=== PATIENT | male | born 1955 | race Caucasian/White ===

== ENCOUNTER → 2017-10-29 | Outpatient (CLI) | payer OTHER ==
--- NOTE | 2017-10-29 09:39 | US ---
EXAMINATION TYPE: US venous doppler duplex LE RT DATE OF EXAM: 10/29/2017 9:26 AM COMPARISON: NONE CLINICAL HISTORY: M79.661 Pain r lower leg, R22.41 Swelling. SIDE PERFORMED: Right TECHNIQUE: The lower extremity deep venous system is examined utilizing real time linear array sonog elsy with graded compression, doppler sonography and color-flow sonography. VESSELS IMAGED: External Iliac Vein (EIV) Common Femoral Vein Deep Femoral Vein Greater Saphenous Vein * Femoral Vein Popliteal Vein Small Saphenous Vein * Proximal Calf Veins (* superficial vessels) Right Leg: Negative for DVT IMPRESSION: 1. Right lower extremity venous ultrasound negative for deep venous thrombosis.
== END | disposition home or self-care (01) ==
LOC: RADUSWWP 08:57
PROVIDERS: ATTEND Internal Medicine
DX: M79.661 Pain in right lower leg (principal); R22.41 Localized swelling, mass and lump, right lower limb

== ENCOUNTER 2018-03-24 22:29 | Emergency (ER) | payer MEDICAID, OTHER ==
[2018-03-24] MEDS ORDERED: SODIUM CHLORIDE 0.9% 1,000 ML IV STA (23:41)
[2018-03-24 23:56] LABS: Basophils # (A) 0.1 k/uL (0-0.2); Basophils % (A) 1 %; Eosinophils # (A) 0.3 k/uL (0-0.7); Eosinophils % (A) 2 %; HCT 44.1 % (39.0-53.0); HGB 16.1 gm/dL (13.0-17.5); Lymphocytes # (A) 3.6 k/uL (1.0-4.8); Lymphocytes % (A) 28 %; MCH 29.5 pg (25.0-35.0); MCHC 36.5 g/dL (31.0-37.0); MCV 80.9 fL (80.0-100.0); Mean Platelet Volume 7.6; Monocytes # (A) 0.5 k/uL (0-1.0); Monocytes % (A) 4 %; Neutrophils # (A) 8.1 k/uL (1.3-7.7); Neutrophils % (A) 64 %; Platelet Count 246 k/uL (150-450); RBC 5.45 m/uL (4.30-5.90); RDW 13.4 % (11.5-15.5); WBC 12.7 k/uL (3.8-10.6)
[2018-03-25] MEDS ORDERED: ONDANSETRON 4 MG/2 ML VIAL IVP STA
[2018-03-25] MEDS ORDERED: MORPHINE SULFATE 4 MG/ML SYRINGE IVP STA
--- NOTE | 2018-03-25 00:04 | ED ---
General Adult HPI - General Chief complaint: Abdominal Pain Stated complaint: Abd Pain Time Seen by Provider: 03/24/18 23:31 Source: patient Mode of arrival: ambulatory Limitations: no limitations - History of Present Illness Initial comments: 43-year-old male with a past medical history of hypertension and kidney stones presents to the emergency department for a chief complaint of left lower quadrant pain 3 hours. Since states it started in his lower back and is now in his left lower abdomen. He describes the pain as a sharp pain. He states it feels better when he presses on the area. Patient states he has been having normal bowel movements and denies any blood in the stool. Patient denies any urinary symptoms. Patient denies any fevers or chills at home. Patient denies any pain in the testicle. Patient denies a history of diverticulitis.Patient has no other complaints at this time including shortness of breath, chest pain, abdominal pain, nausea or vomiting, headache, or visual changes. - Related Data Home Medications Medication Instructions Recorded Confirmed Losartan Potassium 100 mg PO DAILY 03/24/18 03/24/18 NIFEdipine [NIFEdipine ER] 60 mg PO DAILY 03/24/18 03/24/18 Previous Rx's Medication Instructions Recorded HYDROcodone/APAP 5-325MG [[place] 1 tab PO Q6HR PRN #10 tab 03/25/18 5-325] Ondansetron [Zofran ODT] 4 mg PO Q8HR PRN #15 tab 03/25/18 Tamsulosin [Flomax] 0.4 mg PO DAILY #20 cap 03/25/18 Allergies Allergy/AdvReac Type Severity Reaction Status Date / Time No Known Allergies Allergy Verified 03/24/18 23:40 Review of Systems ROS Statement: Those systems with pertinent positive or pertinent negative responses have been documented in the HPI. ROS Other: All systems not noted in ROS Statement are negative. Past Medical History Past Medical History: Hypertension Additional Past Medical History / Comment(s): Kidney stones History of Any Multi-Drug Resistant Organisms: None Reported Past Surgical History: Appendectomy, Hernia Repair, Orthopedic Surgery Past Psychological History: No Psychological Hx Reported Smoking Status: Current every day smoker Past Alcohol Use History: Rare Past Drug Use History: None Reported General Exam Limitations: no limitations General appearance: alert, in no apparent distress Head exam: Present: atraumatic, normocephalic, normal inspection Eye exam: Present: normal appearance, PERRL, EOMI. Absent: scleral icterus, conjunctival injection, periorbital swelling ENT exam: Present: normal exam, mucous membranes moist Neck exam: Present: normal inspection. Absent: tenderness, meningismus, lymphadenopathy Respiratory exam: Present: normal lung sounds bilaterally. Absent: respiratory distress, wheezes, rales, rhonchi, stridor Cardiovascular Exam: Present: regular rate, normal rhythm, normal heart sounds. Absent: systolic murmur, diastolic murmur, rubs, gallop, clicks GI/Abdominal exam: Present: soft, tenderness (LLQ, no tenderness elsewhere in the abdomen including the right lower quadrant and upper abdomen.), rebound ( Rebound tenderness noted in the left lower quadrant), normal bowel sounds. Absent: distended, guarding, rigid Back exam: Absent: CVA tenderness (R), CVA tenderness (L) Neurological exam: Present: alert, oriented X3, CN II-XII intact Psychiatric exam: Present: normal affect, normal mood Course Vital Signs 03/24/18 03/25/18 03/25/18 22:59 00:52 02:41 Temperature 97.7 F 98.2 F Pulse Rate 61 66 Respiratory 20 16 Rate Blood Pressure 152/94 164/99 159/99 O2 Sat by Pulse 97 96 Oximetry EKG Findings - EKG Comments: EKG Findings:: Sinus bradycardia, ventricular rate 57, OR interval 180, QTC 434 Medical Decision Making - Medical Decision Making 63-year-old male presents to the emergency department for chief complaint of left low back pain as well as left lower abdominal pain. He describes the pain as sharp pain. On exam there is minimal tenderness to palpation of the left lower quadrant. Minimal CVA tenderness noted. CBC unremarkable. White count of 12 likely reactive. CMP unremarkable. Creatinine 1.26 patient is at baseline at 1.10 and was given fluids. CT did show obstructing calculus at the left UPJ with hydronephrosis. Patient will follow up with urology for this. He will also follow up for hydrocele enlarged prostate. Patient will follow up with primary for hiatal hernia. Patient was given morphine and Zofran in the emergency department which significantly helped with his pain. He was given [place] at home. He was also given Flomax. He denies taking Viagra. He will return if he has any worsening symptoms. Patient's blood pressure is elevated at 159/99. I did offer to treat patient's blood pressure but he states that he is soon due for his hypertension medication which is at home that he would rather take. He is asymptomatic at this time. - Lab Data Result diagrams: 03/24/18 23:20 03/24/18 23:20 Lab Results 03/24/18 03/24/18 03/25/18 Range/Units 23:20 23:20 01:10 WBC 12.7 H (3.8-10.6) k/uL RBC 5.45 (4.30-5.90) m/uL Hgb 16.1 (13.0-17.5) gm/dL Hct 44.1 (39.0-53.0) % MCV 80.9 (80.0-100.0) fL MCH 29.5 (25.0-35.0) pg MCHC 36.5 (31.0-37.0) g/dL RDW 13.4 (11.5-15.5) % Plt Count 246 (150-450) k/uL Neutrophils % 64 % Lymphocytes % 28 % Monocytes % 4 % Eosinophils % 2 % Basophils % 1 % Neutrophils # 8.1 H (1.3-7.7) k/uL Lymphocytes # 3.6 (1.0-4.8) k/uL Monocytes # 0.5 (0-1.0) k/uL Eosinophils # 0.3 (0-0.7) k/uL Basophils # 0.1 (0-0.2) k/uL Sodium 141 (137-145) mmol/L Potassium 4.1 (3.5-5.1) mmol/L Chloride 107 (98-107) mmol/L Carbon Dioxide 25 (22-30) mmol/L Anion Gap 9 mmol/L BUN 29 H (9-20) mg/dL Creatinine 1.26 H (0.66-1.25) mg/dL Est GFR (CKD-EPI)AfAm 69 (>60 ml/min/1.73 sqM) Est GFR (CKD-EPI)NonAf 60 (>60 ml/min/1.73 sqM) Glucose 109 H (74-99) mg/dL Calcium 10.0 (8.4-10.2) mg/dL Total Bilirubin 0.6 (0.2-1.3) mg/dL AST 25 (17-59) U/L ALT 29 (21-72) U/L Alkaline Phosphatase 95 (38-126) U/L Total Protein 7.6 (6.3-8.2) g/dL Albumin 4.3 (3.5-5.0) g/dL Amylase 95 (30-110) U/L Lipase 218 (23-300) U/L Urine Color Light Yellow Urine Appearance Clear (Clear) Urine pH 7.5 (5.0-8.0) Ur Specific [place] 1.026 (1.001-1.035) Urine Protein Negative (Negative) Urine Glucose (UA) Negative (Negative) Urine Ketones Negative (Negative) Urine Blood Moderate H (Negative) Urine Nitrite Negative (Negative) Urine Bilirubin Negative (Negative) Urine Urobilinogen <2.0 (<2.0) mg/dL Ur Leukocyte Esterase Negative (Negative) Urine RBC 152 H (0-5) /hpf Urine WBC 6 H (0-5) /hpf Urine Mucus Rare H (None) /hpf Disposition Clinical Impression: Nephrolithiasis Disposition: HOME SELF-CARE Condition: Good Instructions: Kidney Stones (ED) Additional Instructions: Please take medications as directed. Please follow-up with urology in 1-2 days for kidney stone, hydrocele, and enlarged prostate. Please follow-up with primary care for hiatal hernia. Please return to the emergency department if you have any worsening symptoms. Prescriptions: HYDROcodone/APAP 5-325MG [[place] 5-325] 1 tab PO Q6HR PRN #10 tab PRN Reason: Pain Ondansetron [Zofran ODT] 4 mg PO Q8HR PRN #15 tab PRN Reason: Nausea Tamsulosin [Flomax] 0.4 mg PO DAILY #20 cap Is patient prescribed a controlled substance at d/c from ED?: No Referrals: Colten Henson MD [Primary Care Provider] - 1-2 days Alessandro Berman MD [STAFF PHYSICIAN] - 1-2 days Time of Disposition: 02:02
[2018-03-25 00:08] LABS: Albumin 4.3 g/dL (3.5-5.0); Potassium 4.1 mmol/L (3.5-5.1); Total Bilirubin 0.6 mg/dL (0.2-1.3); Total Protein 7.6 g/dL (6.3-8.2)
--- NOTE | 2018-03-25 01:00 | CT ---
EXAMINATION TYPE: CT abdomen pelvis w con DATE OF EXAM: 03/25/2018 COMPARISON: None HISTORY: No prior, left flank and low abd pain, history of appendectomy and hernia repair CT DLP: 1025.7 mGycm Automated exposure control for dose reduction was used. TECHNIQUE: Helical acquisition of images was performed from the lung bases through the pelvis. CONTRAST: Performed without Oral Contrast and with IV Contrast, patient injected with 100 mL of Isovue 300. FINDINGS: There is mild subsegmental atelectasis at the lung bases. There is mild hiatal hernia. The remainder of the stomach appears normal. Heart size is normal. There is no pericardial effusion. There is no pl eural effusion. Liver shows no focal defect. Gallbladder is contracted. Bile ducts are not dilated. Spleen appears no rmal. There is no evidence of pancreatic mass. There is no adrenal mass. There is 5 mm calcification on the left adrenal gland that could be due to old hemorrhage. Kidneys show satisfactory contrast opacification. There is mild left-sided hydronephrosis. There is 7 mm calculus lateral left kidney. There is 5 mm obstructing calculus at the left ureteropelvic juncti on. There is 4 mm calculus upper pole right kidney. There is one Thi calculus lower pole right kidn ey. There is no retroperitoneal adenopathy. Bladder distends smoothly. There is no free fluid in the pelvis. The prostate is enlarged and measure s 5.2 cm. There is no mesenteric adenopathy or edema. There is no inguinal hernia. There is probably right side scrotal hydrocele. There is no intestinal wall thickening. There are no dilated loops. Appendix is not seen. There is no sign of appendicitis. There is small umbilical hernia contains fat. There are some spondylotic cannon es in the lumbar spine. I see no bony destructive process. The bony pelvis appears intact. IMPRESSION: BILATERAL RENAL CALCULI. OBSTRUCTING CALCULUS AT THE LEFT URETEROPELVIC JUNCTION WITH HYDRONEPHROSIS. ENLARGED PROSTATE. HIATAL HERNIA. THIS PROBABLY RIGHT-SIDED HYDROCELE.
[2018-03-25 01:28] LABS: Appearance,Urine Clear (Clear); Bilirubin,Urine Negative (Negative); Blood,Urine Moderate (Negative); Color,Urine Light Yellow; Glucose,Urine (UA) Negative (Negative); Ketones,Urine Negative (Negative); Leukocyte Esterase,Urine Negative (Negative); Mucus,Urine Rare /hpf; Nitrite,Urine Negative (Negative); PH, Urine 7.5 (5.0-8.0); Protein,Urine Negative (Negative); RBC,Urine 152 /hpf (0-5); Specific Gravity,Urine 1.026 (1.001-1.035); Urobilinogen,Urine <2.0 mg/dL (<2.0); WBC,Urine 6 /hpf (0-5)
[2018-03-25 02:49] VITALS: BP 159/99; PULSE 66; RESP 16; TEMP 98.2
== END 2018-03-25 02:45 | disposition home or self-care (01) ==
LOC: EC 22:29
DX: N13.2 Hydronephrosis with renal and ureteral calculous obstruction (principal); N43.3 Hydrocele, unspecified; N40.0 Benign prostatic hyperplasia without lower urinary tract symptoms; K44.9 Diaphragmatic hernia without obstruction or gangrene; I10 Essential (primary) hypertension; F17.200 Nicotine dependence, unspecified, uncomplicated; Z79.899 Other long term (current) drug therapy; Z90.49 Acquired absence of other specified parts of digestive tract
CPT/HCPCS: 36415; 74177; 80053; 81001; 82150; 83690; 85025; 93005; 96361; 96374; 96375; 99284

== ENCOUNTER → 2018-03-30 | Outpatient (CLI) | payer MEDICAID ==
--- NOTE | 2018-03-30 11:47 | XR ---
EXAMINATION TYPE: XR KUB DATE OF EXAM: 03/30/2018 11:15 AM CLINICAL HISTORY: History of bilateral nephrolithiasis (3 in the right and 2 on the left per patient history). Left lower quadrant pain and mid abdominal pain. TECHNIQUE: Single supine KUB image of the abdomen is obtained. COMPARISON: 05/12/2011. FINDINGS: In addition to a previously seen punctate calculus on the right on the exam of 2010 there i s are 2 new calculi measuring 1.2 cm and 0.4 cm. On the left there are at least 2 calculi adjacent to one another measuring 3 mm and 5 mm. Additionally there is a calculus along the course of the left u reter measuring 5 mm between the transverse processes of L4 and L5. No calculi are seen within the pe lvis. Scattered gas is seen in non-distended small bowel loops. Gas and fecal material is seen in non -distended colon. There is no visceromegaly, pneumoperitoneum, or abnormal calcification appreciated. The lung bases are clear and the osseous structures are intact. IMPRESSION: 1. 5 mm calculus along the course of the left ureter between the L4 and L5 transverse processes. CT a bdomen or ultrasound could assess for obstructive uropathy/hydronephrosis. 2. Additional bilateral presumably nonobstructing renal calculi.
[2018-03-30 16:36] LABS: Basophils # (A) 0.1 k/uL (0-0.2); Basophils % (A) 1 %; Eosinophils # (A) 0.3 k/uL (0-0.7); Eosinophils % (A) 3 %; HGB 15.2 gm/dL (13.0-17.5); Lymphocytes # (A) 4.2 k/uL (1.0-4.8); Lymphocytes % (A) 42 %; MCH 28.4 pg (25.0-35.0); MCHC 35.4 g/dL (31.0-37.0); MCV 80.2 fL (80.0-100.0); Mean Platelet Volume 7.9; Monocytes # (A) 0.4 k/uL (0-1.0); Monocytes % (A) 4 %; Neutrophils # (A) 4.9 k/uL (1.3-7.7); Neutrophils % (A) 49 %; Platelet Count 268 k/uL (150-450); RBC 5.36 m/uL (4.30-5.90); RDW 13.1 % (11.5-15.5)
[2018-03-30 16:39] LABS: Appearance,Urine Clear (Clear); Bilirubin,Urine Negative (Negative); Blood,Urine Negative (Negative); Color,Urine Yellow; Glucose,Urine (UA) Negative (Negative); Hyaline Casts,Urine 7 /lpf (0-2); Ketones,Urine Negative (Negative); Leukocyte Esterase,Urine Trace (Negative); Mucus,Urine Rare /hpf; Nitrite,Urine Negative (Negative); Protein,Urine Negative (Negative); RBC,Urine 1 /hpf (0-5); Specific Gravity,Urine 1.014 (1.001-1.035); Urobilinogen,Urine <2.0 mg/dL (<2.0); WBC,Urine 9 /hpf (0-5)
[2018-03-30 16:46] LABS: Calcium 9.9 mg/dL (8.4-10.2); Potassium 3.7 mmol/L (3.5-5.1)
== END | disposition home or self-care (01) ==
LOC: RADXRMAIN 10:52
PROVIDERS: ATTEND Urology
DX: N20.1 Calculus of ureter (principal); Z88.5 Allergy status to narcotic agent
CPT/HCPCS: 36415; 74018; 80048; 81001; 85025

== ENCOUNTER → 2018-04-12 | Outpatient (CLI) | payer MEDICAID ==
--- NOTE | 2018-04-12 10:30 | XR ---
Abdomen HISTORY: Kidney stone Frontal view of the abdomen on 2 images correlated to prior abdomen 03/30/2018, CT abdomen pelvis Multiple calcifications are present bilaterally at the lower poles of the kidneys as noted on prior e xam. The calcification superimposed over the left ureter may have migrated in the interval, there is a calcification superimposed over the sacral ala on the left measuring approximately 5 mm at the left lobe of the distal ureter. Rounded calcification is superimposed over the right sacral ala as on shelby or exam. Lung bases are not included on exam. IMPRESSION: Bilateral nephrolithiasis. There may been interval progression of patient's left-sided ur eteral calculus
== END ==
LOC: RADXRMAIN 06:54
PROVIDERS: ATTEND Urology
DX: N20.0 Calculus of kidney (principal)
CPT/HCPCS: 74018

== ENCOUNTER → 2018-04-28 | Outpatient (CLI) | payer MEDICAID ==
--- NOTE | 2018-04-30 00:06 | CT ---
EXAMINATION TYPE: CT soft tissue neck w con DATE OF EXAM: 04/28/2018 COMPARISON: None HISTORY: 63-year-old male with mass on left side neck, marked with BB TECHNIQUE: Contiguous axial scanning of the soft tissues of the neck performed with IV Contrast, zachery ent injected with 100 mL of Isovue 300. Coronal/sagittal reconstructions performed. CT DLP: 742 mGycm Automated exposure control for dose reduction was used. FINDINGS: Visualized intracranial structures, orbits and globes, and mastoid air cells appear clear. There is extensive partial opacification of the right maxillary sinus with some reactive new osteogen esis imperfecta the sinus xie and some intrinsic associated calcific densities within the sinus. Ri ghtward nasal septal deviation. Very tortuous bilateral internal carotid arteries are demonstrated along the neck. Nasopharynx is clear. Bilateral palatine tonsillar hypertrophy without evidence for any discrete enhancing mucosal space ma ss. There is slight asymmetric nodular thickening along the right aryepiglottic fold, on the first axial image 51. Otherwise, the vocal folds are symmetrical. The trachea and visualized upper lungs are george r. In the visualized upper thorax, the upper descending thoracic aorta is mildly aneurysmal at 3.5 cm . Mildly distended upper thoracic esophagus with air-fluid level within. There is an enhancing nodule measuring 2.0 x 1.3 cm in the inferior right thyroid lobe. The submandib ular and parotid glands are satisfactory. A palpable marker is placed along the left lateral mid neck. There is underlying cervical lymphadenop athy, Station 3 interposed between the sternal cleidomastoid muscle and carotid space lymph node armani uring up to 3.0 cm short axis, refer to axial image 48, coronal image 42, and sagittal image 62. The intervening fat plane with the overlying sternocleidomastoid is not well-defined. Second enlarged lym ph node just below measures 2.0 cm, axial image 53. Moderate cervical spondylosis mid to lower cervical spine. IMPRESSION: 1. PALPABLE MARKER ALONG THE LEFT LATERAL MID NECK. UNDERLYING, THERE IS STATION 3 LEFT-SIDED LYMPHAD ENOPATHY WITH AT LEAST 2 ENLARGED LYMPH NODES MEASURING UP TO 3.0 AND 2.0 CM. METASTATIC DISEASE NOT EXCLUDED THOUGH A CLEAR HEAD AND NECK PRIMARY IS NOT IDENTIFIED. 2. SLIGHT ASYMMETRIC NODULAR THICKENING OF THE RIGHT ARYEPIGLOTTIC FOLD. RECOMMEND DIRECT VISUALIZATI ON TO FURTHER EVALUATE. 3. BILATERAL PALATINE TONSILLAR HYPERTROPHY WITHOUT DISCRETE ENHANCING MASS HERE. 4. ENHANCING NODULE WITHIN THE RIGHT LOBE OF THE THYROID GLAND MEASURES 2.0 CM. THYROID ULTRASOUND CA N BETTER CHARACTERIZE. FNA MAY BE INDICATED. 5. SEVERE CHRONIC RIGHT MAXILLARY SINUSITIS. INTRINSIC CALCIFICATIONS SUGGEST SUPERIMPOSED ASPERGILLU S INFECTION. 6. SLIGHT DISTENTION OF THE UPPER THORACIC ESOPHAGUS WITH AIR-FLUID LEVEL. CORRELATE FOR GERD. IN ADD ITION, THERE IS MILD ANEURYSM OF THE VISUALIZED UPPER DESCENDING THORACIC AORTA AT 3.5 CM.
== END ==
LOC: RADCTMAIN 14:40
PROVIDERS: ATTEND Internal Medicine
DX: E04.1 Nontoxic single thyroid nodule (principal); R59.0 Localized enlarged lymph nodes; J35.1 Hypertrophy of tonsils; J38.7 Other diseases of larynx
CPT/HCPCS: 70491; Q9967

== ENCOUNTER 2018-05-12 08:30 | Day surgery (SDC) | payer MEDICAID ==
[2018-05-12 08:57] VITALS: TEMP 97.9
[2018-05-12 10:48] VITALS: PULSE 60; RESP 16
--- NOTE | 2018-05-12 10:55 | US ---
EXAMINATION TYPE: US fine needle aspiration, US biopsy lymph node DATE OF EXAM: 05/12/2018 HISTORY: Left knee mass. FINDINGS: Maximal barrier technique was utilized. The skin overlying a suitable path to the patient' s mass was localized with ultrasound and the overlying skin prepped and draped. Ultrasound was utili zed with sterile technique. Lidocaine was used for local anesthesia. Under direct ultrasound guidan ce 2 passes with a 25-gauge needle were made into the left-sided neck mass and specimen submitted to cytology. A skin hali was made with a scalpel. An 18-gauge needle was advanced under direct ultrasou nd guidance and core specimen obtained of the mass. Specimen submitted in formalin to Pathology. Fo llowing the procedure, hemostasis achieved and the patient is discharged in stable condition without complication. IMPRESSION:STATUS POST ULTRASOUND GUIDED FINE-NEEDLE ASPIRATION AND CORE BIOPSY OF left neck MASS, PA THOLOGY IS PENDING. THIS PROCEDURE IS PERFORMED BY THE UNDERSIGNED.
--- NOTE | 2018-05-12 10:58 | US ---
EXAMINATION TYPE: US FNA thyroid DATE OF EXAM: 05/12/2018 COMPARISON: NONE HISTORY: Thyroid nodule, E04.1 Maximal barrier technique was utilized. Ultrasound using sterile technique. The skin overlying the no dule was localized with ultrasound and the overlying skin prepped and draped. Lidocaine used for loca l anesthesia. 5 passes with a 25-gauge needle were made into the nodule under ultrasound guidance. As pirate specimen submitted to cytology. Following the procedure hemostasis achieved. No immediate comp lication IMPRESSION: Status post ultrasound-guided fine-needle aspiration of right thyroid nodule, pathology p ending.
[2018-05-12 11:11] VITALS: BP 159/100
== END 2018-05-12 11:10 | disposition home or self-care (01) ==
LOC: RADPROMAIN 08:30
PROVIDERS: ATTEND Otolaryngology
DX: C77.0 Secondary and unspecified malignant neoplasm of lymph nodes of head, face and neck (principal); E04.1 Nontoxic single thyroid nodule
CPT/HCPCS: 10022; 38505; 76942; 88173; 88305; 88341; 88342

== ENCOUNTER → 2018-06-05 | Outpatient (CLI) | payer MEDICAID ==
[2018-06-05 11:29] LABS: HCT 48.8 % (39.0-53.0); HGB 16.9 gm/dL (13.0-17.5); MCH 28.1 pg (25.0-35.0); MCHC 34.7 g/dL (31.0-37.0); Mean Platelet Volume 7.6; Platelet Count 284 k/uL (150-450); RBC 6.03 m/uL (4.30-5.90); RDW 13.7 % (11.5-15.5)
== END ==
LOC: LABPAT 10:36
PROVIDERS: ATTEND Anesthesiology
DX: Z01.818 Encounter for other preprocedural examination (principal); Z01.812 Encounter for preprocedural laboratory examination; E04.1 Nontoxic single thyroid nodule
CPT/HCPCS: 36415; 85027; 93005

== ENCOUNTER → 2018-06-05 | Outpatient (CLI) | payer MEDICAID ==
--- NOTE | 2018-06-07 06:33 | PE ---
EXAMINATION TYPE: PET CT fusion skull to thigh DATE OF EXAM: 06/05/2018 COMPARISON: CT neck April 28, 2018. CT abdomen and pelvis March 25, 2018. HISTORY: Head and neck cancer diagnosed on biopsy May 12, 2018. TECHNIQUE: Following the intravenous administration of 10.52 mCi of F-18 FDG, whole body images are performed from the skull base to the midthigh. Images are reviewed on the computer in the coronal, a xial, and sagittal planes. Reconstructed rotating images are created on independent workstation and reviewed on the computer. A noncontrast CT is performed in conjunction with the PET scan. Dedicated PET/CT imaging of the neck is also acquired. SCAN: Initial Scan FINDINGS: SKULL BASE AND NECK: There is asymmetric left-sided soft tissue thickening at base of tongue with ab normal hypermetabolic uptake measuring roughly 1.2 cm cm transversely axial image 37, max SUV is 12.4 1. Cannot exclude right-sided extension as there is more subtle hypermetabolic uptake extending to ri ght of midline, max SUV is 7.27 on axial image 37.. There is abnormal enlarged hypermetabolic lymph node at level of false focal cords measuring 2.9 x 2. 2 cm axial image 56, max SUV is 10.97. There is second smaller hypermetabolic posterior inferior lymph node at level of the true vocal cords measuring 1.8 x 1.3 cm axial image 59, max SUV is 8.63. CHEST, MEDIASTINUM, AND HILAR REGION: No suspicious hypermetabolic uptake is seen. ABDOMEN AND PELVIS: No suspicious hypermetabolic uptake is present. Normal excretion is seen. OSSEOUS STRUCTURES: No suspicious hypermetabolic uptake is seen. OTHER CT: Near complete hyperdense filling of right maxillary sinus is redemonstrated. Dependent atelectasis bilateral lower lobes is present. Ascending aorta measures up to 4.2 cm in diameter axial image 108. Moderate three-vessel coronary artery calcifications present which is noted marker for coronary arter y disease. Moderate size fixed hiatal hernia is redemonstrated. There is 3 mm calculus upper pole right kidney axial image 166 redemonstrated. There is interval pass age of 9 mm calculus into collecting system and UPJ axial image 178. There is redemonstration of 2-3 left-sided renal calculi including dominant 8 mm calculus axial image 180. There is simple appearing exophytic 2.3 cm cyst medially lower pole of left kidney 207. Prostate gland is enlarged in size bulging and bladder base consistent with BPH, correlate clinically . Heterogeneous asymmetric right sided soft tissue axial image 236 could reflect scar tissue from prior hernia repair surgery. No suspicious hypermetabolic uptake is present. There are small bilateral scrotal fluid collection or hydroceles. Multilevel spurring in the thoracolumbar spine is present. There is mild/moderate calcified plaque in the aorta extending into branch vessels. IMPRESSION: Poorly defined primary neoplasm at least involving the left base of tongue, cannot exclud e right-sided extension. Left-sided adenopathy noted. No metastatic disease is evident.
== END | disposition home or self-care (01) ==
LOC: RADPETMAIN 07:21
PROVIDERS: ATTEND Otolaryngology
DX: C01 Malignant neoplasm of base of tongue (principal)
CPT/HCPCS: 78815; A9552

== ENCOUNTER → 2018-06-09 | Day surgery (SDC) | payer MEDICAID ==
[2018-06-04 09:54] VITALS: BMI 28.3
[~2018-06-09] MED LIST: DEXAMETHASONE SOD PHOSPHATE 10 MG/ML 1 ML VIAL IV ONE; DEXAMETHASONE SOD PHOSPHATE 4 MG/ML 1 ML VIAL IV ONE; FAMOTIDINE 20 MG/2 ML VIAL IV ONE; HYDROmorphone 0.5 MG/0.5 ML SYRINGE IVP PRN; LACTATED RINGERS 1,000 ML IV SCH; LIDOCAINE 1% 20 ML VIAL (10MG/ML) FOR IV START INTRADERMA PRN; LIDOCAINE 1% INJ 10MG/ML (20 ML MDV) ONE; MIDAZOLAM (PF) 2 MG/2 ML VIAL IV PRN; MIDAZOLAM 2 MG/2 ML VIAL ONE; ONDANSETRON 4 MG/2 ML VIAL IVP ONE; PROPOFOL 10 MG/ML 20 ML VIAL IV ONE; SCOPOLAMINE 1.5MG/72HR PATCH TRANSDERM ONE; SUCCINYLCHOLINE CHLORIDE 100 MG/5 ML SYR IV ONE; fentaNYL (PF) 50 MCG/ML 2 ML AMP ONE
--- NOTE | 2018-06-09 12:09 | P.OP ---
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 He's had fine-needle aspiration which showed squamous cell carcinoma. Initially no particular were primary site was noted however he has had a PET scan in the meantime which indicated a lesion of the left base of tongue Operative Findings: Mild left base of tongue hypertrophy that was biopsied, Description of Procedure: The patient was brought in the operative suite and placed in a supine position. The patient underwent induction of general anesthesia with oral endotracheal intubation without difficulty. The patient was prepped and draped in usual aseptic fashion. Palpation of the base of tongue revealed no particular abnormalities. Tooth guard was placed. Direct laryngoscopy was performed with systematic evaluation of the base of tongue vallecula both piriform sinuses post cricoid area and endolarynx. Due to the findings on the PET scan the laryngoscope was placed in position to evaluate further the left base of tongue and was placed in suspension. Multiple biopsies were taken at the left base of tongue. There was some lingual tonsillar hypertrophy but no well demarcated lesion but multiple biopsies were taken in the left base of tongue. Hemostasis was gained spontaneously. The vocal cords were then visualized again and the laryngoscope placed in suspension. Possible bronchoscopy was performed down to the level of the secondary bronchi with no abnormalities noted. The bronchoscope was then withdrawn. The laryngoscope was then withdrawn and rigid esophagoscopy was performed to the level of the gastroesophageal junction with no abnormalities noted. Esophagoscope was withdrawn. The hemostasis remained good in the hypopharynx. The patient was allowed to emerge from general anesthesia having tolerating the procedure well and is excised in the operating suite and transferred to the postop recovery area in satisfactory condition.
[2018-06-09 12:29] VITALS: TEMP 97.3
[2018-06-09 13:48] VITALS: RESP 16
[2018-06-09 14:02] VITALS: BP 143/91; PULSE 72
== END | disposition home or self-care (01) ==
LOC: OR 09:02
PROVIDERS: ATTEND Otolaryngology
DX: K14.9 Disease of tongue, unspecified (principal); C96.9 Malignant neoplasm of lymphoid, hematopoietic and related tissue, unspecified; K21.9 Gastro-esophageal reflux disease without esophagitis; I51.9 Heart disease, unspecified; I10 Essential (primary) hypertension; Z79.891 Long term (current) use of opiate analgesic; Z79.899 Other long term (current) drug therapy; Z88.5 Allergy status to narcotic agent; Z91.09 Other allergy status, other than to drugs and biological substances; F17.290 Nicotine dependence, other tobacco product, uncomplicated; Z87.442 Personal history of urinary calculi
CPT/HCPCS: 88305; 31535; 31622; 43191; J2250; J1100; J2405; J2001; J3010; J0330; J2704

== ENCOUNTER 2018-06-25 07:59 | Observation (INO) | payer MEDICAID ==
[2018-06-22 16:19] VITALS: BMI 29.7
[2018-06-25] MEDS: LACTATED RINGERS 1,000 ML IV SCH ×2 (08:32→18:38)
[2018-06-25] MEDS ORDERED: ceFAZolin 1,000 MG in DEXTROSE/WATER 1 50ML.BAG IVPB STA (09:05)
[2018-06-25 09:27] LABS: HCT 45.7 % (39.0-53.0); HGB 15.7 gm/dL (13.0-17.5); MCH 28.3 pg (25.0-35.0); MCHC 34.3 g/dL (31.0-37.0); MCV 82.5 fL (80.0-100.0); Mean Platelet Volume 7.7; Platelet Count 237 k/uL (150-450); RBC 5.55 m/uL (4.30-5.90); WBC 10.2 k/uL (3.8-10.6)
[2018-06-25 09:31] LABS: INR 0.9 (<1.2); Prothrombin Time 10.1 sec (9.0-12.0)
[2018-06-25] MEDS ORDERED: MIDAZOLAM 2 MG/2 ML VIAL ONE (09:55)
[2018-06-25] MEDS ORDERED: fentaNYL (PF) 50 MCG/ML 2 ML AMP ONE (09:55)
[2018-06-25] MEDS ORDERED: PROPOFOL 10 MG/ML 20 ML VIAL IV ONE (09:55)
[2018-06-25] MEDS ORDERED: LIDOCAINE 1% INJ 10MG/ML (20 ML MDV) ONE (09:55)
--- NOTE | 2018-06-25 10:21 | P.PCN ---
Date of Procedure: 06/25/18 Procedure(s) Performed: Brief history: Patient is a 63-year-old pleasant white male, diagnosed with head and neck cancer 4 weeks ago. He scheduled to undergo chemo and radiation next week. He is hence scheduled for an EGD with PEG tube placement today. Procedure performed: EGD with attempted PEG tube placement Preoperative diagnosis: Recently diagnosed head and neck carcer IV sedation by anesthesia Procedure: After informed consent was obtained with the patient as well as the family the patient was brought into the endoscopy unit. IV conscious sedation was administered by anesthesia under continuous monitoring. The Olympus GF 160 video endoscope was inserted into the mouth and esophagus intubated without any difficulty and was gradually advanced to the stomach and duodenum. The bulb and second part of the duodenum was visualized which appeared normal. The scope at this time was withdrawn to the stomach adequately insufflated with air. Adequate transillumination could not achieved. There was some transient transillumination noted just below the xiphisternum and at this place one percent Xylocaine was infiltrated into the skin. I passed the needle after the skin was injected with 1% Xylocaine but could not see entering into the stomach. Despite multiple attempts and trying a different spots I was not able to identify a safe spot and hence at this time I decided to terminate the procedure. The visualized portions of the stomach appeared normal. There was a moderate size hernia noted. The scope was withdrawn to the esophagus and the GE junction was located at 36 cm from the incisors which appeared normal. Patient tolerated the procedure well. Impression: PEG tube could not be placed as adequate transillumination could not be achieved on the anterior abdominal wall Moderate size hiatal hernia. Recommendations: Findings of this examination were discussed with the patient's family. Suspected could not be placed I will obtain a surgical consultation for an open G-tube placement.
[2018-06-25 12:04] LABS: Calcium 9.7 mg/dL (8.4-10.2); Potassium 4.4 mmol/L (3.5-5.1)
[2018-06-25] MEDS ORDERED: ONDANSETRON 4 MG/2 ML VIAL IVP PRN (16:00)
[2018-06-25] MEDS ORDERED: ACETAMINOPHEN TAB 325 MG TAB PO PRN (16:00)
[2018-06-25] MEDS ORDERED: NALOXONE 0.4 MG/ML 1 ML VIAL IV PRN (16:00)
[2018-06-25] MEDS ORDERED: HYDROcodone/APAP 5-325MG 1 EACH TAB PO PRN (16:00)
--- NOTE | 2018-06-25 16:03 | P.HPIM ---
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 He was undergoing PEG tube placement and still be starting chemo and radiation on 06/[address] Clemens and Dr. Stern respectively. Today PEG tube placement was not possible as adequate visualization was not achieved. During the procedure there was concern that the patient was jumping between tachycardia and bradycardia as well as having ventricular bigeminy. They felt that the patient needs to be evaluated by cardiology prior to discharge. We have admitted him as observation overnight to rule out any significant arrhythmia. Patient seen and examined at bedside. For the last 2 months he has undergone several biopsies and was found to have cancer. He states he first noticed a swelling on his back over the summer but then it became larger and harder so he sought medical attention. He is otherwise been in his normal state of health. He denies any chest pain, shortness of breath, nausea, vomiting, diarrhea, constipation, dysuria, or unusual weakness. He reports that he has had a few infrequent transient episodes of dizziness over the last couple of months. He denies any other problems. He states he had a stress test at one point in time but it was unrevealing. He denies any history of heart problems or arrhythmias. His mother has had a history of arrhythmia and his father had coronary artery bypass grafting completed. He has not recently started or stopped any medications and he follows with Dr. Henson on a regular basis. Review of Systems Pertinent positives and negatives as discussed in HPI, a complete review of systems was performed and all other systems are negative. 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 Kidney stones, thyroid nodule & enlarged lymph node left side of neck History of Any Multi-Drug Resistant Organisms: None Reported Past Surgical History: Appendectomy, Hernia Repair, Orthopedic Surgery Additional Past Surgical History / Comment(s): tongue, thyroid, and lymph node bx,arthroscopies both knees Past Anesthesia/Blood Transfusion Reactions: No Reported Reaction Additional Past Anesthesia/Blood Transfusion Reaction / Comment(s): no hx blood transfusion Past Psychological History: No Psychological Hx Reported Smoking Status: Former smoker Past Alcohol Use History: Rare Additional Past Alcohol Use History / Comment(s): quit smoking Jun 2018,-SMOKEd a pipe MAINLY ON WEEKENDS OFF AND ON SINCE AGE 12 Past Drug Use History: None Reported Additional History: 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 Medications and Allergies Home Medications Medication Instructions Recorded Confirmed Type Losartan Potassium 100 mg PO DAILY 03/24/18 06/25/18 History NIFEdipine [NIFEdipine ER] 60 mg PO DAILY 03/24/18 06/25/18 History Aspirin 81 mg PO DAILY 05/05/18 06/25/18 History L.acidoph,Paracasei, B.lactis 1 cap PO DAILY 05/05/18 06/25/18 History [Probiotic] Naproxen Sodium [Aleve] 220 mg PO DAILY PRN 05/05/18 06/25/18 History Omeprazole 20 mg PO DAILY 05/05/18 06/25/18 History Cbd Oil 0.5 mg PO DAILY 06/22/18 06/25/18 History Allergies Allergy/AdvReac Type Severity Reaction Status Date / Time meperidine [From Demerol] Allergy fever Verified 06/25/18 14:31 Physical Exam Osteopathic Statement: *. No significant issues noted on an osteopathic structural exam other than those noted in the History and Physical/Consult. Vitals: Vital Signs Temp Pulse Pulse Pulse Resp BP BP 06/25/18 15:08 97.6 F 42 L 18 154/92 06/25/18 14:35 90 18 148/90 06/25/18 14:20 78 16 153/93 06/25/18 13:31 79 17 159/98 06/25/18 11:05 102 H 16 152/94 06/25/18 10:53 52 L 16 153/92 06/25/18 10:35 52 L 16 136/92 06/25/18 10:21 58 L 16 149/84 06/25/18 08:28 98 F 68 18 174/97 Pulse Ox 06/25/18 15:08 97 06/25/18 14:35 96 01/25/19 14:20 97 06/25/18 13:31 98 06/25/18 11:05 96 06/25/18 10:53 98 06/25/18 10:35 94 L 06/25/18 10:21 94 L 06/25/18 08:28 98 Intake and Output 06/25/18 06/25/18 06/25/18 06:59 14:59 22:59 Intake Total 700 Balance 700 Intake: IV 700 Other: # Voids 1 General: non toxic, no distress, appears at stated age, normal weight Derm: Bruising over his abdominal area no unusual rashes/lesions no unusual ecchymoses, warm, dry Head: atraumatic, normocephalic, symmetric Eyes: EOMI, no lid lag, anicteric sclera, pupils equal round reactive to light ENT: Nose and ears atraumatic, no thrush, no pharyngeal erythema Neck: No thyromegaly, left-sided and I with enlargement, no palpable mass but feels enlarged, trachea midline, supple Mouth: no lip lesion, mucus membranes moist Cardiovascular: S1S2 reg, no murmur, positive posterior tibial pulse bilateral, no edema, capillary refill less than 2 seconds Lungs: CTA bilateral, no rhonchi, no rales , no accessory muscle use Abdominal: soft, nontender to palpation, no guarding, no appreciable organomegaly, normal bowel sounds Ext: no gross muscle atrophy, muscle strength 5 out of 5 in all 4 extremities grossly, no contractures, Neuro: CN II-XI grossly intact, light touch intact all 4 extremities, finger to nose within normal limits, Psych: Alert, oriented, appropriate affect Results CBC & Chem 7: 06/25/18 09:14 06/25/18 11:12 Labs: Abnormal Lab Results - Last 24 Hours (Table) 06/25/18 Range/Units 11:12 BUN 23 H (9-20) mg/dL Creatinine 1.37 H (0.66-1.25) mg/dL Thrombosis Risk Factor Assmnt - DVT/VTE Prophylaxis DVT/VTE Prophylaxis: Low risk, early ambulation encouraged - Choose All That Apply Each Risk Factor Represents 2 Points: Age 61-74 years Thrombosis Risk Factor Assessment Total Risk Factor Score: 2 Thrombosis Risk Factor Assessment Level: Low Risk Assessment and Plan Assessment: Ventricular bigeminy -There was concerns for bradycardia followed by tachycardia. However telemetry strips provided were reviewed and it appears during the episodes of bradycardia Shafer only counting the PVCs and not the extra heartbeat. It appears that all heart rates were consistently around 100. He does have episodes of bigeminy and sinus tachycardia. -We'll monitor on telemetry -Awaiting call back from oncology to see if cardiac clearance still needed -Patient currently in normal sinus rhythm on telemetry at a rate of 77. Head and neck cancer -Plan for discharge in a.m. so patient can start chemo and radiation on 06/29/18 -Plan is to see how he tolerates chemoradiation and avoid open G-tube at this point in time unless he develops symptoms Hypertension, slightly accelerated -Likely secondary to recent procedure -Resume home medications CKD III Cr at baseline of 1.37 - continue losartan, avoid dehydration GERD - PPI The patient is placed in observation with an anticipated less than 2 per night stay for evaluation of ventricular bigenemy Surrogate decision-maker: Payton CODE STATus: FULL DVT prophylaxis: early ambulation Discussed with: patient, nursing, loida lynn NP Anticipated discharge date: [address]: home A total of 65 minutes was spent on the care of this complex patient more than 50 % of the time was spent in counseling and care coordination.
[2018-06-26 04:04] VITALS: RESP 18
[2018-06-26] MEDS ORDERED: PANTOPRAZOLE 40 MG TABLET PO SCH (07:30)
--- NOTE | 2018-06-26 08:37 | P.CRDCN ---
History of Present Illness Consult date: 06/26/18 Chief complaint: Cardiac arrhythmia History of present illness: This is a pleasant 63-year-old gentleman with a past medical history significant for intermediate triple-vessel coronary artery disease based on heart catheterization was performed in 2006, hypertension, and history of smoking, who was diagnosed recently with a squamous cell cancer of the head and neck and he was admitted to the hospital yesterday to undergo PEG tube placement. The patient is going to be started on chemotherapy and radiation therapy. The PEG tube placement was unsuccessful because of inadequate visualization. During the procedure, it was noted that the patient was experiencing arrhythmia in the term of tachycardia, the cardiac, and bigeminy. Because of that the patient was kept overnight for monitoring and obtain cardiac consult. The patient was completely asymptomatic from a cardiovascular standpoint of view, where he denies having any chest pain or discomfort, shortness of breath, dizziness or lightheadedness, or feeling of heart racing or fluttering. I did review the blood pressure and heart rate within the last 24 hours and it showed that the patient heart rate did not drop below 50. The EKG showed sinus rhythm with PVCs and sometimes bigeminy. In terms of past medical history he does have coronary artery disease was intermediate based on heart catheterization in 2006. Also he does have hypertension The patient used to smoke pipe but he quit smoking recently. From the cardiac vascular standpoint of view, I am going to obtain an echocardiogram to assess the left ventricular systolic function. The creatinine is a slightly alleviated. 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 Kidney stones, thyroid nodule & enlarged lymph node left side of neck History of Any Multi-Drug Resistant Organisms: None Reported Past Surgical History: Appendectomy, Hernia Repair, Orthopedic Surgery Additional Past Surgical History / Comment(s): tongue, thyroid, and lymph node bx,arthroscopies both knees Past Anesthesia/Blood Transfusion Reactions: No Reported Reaction Additional Past Anesthesia/Blood Transfusion Reaction / Comment(s): no hx blood transfusion Past Psychological History: No Psychological Hx Reported Smoking Status: Former smoker Past Alcohol Use History: Rare Additional Past Alcohol Use History / Comment(s): quit smoking Jun 2018,-SMOKEd a pipe MAINLY ON WEEKENDS OFF AND ON SINCE AGE 12 Past Drug Use History: None Reported - Past Family History Mother Family Medical History: No Reported History Additional Family Medical History / Comment(s): Arrhythmia Father Family Medical History: Myocardial Infarction ([place]), Pneumonia Additional Family Medical History / Comment(s): CABG x3 at an early age. Medications and Allergies Home Medications Medication Instructions Recorded Confirmed Type Losartan Potassium 100 mg PO DAILY 03/24/18 06/25/18 History NIFEdipine [NIFEdipine ER] 60 mg PO DAILY 03/24/18 06/25/18 History Aspirin 81 mg PO DAILY 05/05/18 06/25/18 History L.acidoph,Paracasei, B.lactis 1 cap PO DAILY 05/05/18 06/25/18 History [Probiotic] Naproxen Sodium [Aleve] 220 mg PO DAILY PRN 05/05/18 06/25/18 History Omeprazole 20 mg PO DAILY 05/05/18 06/25/18 History Cbd Oil 0.5 mg PO DAILY 06/22/18 06/25/18 History Allergies Allergy/AdvReac Type Severity Reaction Status Date / Time meperidine [From Demerol] Allergy fever Verified 06/25/18 14:31 Physical Exam Vitals: Vital Signs Temp Pulse Pulse Pulse Resp BP BP 06/26/18 08:00 18 06/26/18 04:00 97.9 F 57 L 18 166/96 06/26/18 00:00 97.4 F L 58 L 16 156/96 06/25/18 20:00 98.0 F 81 16 157/97 06/25/18 16:00 18 06/25/18 15:08 97.6 F 42 L 18 154/92 06/25/18 14:35 90 18 148/90 06/25/18 14:20 78 16 153/93 06/25/18 13:31 79 17 159/98 06/25/18 11:05 102 H 16 152/94 06/25/18 10:53 52 L 16 153/92 06/25/18 10:35 52 L 16 136/92 06/25/18 10:21 58 L 16 149/84 Pulse Ox 06/26/18 08:00 06/26/18 04:00 96 06/26/18 00:00 97 06/25/18 20:00 94 L 06/25/18 16:00 06/25/18 15:08 97 06/25/18 14:35 96 06/25/18 14:20 97 06/25/18 13:31 98 06/25/18 11:05 96 06/25/18 10:53 98 06/25/18 10:35 94 L 06/25/18 10:21 94 L Intake and Output 06/25/18 06/26/18 06/26/18 22:59 06:59 14:59 Other: Voiding Method Toilet Toilet Toilet # Voids 1 1 1 - Constitutional General appearance: no acute distress - Respiratory Respiratory: bilateral: CTA - Cardiovascular Rhythm: regular Heart sounds: normal: S1, S2 Results 06/25/18 09:14 06/25/18 11:12 Coagulation 06/25/18 Range/Units 09:14 PT 10.1 (9.0-12.0) sec CBC 06/25/18 Range/Units 09:14 WBC 10.2 (3.8-10.6) k/uL RBC 5.55 (4.30-5.90) m/uL Hgb 15.7 (13.0-17.5) gm/dL Hct 45.7 (39.0-53.0) % Plt Count 237 (150-450) k/uL Comprehensive Metabolic Panel 06/25/18 Range/Units 11:12 Sodium 139 (137-145) mmol/L Potassium 4.4 (3.5-5.1) mmol/L Chloride 104 (98-107) mmol/L Carbon Dioxide 28 (22-30) mmol/L BUN 23 H (9-20) mg/dL Creatinine 1.37 H (0.66-1.25) mg/dL Glucose 91 (74-99) mg/dL Calcium 9.7 (8.4-10.2) mg/dL Current Medications Generic Name Dose Route Start Last Admin Trade Name Freq PRN Reason Stop Dose Admin Acetaminophen 650 mg 06/25/18 16:00 Tylenol Tab PO Q6HR PRN Mild Pain or Fever > 100.5 Hydrocodone Bitart/Acetaminophen 1 each 06/25/18 16:00 [place] 5-325 PO Q4HR PRN Moderate Pain Aspirin 81 mg 06/26/18 09:00 Aspirin PO DAILY GORDY Lactated Ringer's 1,000 mls @ 20 mls/hr 06/25/18 05:42 06/25/18 18:38 Lactated Ringers IV Not Given .Q24H GORDY Lactobacillus Acidoph/[place] 1 each 06/26/18 09:00 Lactinex PO DAILY GORDY Losartan Potassium 100 mg 06/26/18 09:00 Cozaar PO DAILY GORDY Naloxone HCl 0.2 mg 06/25/18 16:00 Narcan IV Q2M PRN Opioid Reversal Nifedipine 60 mg 06/26/18 09:00 Procardia Xl PO DAILY GORDY Ondansetron HCl 4 mg 06/25/18 16:00 Zofran IVP Q8HR PRN Nausea And Vomiting Pantoprazole Sodium 40 mg 06/26/18 07:30 Protonix PO AC-BRKFST GORDY Intake and Output 06/25/18 06/26/18 06/26/18 22:59 06:59 14:59 Other: Voiding Method Toilet Toilet Toilet # Voids 1 1 1 06/25/18 09:14 06/25/18 11:12 Assessment and Plan Assessment: Assessment #1 cardiac arrhythmia in the term off PVCs and ventricular bigeminy. The patient was completely asymptomatic and continues to be asymptomatic #2 recent diagnosed as off squamous cell carcinoma of the head and neck #3 intermediate triple-vessel coronary artery disease #4 history of smoking Plan #1 no profound bradycardia noted within the last 12-24 hours #2 the patient remains asymptomatic from a cardiac standpoint #3 recommend obtaining an echocardiogram to assess the LV function #4 obtain TSH to rule out hypo-or hyperthyroidism #5 event monitor, probably as an outpatient #6 from the cardiac standpoint he can be discharged home. Thank you for allowing us participate in his care
[2018-06-26] MEDS ORDERED: ASPIRIN 81 MG PO SCH (09:00)
[2018-06-26] MEDS ORDERED: LOSARTAN 50 MG TAB PO SCH (09:00)
[2018-06-26] MEDS ORDERED: LACTOBACILLUS ACIDOPH & BULGAR 1 EACH PACKET PO SCH (09:00)
[2018-06-26 09:11] VITALS: BP 158/101; PULSE 54; TEMP 97.8
--- NOTE | 2018-06-26 11:54 | P.DS ---
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 He was undergoing PEG tube placement and still be starting chemo and radiation on 06/[address] Clemens and Dr. Stern respectively. Today PEG tube placement was not possible as adequate visualization was not achieved. During the procedure there was concern that the patient was jumping between tachycardia and bradycardia as well as having ventricular bigeminy. They felt that the patient needs to be evaluated by cardiology prior to discharge. We have admitted him as observation overnight to rule out any significant arrhythmia. On further review of tele strips no bradycardia noted but ventricular bigeminy noted. Seen by cardio had a echo and cleared for discharge. Will follow with Dr. Pathak in 3-4 weeks as has a hx of CAD on cath that was intermittent. Will follow with Dr. Henson for BP monitoring. He will be starting chemo and radiation on 06/[address] Castellanos and Dr. Stern. Patient seen and examined at bedside.No chest pain, YOSHI, lightheadedness, or nausea. Vital signs reviewed and stable. General: non toxic, no distress, appears at stated age Derm: warm, dry Head: atraumatic, normocephalic, symmetric, left sided neck enlargement Eyes: EOMI, no lid lag, anicteric sclera Mouth: no lip lesion, mucus membranes moist Cardiovascular: S1S2 reg, no murmur, positive posterior tibial pulse bilateral, Lungs: CTA bilateral, no rhonchi, no rales , no accessory muscle use Abdominal: soft, nontender to palpation, no guarding, no appreciable organomegaly Ext: no gross muscle atrophy, no edema, no contractures Neuro: CN II-XI grossly intact, no focal neuro deficits Psych: Alert, oriented, appropriate affect A total of 20 minutes of time were spent preparing this complex discharge summary . Pertinent Studies: Echo-pending Patient Condition at Discharge: Stable Plan - Discharge Summary Discharge Rx Participant: Yes New Discharge Prescriptions: Continue Losartan Potassium 100 mg PO DAILY NIFEdipine [NIFEdipine ER] 60 mg PO DAILY Naproxen Sodium [Aleve] 220 mg PO DAILY PRN PRN Reason: arthritis pain Aspirin 81 mg PO DAILY Omeprazole 20 mg PO DAILY L.acidoph,Paracasei, B.lactis [Probiotic] 1 cap PO DAILY Cbd Oil 0.5 mg PO DAILY Discharge Medication List Losartan Potassium 100 mg PO DAILY 03/24/18 [History] NIFEdipine [NIFEdipine ER] 60 mg PO DAILY 03/24/18 [History] Aspirin 81 mg PO DAILY 05/05/18 [History] L.acidoph,Paracasei, B.lactis [Probiotic] 1 cap PO DAILY 05/05/18 [History] Naproxen Sodium [Aleve] 220 mg PO DAILY PRN 05/05/18 [History] Omeprazole 20 mg PO DAILY 05/05/18 [History] Cbd Oil 0.5 mg PO DAILY 06/22/18 [History] Follow up Appointment(s)/Referral(s): Karina Josue MD [STAFF PHYSICIAN] - As Needed Patient Instructions/Handouts: *Surgery [facility] - (Anesthesia) Endoscopy Discharge Instructions, Upper Endoscopy (DC)
--- NOTE | 2018-06-26 18:46 | ECHOF ---
Referral Reason:chest pain MEASUREMENTS -------- HEIGHT: 182.9 cm WEIGHT: 99.3 kg BP: 166/96 RVIDd: 2.9 cm (< 3.3) IVSd: 1.3 cm (0.6 - 1.1) LVIDd: 4.9 cm (3.9 - 5.3) LVPWd: 1.3 cm (0.6 - 1.1) IVSs: 1.6 cm LVIDs: 3.0 cm LVPWs: 1.6 cm LAESV Index (A-L): 26.18 ml/m Ao Diam: 3.8 cm (2.0 - 3.7) AV Cusp: 2.2 cm (1.5 - 2.6) LA Diam: 2.7 cm (2.7 - 3.8) EPSS: 0.7 cm MV E Narendra: 0.74 m/s MV DecT: 292 ms MV A Narendra: 0.93 m/s MV E/A Ratio: 0.80 RAP: 5.00 mmHg RVSP: 37.45 mmHg MV EF SLOPE: 72.52 mm/s (70 - 150) MV EXCURSION: 1.67 cm (> 18.000) FINDINGS -------- Sinus rhythm. This was a technically adequate study. The left ventricular size is normal. There is mild concentric left ventricular hypertrophy. Overa ll left ventricular systolic function is normal with, an EF between 55 - 60 %. The right ventricle is normal in size and function. Normal LA size by volume 22+/-6 ml/m2. The right atrium is normal in size. There is mild to moderate aortic valve sclerosis. There is mild aortic regurgitation. There is no evidence of aortic stenosis. The mitral valve leaflets are mildly thickened. Mild mitral regurgitation is present. Mild tricuspid regurgitation present. There is mild pulmonary hypertension. The right ventricular systolic pressure, as measured by Doppler, is 37.45mmHg. The pulmonic valve was not well visualized. The aortic root is borderline dilated up to 3.8 cm. Normal inferior vena cava with normal inspiratory collapse consistent with estimated right atrial pre ssure of 5 mmHg. There is no pericardial effusion. CONCLUSIONS -------- 1. Sinus rhythm. 2. This was a technically adequate study. 3. The left ventricular size is normal. 4. There is mild concentric left ventricular hypertrophy. 5. Overall left ventricular systolic function is normal with, an EF between 55 - 60 %. 6. Normal LA size by volume 22+/-6 ml/m2. 7. There is mild to moderate aortic valve sclerosis. 8. There is mild aortic regurgitation. 9. The mitral valve leaflets are mildly thickened. 10. Mild mitral regurgitation is present. 11. Mild tricuspid regurgitation present. 12. There is mild pulmonary hypertension. 13. The right ventricular systolic pressure, as measured by Doppler, is 37.45mmHg. 14. The pulmonic valve was not well visualized. 15. The aortic root is borderline dilated up to 3.8 cm. 16. There is no pericardial effusion. POST ANESTHESIA NURSE: Anant Jose RDCS
--- NOTE | 2018-07-02 11:15 | CDI ---
Outpatient Documentation Clarification Form Date: 07/02/18 [facility] Name: Lisa RIBEIRO Phone: If any questions, call Mirela Rangel Pi[employer]Senior Research Associate at [phone] Patient Name: Joss Sosa Admit Date: 06/25/18 Discharge Date: 06/26/18 ATTENTION: The [facility] Coding Staff appreciate your assistance in clarifying documentation. Please respond to the clarification below the line at the bottom and electronically sign. The [facility] Coding staff will review the response and follow-up if needed. Please note: Queries are made part of the Legal Health Record. If you have any questions, please contact the Pi[employer]Senior Research Associate. Dear Dr. Villalpando, Please clarify the conflicting documentation of SCC of the head and neck ( found on the H&P and consult under the HPI ) and the past medical Hx of these documents stating lymphoid Cancer of the neck. MTDD
== END 2018-06-26 11:15 | disposition home or self-care (01) ==
LOC: ORWHC2ENDO 07:59 → 1SOBS 13:15 → ORWHC2ENDO 13:31 → 1SOBS 13:42
PROVIDERS: ADMIT Internal Medicine; ATTEND Internal Medicine
DX: I49.3 Ventricular premature depolarization (principal); C76.0 Malignant neoplasm of head, face and neck; N18.3 Chronic kidney disease, stage 3 (moderate); I12.9 Hypertensive chronic kidney disease with stage 1 through stage 4 chronic kidney disease, or unspecified chronic kidney disease; K21.9 Gastro-esophageal reflux disease without esophagitis; K44.9 Diaphragmatic hernia without obstruction or gangrene; I25.10 Atherosclerotic heart disease of native coronary artery without angina pectoris; E04.1 Nontoxic single thyroid nodule; M19.90 Unspecified osteoarthritis, unspecified site; Z79.82 Long term (current) use of aspirin; Z79.899 Other long term (current) drug therapy; Z87.891 Personal history of nicotine dependence; Z87.442 Personal history of urinary calculi; Z82.49 Family history of ischemic heart disease and other diseases of the circulatory system; Z83.6 Family history of other diseases of the respiratory system; Z53.8 Procedure and treatment not carried out for other reasons; Z88.5 Allergy status to narcotic agent
CPT/HCPCS: 93306; 93005; 80048; 83735; 84443; 85027; 85610; 43235; G0378 ×2; J2250; J2001; J3010; J0690; J2704

== ENCOUNTER 2018-07-05 10:12 | Inpatient (IN) | payer MEDICAID ==
--- NOTE | 2018-07-05 11:28 | ED ---
General Adult HPI - General Chief complaint: Dizziness Stated complaint: hypotension Time Seen by Provider: 07/05/18 10:18 Source: patient, EMS Mode of arrival: EMS Limitations: no limitations - History of Present Illness Initial comments: Dictation was produced using [employer] dictation software. please excuse any grammatical, word or spelling errors. Chief Complaint: 63-year-old male past medical history of cancer, hypertension status post chemotherapy presents with episode of syncope. History of Present Illness: I made care physician's office. He was therefore check up. He is having his blood drawn. Patient complained the blood draw. Shortly after he had episode of syncope where he was obtunded for a minute. Syncope was witnessed by family member who was with him. Patient was transferred to the emergency department. Patient feels a little lightheaded. Patient feels like he needs to have a stool passage over when he sat on the toe this morning he was unable to push anything out. Patient denies any drinking or abnormal foods yesterday. Feels okay today sites for likely several bowel movement. Denies any dark stools or fatigue recently. Patient felt completely normal this morning The ROS documented in this emergency department record has been reviewed and confirmed by me. Those systems with pertinent positive or negative responses have been documented in the HPI. All other systems are other negative and/or noncontributory. PHYSICAL EXAM: General Impression: Alert and oriented x3, not in acute distress HEENT: Normocephalic atraumatic, extra-ocular movements intact, pupils equal and reactive to light bilaterally, mucous membranes moist. Cardiovascular: Heart regular rate and rhythm, S1&S2 audible, no murmurs, rubs or gallops Chest: Lungs clear to auscultation bilaterally, no rhonchi, no wheeze, no rales Abdomen: Bowel sounds present, abdomen soft, non-tender, non-distended, no organomegaly Musculoskeletal: Pulses present and equal in all extremities, no peripheral edema Motor: Power 5/5 bilaterally, no focal deficits noted Neurological: CN II-XII grossly intact, no focal motor or sensory deficits noted Skin: Intact with no visualized rashes Psych: Normal affect and mood ED course: 63-year-old male presents after episode of syncope. Vital signs upon arrival are within acceptable limits.Laboratory evaluation obtained. Looks at distal 0.4. Patient has a BUN 114 and creatinine of 4.88. Potassium is within normal limits. Chest x-ray with acute abdominal series shows no acute processes. Patient started on heparin for new onset atrial fibrillation. Patient also given intravenous fluids for acute kidney injury. Patient be admitted. EKG interpretation: Ventricular rate 97, atrial fibrillation, QS 108, QTc 467. No CT prolongation, no QTC prolongation, no ST or T-wave changes noted. Patient denies any history of atrial fibrillation. - Related Data Home Medications Medication Instructions Recorded Confirmed Losartan Potassium 100 mg PO DAILY 03/24/18 07/05/18 NIFEdipine [NIFEdipine ER] 60 mg PO DAILY 03/24/18 07/05/18 L.acidoph,Paracasei, B.lactis 1 cap PO DAILY 05/05/18 07/05/18 [Probiotic] Omeprazole 20 mg PO DAILY 05/05/18 07/05/18 Allergies Allergy/AdvReac Type Severity Reaction Status Date / Time meperidine [From Demerol] Allergy fever Verified 07/05/18 12:20 Review of Systems ROS Statement: Those systems with pertinent positive or pertinent negative responses have been documented in the HPI. ROS Other: All systems not noted in ROS Statement are negative. 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 Kidney stones, thyroid nodule & enlarged lymph node left side of neck History of Any Multi-Drug Resistant Organisms: None Reported Past Surgical History: Appendectomy, Hernia Repair, Orthopedic Surgery Additional Past Surgical History / Comment(s): tongue, thyroid, and lymph node bx,arthroscopies both knees Past Anesthesia/Blood Transfusion Reactions: No Reported Reaction Additional Past Anesthesia/Blood Transfusion Reaction / Comment(s): no hx blood transfusion Past Psychological History: No Psychological Hx Reported Smoking Status: Former smoker Past Alcohol Use History: None Reported Past Drug Use History: None Reported - Past Family History Mother Family Medical History: No Reported History Additional Family Medical History / Comment(s): Arrhythmia Father Family Medical History: Myocardial Infarction ([place]), Pneumonia Additional Family Medical History / Comment(s): CABG x3 at an early age. General Exam Limitations: no limitations Course Vital Signs 07/05/18 07/05/18 10:14 13:32 Temperature 96.2 F L Pulse Rate 95 111 H Respiratory 22 20 Rate Blood Pressure 123/89 116/94 O2 Sat by Pulse 98 99 Oximetry Medical Decision Making - Lab Data Result diagrams: 07/05/18 11:32 07/05/18 11:32 Lab Results 07/05/18 07/05/18 Range/Units 11:32 11:32 WBC 12.4 H (3.8-10.6) k/uL RBC 5.69 (4.30-5.90) m/uL Hgb 15.9 (13.0-17.5) gm/dL Hct 44.5 (39.0-53.0) % MCV 78.2 L (80.0-100.0) fL MCH 28.0 (25.0-35.0) pg MCHC 35.7 (31.0-37.0) g/dL RDW 13.3 (11.5-15.5) % Plt Count 280 (150-450) k/uL Neutrophils % 64 % Lymphocytes % 30 % Monocytes % 5 % Eosinophils % 1 % Basophils % 0 % Neutrophils # 7.9 H (1.3-7.7) k/uL Lymphocytes # 3.7 (1.0-4.8) k/uL Monocytes # 0.6 (0-1.0) k/uL Eosinophils # 0.1 (0-0.7) k/uL Basophils # 0.1 (0-0.2) k/uL Hyperchromasia Slight Sodium 133 L (137-145) mmol/L Potassium 4.1 (3.5-5.1) mmol/L Chloride 97 L (98-107) mmol/L Carbon Dioxide 23 (22-30) mmol/L Anion Gap 13 mmol/L BUN 114 H* (9-20) mg/dL Creatinine 4.88 H (0.66-1.25) mg/dL Est GFR (CKD-EPI)AfAm 13 (>60 ml/min/1.73 sqM) Est GFR (CKD-EPI)NonAf 12 (>60 ml/min/1.73 sqM) Glucose 119 H (74-99) mg/dL Calcium 10.1 (8.4-10.2) mg/dL Magnesium 2.4 H (1.6-2.3) mg/dL Disposition Clinical Impression: New onset a-fib Disposition: ADMITTED IP TO THIS HOSP Condition: Fair Referrals: Colten Henson MD [Primary Care Provider] - 1-2 days Time of Disposition: 14:28 Decision Time: 14:28
[2018-07-05 12:06] LABS: Basophils # (A) 0.1 k/uL (0-0.2); Basophils % (A) 0 %; Eosinophils # (A) 0.1 k/uL (0-0.7); Eosinophils % (A) 1 %; HCT 44.5 % (39.0-53.0); HGB 15.9 gm/dL (13.0-17.5); Hyperchromasia Slight; Lymphocytes # (A) 3.7 k/uL (1.0-4.8); Lymphocytes % (A) 30 %; MCHC 35.7 g/dL (31.0-37.0); MCV 78.2 fL (80.0-100.0); Monocytes # (A) 0.6 k/uL (0-1.0); Monocytes % (A) 5 %; Neutrophils # (A) 7.9 k/uL (1.3-7.7); Neutrophils % (A) 64 %; Platelet Count 280 k/uL (150-450); RBC 5.69 m/uL (4.30-5.90); RDW 13.3 % (11.5-15.5); WBC 12.4 k/uL (3.8-10.6)
[2018-07-05] MEDS ORDERED: HEPARIN SODIUM,PORCINE 5,000 UNIT/ML 1 ML VIAL IV ONE (12:11)
[2018-07-05 12:13] LABS: Calcium 10.1 mg/dL (8.4-10.2)
--- NOTE | 2018-07-05 12:20 | XR ---
EXAMINATION TYPE: XR abdomen acute w cxr DATE OF EXAM: 07/05/2018 CLINICAL HISTORY: Hypotension with pain. Newly diagnosed left-sided neck cancer. TECHNIQUE: Single frontal view of chest is obtained. Supine and upright views of the abdomen are acq uired. COMPARISON: Recent PET/CT June 05, 2018 FINDINGS: Chronic parenchymal change without suspicious focal airspace opacity, pleural effusion, or pneumothorax is seen bilaterally. Cardiac silhouette size appears stable and upper limits of normal. Osseous structures are intact. Gas is noted in nondistended small bowel loops. Gas and fecal material is seen in nondistended colon and rectum. Mild prominence of fecal material is seen in rectum. Right-sided renal calculi are redem onstrated including dominant 11 mm stone centrally. No pneumoperitoneum is present. Moderate superior joint space loss both hips is present Impression: 1. Chronic emphysematous change without acute pulmonary process. 2. Overall nonobstructive bowel gas pattern. Right-sided nephrolithiasis redemonstrated.
[2018-07-05 12:36] LABS: Magnesium 2.4 mg/dL (1.6-2.3); Potassium 4.1 mmol/L (3.5-5.1)
[2018-07-05] MEDS: HEPARIN SOD,PORK IN 0.45% NACL 25,000 UNIT in 0.45% NACL 1 250ML.BAG IV SCH (13:30)
[2018-07-05] MEDS ORDERED: SODIUM CHLORIDE 0.9% 1,000 ML IV STA (14:26)
[2018-07-05] MEDS ORDERED: NALOXONE 0.4 MG/ML 1 ML VIAL IV PRN (14:28)
[2018-07-05] MEDS ORDERED: ACETAMINOPHEN TAB 325 MG TAB PO PRN (14:28)
[2018-07-05] MEDS ORDERED: ONDANSETRON 4 MG/2 ML VIAL IVP PRN (14:28)
[2018-07-05 14:31] LABS: Appearance,Urine Clear (Clear); Bilirubin,Urine Negative (Negative); Blood,Urine Negative (Negative); Color,Urine Yellow; Glucose,Urine (UA) 1+ (Negative); Ketones,Urine Negative (Negative); Leukocyte Esterase,Urine Negative (Negative); Nitrite,Urine Negative (Negative); Protein,Urine 1+ (Negative); Specific Gravity,Urine 1.013 (1.001-1.035); Urobilinogen,Urine <2.0 mg/dL (<2.0); WBC,Urine 3 /hpf (0-5)
[2018-07-05] MEDS ORDERED: HYDROcodone/APAP 5-325MG 1 EACH TAB PO PRN (15:39)
--- NOTE | 2018-07-05 16:06 | P.HPIM ---
History of Present Illness H&P Date: 07/05/18 Chief Complaint: syncope 63-year-old male with PMH lymphoma, history of nephro lithiasis, hypertension presents to the ED from the oncology clinic for syncopal episode. Patient reports sitting down in a chair at the oncology clinic, waiting for his doctor when he suddenly experienced an episode of lightheadedness. This is the only thing that the patient remembers prior to loss of consciousness. His was present during the episode. She reports that the patient had lost consciousness for about 2 minutes. His also reports that the patient was noted to be shaking his right arm and shoulder during this episode. She denied that the patient had any bladder or bowel incontinence, tongue biting. When he regained consciousness, patient reports confusionand unsteady gait for about 30 minutes. He denies any numbness, weakness or tingling of the extremities. He denies any slurred speech. His blood pressure was measured at the oncology clinic, a low of 74 over 60s. patient denies any headache, lower extremity edema, nausea, vomiting, fever, cough, chest pain, shortness of breath, palpitations, changes in urination or bowel habits. No changes in appetite or weight. In the ED, EKG showed atrial fibrillation with left axis deviation. CBC showed a mild leukocytosis of 12.4. CMP showed a sodium of 133, chloride of 97, BUN of 114, creatinine of 4.88. KUB shows right nephrolithiasis, emphysematous changes. Patient is admitted for workup of syncope, new onset atrial fibrillation with RVR, cardiology is on consult. 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 Kidney stones, thyroid nodule & enlarged lymph node left side of neck History of Any Multi-Drug Resistant Organisms: None Reported Past Surgical History: Appendectomy, Hernia Repair, Orthopedic Surgery Additional Past Surgical History / Comment(s): tongue, thyroid, and lymph node bx,arthroscopies both knees Past Anesthesia/Blood Transfusion Reactions: No Reported Reaction Additional Past Anesthesia/Blood Transfusion Reaction / Comment(s): no hx blood transfusion Past Psychological History: No Psychological Hx Reported Smoking Status: Former smoker Past Alcohol Use History: None Reported Past Drug Use History: None Reported - Past Family History Mother Family Medical History: No Reported History Additional Family Medical History / Comment(s): Arrhythmia Father Family Medical History: Myocardial Infarction ([place]), Pneumonia Additional Family Medical History / Comment(s): CABG x3 at an early age. Medications and Allergies Home Medications Medication Instructions Recorded Confirmed Type Losartan Potassium 100 mg PO DAILY 03/24/18 07/05/18 History NIFEdipine [NIFEdipine ER] 60 mg PO DAILY 03/24/18 07/05/18 History L.acidoph,Paracasei, B.lactis 1 cap PO DAILY 05/05/18 07/05/18 History [Probiotic] Omeprazole 20 mg PO DAILY 05/05/18 07/05/18 History Allergies Allergy/AdvReac Type Severity Reaction Status Date / Time meperidine [From Demerol] Allergy fever Verified 07/05/18 12:20 Physical Exam Vitals: Vital Signs Temp Pulse Resp BP Pulse Ox 07/05/18 13:32 111 H 20 116/94 99 07/05/18 10:14 96.2 F L 95 22 123/89 98 Intake and Output 07/05/18 07/05/18 07/05/18 06:59 14:59 22:59 Other: Weight 94.347 kg General: [non toxic], [no distress], [appears at stated age] Derm: [warm], [dry] Head: [atraumatic], [normocephalic], [symmetric] Eyes: [EOMI], [no lid lag], [anicteric sclera] Mouth: [no lip lesion], [mucus membranes moist] Cardiovascular: [S1S2 reg], [irregularly irregular], [positive DP pulse bilateral], Lungs: [CTA bilateral], [no rhonchi, no rales] , [no accessory muscle use] Abdominal: [soft], [ nontender to palpation], [no guarding], [no appreciable organomegaly] Ext: [no gross muscle atrophy], [no edema], [no contractures] Neuro: [ CN II-XI grossly intact], [no focal neuro deficits] Psych: [Alert], [oriented], [appropriate affect] Results CBC & Chem 7: 07/05/18 11:32 07/05/18 11:32 Labs: Abnormal Lab Results - Last 24 Hours (Table) 07/05/18 07/05/18 07/05/18 Range/Units 11:32 11:32 13:20 WBC 12.4 H (3.8-10.6) k/uL MCV 78.2 L (80.0-100.0) fL Neutrophils # 7.9 H (1.3-7.7) k/uL Sodium 133 L (137-145) mmol/L Chloride 97 L (98-107) mmol/L BUN 114 H* (9-20) mg/dL Creatinine 4.88 H (0.66-1.25) mg/dL Glucose 119 H (74-99) mg/dL Magnesium 2.4 H (1.6-2.3) mg/dL Urine Protein 1+ H (Negative) Urine Glucose (UA) 1+ H (Negative) Thrombosis Risk Factor Assmnt - Choose All That Apply Any of the Below Risk Factors Present?: Yes Each Factor Represents 1 point: Obesity (BMI >25) Other Risk Factors: Yes Each Risk Factor Represents 2 Points: Age 61-74 years, Malignancy Thrombosis Risk Factor Assessment Total Risk Factor Score: 5 Thrombosis Risk Factor Assessment Level: High Risk Assessment and Plan Assessment: Assessment and Plan 1. Syncopal episode 2. Atrial fibrillation with RVR 3. DAYANA on CKD 4. Leukocytosis 5. Hypertension 6. History of lymphoma 7. DVT and GI prophylaxis 1. Likely secondary to atrial fibrillation with RVR. Differentials include orthostasis, vasovagal, cardiac or neurogenic. I will trend 3 troponin along with EKG to rule out acute coronary syndrome. Recent Echocardiogram from June 2018 shows EF 55-60% with mild LVH. Will obtain EEG. Follow orthostats. Fall precautions. Telemetry monitoring. Cardiology evaluation for atrial fibrillation with RVR. 2. Currently rate controlled. Continue heparin drip. Recent echocardiogram as above. Telemetry monitoring. Keep potassium greater than 4 and magnesium greater than 2. Recent TSH in June 25 is within normal limits. Follow cardiology recommendations. 3. BUN 114, creatinine 4.88. Baseline creatinine around 2. Continue normal saline at 80 mL per hour. Consider urine electrolytes and kidney ultrasound if not improved by tomorrow. Avoid nephrotoxins. Daily BMP. Follow nephrology recommendations. 4. Likely reactive. No signs of infection. Daily CBC. 5. Continue home medication losartan and nifedipine. Monitor vitals, adjust medications as necessary. 6. Management as per oncology. Will need adequate outpatient follow-up. 7. Heparin drip. Protonix 40 mg by mouth daily. Patient being admitted for syncopal episode, new onset atrial fibrillation with RVR, cardiology is on consult. Patient name his indicates that he can't make decisions for himself. Patient would like to remain full code.
[2018-07-05] MEDS: PANTOPRAZOLE 40 MG TABLET PO SCH (16:22)
[2018-07-05] MEDS: SODIUM CHLORIDE 0.9% 1,000 ML IV SCH (16:23)
[2018-07-05] MEDS ORDERED: DILTIAZEM DRIP BOLUS FROM BAG 1 MG SOLN IV ONE (16:57)
[2018-07-05 19:47] LABS: Creatine Kinase MB 1.1 ng/mL (0.0-2.4)
[2018-07-05 20:02] LABS: Troponin I 0.223 ng/mL (0.000-0.034)
[2018-07-05] MEDS: DILTIAZEM 50 MG in SODIUM CHLORIDE 0.9% 40 ML IV SCH ×2 (20:55→21:47)
[2018-07-05] MEDS: HEPARIN SODIUM,PORCINE 5,000 UNIT/ML 1 ML VIAL IV PRN ×2 (21:46→22:00)
[2018-07-06 01:39] LABS: Creatine Kinase MB 0.8 ng/mL (0.0-2.4)
[2018-07-06 01:43] LABS: Troponin I 0.179 ng/mL (0.000-0.034)
[2018-07-06] MEDS: DILTIAZEM 50 MG in SODIUM CHLORIDE 0.9% 40 ML IV SCH ×2 (03:00→04:42)
[2018-07-06 03:24] LABS: Basophils # (A) 0.1 k/uL (0-0.2); Basophils % (A) 1 %; Eosinophils # (A) 0.1 k/uL (0-0.7); Eosinophils % (A) 1 %; HCT 40.4 % (39.0-53.0); HGB 14.3 gm/dL (13.0-17.5); Lymphocytes # (A) 4.6 k/uL (1.0-4.8); Lymphocytes % (A) 48 %; MCH 28.1 pg (25.0-35.0); MCHC 35.4 g/dL (31.0-37.0); MCV 79.4 fL (80.0-100.0); Mean Platelet Volume 7.8; Monocytes # (A) 0.5 k/uL (0-1.0); Monocytes % (A) 5 %; Neutrophils # (A) 4.3 k/uL (1.3-7.7); Neutrophils % (A) 44 %; Platelet Count 210 k/uL (150-450); RBC 5.08 m/uL (4.30-5.90); WBC 9.7 k/uL (3.8-10.6)
[2018-07-06 03:53] LABS: Calcium 9.2 mg/dL (8.4-10.2); Magnesium 2.2 mg/dL (1.6-2.3); Phosphorus 5.4 mg/dL (2.5-4.5); Potassium 3.2 mmol/L (3.5-5.1)
[2018-07-06] MEDS: SODIUM CHLORIDE 0.9% 1,000 ML IV SCH ×2 (04:08→19:31)
[2018-07-06] MEDS: HEPARIN SODIUM,PORCINE 5,000 UNIT/ML 1 ML VIAL IV PRN (04:09)
[2018-07-06] MEDS: HEPARIN SOD,PORK IN 0.45% NACL 25,000 UNIT in 0.45% NACL 1 250ML.BAG IV SCH ×2 (06:30→23:12)
[2018-07-06] MEDS: PANTOPRAZOLE 40 MG TABLET PO SCH (06:30)
[2018-07-06] MEDS ORDERED: Potassium Replacement Protocol 1 EACH MISC MISCELLANE PRN (08:13)
[2018-07-06 08:44] LABS: Creatine Kinase MB 0.6 ng/mL (0.0-2.4)
[2018-07-06 08:46] LABS: Troponin I 0.135 ng/mL (0.000-0.034)
[2018-07-06] MEDS ORDERED: ASPIRIN 325 MG TAB PO SCH (09:00)
[2018-07-06] MEDS ORDERED: LOSARTAN 50 MG TAB PO SCH (09:00)
--- NOTE | 2018-07-06 09:54 | P.CRDCN ---
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 Cardiology was asked to see the patient on that admission, he was noted to have cardiac arrhythmia in the form of PVCs and ventricular bigeminy. He did have an echo performed on June 26 which revealed a normal left ventricular systolic function. Upon review of all of the rhythm performed on that admission, it appears the patient had remained in normal sinus rhythm. Patient presents to the hospital on this occasion after experiencing a syncopal episode. According to the patient, he had went for a follow-up visit at the oncology clinic, while sitting in a chair in the waiting room he became very dizzy and lightheaded, states that he became clammy and diaphoretic. His was next to him, apparently the patient did pass out, and upon wakening he did not have any loss of bowel or bladder functioning, he was mildly confused and unsteady upon wakening. His blood pressure was documented shortly after in the clinic, came back to be around 70 systolic. EKG performed on arrival to the emergency room showed atrial fibrillation with a heart rate in the 90s. Blood pressure on arrival here 122/80 heart rate of 90, 98% on a 15% nonrebreather. White blood cell count 12.4 on admission, 9.7 this morning, hemoglobin 15.9, platelet count 210. Sodium 133, potassium 3.2, BUN 1:15 and creatinine 5.0. His BUN on admission was 114 and creatinine 4.8. On the patient's most recent admission which had just been last month, his BUN was 23 and creatinine 1.3. Troponins 0.22, 0.17, 0.13. TSH 3.2. The patient's home medications included omeprazole , Procardia 60 daily, losartan 100 mg daily, and a probiotic. According to the patient, he has had multiple episodes where he feels like he is going to pass out, especially when he is standing or sitting. 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 Kidney stones, thyroid nodule & enlarged lymph node left side of neck History of Any Multi-Drug Resistant Organisms: None Reported Past Surgical History: Appendectomy, Hernia Repair, Orthopedic Surgery Additional Past Surgical History / Comment(s): tongue bx neg, thyroid bx neg, and lt necklymph node bx pt stated positive ,arthroscopies both knees, lithotripsy x2 Past Anesthesia/Blood Transfusion Reactions: No Reported Reaction Additional Past Anesthesia/Blood Transfusion Reaction / Comment(s): no hx blood transfusion Smoking Status: Former smoker - Past Family History Mother Family Medical History: No Reported History Additional Family Medical History / Comment(s): Arrhythmia Father Family Medical History: Myocardial Infarction ([place]), Pneumonia Additional Family Medical History / Comment(s): CABG x3 at an early age. Medications and Allergies Home Medications Medication Instructions Recorded Confirmed Type Losartan Potassium 100 mg PO DAILY 03/24/18 07/05/18 History NIFEdipine [NIFEdipine ER] 60 mg PO DAILY 03/24/18 07/05/18 History L.acidoph,Paracasei, B.lactis 1 cap PO DAILY 05/05/18 07/05/18 History [Probiotic] Omeprazole 20 mg PO DAILY 05/05/18 07/05/18 History Allergies Allergy/AdvReac Type Severity Reaction Status Date / Time meperidine [From Demerol] Allergy fever Verified 07/05/18 12:20 Physical Exam Vitals: Vital Signs Temp Pulse Pulse Resp BP BP Pulse Ox 07/06/18 04:00 97.6 F 79 17 139/95 96 07/05/18 23:57 110 H 17 07/05/18 23:54 97.6 F 110 H 17 132/93 96 07/05/18 20:00 98 F 116 H 17 127/91 95 07/05/18 16:00 98.1 F 104 H 18 132/91 97 07/05/18 13:32 111 H 20 116/94 99 07/05/18 10:14 96.2 F L 95 22 123/89 98 Intake and Output 07/05/18 07/06/18 07/06/18 22:59 06:59 14:59 Intake Total 506.599 4316.352 Balance 265.177 1966.352 Intake: Intake, IV Titration 77.667 673.352 Amount Diltiazem 50 mg In Sodium 50 Chloride 0.9% 40 ml @ 10 MG/HR 10 mls/hr IV .Q5H GORDY Rx#:[id number] Heparin Sod,Pork in 0.45% 77.667 123.352 NaCl 25,000 unit In 0.45 % NaCl 1 250ml.bag @ 10.6 UNITS/KG/HR 10 mls/hr IV .Q24H GORDY Rx#:[id number] Sodium Chloride 0.9% 1, 500 000 ml @ 80 mls/hr IV . [id number] GORDY Rx#:[id number] Oral 640 600 Other: Voiding Method Toilet Toilet # Voids 1 3 Weight 92.6 kg PHYSICAL EXAMINATION: GENERAL: 63-year-old gentleman in no acute distress at the time of my examination HEENT: Head is atraumatic, normocephalic. Pupils equal, round. Sclera anicteric. Conjunctiva are clear. Mucous membranes of the mouth are moist. Neck is supple. There is no elevated jugular venous pressure. No carotid bruit is heard. HEART EXAMINATION: Heart S1, S2 normal. No murmur or gallop heard. CHEST EXAMINATION: Lungs are clear to auscultation and precussion. No chest wall tenderness is noted on palpation or with deep breathing. ABDOMEN: Soft, nontender. Bowel sounds are heard. No organomegaly noted. EXTREMITIES: 2+ peripheral pulses with no evidence of peripheral edema and no calf tenderness noted. NEUROLOGIC patient is awake, alert and oriented 3 . . Results 07/06/18 03:03 07/06/18 03:03 Cardiac Enzymes 07/05/18 07/06/18 07/06/18 Range/Units 18:52 00:40 06:30 CK-MB (CK-2) 1.1 0.8 0.6 (0.0-2.4) ng/mL Troponin I 0.223 H* 0.179 H* 0.135 H* (0.000-0.034) ng/mL Coagulation 07/05/18 07/05/18 07/06/18 Range/Units 11:32 18:52 03:03 APTT 19.1 L 31.2 H 40.5 H (22.0-30.0) sec CBC 07/05/18 07/06/18 Range/Units 11:32 03:03 WBC 12.4 H 9.7 (3.8-10.6) k/uL RBC 5.69 5.08 (4.30-5.90) m/uL Hgb 15.9 14.3 (13.0-17.5) gm/dL Hct 44.5 40.4 (39.0-53.0) % Plt Count 280 210 (150-450) k/uL Comprehensive Metabolic Panel 07/05/18 07/06/18 Range/Units 11:32 03:03 Sodium 133 L 133 L (137-145) mmol/L Potassium 4.1 3.2 L (3.5-5.1) mmol/L Chloride 97 L 100 (98-107) mmol/L Carbon Dioxide 23 22 (22-30) mmol/L BUN 114 H* 115 H* (9-20) mg/dL Creatinine 4.88 H 5.08 H (0.66-1.25) mg/dL Glucose 119 H 111 H (74-99) mg/dL Calcium 10.1 9.2 (8.4-10.2) mg/dL Current Medications Generic Name Dose Route Start Last Admin Trade Name Freq PRN Reason Stop Dose Admin Acetaminophen 650 mg 07/05/18 14:28 Tylenol Tab PO Q6HR PRN Mild Pain or Fever > 100.5 Hydrocodone Bitart/Acetaminophen 1 each 07/05/18 15:39 [place] 5-325 PO Q4HR PRN Moderate Pain Aspirin 325 mg 07/06/18 09:00 Aspirin PO DAILY [facility] Heparin Sodium (Porcine) 0 unit 07/05/18 12:11 07/06/18 04:09 Heparin IV 2,350 unit PER PROTOCOL PRN Administration Low PTT Protocol Heparin Sodium/Sodium Chloride 250 mls @ 10 mls/hr 07/05/18 12:15 07/06/18 06 :30 25,000 unit/ Sodium Chloride IV 15.6 units/kg/hr .Q24H GORDY 14.71 mls/hr Administration Protocol 10.6 UNITS/KG/HR Sodium Chloride 1,000 mls @ 80 mls/hr 07/05/18 14:30 07/06/18 04:08 Saline 0.9% IV 80 mls/hr .[id number] GORDY Administration Diltiazem HCl 50 mg/ Sodium 50 mls @ 10 mls/hr 07/05/18 17:00 07/06/18 04:42 Chloride IV 10 mg/hr .Q5H GORDY 10 mls/hr Administration 10 MG/HR Miscellaneous Information 1 each 07/06/18 08:13 Potassium Per Protocol MISCELLANE DAILY PRN Per Protocol Protocol Naloxone HCl 0.2 mg 07/05/18 14:28 Narcan IV Q2M PRN Opioid Reversal Nifedipine 60 mg 07/06/18 09:00 Procardia Xl PO DAILY GORDY Ondansetron HCl 4 mg 07/05/18 14:28 Zofran IVP Q8HR PRN Nausea And Vomiting Pantoprazole Sodium 40 mg 07/05/18 16:15 07/06/18 06:30 Protonix PO 40 mg [id number] GORDY Administration Intake and Output 07/05/18 07/06/18 07/06/18 22:59 06:59 14:59 Intake Total 801.639 4339.352 Balance 240.388 5914.352 Intake: Intake, IV Titration 77.667 673.352 Amount Diltiazem 50 mg In Sodium 50 Chloride 0.9% 40 ml @ 10 MG/HR 10 mls/hr IV .Q5H GORDY Rx#:[id number] Heparin Sod,Pork in 0.45% 77.667 123.352 NaCl 25,000 unit In 0.45 % NaCl 1 250ml.bag @ 10.6 UNITS/KG/HR 10 mls/hr IV .Q24H GORDY Rx#:[id number] Sodium Chloride 0.9% 1, 500 000 ml @ 80 mls/hr IV . [id number] GORDY Rx#:[id number] Oral 640 600 Other: Voiding Method Toilet Toilet # Voids 1 3 Weight 92.6 kg 07/06/18 03:03 07/06/18 03:03 EKG Interpretations (text) EKG on admission here showed atrial fibrillation with moderately rapid ventricular response Assessment and Plan Plan: Assessment and plan #1 syncope, likely secondary to orthostatic hypotension. Blood pressure at time of incident was 70 systolic. #2 acute renal failure, creatinine on this admission 4.8, 5.0 this morning. Just one week ago, the patient's creatinine was 1.3. #3 atrial fibrillation with moderate rapid ventricular response, appears to be of new onset, paroxysmal. #4 intermediate triple-vessel coronary artery disease based on cardiac cath performed in 2006 #5 hypertension #6 history of smoking #7 recent diagnosis of squamous cell cancer of the head and neck #8 abnormal troponins, likely secondary to abnormal renal function Plan Echocardiogram with Doppler study was performed approximately a week ago which revealed a normal left ventricular systolic function. We will decrease the patient's aspirin 81 mg daily, discontinue Cardizem drip, heart rate this morning in the 70s. We will start the patient on a beta aline. Discontinue Cozaar, continue hydrating the patient with IV fluids. Check orthostatic heart rate and blood pressure every shift. Continue to monitor for any significant tachycardia or bradycardia arrhythmias or conversion pauses. Obtain d-dimer. Further recommendations to follow. DNP note has been reviewed, I agree with a documented findings and plan of care. Patient was seen and examined.
[2018-07-06] MEDS: METOPROLOL TARTRATE 25 MG TAB PO SCH ×2 (10:12→19:28)
--- NOTE | 2018-07-06 11:41 | P.PN ---
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 Reports a history of nausea and vomiting post chemotherapy appetite slowly coming back. Currently denies any chest pain or shortness of breath, denies any recurrence of his episodes of lightheadedness or syncope, patient denies any palpitations. No acute events overnight Objective - Vital Signs Vital signs: Vital Signs Temp 97.6 F 07/06/18 04:00 Pulse 79 07/06/18 04:00 Resp 17 07/06/18 04:00 BP 139/95 07/06/18 04:00 Pulse Ox 96 07/06/18 04:00 Intake & Output 07/05/18 07/06/18 07/06/18 18:59 06:59 18:59 Intake Total 240 1751.019 Balance 240 1751.019 Weight 94.347 kg 92.6 kg Intake: Intake, IV Titration 751.019 Amount Diltiazem 50 mg In Sodium 50 Chloride 0.9% 40 ml @ 10 MG/HR 10 mls/hr IV .Q5H GORDY Rx#:[id number] Heparin Sod,Pork in 0.45% 201.019 NaCl 25,000 unit In 0.45 % NaCl 1 250ml.bag @ 10.6 UNITS/KG/HR 10 mls/hr IV .Q24H GORDY Rx#:[id number] Sodium Chloride 0.9% 1, 500 000 ml @ 80 mls/hr IV . [id number] GORDY Rx#:[id number] Oral 240 1000 Other: Voiding Method Toilet # Voids 3 - Exam Constitutional: No acute distress, conversant, pleasant Eyes: Anicteric sclerae, moist conjunctiva, no lid-lag, PERRLA ENMT: NC/AT,Oropharynx clear, no erythema, exudates Neck:Supple, FROM, no masses, or JVD, No carotid bruits; No thyromegaly Lungs: Clear to auscultation, Clear to percussion, Normal respiratory effort, no accessory muscle use Cardiovascular: Heart regular in rate and rhythm, No murmurs, gallops, or rubs no peripheral edema Abdominal: Soft Nontender, nom distended, no guarding, no rebound or rigidity, Normoactive bowel sounds No hepatomegaly, No splenomegaly, No palpable mass No abdominal wall hernia noted Skin: Normal temperature, tone, texture, turgor, No induration No subcutaneous nodules, No rash, lesions, No ulcers Extremities:No digital cyanosis No clubbing, Pedal pulses intact and symmetrical Radial pulses intact and symmetrical Normal gait and station, No calf tenderness Psychiatric: Alert and oriented to person, place and time, Appropriate affect Intact judgement Neuro: Muscles Strength 5/5 in all 4 extremities, Sensation to light touch grossly present throughout, Cranial nerves II-XII grossly intact. No focal sensory deficits - Labs CBC & Chem 7: 07/06/18 03:03 07/06/18 03:03 Labs: Abnormal Lab Results - Last 24 Hours (Table) 07/05/18 07/05/18 07/05/18 Range/Units 11:32 11:32 11:32 WBC 12.4 H (3.8-10.6) k/uL MCV 78.2 L (80.0-100.0) fL Neutrophils # 7.9 H (1.3-7.7) k/uL APTT 19.1 L (22.0-30.0) sec Sodium 133 L (137-145) mmol/L Potassium (3.5-5.1) mmol/L Chloride 97 L (98-107) mmol/L BUN 114 H* (9-20) mg/dL Creatinine 4.88 H (0.66-1.25) mg/dL Glucose 119 H (74-99) mg/dL Phosphorus (2.5-4.5) mg/dL Magnesium 2.4 H (1.6-2.3) mg/dL Total Creatine Kinase (55-170) U/L Troponin I (0.000-0.034) ng/mL Urine Protein (Negative) Urine Glucose (UA) (Negative) 07/05/18 07/05/18 07/05/18 Range/Units 13:20 18:52 18:52 WBC (3.8-10.6) k/uL MCV (80.0-100.0) fL Neutrophils # (1.3-7.7) k/uL APTT 31.2 H (22.0-30.0) sec Sodium (137-145) mmol/L Potassium (3.5-5.1) mmol/L Chloride (98-107) mmol/L BUN (9-20) mg/dL Creatinine (0.66-1.25) mg/dL Glucose (74-99) mg/dL Phosphorus (2.5-4.5) mg/dL Magnesium (1.6-2.3) mg/dL Total Creatine Kinase 47 L (55-170) U/L Troponin I 0.223 H* (0.000-0.034) ng/mL Urine Protein 1+ H (Negative) Urine Glucose (UA) 1+ H (Negative) 07/06/18 07/06/18 07/06/18 Range/Units 00:40 03:03 03:03 WBC (3.8-10.6) k/uL MCV 79.4 L (80.0-100.0) fL Neutrophils # (1.3-7.7) k/uL APTT (22.0-30.0) sec Sodium 133 L (137-145) mmol/L Potassium 3.2 L (3.5-5.1) mmol/L Chloride (98-107) mmol/L BUN 115 H* (9-20) mg/dL Creatinine 5.08 H (0.66-1.25) mg/dL Glucose 111 H (74-99) mg/dL Phosphorus 5.4 H (2.5-4.5) mg/dL Magnesium (1.6-2.3) mg/dL Total Creatine Kinase 43 L (55-170) U/L Troponin I 0.179 H* (0.000-0.034) ng/mL Urine Protein (Negative) Urine Glucose (UA) (Negative) 07/06/18 07/06/18 Range/Units 03:03 06:30 WBC (3.8-10.6) k/uL MCV (80.0-100.0) fL Neutrophils # (1.3-7.7) k/uL APTT 40.5 H (22.0-30.0) sec Sodium (137-145) mmol/L Potassium (3.5-5.1) mmol/L Chloride (98-107) mmol/L BUN (9-20) mg/dL Creatinine (0.66-1.25) mg/dL Glucose (74-99) mg/dL Phosphorus (2.5-4.5) mg/dL Magnesium (1.6-2.3) mg/dL Total Creatine Kinase 36 L (55-170) U/L Troponin I 0.135 H* (0.000-0.034) ng/mL Urine Protein (Negative) Urine Glucose (UA) (Negative) Assessment and Plan (1) Syncope Narrative/Plan: * Secondary to orthostatic hypotension due to dehydration postchemotherapy superimposed on possibly paroxysmal A. fib * Previously with to be echocardiogram showing preserved LV ejection fraction * Orthostatic vital signs positive Current Visit: Yes Status: Acute Code(s): R55 - SYNCOPE AND COLLAPSE SNOMED Code(s): 458329010 (2) Paroxysmal atrial fibrillation Narrative/Plan: * Patient previously with echocardiogram that showed preserved LVEF * Plan to transition from Cardizem drip to oral beta blockers today * Patient continued on heparin drip IV Current Visit: Yes Status: Acute Code(s): I48.0 - PAROXYSMAL ATRIAL FIBRILLATION SNOMED Code(s): 076592747 (3) Essential hypertension Narrative/Plan: * Blood pressure stable controlled previously hypotensive probably orthostatic * Continue current regimen Current Visit: Yes Status: Acute Code(s): I10 - ESSENTIAL (PRIMARY) HYPERTENSION SNOMED Code(s): 41492274 (4) Hypokalemia Narrative/Plan: * Patient initiated on potassium replacement protocol Current Visit: Yes Status: Acute Code(s): E87.6 - HYPOKALEMIA SNOMED Code( s): 96283683 (5) Acute kidney injury Narrative/Plan: * Creatinine trending up from 4.88 to 5.08 likely prerenal in etiology cardiorenal * 1L over 2 hrs then run maintenance fluids normal saline at 125 cc/hr * Losartan discontinued, renal ultrasound ordered * Nephrology consultation pending Current Visit: Yes Status: Acute Code(s): N17.9 - ACUTE KIDNEY FAILURE, UNSPECIFIED SNOMED Code(s): 79020499 (6) Coronary artery disease Narrative/Plan: * Elevated troponin, * Patient initiated on aspirin therapy * Cardiology following Current Visit: Yes Status: Acute Code(s): I25.10 - ATHSCL HEART DISEASE OF [place] CORONARY ARTERY W/O ANG PCTRS SNOMED Code(s): 17355605 Plan: Anticipated discharge 1-2 days
--- NOTE | 2018-07-06 12:33 | US ---
EXAMINATION TYPE: US kidneys/renal and bladder DATE OF EXAM: 07/06/2018 COMPARISON: NONE CLINICAL HISTORY: DAYANA on CKD. no symptoms, h/o known bilateral renal stones EXAM MEASUREMENTS: Right Kidney: 12.3 x 5.4 x 6.1 cm Left Kidney: 11.9 x 4.1 x 5.7 cm Right Kidney: small echogenic foci seen, possible small stones, 1.4cm inferior pole cyst Left Kidney: 1.1cm shadowing stone seen inferior pole Bladder: wnl Bilateral Jets seen: no IMPRESSION: 1. Bilateral shadowing renal stones without obstruction. 2. Small hypoechoic areas could be small cysts on the right kidney. These cannot be classified as sim ple cysts. Follow-up is recommended.
--- NOTE | 2018-07-06 15:55 | NM ---
"EXAMINATION TYPE: NM pul vent and perfuse DATE OF EXAM: 07/06/2018 COMPARISON: Chest x-ray from acute abdominal series to 09/18/2018 HISTORY: Elevated d-dimer TECHNIQUE: Utilizing inhalation of 39.1 mCi Tc 99m DTPA aerosol and intravenous injection of 4.61 mC i of Tc 99m MAA, ventilation and perfusion images are acquired post injection in multiple projections . FINDINGS: There is patchy distribution of radiotracer on both ventilation and perfusion within the right upper and midlung mistry. The perfusion may be somewhat more patchy. This is best visualized in the anterio r projection. There is a moderate size defect along the posterior lateral right lung which is mismatched with venti lation. Moderate perfusion defect may be along the inferior lateral left lung base. Report was called to the sim, Bruna JAMESON covering for the patient's nurse at the time of interpretati on 1552 hours 07/06/2018. IMPRESSION: 1. High probability for pulmonary embolism estimated at greater than 80% based on PIOPED 2 criteria. A Red level critical message alert has been initiated for Collette Jay MD~[id number] via the [facility] [facility] | Critical Results System on 07/06/2018 3:51 PM. This message alert has been sent to Rossy Morales~[id number] via the preferences provided by the clinician for the receipt of Radiology Critical Findings. Message ID [id number]."
--- NOTE | 2018-07-06 17:36 | P.CONS ---
History of Present Illness - Reason for Consult Consult date: 07/06/18 new onset a-fib - Chief Complaint lethargy, hypotension - History of Present Illness Mr. Sosa is a very pleasant male pt of Dr. Castellanos who presented with palpable left cervical node that he first noticed in April 2018. 04/28/18 CT neck revealed opacification of right maxillary sinus, left cervical adenopathy at station 3 interposed between sternocleidomastoid muscle and carotid space measuring 3 cm, another enlarging node just below it measuring 2cm and right thyroid nodule, no clear head and neck primary was found. he was evaluated by Dr. Finn, had FNA of left cervical node, path positive for metastatic squamous cell carcinoam, P16 strongly positive. FNA of thyroid nodule was negative, biopsy of left tongue base was negative. On PET revealed suspicious uptake in left cervical nodes and possible uptake at left base of tongue. Patient was initiated on cisplatin every 3 weeks to be given with concurrent radiation. Patient received his first cycle last week. Post chemotherapy patient did have some complaints of nausea, vomiting, he did progressively get worse over the week. He was being seen in the office yesterday for 1 week follow-up after chemotherapy. Pt had what was suspected to be a vasovagal episode, he became lethargic, hypotensive, clammy, tachycardic , sent to the ED, found to be in atrial fibrillation, heparin drip was started, acute renal failure noted. When seen today the patient feels a little better, denies dizziness, feelings of near syncope, palpitations, nausea or vomiting, difficulty in breathing, shortness of breath, abdominal pain, acute changes in bowel or bladder habits, swelling. He does feel a little weak. 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 Kidney stones, thyroid nodule & enlarged lymph node left side of neck History of Any Multi-Drug Resistant Organisms: None Reported Past Surgical History: Appendectomy, Hernia Repair, Orthopedic Surgery Additional Past Surgical History / Comment(s): tongue bx neg, thyroid bx neg, and lt necklymph node bx pt stated positive ,arthroscopies both knees, lithotripsy x2 Past Anesthesia/Blood Transfusion Reactions: No Reported Reaction Additional Past Anesthesia/Blood Transfusion Reaction / Comm: no hx blood transfusion Past Psychological History: No Psychological Hx Reported Smoking Status: Former smoker Past Alcohol Use History: None Reported Past Drug Use History: None Reported - Past Family History Mother Family Medical History: No Reported History Additional Family Medical History / Comment(s): Arrhythmia Father Family Medical History: Myocardial Infarction ([place]), Pneumonia Additional Family Medical History / Comment(s): CABG x3 at an early age. Medications and Allergies Home Medications Medication Instructions Recorded Confirmed Type Losartan Potassium 100 mg PO DAILY 03/24/18 07/05/18 History NIFEdipine [NIFEdipine ER] 60 mg PO DAILY 03/24/18 07/05/18 History L.acidoph,Paracasei, B.lactis 1 cap PO DAILY 05/05/18 07/05/18 History [Probiotic] Omeprazole 20 mg PO DAILY 05/05/18 07/05/18 History Allergies Allergy/AdvReac Type Severity Reaction Status Date / Time meperidine [From Demerol] Allergy fever Verified 07/05/18 12:20 Physical Exam Vitals: Vital Signs Temp Pulse Pulse Pulse Resp BP BP 07/06/18 16:00 87 16 148/111 07/06/18 12:00 73 16 137/98 07/06/18 11:46 16 07/06/18 08:00 88 84 16 121/77 143/103 07/06/18 04:00 97.6 F 79 17 07/05/18 23:57 110 H 17 07/05/18 23:54 97.6 F 110 H 17 07/05/18 20:00 98 F 116 H 17 BP Pulse Ox 07/06/18 16:00 96 07/06/18 12:00 98 07/06/18 11:46 07/06/18 08:00 98 07/06/18 04:00 139/95 96 07/05/18 23:57 07/05/18 23:54 132/93 96 07/05/18 20:00 127/91 95 Intake and Output 07/06/18 07/06/18 07/06/18 06:59 14:59 22:59 Intake Total 1273.352 360 Balance 1273.352 360 Intake: Intake, IV Titration 673.352 Amount Diltiazem 50 mg In Sodium 50 Chloride 0.9% 40 ml @ 10 MG/HR 10 mls/hr IV .Q5H GORD[facility] Rx#:[id number] Heparin Sod,Pork in 0.45% 123.352 NaCl 25,000 unit In 0.45 % NaCl 1 250ml.bag @ 10.6 UNITS/KG/HR 10 mls/hr IV .Q24H GORDY Rx#:[id number] Sodium Chloride 0.9% 1, 500 000 ml @ 80 mls/hr IV . [id number] GORDY Rx#:[id number] Oral 600 360 Other: Voiding Method Toilet Toilet # Voids 3 Weight 92.6 kg 92.6 kg - Constitutional General appearance: average body habitus, cooperative, no acute distress - EENT Eyes: anicteric sclerae, EOMI ENT: hearing grossly normal, normal oropharynx - Neck Neck: no lymphadenopathy - Respiratory Respiratory: bilateral: CTA - Cardiovascular Rhythm: irregularly irregular Heart sounds: normal: S1, S2 Abnormal Heart Sounds: no systolic murmur, no diastolic murmur, no rub, no S3 Gallop, no S4 Gallop, no click, no other leg Peripheral Edema: bilateral: None - Gastrointestinal General gastrointestinal: no absent bowel sounds, no decreased bowel sounds, no distended, no hepatomegaly, no hyperactive bowel sounds, normal bowel sounds, no organomegaly, no rigid, no scaphoid, soft, no splenomegaly, no tenderness, no umbilical hernia, no ventral hernia - Integumentary Integumentary: pale - Neurologic Neurologic: CNII-XII intact - Musculoskeletal Musculoskeletal: strength equal bilaterally - Psychiatric Psychiatric: A&O x's 3, appropriate affect, intact judgment & insight Results CBC & Chem 7: 07/06/18 03:03 07/06/18 03:03 Labs: Abnormal Lab Results - Last 24 Hours (Table) 07/05/18 07/05/18 07/05/18 Range/Units 11:32 18:52 18:52 MCV (80.0-100.0) fL APTT 19.1 L 31.2 H (22.0-30.0) sec D-Dimer (<0.60) mg/L FEU Sodium (137-145) mmol/L Potassium (3.5-5.1) mmol/L BUN (9-20) mg/dL Creatinine (0.66-1.25) mg/dL Glucose (74-99) mg/dL Phosphorus (2.5-4.5) mg/dL Total Creatine Kinase 47 L (55-170) U/L Troponin I 0.223 H* (0.000-0.034) ng/mL 07/06/18 07/06/18 07/06/18 Range/Units 00:40 03:03 03:03 MCV 79.4 L (80.0-100.0) fL APTT (22.0-30.0) sec D-Dimer (<0.60) mg/L FEU Sodium 133 L (137-145) mmol/L Potassium 3.2 L (3.5-5.1) mmol/L BUN 115 H* (9-20) mg/dL Creatinine 5.08 H (0.66-1.25) mg/dL Glucose 111 H (74-99) mg/dL Phosphorus 5.4 H (2.5-4.5) mg/dL Total Creatine Kinase 43 L (55-170) U/L Troponin I 0.179 H* (0.000-0.034) ng/mL 07/06/18 07/06/18 07/06/18 Range/Units 03:03 06:30 09:25 MCV (80.0-100.0) fL APTT 40.5 H 50.8 H (22.0-30.0) sec D-Dimer (<0.60) mg/L FEU Sodium (137-145) mmol/L Potassium (3.5-5.1) mmol/L BUN (9-20) mg/dL Creatinine (0.66-1.25) mg/dL Glucose (74-99) mg/dL Phosphorus (2.5-4.5) mg/dL Total Creatine Kinase 36 L (55-170) U/L Troponin I 0.135 H* (0.000-0.034) ng/mL 07/06/18 Range/Units 09:25 MCV (80.0-100.0) fL APTT (22.0-30.0) sec D-Dimer 1.17 H (<0.60) mg/L FEU Sodium (137-145) mmol/L Potassium (3.5-5.1) mmol/L BUN (9-20) mg/dL Creatinine (0.66-1.25) mg/dL Glucose (74-99) mg/dL Phosphorus (2.5-4.5) mg/dL Total Creatine Kinase (55-170) U/L Troponin I (0.000-0.034) ng/mL Comments: V/Q scan report reviewed Abdominal x-ray: report reviewed Assessment and Plan (1) Pulmonary embolism Narrative/Plan: VQ scan has high probability for PE, unable to do with contrast due to ARF. Pt on heparin drip for a-fib. Will check on NOAC for co-pay. Current Visit: Yes Status: Acute Priority: High Code(s): I26.99 - OTHER PULMONARY EMBOLISM WITHOUT ACUTE COR PULMONALE SNOMED Code(s): 27400749 (2) Squamous cell carcinoma of head and neck Narrative/Plan: Pt has had 1 of 3 planned cycles of chemo with concurrent XRT, definitive treatment planned. Chemo is not due for 2 weeks. No plans to change dose or delay at this time but, will follow renal function. ARF can be a side effect of chemo, anticipate at this time that it is multifactorial. Will review with Rad/Onc, suspect they will try to minimize treatment delays. Current Visit: Yes Status: Acute Priority: High Code(s): C76.0 - MALIGNANT NEOPLASM OF HEAD, FACE AND NECK SNOMED Code(s): 334724951 (3) Acute kidney injury Narrative/Plan: Nephrology consulted Current Visit: Yes Status: Acute Priority: High Code(s): N17.9 - ACUTE KIDNEY FAILURE, UNSPECIFIED SNOMED Code(s): 53992172 (4) New onset a-fib Narrative/Plan: Secondary to PE? Heparin drip ordered. Will check co-pay for NOAC once renal function improved Current Visit: Yes Status: Acute Priority: High Code(s): I48.91 - UNSPECIFIED ATRIAL FIBRILLATION SNOMED Code(s): 23789622 Plan: Doctor attests: I performed a history and physical examination of this patient, developed impression and plan of care discussed with dictator. I agree with dictators note, documented as a scribe.
[2018-07-06] MEDS ORDERED: POTASSIUM CHLORIDE ER 20 MEQ TAB.ER PO STA (21:39)
--- NOTE | 2018-07-07 00:43 | EEG ---
ELECTROENCEPHALOGRAM REPORT DATE OF SERVICE: 07/05/2018 ELECTROENCEPHALOGRAM (EEG) REPORT: TECHNIQUE: A routine 18-channel EEG was performed without video using the 10-20 international placement system. HISTORY: Witnessed syncopal event with loss of consciousness. The patient's family member states that the patient was shaking his right arm and shoulder during the event. MEDICATIONS: Current medications: Unknown. STUDY DURATION: 25 minutes. FINDINGS: BACKGROUND: The background activity consists of 7 to 8 Hz rhythmic waveforms symmetrically distributed in both posterior quadrants. ACTIVATION: Hyperventilation not performed. PHOTIC STIMULATION: Symmetric driving seen. SLEEP: Stages 1 and 2 sleep noted. ABNORMALITIES: Diffuse 5 to 7 Hz polymorphic theta range slowing was seen. Please note that one channel of this EKG was dedicated to EKG at times, it did not demonstrate a sinus rhythm. IMPRESSION: Abnormal EEG. The diffuse theta range slowing mentioned above is not epileptiform in nature. In combination with the slow background, these findings indicate mild diffuse cerebral dysfunction, as may in a toxic metabolic encephalopathy. No seizures were recorded. No epileptiform activity was present. MMODL / IJN: [id number] /
--- NOTE | 2018-07-07 00:58 | CONS ---
CONSULTATION REASON FOR CONSULT: Renal failure. HISTORY OF PRESENT ILLNESS: The patient is a 63-year-old male who was admitted to the hospital with a history of syncope. The patient states that he had gone to the oncologist's office and he suddenly felt lightheaded and dizzy and passed out. He is not sure as to how long the syncope was, possibly 1-2 minutes. He denied any chest pains or palpitations. The patient denies any previous history of kidney diseases. Serum creatinine was noted to be 5.08 mg/dL and a previous creatinine was 1.37 on 06/25/2018. The patient denied use of any no nonsteroidal anti-inflammatory agents recently. He did not have any IV contrast administered recently. The blood pressure was positive for orthostatics and patient is currently receiving a fluid bolus. No obvious hypotension otherwise noted. I am not sure what the blood pressure was when patient had actually had the syncopal episode. The patient denies any history of urinary retention. He did have an atrial fibrillation with RVR on this admission and is maintained on Cardizem drip as well as IV heparin. A V/Q scan showed high suspicion for PE on the right lung and the patient remains on the IV heparin. He states he has been voiding and ultrasound of the kidneys was performed this morning which showed renal stones without any hydronephrosis. Both kidneys were fairly good size at 12.3 and 11.9 cm. PAST MEDICAL HISTORY: Significant for gastroesophageal reflux disease, hypertension, osteoarthritis, history of lymphoma, nephrolithiasis. PAST SURGICAL HISTORY: Appendectomy, hernia repair, lymph node biopsy, arthroscopies. SOCIAL HISTORY: Patient is a former smoker. No history of drug abuse or alcohol abuse. MEDICATIONS: Medications at home prior to admission included losartan, nifedipine, omeprazole. ALLERGIES: INCLUDE MEPERIDINE OR DEMEROL. REVIEW OF SYSTEMS: As per HPI. Other systems negative. PHYSICAL EXAMINATION: Patient is currently comfortable, awake, not in any acute distress. Blood pressure this morning was 121/77 standing. Sitting was 143/103, heart rate 84 per minute. Patient is afebrile. Examination of the heart S1, S2. Examination of the lungs bilateral breath sounds are heard. Abdomen is soft, nontender. Examination of lower extremities shows no evidence of edema. S[employer] exam is grossly intact. LAB: Show sodium 133, potassium 3.2, chloride 100, BUN 115, serum creatinine 5.08, hemoglobin 14.3, phosphorus 5.4, magnesium 2.2. UA shows 1+ protein. No cells were seen. No blood is noted. Ultrasound as mentioned, showed no evidence of hydronephrosis. Bilateral nonobstructive stones were seen. ASSESSMENT: 1. Acute kidney injury, most likely acute tubular necrosis currently nonoliguric. Most likely Cisplatin induced. No evidence of hydronephrosis on the ultrasound. This is a significant deterioration in renal function with serum creatinine going from 1.37 on 06/25/2018 to 5.0 now. There is no documented significant hypotension, although patient was orthostatic. He is maintained on IV fluids which I will continue. The patient had been on angiotensin receptor blockers, which we will continue to hold for now. There is proteinuria noted on the urinalysis. Therefore, serologies will be ordered. There is no evidence of hypercalcemia to cause this acute kidney injury. I will find out what medications patient received as outpatient. Upon review of the oncology notes, it looks like the patient received cisplatin which is nephrotoxic. 2. 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 Recently started on cisplatin, being followed by Dr. Castellanos. 3. Pulmonary embolism, maintained on heparin drip. 4. New onset atrial fibrillation maintained on anticoagulation and Cardizem drip. PLAN: Check baseline serologies, check serum and urine immunofixation and continue IV fluids. Repeat labs in a.m. Continue to avoid nephrotoxic agents and this could be a significant nephrotoxicity from the cisplatin. Thank you for this consultation. We will continue to follow the patient with you during his hospitalization. MMODL / IJN: [id number] / YUNG
[2018-07-07 01:58] LABS: Glucose,Whole Blood 104 mg/dL (75-99)
[2018-07-07] MEDS: SODIUM CHLORIDE 0.9% 1,000 ML IV SCH ×4 (02:18→20:36)
[2018-07-07] MEDS: PANTOPRAZOLE 40 MG TABLET PO SCH (05:57)
[2018-07-07 06:14] LABS: Calcium 10.5 mg/dL (8.4-10.2); Potassium 3.7 mmol/L (3.5-5.1)
[2018-07-07 06:55] LABS: Basophils % (A) 0 %; Eosinophils # (A) 0.1 k/uL (0-0.7); Eosinophils % (A) 1 %; HCT 39.8 % (39.0-53.0); HGB 13.4 gm/dL (13.0-17.5); Lymphocytes # (A) 3.4 k/uL (1.0-4.8); Lymphocytes % (A) 41 %; MCH 27.1 pg (25.0-35.0); MCHC 33.7 g/dL (31.0-37.0); MCV 80.5 fL (80.0-100.0); Mean Platelet Volume 7.3; Monocytes # (A) 0.5 k/uL (0-1.0); Monocytes % (A) 6 %; Neutrophils # (A) 4.1 k/uL (1.3-7.7); Neutrophils % (A) 50 %; Platelet Count 221 k/uL (150-450); RBC 4.94 m/uL (4.30-5.90); WBC 8.2 k/uL (3.8-10.6)
[2018-07-07] MEDS: APIXABAN 2.5 MG TABLET PO SCH ×2 (08:25→20:35)
[2018-07-07] MEDS: METOPROLOL TARTRATE 25 MG TAB PO SCH ×2 (08:25→20:35)
--- NOTE | 2018-07-07 09:49 | US ---
EXAMINATION TYPE: US venous doppler duplex LE DATE OF EXAM: 07/07/2018 9:36 AM COMPARISON: CLINICAL HISTORY: PE. On heparin. No leg pain, redness or swelling. SIDE PERFORMED: Bilateral TECHNIQUE: The lower extremity deep venous system is examined utilizing real time linear array sonog elsy with graded compression, doppler sonography and color-flow sonography. VESSELS IMAGED: External Iliac Vein (EIV) Common Femoral Vein Deep Femoral Vein Greater Saphenous Vein * Femoral Vein Popliteal Vein Small Saphenous Vein * Proximal Calf Veins (* superficial vessels) Right Leg: Negative for DVT Left Leg: Negative for DVT IMPRESSION: No evidence for DVT at this time.
--- NOTE | 2018-07-07 10:53 | P.PN ---
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 The patient was started on Cardizem drip and IV heparin drip review of his recent echocardiogram 06/16/18 indicated preserved LVEF, The patient was noted to have positive orthostatic vital signs and found to be in acute kidney injury after presenting with a serum creatinine of 4.88. The patient's ARB and other nephrotoxic agents were held and the patient was started on IV fluids, renal ultrasound showed bilateral renal stones without obstruction, nephrology was consulted and it was thought that the cisplatin was the cause of his acute kidney injury superimposed on secondary dehydration from chemotherapy. The patient was noted to have elevated d-dimer 1.17 and subsequent VQ scan indicated a high probability of PE the patient was transitioned to DOAC Eliquis and his heparin drip was discontinued. It was thought his PE was secondary to his underlying malignancy, subsequent lower extremity venous Dopplers were negative for any suggestion of DVT. Patient seen and examined at bedside, reports that his appetite is back. The patient inquiring about having possible radiation today. Heme oncology is following Currently denies any chest pain or shortness of breath, denies any recurrence of his episodes of lightheadedness or syncope, patient denies any palpitations. No acute events overnight Objective - Vital Signs Vital signs: Vital Signs Temp 98.1 F 07/07/18 08:00 Pulse 99 07/07/18 08:00 Resp 16 07/07/18 08:00 BP 130/90 07/07/18 08:00 Pulse Ox 94 L 07/07/18 08:00 Intake & Output 07/06/18 07/07/18 07/07/18 18:59 06:59 18:59 Intake Total 720 2226.324 240 Balance 720 2226.324 240 Weight 92.6 kg 93.7 kg Intake: Intake, IV Titration 1726.324 Amount Heparin Sod,Pork in 0.45% 351.324 NaCl 25,000 unit In 0.45 % NaCl 1 250ml.bag @ 10.6 UNITS/KG/HR 10 mls/hr IV .Q24H GORDY Rx#:[id number] Sodium Chloride 0.9% 1, 1375 000 ml @ 125 mls/hr IV . Q8H GORDY Rx#:[id number] Oral 720 500 240 Other: Voiding Method Toilet Toilet # Voids 3 - Exam Constitutional: No acute distress, conversant, pleasant Eyes: Anicteric sclerae, moist conjunctiva, no lid-lag, PERRLA ENMT: NC/AT,Oropharynx clear, no erythema, exudates Neck:Supple, FROM, no masses, or JVD, No carotid bruits; No thyromegaly Lungs: Clear to auscultation, Clear to percussion, Normal respiratory effort, no accessory muscle use Cardiovascular: Heart regular in rate and rhythm, No murmurs, gallops, or rubs no peripheral edema Abdominal: Soft Nontender, nom distended, no guarding, no rebound or rigidity, Normoactive bowel sounds No hepatomegaly, No splenomegaly, No palpable mass No abdominal wall hernia noted Skin: Normal temperature, tone, texture, turgor, No induration No subcutaneous nodules, No rash, lesions, No ulcers Extremities:No digital cyanosis No clubbing, Pedal pulses intact and symmetrical Radial pulses intact and symmetrical Normal gait and station, No calf tenderness Psychiatric: Alert and oriented to person, place and time, Appropriate affect Intact judgement Neuro: Muscles Strength 5/5 in all 4 extremities, Sensation to light touch grossly present throughout, Cranial nerves II-XII grossly intact. No focal sensory deficits - Labs CBC & Chem 7: 07/07/18 05:10 07/07/18 05:10 Labs: Abnormal Lab Results - Last 24 Hours (Table) 07/06/18 07/06/18 07/07/18 Range/Units 09:25 20:10 01:57 APTT (22.0-30.0) sec D-Dimer 1.17 H (<0.60) mg/L FEU Potassium 3.1 L (3.5-5.1) mmol/L BUN (9-20) mg/dL Creatinine (0.66-1.25) mg/dL Glucose (74-99) mg/dL POC Glucose (mg/dL) 104 H (75-99) mg/dL Calcium (8.4-10.2) mg/dL 07/07/18 07/07/18 Range/Units 05:10 05:10 APTT 54.6 H (22.0-30.0) sec D-Dimer (<0.60) mg/L FEU Potassium (3.5-5.1) mmol/L BUN 94 H (9-20) mg/dL Creatinine 3.77 H (0.66-1.25) mg/dL Glucose 103 H (74-99) mg/dL POC Glucose (mg/dL) (75-99) mg/dL Calcium 10.5 H (8.4-10.2) mg/dL Assessment and Plan (1) Syncope Narrative/Plan: * Secondary to orthostatic hypotension due to dehydration post chemotherapy with cisplatin superimposed on possibly paroxysmal A. fib/PE * Previously with to be echocardiogram showing preserved LV ejection fraction * Orthostatic vital signs positive Current Visit: Yes Status: Acute Code(s): R55 - SYNCOPE AND COLLAPSE SNOMED Code(s): 329544690 (2) Paroxysmal atrial fibrillation Narrative/Plan: * Patient previously with echocardiogram that showed preserved LVEF * Plan to transition from Cardizem drip to oral beta blockers today * Patient initiated and continued on DOAC with Eliquis today Current Visit: Yes Status: Resolved Code(s): I48.0 - PAROXYSMAL ATRIAL FIBRILLATION SNOMED Code(s): 457279138 (3) Pulmonary embolism Narrative/Plan: * Secondary to underlying malignancy * V/Q scan indicating high probability of PE, lower extremity venous Dopplers negative for DVT * Transitioned from IV heparin to DOAC with eliquis Current Visit: Yes Status: Acute Priority: High Code(s): I26.99 - OTHER PULMONARY EMBOLISM WITHOUT ACUTE COR PULMONALE SNOMED Code(s): 89640260 (4) Acute kidney injury Narrative/Plan: * Creatinine trending down from 5.08 to 3.77 likely prerenal in etiology due to dehydration with cardiorenal with nephrotoxic chemotherapy with cisplatin * continue maintenance normal saline at 125 cc/hr * Losartan discontinue * Appreciate pulmonary recommendations Current Visit: Yes Status: Acute Priority: High Code(s): N17.9 - ACUTE KIDNEY FAILURE, UNSPECIFIED SNOMED Code(s): 78447226 (5) Essential hypertension Narrative/Plan: * Blood pressure stable controlled previously hypotensive probably orthostatic * Continue current regimen Current Visit: Yes Status: Acute Code(s): I10 - ESSENTIAL (PRIMARY) HYPERTENSION SNOMED Code(s): 51438726 (6) Hypokalemia Narrative/Plan: * Patient initiated on potassium replacement protocol Current Visit: Yes Status: Resolved Code(s): E87.6 - HYPOKALEMIA SNOMED Code(s): 10768276 (7) Coronary artery disease Narrative/Plan: * Elevated troponin in the setting of acute kidney injury * Patient initiated on aspirin therapy * Appreciate cardiology recommendations Current Visit: Yes Status: Acute Code(s): I25.10 - ATHSCL HEART DISEASE OF [place] CORONARY ARTERY W/O ANG PCTRS SNOMED Code(s): 18479256 Plan: Anticipated discharge 1-2 days
[2018-07-07 11:01] LABS: Complement C3 80.3 mg/dL (80.0-207.0)
--- NOTE | 2018-07-07 13:51 | P.PN ---
Subjective Progress Note Date: 07/07/18 This is a 63-year-old gentleman with past medical history significant for intermediate triple-vessel coronary artery disease based on heart cath performed in 2006, hypertension, prior history of smoking, who was diagnosed recently with this, cell cancer of the head and neck, was admitted to the hospital in June for placement of a PEG which was unsuccessful. Cardiology was asked to see the patient on that admission, he was noted to have cardiac arrhythmia in the form of PVCs and ventricular bigeminy. He did have an echo performed on June 26 which revealed a normal left ventricular systolic function. Upon review of all of the rhythm performed on that admission, it appears the patient had remained in normal sinus rhythm. Patient presents to the hospital on this occasion after experiencing a syncopal episode. According to the patient, he had went for a follow-up visit at the oncology clinic, while sitting in a chair in the waiting room he became very dizzy and lightheaded, states that he became clammy and diaphoretic. His was next to him, apparently the patient did pass out, and upon wakening he did not have any loss of bowel or bladder functioning, he was mildly confused and unsteady upon wakening. His blood pressure was documented shortly after in the clinic, came back to be around 70 systolic. EKG performed on arrival to the emergency room showed atrial fibrillation with a heart rate in the 90s. Blood pressure on arrival here 122/80 heart rate of 90, 98% on a 15% nonrebreather. White blood cell count 12.4 on admission, 9.7 this morning, hemoglobin 15.9, platelet count 210. Sodium 133, potassium 3.2, BUN 1:15 and creatinine 5.0. His BUN on admission was 114 and creatinine 4.8. On the patient's most recent admission which had just been last month, his BUN was 23 and creatinine 1.3. Troponins 0.22, 0.17, 0.13. TSH 3.2. The patient's home medications included omeprazole , Procardia 60 daily, losartan 100 mg daily, and a probiotic. According to the patient, he has had multiple episodes where he feels like he is going to pass out, especially when he is standing or sitting. 07/07/2018 Patient seen and examined this morning, breathing is significantly improved. Continues to be in atrial fibrillation, rate today is under much better control. D-dimer yesterday came back elevated and for this reason patient underwent a VQ scan which came back high probability for pulmonary embolism. Patient is on Eliquis for his A. fib, we would recommend he be on the Eliquis dosing for pulmonary embolism. Objective - Vital Signs Vital signs: Vital Signs Temp 98.1 F 07/07/18 08:00 Pulse 103 H 07/07/18 12:00 Resp 16 07/07/18 12:00 BP 133/92 07/07/18 12:00 Pulse Ox 95 07/07/18 12:00 Intake & Output 07/06/18 07/07/18 07/07/18 18:59 06:59 18:59 Intake Total 720 2226.324 240 Balance 720 2226.324 240 Weight 92.6 kg 93.7 kg Intake: Intake, IV Titration 1726.324 Amount Heparin Sod,Pork in 0.45% 351.324 NaCl 25,000 unit In 0.45 % NaCl 1 250ml.bag @ 10.6 UNITS/KG/HR 10 mls/hr IV .Q24H [facility]ORD[facility] Rx#:[id number] Sodium Chloride 0.9% 1, 1375 000 ml @ 125 mls/hr IV . Q8H GORDY Rx#:[id number] Oral 720 500 240 Other: Voiding Method Toilet Toilet Toilet # Voids 3 - Exam PHYSICAL EXAMINATION: GENERAL: 63-year-old gentleman in no acute distress at the time of my examination HEENT: Head is atraumatic, normocephalic. Pupils equal, round. Sclera anicteric. Conjunctiva are clear. Mucous membranes of the mouth are moist. Neck is supple. There is no elevated jugular venous pressure. No carotid bruit is heard. HEART EXAMINATION: Heart S1, S2 normal. No murmur or gallop heard. CHEST EXAMINATION: Lungs are clear to auscultation and precussion. No chest wall tenderness is noted on palpation or with deep breathing. ABDOMEN: Soft, nontender. Bowel sounds are heard. No organomegaly noted. EXTREMITIES: 2+ peripheral pulses with no evidence of peripheral edema and no calf tenderness noted. NEUROLOGIC patient is awake, alert and oriented 3 . . - Labs CBC & Chem 7: 07/07/18 05:10 07/07/18 05:10 Labs: Abnormal Lab Results - Last 24 Hours (Table) 07/06/18 07/07/18 07/07/18 Range/Units 20:10 01:57 05:10 APTT (22.0-30.0) sec Potassium 3.1 L (3.5-5.1) mmol/L BUN 94 H (9-20) mg/dL Creatinine 3.77 H (0.66-1.25) mg/dL Glucose 103 H (74-99) mg/dL POC Glucose (mg/dL) 104 H (75-99) mg/dL Calcium 10.5 H (8.4-10.2) mg/dL 07/07/18 Range/Units 05:10 APTT 54.6 H (22.0-30.0) sec Potassium (3.5-5.1) mmol/L BUN (9-20) mg/dL Creatinine (0.66-1.25) mg/dL Glucose (74-99) mg/dL POC Glucose (mg/dL) (75-99) mg/dL Calcium (8.4-10.2) mg/dL Assessment and Plan Plan: Assessment and plan #1 syncope, likely secondary to orthostatic hypotension. Blood pressure at time of incident was 70 systolic. #2 acute renal failure, creatinine on this admission 4.8, 5.0 this morning. Just one week ago, the patient's creatinine was 1.3. #3 atrial fibrillation with moderate rapid ventricular response, appears to be of new onset, paroxysmal. #4 intermediate triple-vessel coronary artery disease based on cardiac cath performed in 2006 #5 hypertension #6 history of smoking #7 recent diagnosis of squamous cell cancer of the head and neck #8 abnormal troponins, likely secondary to abnormal renal function #9 VQ scan high probability for PE Plan Anticoagulation per PE protocol, continue metoprolol 25 mg one tablet by mouth twice a day. Once the patient's protocol is finished for the pulmonary embolism he will need to remain on Eliquis for his atrial fibrillation. DNP note has been reviewed, I agree with a documented findings and plan of care. Patient was seen and examined.
[2018-07-07] MEDS: ASPIRIN 81 MG PO SCH (17:08)
--- NOTE | 2018-07-07 17:15 | P.PN ---
Subjective Progress Note Date: 07/07/18 Principal diagnosis: Squamous cell malignancy of the head/neck In f/u today pt is ambulating independently, he feels much better, no dizziness , palpitations, chest pain, SOB, nausea, bowel or bladder changes, bleeding or pain Objective - Vital Signs Vital signs: Vital Signs Temp 98.1 F 07/07/18 08:00 Pulse 103 H 07/07/18 12:00 Resp 16 07/07/18 16:00 BP 133/92 07/07/18 12:00 Pulse Ox 95 07/07/18 12:00 Intake & Output 07/06/18 07/07/18 07/07/18 18:59 06:59 18:59 Intake Total 720 2226.324 240 Balance 720 2226.324 240 Weight 92.6 kg 93.7 kg Intake: Intake, IV Titration 1726.324 Amount Heparin Sod,Pork in 0.45% 351.324 NaCl 25,000 unit In 0.45 % NaCl 1 250ml.bag @ 10.6 UNITS/KG/HR 10 mls/hr IV .Q24H G[facility] Rx#:[id number] Sodium Chloride 0.9% 1, 1375 000 ml @ 125 mls/hr IV . Q8H G[facility] Rx#:[id number] Oral 720 500 240 Other: Voiding Method Toilet Toilet Toilet # Voids 3 - Constitutional General appearance: Present: average body habitus, cooperative, no acute distress - EENT Eyes: Present: anicteric sclerae, EOMI ENT: Present: hearing grossly normal - Respiratory Respiratory: bilateral: CTA - Cardiovascular Heart sounds: normal: S1, S2 - Peripheral edema leg Peripheral Edema: bilateral: None - Gastrointestinal General gastrointestinal: Present: normal bowel sounds, soft - Integumentary Integumentary: Present: normal - Neurologic Neurologic: Present: CNII-XII intact - Musculoskeletal Musculoskeletal: Present: strength equal bilaterally - Psychiatric Psychiatric: Present: A&O x's 3, appropriate affect, intact judgment & insight - Labs CBC & Chem 7: 07/07/18 05:10 07/07/18 05:10 Labs: Abnormal Lab Results - Last 24 Hours (Table) 07/06/18 07/07/18 07/07/18 Range/Units 20:10 01:57 05:10 APTT (22.0-30.0) sec Potassium 3.1 L (3.5-5.1) mmol/L BUN 94 H (9-20) mg/dL Creatinine 3.77 H (0.66-1.25) mg/dL Glucose 103 H (74-99) mg/dL POC Glucose (mg/dL) 104 H (75-99) mg/dL Calcium 10.5 H (8.4-10.2) mg/dL 07/07/18 Range/Units 05:10 APTT 54.6 H (22.0-30.0) sec Potassium (3.5-5.1) mmol/L BUN (9-20) mg/dL Creatinine (0.66-1.25) mg/dL Glucose (74-99) mg/dL POC Glucose (mg/dL) (75-99) mg/dL Calcium (8.4-10.2) mg/dL - Imaging and Cardiology VQ scan report reviewed BLE doppler report reviewed Assessment and Plan (1) Pulmonary embolism Narrative/Plan: Reviewed results of VQ scan, high probability for PE. Discussed treatment of PE. Discussed case with [employer] [facility] co-pay confirmed. This has been started. Current Visit: Yes Status: Acute Priority: High Code(s): I26.99 - OTHER PULMONARY EMBOLISM WITHOUT ACUTE COR PULMONALE SNOMED Code(s): 25313874 (2) Squamous cell carcinoma of head and neck Narrative/Plan: Pt has had 1 of 3 planned cycles of chemo with concurrent XRT, definitive treatment planned. Chemo is not due for 2 weeks. No plans to change dose or delay at this time but, will cont follow renal function. ARF can be a side effect of chemo, anticipate at this time that it is multifactorial. Will review with Rad/Onc, suspect they will try to minimize radiation treatment delays. Current Visit: Yes Status: Acute Priority: High Code(s): C76.0 - MALIGNANT NEOPLASM OF HEAD, FACE AND NECK SNOMED Code(s): 412873339 (3) Acute kidney injury Narrative/Plan: Improved BUN/Cr, ongoing monitoring, Nephrology following Current Visit: Yes Status: Acute Priority: High Code(s): N17.9 - ACUTE KIDNEY FAILURE, UNSPECIFIED SNOMED Code(s): 19335289 (4) New onset a-fib Narrative/Plan: Secondary to PE? Cardiology following. Pt insurance has approved eliquis. Current Visit: Yes Status: Acute Priority: High Code(s): I48.91 - UNSPECIFIED ATRIAL FIBRILLATION SNOMED Code(s): 87382201 Plan: Doctor attests: I performed a history and physical examination of this patient, developed impression and plan of care discussed with dictator. I agree with dictators note, documented as a scribe.
--- NOTE | 2018-07-07 19:20 | PN ---
PROGRESS NOTE Patient is seen for followup for acute kidney injury. He is currently maintained on IV fluids. Renal function has been improving. The patient has been voiding well. His creatinine is down to 3.7 from 5.0 yesterday. On examination, the blood pressure was 133/92, heart rate 103 per minute. Patient is afebrile. Examination of the heart S1, S2. Examination of the lungs bilateral breath sounds are heard. Abdomen is soft, nontender. Examination of lower extremities shows no evidence of edema. [employer] exam is grossly intact. LAB: Show sodium 139, potassium 3.7, BUN 94, serum creatinine 3.7, hemoglobin 13.4 g/dL. ASSESSMENT: 1. Acute kidney injury, most likely acute tubular necrosis currently nonoliguric and improving. UA did show evidence of proteinuria and serologies have been ordered, which are currently pending. Ultrasound was unremarkable. 2. Acute pulmonary embolism. Currently maintained on anticoagulation. 3. Atrial fibrillation with RVR, now with controlled ventricular response. 4. Mild hypercalcemia noted. The patient is not on any calcium supplements. I will check a PTH level, 25 hydroxy vitamin D level as well. 5. Hypovolemia, status post IV fluid boluses and maintained on maintenance IV hydration now. PLAN: Check PTH level, vitamin D levels, serum and urine immunofixation. Continue with anticoagulation. Repeat labs in a.m. MMLLUVIAL / IJN: [id number] /
[2018-07-07] MEDS ORDERED: cloNIDine HCL 0.1 MG TAB PO STA (23:07)
[2018-07-07] MEDS ORDERED: MAG HYDROX/AL HYDROX/SIMETH 30 ML CUP PO STA (23:08)
[2018-07-08 02:39] LABS: Parathyroid Hormone Intact 26.7 pg/mL (14.0-72.0); Vitamin D 25 Hydroxy 21.2 ng/mL (30.0-100.0)
[2018-07-08] MEDS: SODIUM CHLORIDE 0.9% 1,000 ML IV SCH (05:47)
[2018-07-08] MEDS: PANTOPRAZOLE 40 MG TABLET PO SCH (06:06)
[2018-07-08 07:00] LABS: Basophils % (A) 0 %; Eosinophils # (A) 0.1 k/uL (0-0.7); Eosinophils % (A) 1 %; HCT 36.8 % (39.0-53.0); HGB 12.6 gm/dL (13.0-17.5); Lymphocytes # (A) 2.9 k/uL (1.0-4.8); Lymphocytes % (A) 42 %; MCH 27.7 pg (25.0-35.0); MCHC 34.3 g/dL (31.0-37.0); MCV 80.8 fL (80.0-100.0); Monocytes # (A) 0.4 k/uL (0-1.0); Monocytes % (A) 5 %; Neutrophils # (A) 3.4 k/uL (1.3-7.7); Neutrophils % (A) 49 %; Platelet Count 200 k/uL (150-450); RBC 4.56 m/uL (4.30-5.90); RDW 12.8 % (11.5-15.5); WBC 6.9 k/uL (3.8-10.6)
[2018-07-08 07:10] LABS: Potassium 3.6 mmol/L (3.5-5.1)
[2018-07-08] MEDS: ASPIRIN 81 MG PO SCH (08:27)
[2018-07-08] MEDS: METOPROLOL TARTRATE 25 MG TAB PO SCH (08:28)
[2018-07-08] MEDS: APIXABAN 2.5 MG TABLET PO SCH (08:28)
[2018-07-08] MEDS ORDERED: APIXABAN 2.5 MG TABLET PO ONE (10:00)
--- NOTE | 2018-07-08 10:03 | ECHOF ---
Referral Reason:sob MEASUREMENTS -------- HEIGHT: 182.9 cm WEIGHT: 93.4 kg BP: RVIDd: 2.7 cm (< 3.3) RAP: 5.00 mmHg RVSP: 34.70 mmHg FINDINGS -------- Sinus rhythm. Limited Study Pt had echo 06/29/18: Limited study for RV & RVSP. Overall left ventricular systolic function is normal with, an EF between 55 - 60 %. The right ventricle is normal in size. Mild tricuspid regurgitation present. There is mild pulmonary hypertension. The right ventricular systolic pressure, as measured by Doppler, is 34.70mmHg. CONCLUSIONS -------- 1. Limited Study Pt had echo 06/29/18: Limited study for RV & RVSP. 2. Overall left ventricular systolic function is normal with, an EF between 55 - 60 %. 3. The right ventricle is normal in size. 4. Mild tricuspid regurgitation present. 5. There is mild pulmonary hypertension. 6. The right ventricular systolic pressure, as measured by Doppler, is 34.70mmHg. LINE SUPPLY: Lana Tafoya RDCS
[2018-07-08 11:51] VITALS: BP 150/116; PULSE 92; RESP 18; TEMP 98
--- NOTE | 2018-07-08 13:43 | P.DS ---
Providers Date of admission: 07/05/18 14:28 Expected date of discharge: 07/08/18 Attending physician: Mary Baltazar MD Consults: 07/05/18 14:35 Consult Physician Routine Consulting Provider: Roscoe Valenzuela Consult Reason/Comments: afib Do you want consulting provider notified?: Yes 07/05/18 14:36 Consult Physician Routine Consulting Provider: Collette Jay Consult Reason/Comments: veena Do you want consulting provider notified?: Yes 07/07/18 09:13 Consult Physician Routine Consulting Provider: Olegario Rod Consult Reason/Comments: chemo with renal fialure Do you want consulting provider notified?: Already Contacted Primary care physician: Colten Henson - Discharge Diagnosis(es) (1) Syncope Current Visit: Yes Status: Acute (2) Paroxysmal atrial fibrillation Current Visit: Yes Status: Resolved (3) Pulmonary embolism Current Visit: Yes Status: Acute Priority: High (4) Acute kidney injury Current Visit: Yes Status: Acute Priority: High (5) Essential hypertension Current Visit: Yes Status: Acute (6) Hypokalemia Current Visit: Yes Status: Resolved (7) Coronary artery disease Current Visit: Yes Status: Acute Hospital Course: The patient is a 63-year-old male with a past medical history of 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 The patient was started on Cardizem drip and IV heparin drip review of his recent echocardiogram 06/16/18 indicated preserved LVEF, The patient was noted to have positive orthostatic vital signs and found to be in acute kidney injury after presenting with a serum creatinine of 4.88. The patient's ARB and other nephrotoxic agents were held and the patient was started on IV fluids, renal ultrasound showed bilateral renal stones without obstruction, nephrology was consulted and it was thought that the cisplatin was the cause of his acute kidney injury superimposed on secondary dehydration from chemotherapy. The patient was noted to have elevated d-dimer 1.17 and subsequent VQ scan indicated a high probability of PE the patient was transitioned to DOAC Eliquis and his heparin drip was discontinued. Limited view echocardiogram showed a preserved ejection fraction 5-60%. It was thought his PE was secondary to his underlying malignancy, subsequent lower extremity venous Dopplers were negative for any suggestion of DVT. The patient was discharged home in stable condition with appropriate follow-up with cardiology and nephrology, and this discharge process took approximately 35 minutes. Focused exam Respiratory: Clear to auscultation and unlabored Cardiovascular: Irregularly irregular. PMI nondisplaced, no JVD or peripheral edema Patient Condition at Discharge: Good Plan - Discharge Summary Discharge Rx Participant: Yes New Discharge Prescriptions: New Apixaban [Eliquis] 5 mg PO BID #60 tab Metoprolol Tartrate [Lopressor] 25 mg PO BID #60 tab Isosorbide Mononitrate ER [Imdur] 30 mg PO DAILY #30 tab Continue NIFEdipine [NIFEdipine ER] 60 mg PO DAILY Omeprazole 20 mg PO DAILY L.acidoph,Paracasei, B.lactis [Probiotic] 1 cap PO DAILY Discontinued Losartan Potassium 100 mg PO DAILY Discharge Medication List NIFEdipine [NIFEdipine ER] 60 mg PO DAILY 03/24/18 [History] L.acidoph,Paracasei, B.lactis [Probiotic] 1 cap PO DAILY 05/05/18 [History] Omeprazole 20 mg PO DAILY 05/05/18 [History] Apixaban [Eliquis] 5 mg PO BID #60 tab 07/08/18 [Rx] Isosorbide Mononitrate ER [Imdur] 30 mg PO DAILY #30 tab 07/08/18 [Rx] Metoprolol Tartrate [Lopressor] 25 mg PO BID #60 tab 07/08/18 [Rx] Follow up Appointment(s)/Referral(s): Roscoe Valenzuela MD [STAFF PHYSICIAN] - 07/19/18 3:45 pm Colten Henson MD [Primary Care Provider] - 1-2 days Patient Instructions/Handouts: A-fib (Atrial Fibrillation) (DC) Discharge Disposition: HOME SELF-CARE
--- NOTE | 2018-07-08 13:46 | P.PN ---
Subjective Patient is seen in follow-up for acute kidney injury. Renal function is improving with creatinine down to 3.03 today. Admits to good urine output. No vomiting or diarrhea. Denies chest shortness of breath. Oral intake is good. Vital signs are stable. General: The patient appeared well nourished and normally developed. HEENT: Head exam is unremarkable. Neck is without jugular venous distension. LUNGS: Lungs are clear to auscultation and percussion. Breath sounds decreased. HEART: Rate and Rhythm are regular. First and second heart sounds normal. No murmurs, rubs or gallops. ABDOMEN: Abdominal exam reveals normal bowel sounds. Non-tender and non- distended. No evidence of peritonitis. EXTREMITITES: No clubbing, cyanosis, or edema. Objective - Vital Signs Vital signs: Vital Signs Temp 98.0 F 07/08/18 11:47 Pulse 92 07/08/18 11:47 Resp 18 07/08/18 11:47 BP 150/116 07/08/18 11:47 Pulse Ox 92 L 07/08/18 11:47 Intake & Output 07/07/18 07/08/18 07/08/18 18:59 06:59 18:59 Intake Total 720 120 240 Balance 720 120 240 Weight 95 kg Intake: Oral 720 120 240 Other: Voiding Method Toilet Toilet Toilet # Voids 1 - Labs CBC & Chem 7: 07/08/18 06:35 07/08/18 06:35 Labs: Abnormal Lab Results - Last 24 Hours (Table) 07/07/18 07/08/18 07/08/18 Range/Units 18:59 06:35 06:35 Hgb 12.6 L (13.0-17.5) gm/dL Hct 36.8 L (39.0-53.0) % BUN 67 H (9-20) mg/dL Creatinine 3.03 H (0.66-1.25) mg/dL Glucose 105 H (74-99) mg/dL Vitamin D 25-Hydroxy 21.2 L (30.0-100.0) ng/mL Assessment and Plan Plan: Assessment: 1. Acute kidney injury secondary to ATN secondary to hemodynamic instability and intravascular volume depletion. Renal function improving. Creatinine 3.03 today. No evidence of hydronephrosis noted on renal ultrasound. 2. Acute pulmonary embolism maintained on anticoagulation. 3. A. fib with RVR. Rate controlled. 4. Hypercalcemia secondary to intravascular volume depletion. Improved with IV hydration. 5. 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 6. Benign hypertension. 7. Proteinuria. Rule out GN. Plan: Maintain normal saline at 125 mL an hour. Avoid nephrotoxins. Potential discharge today. Repeat basic metabolic panel in 2-3 days postdischarge and follow up outpatient in the next 1-2 weeks. Follow-up pending serologies. Avoid cisplatin therapy as it can be nephrotoxic if possible.
[2018-07-08 14:34] LABS: C-ANCA <1:20 Titer (<1:20); P-ANCA <1:20 Titer (<1:20)
[2018-07-08 14:45] VITALS: BMI 28.4
--- NOTE | 2018-07-08 14:50 | P.PN ---
Subjective Progress Note Date: 07/08/18 This is a 63-year-old gentleman with past medical history significant for intermediate triple-vessel coronary artery disease based on heart cath performed in 2006, hypertension, prior history of smoking, who was diagnosed recently with this, cell cancer of the head and neck, was admitted to the hospital in June for placement of a PEG which was unsuccessful. Cardiology was asked to see the patient on that admission, he was noted to have cardiac arrhythmia in the form of PVCs and ventricular bigeminy. He did have an echo performed on June 26 which revealed a normal left ventricular systolic function. Upon review of all of the rhythm performed on that admission, it appears the patient had remained in normal sinus rhythm. Patient presents to the hospital on this occasion after experiencing a syncopal episode. According to the patient, he had went for a follow-up visit at the oncology clinic, while sitting in a chair in the waiting room he became very dizzy and lightheaded, states that he became clammy and diaphoretic. His was next to him, apparently the patient did pass out, and upon wakening he did not have any loss of bowel or bladder functioning, he was mildly confused and unsteady upon wakening. His blood pressure was documented shortly after in the clinic, came back to be around 70 systolic. EKG performed on arrival to the emergency room showed atrial fibrillation with a heart rate in the 90s. Blood pressure on arrival here 122/80 heart rate of 90, 98% on a 15% nonrebreather. White blood cell count 12.4 on admission, 9.7 this morning, hemoglobin 15.9, platelet count 210. Sodium 133, potassium 3.2, BUN 1:15 and creatinine 5.0. His BUN on admission was 114 and creatinine 4.8. On the patient's most recent admission which had just been last month, his BUN was 23 and creatinine 1.3. Troponins 0.22, 0.17, 0.13. TSH 3.2. The patient's home medications included omeprazole , Procardia 60 daily, losartan 100 mg daily, and a probiotic. According to the patient, he has had multiple episodes where he feels like he is going to pass out, especially when he is standing or sitting. 07/07/2018 Patient seen and examined this morning, breathing is significantly improved. Continues to be in atrial fibrillation, rate today is under much better control. D-dimer yesterday came back elevated and for this reason patient underwent a VQ scan which came back high probability for pulmonary embolism. Patient is on Eliquis for his A. fib, we would recommend he be on the Eliquis dosing for pulmonary embolism. 07/08/2018 Patient seen and examined this morning, breathing is stable. Patient is currently on Eliquis 10 mg one tablet by mouth twice a day which we will continue for one week, then the patient will take Eliquis 5 mg one tablet by mouth twice a day. We will make him a follow-up appointment in the office post discharge. We will follow him along with you now on an as-needed basis only, please don't hesitate to call with any questions. Objective - Vital Signs Vital signs: Vital Signs Temp 98.0 F 07/08/18 11:47 Pulse 92 07/08/18 11:47 Resp 18 07/08/18 11:47 BP 150/116 07/08/18 11:47 Pulse Ox 92 L 07/08/18 11:47 Intake & Output 07/07/18 07/08/18 07/08/18 18:59 06:59 18:59 Intake Total 720 120 480 Balance 720 120 480 Weight 95 kg Intake: Oral 720 120 480 Other: Voiding Method Toilet Toilet Toilet # Voids 1 - Exam PHYSICAL EXAMINATION: GENERAL: 63-year-old gentleman in no acute distress at the time of my examination HEENT: Head is atraumatic, normocephalic. Pupils equal, round. Sclera anicteric. Conjunctiva are clear. Mucous membranes of the mouth are moist. Neck is supple. There is no elevated jugular venous pressure. No carotid bruit is heard. HEART EXAMINATION: Heart S1, S2 normal. No murmur or gallop heard. CHEST EXAMINATION: Lungs are clear to auscultation and precussion. No chest wall tenderness is noted on palpation or with deep breathing. ABDOMEN: Soft, nontender. Bowel sounds are heard. No organomegaly noted. EXTREMITIES: 2+ peripheral pulses with no evidence of peripheral edema and no calf tenderness noted. NEUROLOGIC patient is awake, alert and oriented 3 . . - Labs CBC & Chem 7: 07/08/18 06:35 07/08/18 06:35 Labs: Abnormal Lab Results - Last 24 Hours (Table) 07/07/18 07/08/18 07/08/18 Range/Units 18:59 06:35 06:35 Hgb 12.6 L (13.0-17.5) gm/dL Hct 36.8 L (39.0-53.0) % BUN 67 H (9-20) mg/dL Creatinine 3.03 H (0.66-1.25) mg/dL Glucose 105 H (74-99) mg/dL Vitamin D 25-Hydroxy 21.2 L (30.0-100.0) ng/mL Assessment and Plan Plan: Assessment and plan #1 syncope, likely secondary to orthostatic hypotension. Blood pressure at time of incident was 70 systolic. #2 acute renal failure, creatinine on this admission 4.8, 5.0 this morning. Just one week ago, the patient's creatinine was 1.3. #3 atrial fibrillation with moderate rapid ventricular response, appears to be of new onset, paroxysmal. #4 intermediate triple-vessel coronary artery disease based on cardiac cath performed in 2006 #5 hypertension #6 history of smoking #7 recent diagnosis of squamous cell cancer of the head and neck #8 abnormal troponins, likely secondary to abnormal renal function #9 VQ scan high probability for PE Plan From cardiology's perspective, we'll recommend to continue anticoagulation for PE, subsequent to that, patient will need to continue on Eliquis at 5 mg one tablet by mouth twice a day for stroke prevention for A. fib. We'll make a follow-up appointment in the office post discharge. DNP note has been reviewed, I agree with a documented findings and plan of care. Patient was seen and examined.
--- NOTE | 2018-07-08 17:50 | P.PN ---
Subjective Progress Note Date: 07/08/18 Principal diagnosis: Squamous cell malignancy of the head/neck In f/u today pt is ambulating independently, he feels good, wanting to go home. Denies fever, dizziness, palpitations, chest pain, SOB, nausea, bleeding or pain Objective - Vital Signs Vital signs: Vital Signs Temp 98.0 F 07/08/18 11:47 Pulse 92 07/08/18 11:47 Resp 18 07/08/18 11:47 BP 150/116 07/08/18 11:47 Pulse Ox 92 L 07/08/18 11:47 Intake & Output 07/07/18 07/08/18 07/08/18 18:59 06:59 18:59 Intake Total 720 120 480 Balance 720 120 480 Weight 95 kg 95 kg Intake: Oral 720 120 480 Other: Voiding Method Toilet Toilet Toilet # Voids 1 - Constitutional General appearance: Present: average body habitus, cooperative, no acute distress - EENT Eyes: Present: anicteric sclerae, EOMI ENT: Present: hearing grossly normal - Respiratory Respiratory: bilateral: CTA - Cardiovascular Heart sounds: normal: S1, S2 - Peripheral edema leg Peripheral Edema: bilateral: None - Gastrointestinal General gastrointestinal: Present: normal bowel sounds, soft - Integumentary Integumentary: Present: normal turgor - Neurologic Neurologic: Present: CNII-XII intact - Musculoskeletal Musculoskeletal: Present: strength equal bilaterally - Psychiatric Psychiatric: Present: A&O x's 3, appropriate affect, intact judgment & insight - Labs CBC & Chem 7: 07/08/18 06:35 07/08/18 06:35 Labs: Abnormal Lab Results - Last 24 Hours (Table) 07/07/18 07/08/18 07/08/18 Range/Units 18:59 06:35 06:35 Hgb 12.6 L (13.0-17.5) gm/dL Hct 36.8 L (39.0-53.0) % BUN 67 H (9-20) mg/dL Creatinine 3.03 H (0.66-1.25) mg/dL Glucose 105 H (74-99) mg/dL Vitamin D 25-Hydroxy 21.2 L (30.0-100.0) ng/mL Assessment and Plan (1) Pulmonary embolism Narrative/Plan: Eliquis co-pay confirmed. This has been started. Status: Acute Priority: High Code(s): I26.99 - OTHER PULMONARY EMBOLISM WITHOUT ACUTE COR PULMONALE SNOMED Code(s): 81423538 (2) Squamous cell carcinoma of head and neck Narrative/Plan: Pt has had 1 of 3 planned cycles of chemo with concurrent XRT, definitive treatment planned. Chemo is not due for 2 weeks. No plans to change dose or delay at this time but, will cont follow renal function. ARF can be a side effect of chemo, anticipate at this time that it is multifactorial. Pt should get radiation today Status: Acute Priority: High Code(s): C76.0 - MALIGNANT NEOPLASM OF HEAD, FACE AND NECK SNOMED Code(s): 809895459 (3) Acute kidney injury Narrative/Plan: Only slight improvement in BUN/Cr today. Ongoing monitoring, Nephrology following. Pt may require chemo dose or drug change Status: Acute Priority: High Code(s): N17.9 - ACUTE KIDNEY FAILURE, UNSPECIFIED SNOMED Code(s): 82887103 (4) New onset a-fib Narrative/Plan: Secondary to PE? Cardiology has seen pt. Pt insurance has approved eliquis. Status: Acute Priority: High Code(s): I48.91 - UNSPECIFIED ATRIAL FIBRILLATION SNOMED Code(s): 37493239 Plan: Doctor attests: I performed a history and physical examination of this patient, developed impression and plan of care discussed with dictator. I agree with dictators note, documented as a scribe.
[2018-07-08] MEDS ORDERED: APIXABAN 5 MG TAB PO SCH ×2 (21:00)
[2018-07-09 18:02] LABS: Anti-DNA, DS unit <1.0 IU/mL; DNA Double-Stranded NEGATIVE (NEGATIVE)
== END 2018-07-08 16:57 | disposition home or self-care (01) | DRG 175 ==
LOC: EC 10:12 → 3SCARD 14:28
PROVIDERS: ADMIT Family Medicine; ATTEND Family Medicine
DX: I26.99 Other pulmonary embolism without acute cor pulmonale (principal); N17.0 Acute kidney failure with tubular necrosis; C79.9 Secondary malignant neoplasm of unspecified site; I48.0 Paroxysmal atrial fibrillation; I12.9 Hypertensive chronic kidney disease with stage 1 through stage 4 chronic kidney disease, or unspecified chronic kidney disease; R74.8 Abnormal levels of other serum enzymes; E86.1 Hypovolemia; E87.6 Hypokalemia; I25.10 Atherosclerotic heart disease of native coronary artery without angina pectoris; I49.3 Ventricular premature depolarization; I95.1 Orthostatic hypotension; K21.9 Gastro-esophageal reflux disease without esophagitis; N18.9 Chronic kidney disease, unspecified; E86.0 Dehydration; E83.52 Hypercalcemia; E04.1 Nontoxic single thyroid nodule; D72.829 Elevated white blood cell count, unspecified; C76.0 Malignant neoplasm of head, face and neck; Z85.72 Personal history of non-Hodgkin lymphomas; Z88.5 Allergy status to narcotic agent; Z87.442 Personal history of urinary calculi; R79.1 Abnormal coagulation profile; T45.1X5A Adverse effect of antineoplastic and immunosuppressive drugs, initial encounter; Z79.899 Other long term (current) drug therapy; Z82.49 Family history of ischemic heart disease and other diseases of the circulatory system; Z87.891 Personal history of nicotine dependence
CPT/HCPCS: 36415; 74022; 76770; 78582; 80048; 81001; 82306; 82550; 82553; 82652; 83735; 83970; 84100; 84132; 84484; 85025; 85379; 85730; 86038; 86160; 86225; 86255; 93005; 93308; 93970; 95819; 96365; 96366; 96376; 99285

== ENCOUNTER → 2018-07-16 | Day surgery (SDC) | payer MEDICAID ==
[2018-07-14 13:53] VITALS: BMI 28.5
[~2018-07-16] MED LIST changes: -DEXAMETHASONE SOD PHOSPHATE 10 MG/ML 1 ML VIAL IV ONE; -DEXAMETHASONE SOD PHOSPHATE 4 MG/ML 1 ML VIAL IV ONE; -FAMOTIDINE 20 MG/2 ML VIAL IV ONE; -HYDROmorphone 0.5 MG/0.5 ML SYRINGE IVP PRN; -LACTATED RINGERS 1,000 ML IV SCH; -LIDOCAINE 1% 20 ML VIAL (10MG/ML) FOR IV START INTRADERMA PRN; -LIDOCAINE 1% INJ 10MG/ML (20 ML MDV) ONE; +LIDOCAINE 2% (PF) 20 MG/ML 2 ML AMP SQ ONE; -MIDAZOLAM (PF) 2 MG/2 ML VIAL IV PRN; -MIDAZOLAM 2 MG/2 ML VIAL ONE; -ONDANSETRON 4 MG/2 ML VIAL IVP ONE; -PROPOFOL 10 MG/ML 20 ML VIAL IV ONE; -SCOPOLAMINE 1.5MG/72HR PATCH TRANSDERM ONE; -SUCCINYLCHOLINE CHLORIDE 100 MG/5 ML SYR IV ONE; -fentaNYL (PF) 50 MCG/ML 2 ML AMP ONE
[2018-07-16 10:40] VITALS: RESP 18; TEMP 98
[2018-07-16 11:38] VITALS: BP 110/72; PULSE 72
--- NOTE | 2018-07-16 15:32 | IR ---
EXAMINATION TYPE: IR cvc insert >=5 years DATE OF EXAM: 07/16/2018 COMPARISON: NONE CLINICAL HISTORY: Head and neck cancer Needs long-term intravenous access for therapy. PROCEDURE: After informed consent, the skin overlying the left basilic vein was localized with ultrasound and no kane to be compressible and patent. An ultrasound image was obtained and submitted on the patient's c fletcher. The overlying skin was prepped and draped and Lidocaine was used for local anesthesia. A skin hali was made with a scalpel. Access was gained to the vein under ultrasound guidance with a 21 gau ge needle and a 0.018 inch wire was advanced. Access site was dilated with Peel-Away sheath and cath eter tailored to the appropriate length and advanced such that the distal tip is at the cavoatrial ju nction. Spot image was obtained verifying placement. Catheter was fixed to the skin and a sterile d ressing was placed following hemostasis. Catheter was aspirated and flushed with saline. Patient wa s discharged in stable condition without complication. Maximal barrier technique is utilized. Ultras ound image is documented on the chart. Ultrasound used with sterile technique. Fluoro time and fluoroscopic images submitted to document procedure: 0.4 minutes fluoroscopy time, 15 0 intraoperative images document the procedure IMPRESSION: STATUS POST ULTRASOUND AND FLUOROSCOPIC GUIDED PICC LINE PLACEMENT, READY FOR USE. THIS PROCEDURE WAS PERFORMED BY THE UNDERSIGNED.
== END ==
LOC: CATHCVL 10:13
PROVIDERS: ATTEND Radiology Diagnostic Radiology
DX: C76.0 Malignant neoplasm of head, face and neck (principal); I87.2 Venous insufficiency (chronic) (peripheral); I10 Essential (primary) hypertension; M19.90 Unspecified osteoarthritis, unspecified site; I95.9 Hypotension, unspecified; I26.99 Other pulmonary embolism without acute cor pulmonale; Z87.09 Personal history of other diseases of the respiratory system; Z87.448 Personal history of other diseases of urinary system; Z87.891 Personal history of nicotine dependence; Z79.01 Long term (current) use of anticoagulants; Z79.899 Other long term (current) drug therapy; Z88.5 Allergy status to narcotic agent
CPT/HCPCS: 36573; C1751; C1769; J2001

== ENCOUNTER 2018-07-19 10:11 | Observation (INO) | payer MEDICAID ==
[2018-07-19] MEDS ORDERED: SODIUM CHLORIDE 0.9% 1,000 ML IV STA (10:15)
--- NOTE | 2018-07-19 10:16 | ED ---
Syncope HPI - General Stated Complaint: Syncope Time Seen by Provider: 07/19/18 10:15 Source: RN notes reviewed, old records reviewed - History of Present Illness Initial Comments: This is a 63-year-old male the ER for evaluation. Patient resents today for evaluation regarding syncopal event. Patient presented for CVA treatment today both radiation and chemotherapy. Patient will receive treatment secondary to syncopal event, states he feels very weak lightheaded and dizzy, inability to eat or drink. Denies nausea no vomiting no current diarrhea. Patient denies any fevers MD Complaint: loss of consciousness -: minutes(s) Prodromal Symptoms: none Description of Event: other (None) -: second(s) Witnessed: yes - by bystander Injuries Sustained Associated with Event: None Current Symptoms: back to baseline, weakness History: previous syncopal episode Context: at rest Treatments Prior to Arrival: none - Related Data Home Medications Medication Instructions Recorded Confirmed NIFEdipine [NIFEdipine ER] 60 mg PO DAILY 03/24/18 07/19/18 L.acidoph,Paracasei, B.lactis 1 cap PO DAILY 05/05/18 07/19/18 [Probiotic] Omeprazole 20 mg PO DAILY 05/05/18 07/19/18 Guaifen/Phenyleph/Acetaminophn 1 each PO DAILY PRN 07/14/18 07/19/18 [Tylenol Sinus Severe Caplet] Previous Rx's Medication Instructions Recorded Apixaban [Eliquis] 5 mg PO BID #60 tab 07/08/18 Isosorbide Mononitrate ER [Imdur] 30 mg PO DAILY #30 tab 07/08/18 Metoprolol Tartrate [Lopressor] 25 mg PO BID #60 tab 07/08/18 Allergies Allergy/AdvReac Type Severity Reaction Status Date / Time meperidine [From Demerol] Allergy fever Verified 07/19/18 10:51 Review of Systems ROS Statement: Those systems with pertinent positive or pertinent negative responses have been documented in the HPI. ROS Other: All systems not noted in ROS Statement are negative. Past Medical History Past Medical History: Atrial Fibrillation, Cancer, GERD/Reflux, Hypertension, Osteoarthritis (OA) Additional Past Medical History / Comment(s): thyroid nodule & enlarged lymph node left side of neck., lymph node Cancer left side of neck dx Jun 2018 receiving chemo and radiation tx. ,.Hx of Kidney stones., History of Any Multi-Drug Resistant Organisms: None Reported Past Surgical History: Appendectomy, Hernia Repair, Orthopedic Surgery Additional Past Surgical History / Comment(s): tongue bx neg, thyroid bx neg, and lt necklymph node bx pt stated positive ,arthroscopies both knees, lithotripsy x2 Past Anesthesia/Blood Transfusion Reactions: No Reported Reaction Additional Past Anesthesia/Blood Transfusion Reaction / Comment(s): . Past Psychological History: No Psychological Hx Reported Smoking Status: Former smoker Past Alcohol Use History: None Reported Additional Past Alcohol Use History / Comment(s): quit smoking Jun 2018,-smoked a pipe MAINLY ON WEEKENDS OFF AND ON SINCE AGE 12 Past Drug Use History: None Reported - Past Family History Mother Family Medical History: No Reported History Additional Family Medical History / Comment(s): Arrhythmia Father Family Medical History: Myocardial Infarction ([place]), Pneumonia Additional Family Medical History / Comment(s): CABG x3 at an early age. General Exam General appearance: alert, lethargic Head exam: Present: atraumatic, normocephalic, normal inspection Eye exam: Present: normal appearance, PERRL, EOMI. Absent: scleral icterus, conjunctival injection, periorbital swelling ENT exam: Present: normal exam, mucous membranes moist Neck exam: Present: normal inspection. Absent: tenderness, meningismus, lymphadenopathy Respiratory exam: Present: normal lung sounds bilaterally. Absent: respiratory distress, wheezes, rales, rhonchi, stridor Cardiovascular Exam: Present: regular rate, normal rhythm, normal heart sounds. Absent: systolic murmur, diastolic murmur, rubs, gallop, clicks GI/Abdominal exam: Present: soft, normal bowel sounds. Absent: distended, tenderness, guarding, rebound, rigid Extremities exam: Present: normal inspection, full ROM, normal capillary refill. Absent: tenderness, pedal edema, joint swelling, calf tenderness Back exam: Present: normal inspection Neurological exam: Present: alert, oriented X3, CN II-XII intact Psychiatric exam: Present: normal affect, normal mood Skin exam: Present: warm, dry, intact, normal color. Absent: rash Course Vital Signs 07/19/18 07/19/18 07/19/18 10:24 10:30 11:53 Temperature 98.1 F Pulse Rate 111 H 116 H Pulse Rate [ 104 H Bilateral Blank Driller ] Respiratory 18 18 Rate Blood Pressure 101/87 112/85 O2 Sat by Pulse 95 96 Oximetry - Reevaluation(s) Reevaluation #1: 07/19/18 12:34 Medical record reviewed Reevaluation #2: 07/19/18 12:34 Patient is not feeling any been improved despite hydration here in the emergency room, no recurrent syncopal event EKG Findings - EKG Comments: EKG Findings:: EKG shows A. fib with RVR rate 105, QRS 02, QTc 465 Medical Decision Making - Medical Decision Making 63 male the ER for evaluation. Patient with weakness dehydration will magnesium low potassium and syncopal event today. Patient will admit for IV hydration and rehabilitation, repletion of electrolytes. - Lab Data Result diagrams: 07/19/18 10:29 07/19/18 10:29 Lab Results 07/19/18 07/19/18 07/19/18 Range/Units 10:29 10:29 10:29 WBC 5.3 (3.8-10.6) k/uL RBC 4.27 L (4.30-5.90) m/uL Hgb 12.1 L (13.0-17.5) gm/dL Hct 34.1 L (39.0-53.0) % MCV 79.8 L (80.0-100.0) fL MCH 28.3 (25.0-35.0) pg MCHC 35.4 (31.0-37.0) g/dL RDW 13.2 (11.5-15.5) % Plt Count 303 (150-450) k/uL Neutrophils % 65 % Lymphocytes % 25 % Monocytes % 7 % Eosinophils % 1 % Basophils % 1 % Neutrophils # 3.4 (1.3-7.7) k/uL Lymphocytes # 1.3 (1.0-4.8) k/uL Monocytes # 0.4 (0-1.0) k/uL Eosinophils # 0.0 (0-0.7) k/uL Basophils # 0.0 (0-0.2) k/uL PT (9.0-12.0) sec INR (<1.2) APTT (22.0-30.0) sec Sodium 137 (137-145) mmol/L Potassium 3.3 L (3.5-5.1) mmol/L Chloride 103 (98-107) mmol/L Carbon Dioxide 22 (22-30) mmol/L Anion Gap 12 mmol/L BUN 42 H (9-20) mg/dL Creatinine 2.40 H (0.66-1.25) mg/dL Est GFR (CKD-EPI)AfAm 32 (>60 ml/min/1.73 sqM) Est GFR (CKD-EPI)NonAf 28 (>60 ml/min/1.73 sqM) Glucose 122 H (74-99) mg/dL Plasma Lactic Acid Sebastien (0.7-2.0) mmol/L Calcium 8.6 (8.4-10.2) mg/dL Phosphorus 3.1 (2.5-4.5) mg/dL Magnesium 1.5 L (1.6-2.3) mg/dL Total Bilirubin 1.0 (0.2-1.3) mg/dL AST 16 L (17-59) U/L ALT 24 (21-72) U/L Alkaline Phosphatase 94 (38-126) U/L Total Creatine Kinase 40 L (55-170) U/L CK-MB (CK-2) <0.2 (0.0-2.4) ng/mL CK-MB (CK-2) Rel Index Troponin I 0.016 (0.000-0.034) ng/mL NT-Pro-B Natriuret Pep pg/mL Total Protein 6.4 (6.3-8.2) g/dL Albumin 3.3 L (3.5-5.0) g/dL 07/19/18 07/19/18 07/19/18 Range/Units 10:29 10:29 10:29 WBC (3.8-10.6) k/uL RBC (4.30-5.90) m/uL Hgb (13.0-17.5) gm/dL Hct (39.0-53.0) % MCV (80.0-100.0) fL MCH (25.0-35.0) pg MCHC (31.0-37.0) g/dL RDW (11.5-15.5) % Plt Count (150-450) k/uL Neutrophils % % Lymphocytes % % Monocytes % % Eosinophils % % Basophils % % Neutrophils # (1.3-7.7) k/uL Lymphocytes # (1.0-4.8) k/uL Monocytes # (0-1.0) k/uL Eosinophils # (0-0.7) k/uL Basophils # (0-0.2) k/uL PT 11.2 (9.0-12.0) sec INR 1.1 (<1.2) APTT 22.3 (22.0-30.0) sec Sodium (137-145) mmol/L Potassium (3.5-5.1) mmol/L Chloride (98-107) mmol/L Carbon Dioxide (22-30) mmol/L Anion Gap mmol/L BUN (9-20) mg/dL Creatinine (0.66-1.25) mg/dL Est GFR (CKD-EPI)AfAm (>60 ml/min/1.73 sqM) Est GFR (CKD-EPI)NonAf (>60 ml/min/1.73 sqM) Glucose (74-99) mg/dL Plasma Lactic Acid Sebastien 1.5 (0.7-2.0) mmol/L Calcium (8.4-10.2) mg/dL Phosphorus (2.5-4.5) mg/dL Magnesium (1.6-2.3) mg/dL Total Bilirubin (0.2-1.3) mg/dL AST (17-59) U/L ALT (21-72) U/L Alkaline Phosphatase (38-126) U/L Total Creatine Kinase (55-170) U/L CK-MB (CK-2) (0.0-2.4) ng/mL CK-MB (CK-2) Rel Index Troponin I (0.000-0.034) ng/mL NT-Pro-B Natriuret Pep 3760 pg/mL Total Protein (6.3-8.2) g/dL Albumin (3.5-5.0) g/dL Disposition Clinical Impression: Acute kidney injury, Syncope, Dehydration, Hypokalemia, Hypomagnesemia Disposition: ADMITTED IP TO THIS HOSP Condition: Fair Is patient prescribed a controlled substance at d/c from ED?: No Referrals: Colten Henson MD [Primary Care Provider] - 1-2 days
[2018-07-19 10:44] LABS: Basophils % (A) 1 %; Eosinophils % (A) 1 %; HCT 34.1 % (39.0-53.0); HGB 12.1 gm/dL (13.0-17.5); Lymphocytes # (A) 1.3 k/uL (1.0-4.8); Lymphocytes % (A) 25 %; MCH 28.3 pg (25.0-35.0); MCHC 35.4 g/dL (31.0-37.0); MCV 79.8 fL (80.0-100.0); Mean Platelet Volume 7.2; Monocytes # (A) 0.4 k/uL (0-1.0); Monocytes % (A) 7 %; Neutrophils # (A) 3.4 k/uL (1.3-7.7); Neutrophils % (A) 65 %; Platelet Count 303 k/uL (150-450); RBC 4.27 m/uL (4.30-5.90); RDW 13.2 % (11.5-15.5); WBC 5.3 k/uL (3.8-10.6)
[2018-07-19 10:53] LABS: Albumin 3.3 g/dL (3.5-5.0); Calcium 8.6 mg/dL (8.4-10.2); INR 1.1 (<1.2); Magnesium 1.5 mg/dL (1.6-2.3); Partial Thromboplastin Time 22.3 sec (22.0-30.0); Phosphorus 3.1 mg/dL (2.5-4.5); Prothrombin Time 11.2 sec (9.0-12.0); Total Protein 6.4 g/dL (6.3-8.2)
[2018-07-19 10:58] LABS: Potassium 3.3 mmol/L (3.5-5.1)
[2018-07-19 11:05] LABS: Creatine Kinase 40 U/L (55-170)
[2018-07-19 11:18] LABS: Creatine Kinase MB <0.2 ng/mL (0.0-2.4); Troponin I 0.016 ng/mL (0.000-0.034)
[2018-07-19] MEDS ORDERED: POTASSIUM BICARBONATE/CIT AC 20 MEQ TABLET.EFF PO ONE (11:56)
[2018-07-19] MEDS ORDERED: MAGNESIUM OXIDE 400 MG TAB PO STA (11:56)
[2018-07-19] MEDS ORDERED: SODIUM CHLORIDE 0.9% 500 ML 500 ML IV STA (11:57)
[2018-07-19] MEDS ORDERED: POTASSIUM CHLORIDE 20 MEQ in WATER FOR INJECTION 1 100ML.BAG IVPB STA (12:35)
[2018-07-19] MEDS: MAGNESIUM SULFATE-D5W PMX 1 GM in DEXTROSE/WATER 1 100ML.BAG IVPB SCH ×4 (13:03→18:24)
[2018-07-19] MEDS ORDERED: ACETAMINOPHEN TAB 325 MG TAB PO PRN (15:24)
[2018-07-19] MEDS ORDERED: NALOXONE 0.4 MG/ML 1 ML VIAL IV PRN (15:24)
[2018-07-19] MEDS ORDERED: HYDROcodone/APAP 5-325MG 1 EACH TAB PO PRN (15:24)
[2018-07-19] MEDS: SODIUM CHLORIDE 0.9% 1,000 ML IV SCH (16:15)
--- NOTE | 2018-07-19 16:15 | P.HPIM ---
History of Present Illness H&P Date: 07/19/18 Chief Complaint: Syncope 63-year-old male with PMH of head and neck cancer, history of nephrolithiasis, hypertension presents the ED from the oncology clinic for syncopal episode. Patient reports that he presented to the oncology clinic for his chemotherapy and radiation. Prior to that he underwent blood work. As he was waiting for his name to be called, patient started to experience lightheadedness. Patient denied any aura, chest pain or shortness of breath prior to the onset of syncope. He did report feeling nauseated and palpitations along with the lightheadedness. Patient does not remember if he lost consciousness or not. Patient does not remember how long he was out for. He denies any tongue biting, bladder or bowel incontinence. Of note, patient reports that he's been feeling fatigued more than usual lately. He also reports not eating and drinking enough fluid as he should. He denies any lower extremity edema, vomiting, fevers, cough, chest pain, shortness of breath, changes in urination or bowel habits. He denies any slurred speech, numbness/weakness/tingling of the extremities. In the ED, patient was tachycardic in the 100s. Vital signs were otherwise within normal limits. CBC showed a hemoglobin of 12.1. Coagulation panel was negative. CMP showed a potassium of 3.3, B1 of 42 and creatinine of 2.40. Magnesium was 1.5. Patient is admitted for syncopal episode, dehydration and for IV fluids. Review of Systems All systems: negative Past Medical History Past Medical History: Atrial Fibrillation, Coronary Artery Disease (CAD), Cancer , GERD/Reflux, Hypertension, Osteoarthritis (OA) Additional Past Medical History / Comment(s): L neck lynph node positive for metastatic squamous cell cancer/pt receiving chemo and radiation, thyroid nodule , arthritis in low back, migraines, mild CAD, alot of sinus issues. History of Any Multi-Drug Resistant Organisms: None Reported Past Surgical History: Appendectomy, Heart Catheterization, Hernia Repair, Orthopedic Surgery Additional Past Surgical History / Comment(s): tongue bx neg, thyroid bx neg, and lt neck lymph node bx pt stated positive ,arthroscopies both knees, lithotripsy x2, bilateral inguinal hernia repairs, PICC line Past Anesthesia/Blood Transfusion Reactions: No Reported Reaction Additional Past Anesthesia/Blood Transfusion Reaction / Comment(s): . Smoking Status: Former smoker - Past Family History Mother Family Medical History: No Reported History Additional Family Medical History / Comment(s): Arrhythmia Father Family Medical History: Coronary Artery Disease (CAD), Myocardial Infarction ([place] ), Pneumonia Additional Family Medical History / Comment(s): CABG x3 at an early age. Medications and Allergies Home Medications Medication Instructions Recorded Confirmed Type NIFEdipine [NIFEdipine ER] 60 mg PO DAILY 03/24/18 07/19/18 History L.acidoph,Paracasei, B.lactis 1 cap PO DAILY 05/05/18 07/19/18 History [Probiotic] Omeprazole 20 mg PO DAILY 05/05/18 07/19/18 History Apixaban [Eliquis] 5 mg PO BID #60 tab 07/08/18 07/19/18 Rx Isosorbide Mononitrate ER [Imdur] 30 mg PO DAILY #30 tab 07/08/18 07/19/18 Rx Metoprolol Tartrate [Lopressor] 25 mg PO BID #60 tab 07/08/18 07/19/18 Rx Guaifen/Phenyleph/Acetaminophn 1 each PO DAILY PRN 07/14/18 07/19/18 History [Tylenol Sinus Severe Caplet] Allergies Allergy/AdvReac Type Severity Reaction Status Date / Time meperidine [From Demerol] Allergy fever Verified 07/19/18 10:51 Physical Exam Vitals: Vital Signs Temp Pulse Pulse Pulse Resp BP BP 07/19/18 13:15 98.3 F 106 H 18 108/74 07/19/18 13:08 104 H 18 115/85 07/19/18 11:53 116 H 18 112/85 07/19/18 10:30 104 H 07/19/18 10:24 98.1 F 111 H 18 101/87 Pulse Ox 07/19/18 13:15 96 07/19/18 13:08 97 07/19/18 11:53 96 07/19/18 10:30 07/19/18 10:24 95 Intake and Output 07/19/18 07/19/18 07/19/18 06:59 14:59 22:59 Intake Total 1500 Balance 1500 Intake: Amount of Fluid Infused ( 1500 ml) Other: Weight 92.986 kg General: [non toxic], [no distress], [appears at stated age] Derm: [warm], [dry] Head: [atraumatic], [normocephalic], [symmetric] Eyes: [EOMI], [no lid lag], [anicteric sclera] Mouth: [no lip lesion], [mucus membranes moist] Cardiovascular: [S1S2 reg], [tachycardia], [positive DP pulse bilateral] Lungs: [CTA bilateral], [no rhonchi, no rales] , [no accessory muscle use] Abdominal: [soft], [ nontender to palpation], [no guarding], [no appreciable organomegaly] Ext: [no gross muscle atrophy], [no edema], [no contractures] Neuro: [ CN II-XI grossly intact], [no focal neuro deficits] Psych: [Alert], [oriented], [appropriate affect] Results CBC & Chem 7: 07/19/18 10:29 07/19/18 10:29 Labs: Abnormal Lab Results - Last 24 Hours (Table) 07/19/18 07/19/18 07/19/18 Range/Units 10:29 10:29 10:29 RBC 4.27 L (4.30-5.90) m/uL Hgb 12.1 L (13.0-17.5) gm/dL Hct 34.1 L (39.0-53.0) % MCV 79.8 L (80.0-100.0) fL Potassium 3.3 L (3.5-5.1) mmol/L BUN 42 H (9-20) mg/dL Creatinine 2.40 H (0.66-1.25) mg/dL Glucose 122 H (74-99) mg/dL Magnesium 1.5 L (1.6-2.3) mg/dL AST 16 L (17-59) U/L Total Creatine Kinase 40 L (55-170) U/L Albumin 3.3 L (3.5-5.0) g/dL Thrombosis Risk Factor Assmnt - Choose All That Apply Any of the Below Risk Factors Present?: Yes Each Factor Represents 1 point: Obesity (BMI >25) Other Risk Factors: Yes Each Risk Factor Represents 2 Points: Age 61-74 years, Malignancy Other congenital or acquired thrombophilia - If yes, enter type in comment: No Thrombosis Risk Factor Assessment Total Risk Factor Score: 5 Thrombosis Risk Factor Assessment Level: High Risk Assessment and Plan Assessment: Assessment and Plan 1. Syncopal episode 2. Acute kidney injury 3. Anemia 4. Atrial fibrillation 5. Head and neck cancer 6. DVT and GI prophylaxis 1. Appears like orthostasis from history. Plans to rule out acute coronary syndrome. Initial troponin is less than 0.012, EKG showing atrial fibrillation with RVR. Will obtain orthostats. Trend 2 troponins and EKG to rule out ACS. Recent echocardiogram in July 2018 shows EF between 55 and 60%. Continue normal saline at 100 cc per hour. Advanced neurochecks. Telemetry monitoring. Fall precautions. 2. BUN 42, creatinine 2.40 likely secondary to dehydration. Possibly on CKD, previous lab work showing elevated creatinine as well. Continue normal saline at 100 mL/h. Avoid nephrotoxins. Daily BMP. 3. Hemoglobin 12.1, microcytic. Likely dilutional from infused IVF in the ED. Daily CBC. Transfuse if hemoglobin less than 7. 4. Rate controlled on metoprolol 25 mg by mouth twice a day. Anticoagulation with Eliquis 5 mg by mouth twice a day. Telemetry monitoring. TSH in June is within normal limits. Keep potassium greater than 4 and magnesium greater than 2. 5. Undergoing chemotherapy and radiation at [facility]. Will need to follow oncology in the outpatient setting. 6. Eliquis. Protonix 40 mg by mouth daily. Patient has a previous VQ scan that is positive for high probability PE. He is currently being treated with Eliquis. Patient admitted for syncopal episode. Workup underway. He is pending clinical improvement. DVT prophylaxis: [Eliquis] Discussed with: [Patient] Anticipated discharge: [1-2 days] Anticipated discharge place: [Home] A total of [30] minutes was spent on the care of this complex patient more than 50% of the time was spent in counseling and care coordination. Patient indicates that he would like to remain full code. Patient names his indicates that he can't make decisions for himself.
[2018-07-19] MEDS: APIXABAN 5 MG TAB PO SCH (21:26)
[2018-07-19] MEDS: METOPROLOL TARTRATE 25 MG TAB PO SCH (21:26)
[2018-07-20] MEDS: SODIUM CHLORIDE 0.9% 1,000 ML IV SCH (01:00)
[2018-07-20 06:52] LABS: Basophils % (A) 0 %; Eosinophils # (A) 0.1 k/uL (0-0.7); Eosinophils % (A) 2 %; HCT 33.4 % (39.0-53.0); HGB 11.4 gm/dL (13.0-17.5); Lymphocytes # (A) 1.5 k/uL (1.0-4.8); Lymphocytes % (A) 35 %; MCHC 34.1 g/dL (31.0-37.0); Mean Platelet Volume 6.7; Monocytes # (A) 0.3 k/uL (0-1.0); Monocytes % (A) 7 %; Neutrophils # (A) 2.3 k/uL (1.3-7.7); Neutrophils % (A) 53 %; Platelet Count 264 k/uL (150-450); RBC 4.07 m/uL (4.30-5.90); RDW 13.2 % (11.5-15.5); WBC 4.3 k/uL (3.8-10.6)
[2018-07-20 07:01] LABS: Calcium 8.7 mg/dL (8.4-10.2); Potassium 3.7 mmol/L (3.5-5.1)
[2018-07-20 07:26] VITALS: RESP 18
[2018-07-20] MEDS ORDERED: PANTOPRAZOLE 40 MG TABLET PO SCH (07:30)
--- NOTE | 2018-07-20 08:35 | P.CRDCN ---
History of Present Illness Consult date: 07/20/18 Chief complaint: Syncopal episode History of present illness: This is a pleasant 63-year-old gentleman with a past medical history significant for chronic atrial fibrillation on oral anticoagulation with Eliquis , intermediate triple-vessel coronary artery disease, and hypertension, as well as history of stem cell cancer affecting the neck, currently the patient is on chemotherapy radiation therapy, was admitted to the hospital with syncope. The patient was at the oncology clinic yesterday where he was in process of receiving radiation and subsequently chemotherapy when he felt dizzy and lightheaded and then he did have a syncopal episode of brief duration. No chest pain or chest discomfort. No shortness of breath. No feeling of heart racing or fluttering. When the patient was admitted to the hospital the EKG showed atrial fibrillation with slightly uncontrolled heart rate. The cardiac enzymes were checked and came in to be unremarkable. The patient states clearly that he was not eating and drinking well lately because of the sore throat related to radiation. Currently he is on IV fluid at 100 mm per hour. I think he is also tachycardic because of the dehydration. There is no orthostatic blood pressure was performed since he was admitted to the hospital and we are going to check the orthostatic blood pressure on him. Please note that the patient was admitted to the hospital with similar presentation few weeks ago and at that point he was positive for orthostatic hypotension. The patient is on metoprolol to control the heart rate and he is not on any blood pressure medication at this point. Past Medical History Past Medical History: Atrial Fibrillation, Coronary Artery Disease (CAD), Cancer , GERD/Reflux, Hypertension, Osteoarthritis (OA) Additional Past Medical History / Comment(s): L neck lynph node positive for metastatic squamous cell cancer/pt receiving chemo and radiation, thyroid nodule , arthritis in low back, migraines, mild CAD, alot of sinus issues. History of Any Multi-Drug Resistant Organisms: None Reported Past Surgical History: Appendectomy, Heart Catheterization, Hernia Repair, Orthopedic Surgery Additional Past Surgical History / Comment(s): tongue bx neg, thyroid bx neg, and lt neck lymph node bx pt stated positive ,arthroscopies both knees, lithotripsy x2, bilateral inguinal hernia repairs, PICC line Past Anesthesia/Blood Transfusion Reactions: No Reported Reaction Additional Past Anesthesia/Blood Transfusion Reaction / Comment(s): . Smoking Status: Former smoker - Past Family History Mother Family Medical History: No Reported History Additional Family Medical History / Comment(s): Arrhythmia Father Family Medical History: Coronary Artery Disease (CAD), Myocardial Infarction ([place] ), Pneumonia Additional Family Medical History / Comment(s): CABG x3 at an early age. Medications and Allergies Home Medications Medication Instructions Recorded Confirmed Type NIFEdipine [NIFEdipine ER] 60 mg PO DAILY 03/24/18 07/19/18 History L.acidoph,Paracasei, B.lactis 1 cap PO DAILY 05/05/18 07/19/18 History [Probiotic] Omeprazole 20 mg PO DAILY 05/05/18 07/19/18 History Apixaban [Eliquis] 5 mg PO BID #60 tab 07/08/18 07/19/18 Rx Isosorbide Mononitrate ER [Imdur] 30 mg PO DAILY #30 tab 07/08/18 07/19/18 Rx Metoprolol Tartrate [Lopressor] 25 mg PO BID #60 tab 07/08/18 07/19/18 Rx Guaifen/Phenyleph/Acetaminophn 1 each PO DAILY PRN 07/14/18 07/19/18 History [Tylenol Sinus Severe Caplet] Allergies Allergy/AdvReac Type Severity Reaction Status Date / Time meperidine [From Demerol] Allergy fever Verified 07/19/18 10:51 Physical Exam Vitals: Vital Signs Temp Pulse Pulse Pulse Resp BP BP 07/20/18 07:10 98.3 F 67 18 144/97 07/20/18 04:00 104 H 106 H 16 07/20/18 00:00 104 H 106 H 16 07/19/18 23:41 98.2 F 106 H 16 159/86 07/19/18 20:00 104 H 98 16 07/19/18 19:52 98.3 F 98 16 142/88 07/19/18 15:25 98.1 F 102 H 18 106/72 07/19/18 13:15 98.3 F 106 H 18 108/74 07/19/18 13:08 104 H 18 115/85 07/19/18 11:53 116 H 18 112/85 07/19/18 10:30 104 H 07/19/18 10:24 98.1 F 111 H 18 101/87 Pulse Ox 07/20/18 07:10 97 07/20/18 04:00 07/20/18 00:00 07/19/18 23:41 97 07/19/18 20:00 07/19/18 19:52 94 L 07/19/18 15:25 95 07/19/18 13:15 96 07/19/18 13:08 97 07/19/18 11:53 96 07/19/18 10:30 07/19/18 10:24 95 Intake and Output 07/19/18 07/20/18 07/20/18 22:59 06:59 14:59 Intake Total 240 240 Output Total 300 Balance 240 -60 Intake: Oral 240 240 Output: Urine 300 Other: # Voids 2 1 - Constitutional General appearance: no acute distress - Respiratory Respiratory: bilateral: CTA - Cardiovascular Rhythm: irregularly irregular Heart sounds: normal: S1, S2 Results 07/20/18 06:20 07/20/18 06:20 Cardiac Enzymes 07/19/18 07/19/18 Range/Units 10:29 10:29 AST 16 L (17-59) U/L CK-MB (CK-2) <0.2 (0.0-2.4) ng/mL Troponin I 0.016 (0.000-0.034) ng/mL Coagulation 07/19/18 Range/Units 10:29 PT 11.2 (9.0-12.0) sec APTT 22.3 (22.0-30.0) sec CBC 07/19/18 07/20/18 Range/Units 10:29 06:20 WBC 5.3 4.3 (3.8-10.6) k/uL RBC 4.27 L 4.07 L (4.30-5.90) m/uL Hgb 12.1 L 11.4 L (13.0-17.5) gm/dL Hct 34.1 L 33.4 L (39.0-53.0) % Plt Count 303 264 (150-450) k/uL Comprehensive Metabolic Panel 07/19/18 07/20/18 Range/Units 10:29 06:20 Sodium 137 140 (137-145) mmol/L Potassium 3.3 L 3.7 (3.5-5.1) mmol/L Chloride 103 104 (98-107) mmol/L Carbon Dioxide 22 27 (22-30) mmol/L BUN 42 H 35 H (9-20) mg/dL Creatinine 2.40 H 1.65 H (0.66-1.25) mg/dL Glucose 122 H 103 H (74-99) mg/dL Calcium 8.6 8.7 (8.4-10.2) mg/dL AST 16 L (17-59) U/L ALT 24 (21-72) U/L Alkaline Phosphatase 94 (38-126) U/L Total Protein 6.4 (6.3-8.2) g/dL Albumin 3.3 L (3.5-5.0) g/dL Current Medications Generic Name Dose Route Start Last Admin Trade Name Freq PRN Reason Stop Dose Admin Acetaminophen 650 mg 07/19/18 15:24 Tylenol Tab PO Q6HR PRN Mild Pain or Fever > 100.5 Hydrocodone Bitart/Acetaminophen 1 each 07/19/18 15:24 [place] 5-325 PO Q4HR PRN Moderate Pain Apixaban 5 mg 07/19/18 21:00 07/19/18 21:26 Eliquis PO 5 mg BID GORDY Administration Sodium Chloride 1,000 mls @ 100 mls/hr 07/19/18 15:30 07/20/18 01:00 Saline 0.9% IV 100 mls/hr .Q10H GORDY Administration Isosorbide Mononitrate 30 mg 07/20/18 09:00 Imdur PO DAILY GORDY Metoprolol Tartrate 25 mg 07/19/18 21:00 07/19/18 21:26 Lopressor PO 25 mg BID GORDY Administration Naloxone HCl 0.2 mg 07/19/18 15:24 Narcan IV Q2M PRN Opioid Reversal Nifedipine 60 mg 07/20/18 09:00 Procardia Xl PO DAILY GORDY Pantoprazole Sodium 40 mg 07/20/18 07:30 Protonix PO AC-BRKFST GORDY Intake and Output 07/19/18 07/20/18 07/20/18 22:59 06:59 14:59 Intake Total 240 240 Output Total 300 Balance 240 -60 Intake: Oral 240 240 Output: Urine 300 Other: # Voids 2 1 07/20/18 06:20 07/20/18 06:20 Assessment and Plan Assessment: Assessment #1 syncopal episode #2 chronic atrial fibrillation #3 intermediate triple-vessel CAD #4 stem cell cancer of the neck #5 multiple comorbid conditions Plan #1 the syncope is likely related to orthostatic hypotension which I do feel pursue be precipitated by dehydration #2 I would advise continue the IV fluids for now #3 check the orthostatic blood pressure #4 continue the current medical regimen #5 follow-up with the patient Thank you for allowing us participate in his care and we'll continue following up with him
[2018-07-20] MEDS: APIXABAN 5 MG TAB PO SCH (08:47)
[2018-07-20] MEDS: METOPROLOL TARTRATE 25 MG TAB PO SCH (08:47)
[2018-07-20] MEDS ORDERED: ISOSORBIDE MONONITRATE ER 30 MG TAB.ER.24H PO SCH (09:00)
[2018-07-20 09:36] VITALS: BMI 27.8
[2018-07-20 12:25] VITALS: BP 148/97; PULSE 102; TEMP 97.8
--- NOTE | 2018-07-20 16:50 | P.DS ---
Providers Date of admission: 07/19/18 12:37 Expected date of discharge: 07/20/18 Attending physician: Mary Baltazar MD Consults: 07/20/18 07:34 Consult Physician Routine Consulting Provider: Richie Josue Consult Reason/Comments: syncope Do you want consulting provider notified?: Yes Primary care physician: Colten Henson - Discharge Diagnosis(es) (1) Syncope Status: Acute (2) Acute kidney injury Status: Acute Priority: High (3) Dehydration Status: Acute (4) Hypokalemia Status: Resolved Hospital Course: The patient is a 63-year-old male that was placed in observation after having a syncopal episode determined to be secondary to acute dehydration. The patient was noted to be in acute kidney injury with a creatinine of 2.4. The patient was placed on IV fluids, supportive treatment with antiemetics. A cardiology was consulted who agreed with the likelihood that it was secondary to dehydration. With rehydration the patient's creatinine gradually decreased to baseline around 1.4-4.6. The patient's potassium was replaced. The patient had previously presented earlier this year with similar symptoms and that time was found to be orthostatic, on this hospitalization orthostatic vital signs were apparently done on day of discharge were negative likely because the patient had already been rehydrated. Discussed with heme oncology Dr. Rod who agreed that the patient should have normal saline IV infusions at least 3 times weekly, the patient after his most recent radiation oncology treatment was having sore throat and was supposed to follow-up with Dr. Stern to have a prescription for Magic mouthwash with lidocaine for supportive treatment. The patient was subsequently discharged home in stable condition. This discharge process took approximately 30 minutes. Focused exam Constitutional: No acute distress, conversant, pleasant ENMT: NC/AT,Oropharynx clear, no erythema, exudates Cardiovascular: Irregularly irregular, normal rate, no murmurs or gallops Patient Condition at Discharge: Good Plan - Discharge Summary Discharge Rx Participant: No New Discharge Prescriptions: Continue NIFEdipine [NIFEdipine ER] 60 mg PO DAILY Omeprazole 20 mg PO DAILY L.acidoph,Paracasei, B.lactis [Probiotic] 1 cap PO DAILY Apixaban [Eliquis] 5 mg PO BID #60 tab Metoprolol Tartrate [Lopressor] 25 mg PO BID #60 tab Isosorbide Mononitrate ER [Imdur] 30 mg PO DAILY #30 tab Guaifen/Phenyleph/Acetaminophn [Tylenol Sinus Severe Caplet] 1 each PO DAILY PRN PRN Reason: Headache Discharge Medication List NIFEdipine [NIFEdipine ER] 60 mg PO DAILY 03/24/18 [History] L.acidoph,Paracasei, B.lactis [Probiotic] 1 cap PO DAILY 05/05/18 [History] Omeprazole 20 mg PO DAILY 05/05/18 [History] Apixaban [Eliquis] 5 mg PO BID #60 tab 07/08/18 [Rx] Isosorbide Mononitrate ER [Imdur] 30 mg PO DAILY #30 tab 07/08/18 [Rx] Metoprolol Tartrate [Lopressor] 25 mg PO BID #60 tab 07/08/18 [Rx] Guaifen/Phenyleph/Acetaminophn [Tylenol Sinus Severe Caplet] 1 each PO DAILY PRN 07/14/18 [History] Follow up Appointment(s)/Referral(s): Colten Henson MD [Primary Care Provider] - 1-2 days Patient Instructions/Handouts: Dehydration (GEN) Discharge Disposition: HOME SELF-CARE
--- NOTE | 2018-07-20 17:46 | P.CONS ---
History of Present Illness - Reason for Consult Consult date: 07/20/18 Syncope, Head and Neck cancer - History of Present Illness Mr. Sosa is a 63 yr old male pt of Dr. Castellanos who presented with palpable left cervical node that he first noticed in April 2018. 04/28/18 CT neck revealed opacification of right maxillary sinus, left cervical adenopathy at station 3 interposed between sternocleidomastoid muscle and carotid space measuring 3 cm, another enlarging node just below it measuring 2cm and right thyroid nodule, no clear head and neck primary was found. he was evaluated by Dr. Finn, had FNA of left cervical node, path positive for metastatic squamous cell carcinoam, P16 strongly positive. FNA of thyroid nodule was negative, biopsy of left tongue base was negative. On PET revealed suspicious uptake in left cervical nodes and possible uptake at left base of tongue. Patient was initiated on cisplatin every 3 weeks to be given with concurrent radiation. Patient received his first cycle on 06/29/18. Post chemotherapy patient did have some complaints of nausea, vomiting, he did progressively get worse over the week. Pt had what was suspected to be a vasovagal episode, he became lethargic, hypotensive, clammy, tachycardic, sent to the ED, found to be in atrial fibrillation, heparin drip was started, acute renal failure noted. the patient was Subsequently diagnosed with pulmonary embolus bilaterally, based on VQ scan. Renal function did improve with hydration. The patient was able to be discharged. His chemotherapy was changed to infusional 5-FU and carboplatin. He was seen in the office on 07/19/18 to begin the new regimen. However he was again complaining of feeling weak and had a syncopal episode due to which he was sent back to the ER. He was found to be hypotensive with increased heart rate and was subsequently admitted. The patient continues to have overall poor oral intake due to marked mucositis and difficulty swallowing. A PEG tube was attempted but could not be placed because of large hiatal hernia. He has had some nausea but no overt vomiting. He also denies any diarrhea. Labs on admission again showed elevated creatinine, with marked improvement after overnight hydration. He was also low in potassium and magnesium. Consult was placed for further evaluation and recommendations EKG showed atrial fibrillation. Review of Systems Constitutional: Reports weakness, Reports weight gain Eyes: denies blurred vision, denies pain Ears: deny: decreased hearing, ear discharge, earache, tinnitus Ears, nose, mouth and throat: Reports dysphagia, Reports odynophagia Cardiovascular: Reports dyspnea on exertion, Reports lightheadedness, Reports palpitations, Reports syncope Respiratory: Denies cough Gastrointestinal: Reports nausea Genitourinary: Reports as per HPI Musculoskeletal: Reports muscle weakness Integumentary: Denies pruritus, Denies rash Neurological: Reports syncope, Reports weakness Psychiatric: Denies anxiety, Denies depression Endocrine: Reports fatigue, Reports weight change Hematologic/Lymphatic: Reports as per HPI Past Medical History Past Medical History: Atrial Fibrillation, Coronary Artery Disease (CAD), Cancer , GERD/Reflux, Hypertension, Osteoarthritis (OA) Additional Past Medical History / Comment(s): L neck lynph node positive for metastatic squamous cell cancer/pt receiving chemo and radiation, thyroid nodule , arthritis in low back, migraines, mild CAD, alot of sinus issues. History of Any Multi-Drug Resistant Organisms: None Reported Past Surgical History: Appendectomy, Heart Catheterization, Hernia Repair, Orthopedic Surgery Additional Past Surgical History / Comment(s): tongue bx neg, thyroid bx neg, and lt neck lymph node bx pt stated positive ,arthroscopies both knees, lithotripsy x2, bilateral inguinal hernia repairs, PICC line Past Anesthesia/Blood Transfusion Reactions: No Reported Reaction Additional Past Anesthesia/Blood Transfusion Reaction / Comm: . Smoking Status: Former smoker - Past Family History Mother Family Medical History: No Reported History Additional Family Medical History / Comment(s): Arrhythmia Father Family Medical History: Coronary Artery Disease (CAD), Myocardial Infarction ([place] ), Pneumonia Additional Family Medical History / Comment(s): CABG x3 at an early age. Medications and Allergies Home Medications Medication Instructions Recorded Confirmed Type NIFEdipine [NIFEdipine ER] 60 mg PO DAILY 03/24/18 07/19/18 History L.acidoph,Paracasei, B.lactis 1 cap PO DAILY 05/05/18 07/19/18 History [Probiotic] Omeprazole 20 mg PO DAILY 05/05/18 07/19/18 History Apixaban [Eliquis] 5 mg PO BID #60 tab 07/08/18 07/19/18 Rx Isosorbide Mononitrate ER [Imdur] 30 mg PO DAILY #30 tab 07/08/18 07/19/18 Rx Metoprolol Tartrate [Lopressor] 25 mg PO BID #60 tab 07/08/18 07/19/18 Rx Guaifen/Phenyleph/Acetaminophn 1 each PO DAILY PRN 07/14/18 07/19/18 History [Tylenol Sinus Severe Caplet] Allergies Allergy/AdvReac Type Severity Reaction Status Date / Time meperidine [From Demerol] Allergy fever Verified 07/19/18 10:51 Physical Exam Vitals: Vital Signs Temp Pulse Pulse Pulse Pulse Pulse Pulse 07/20/18 08:59 108 H 106 H 108 H 07/20/18 07:10 98.3 F 67 07/20/18 04:00 104 H 106 H 07/20/18 00:00 104 H 106 H 07/19/18 23:41 98.2 F 106 H 07/19/18 20:00 104 H 98 07/19/18 19:52 98.3 F 98 07/19/18 15:25 98.1 F 102 H 07/19/18 13:15 98.3 F 106 H 07/19/18 13:08 104 H 07/19/18 11:53 116 H Resp BP BP BP BP BP Pulse Ox 07/20/18 08:59 153/116 148/102 143/102 07/20/18 07:10 18 144/97 97 07/20/18 04:00 16 07/20/18 00:00 16 07/19/18 23:41 16 159/86 97 07/19/18 20:00 16 07/19/18 19:52 16 142/88 94 L 07/19/18 15:25 18 106/72 95 07/19/18 13:15 18 108/74 96 07/19/18 13:08 18 115/85 97 07/19/18 11:53 18 112/85 96 Intake and Output 07/19/18 07/20/18 07/20/18 22:59 06:59 14:59 Intake Total 240 240 Output Total 300 Balance 240 -60 Intake: Oral 240 240 Output: Urine 300 Other: # Voids 2 1 Weight 92.986 kg - Constitutional General appearance: no acute distress - EENT Eyes: EOMI, PERRLA ENT: hearing grossly normal, pharyngeal erythema - Neck Neck: no lymphadenopathy - Respiratory Respiratory: bilateral: CTA - Cardiovascular Rhythm: irregularly irregular Heart sounds: normal: S1, S2 - Gastrointestinal General gastrointestinal: normal bowel sounds, soft - Integumentary Integumentary: normal - Neurologic Neurologic: CNII-XII intact - Musculoskeletal Musculoskeletal: strength equal bilaterally - Psychiatric Psychiatric: A&O x's 3, appropriate affect Results CBC & Chem 7: 07/20/18 06:20 07/20/18 06:20 Labs: Abnormal Lab Results - Last 24 Hours (Table) 07/20/18 07/20/18 Range/Units 06:20 06:20 RBC 4.07 L (4.30-5.90) m/uL Hgb 11.4 L (13.0-17.5) gm/dL Hct 33.4 L (39.0-53.0) % BUN 35 H (9-20) mg/dL Creatinine 1.65 H (0.66-1.25) mg/dL Glucose 103 H (74-99) mg/dL Assessment and Plan (1) Syncope Narrative/Plan: This is most likely felt to be orthostatic, from dehydration. The patient had similar symptoms with his prior admission. He has actually been off chemotherapy, but due to difficulty in swallowing, oral intake remains quite limited. He does have atrial fibrillation, but rate was not higher than would be expected with dehydration. The case was discussed in detail with the admitting service. The patient feels much better with hydration. He will likely be discharged yesterday. We will plan on doing hydration in the office on a regular basis to prevent recurrences in the future. It is anticipated that oral intake may not improve in the immediate future, to the patient completes his treatment. Status: Acute Code(s): R55 - SYNCOPE AND COLLAPSE SNOMED Code(s): 992735620 (2) Acute kidney injury Narrative/Plan: The patient had developed a severe HPI during his prior admission, due to dehydration as well as cisplatin affect. Therefore cisplatin was changed to carboplatin. He has not yet had cycle 2 of chemotherapy. However the creatinine was still significantly elevated, likely due to poor oral intake. This is confirmed by a marked improvement in creatinine with hydration overnight. Plans for continued hydration as an outpatient as noted above. Hopefully with that, and change in regimen, risk of recurrent DAYANA will be reduced Status: Acute Priority: High Code(s): N17.9 - ACUTE KIDNEY FAILURE, UNSPECIFIED SNOMED Code(s): 83634573 (3) Pulmonary embolism Narrative/Plan: This is felt to be the possible cause for his new onset A. fib, along with dehydration and intractable normality. The patient is currently aren't evaluation which is tolerating well. Given the patient's improvement with hydration, recurrent PE is not suspected clinically. Continue anti-coagulation Status: Acute Priority: High Code(s): I26.99 - OTHER PULMONARY EMBOLISM WITHOUT ACUTE COR PULMONALE SNOMED Code(s): 09822250 (4) New onset a-fib Narrative/Plan: The patient was noted to have this for the first time during his recent admission. As noted this is felt to be due to PE, and dehydration/electrolyte abnormalities. Defer to cardiology for continued treatment. The patient is on anticoagulation for his PE. Discussed with cardiology that this is new onset, and likely related to the above. Status: Acute Priority: High Code(s): I48.91 - UNSPECIFIED ATRIAL FIBRILLATION SNOMED Code(s): 54423734 (5) Squamous cell carcinoma of head and neck Narrative/Plan: The patient will resume treatment with his new regimen of chemotherapy, as well as radiation on discharge. Ideally he should have a PEG tube placed, but apparently this has not being possible because of his hiatal hernia. Case discussed with radiation oncology. He will receive local treatment to try to reduce his dysphagia and odynophagia. Hopefully that, coupled with the plan for hydration in the office will be sufficient to get him through the rest of his treatment course. Status: Acute Priority: High Code(s): C76.0 - MALIGNANT NEOPLASM OF HEAD, FACE AND NECK SNOMED Code(s): 879413585
== END 2018-07-20 13:21 | disposition home or self-care (01) ==
LOC: EC 10:11 → 1SOBS 12:37
PROVIDERS: ADMIT Family Medicine; ATTEND Family Medicine
DX: N17.9 Acute kidney failure, unspecified (principal); E86.0 Dehydration; R55 Syncope and collapse; E87.6 Hypokalemia; J02.9 Acute pharyngitis, unspecified; K21.9 Gastro-esophageal reflux disease without esophagitis; M19.90 Unspecified osteoarthritis, unspecified site; E83.42 Hypomagnesemia; D64.9 Anemia, unspecified; K44.9 Diaphragmatic hernia without obstruction or gangrene; C77.0 Secondary and unspecified malignant neoplasm of lymph nodes of head, face and neck; I10 Essential (primary) hypertension; I25.10 Atherosclerotic heart disease of native coronary artery without angina pectoris; I48.2 Chronic atrial fibrillation; Z87.891 Personal history of nicotine dependence; Z98.890 Other specified postprocedural states; Z82.49 Family history of ischemic heart disease and other diseases of the circulatory system; Z88.5 Allergy status to narcotic agent; Z79.01 Long term (current) use of anticoagulants; Z79.899 Other long term (current) drug therapy
CPT/HCPCS: 96365; 96366; 96368; 96361; 99285; 36415; 93005; 83880; 80053; 80048; 82550; 82553; 83605; 83735; 84100; 84484; 85025 ×2; 85610; 85730; G0378 ×2; J3480; J3475

== ENCOUNTER 2018-08-01 18:29 | Inpatient (IN) | payer MEDICAID ==
[2018-08-01] MEDS ORDERED: SODIUM CHLORIDE 0.9% 1,000 ML IV SCH (19:00)
[2018-08-01] MEDS: SODIUM CHLORIDE 0.9% 500 ML 500 ML IV SCH ×2 (19:14→19:15)
[2018-08-01 19:24] LABS: Basophils % (A) 0 %; Eosinophils # (A) 0.1 k/uL (0-0.7); Eosinophils % (A) 1 %; HCT 31.4 % (39.0-53.0); HGB 11.1 gm/dL (13.0-17.5); Lymphocytes % (A) 26 %; MCH 28.2 pg (25.0-35.0); MCHC 35.2 g/dL (31.0-37.0); MCV 80.2 fL (80.0-100.0); Mean Platelet Volume 7.1; Monocytes # (A) 0.2 k/uL (0-1.0); Monocytes % (A) 4 %; Neutrophils # (A) 2.7 k/uL (1.3-7.7); Neutrophils % (A) 67 %; Platelet Count 349 k/uL (150-450); RBC 3.92 m/uL (4.30-5.90); RDW 13.4 % (11.5-15.5)
--- NOTE | 2018-08-01 19:25 | ED ---
General Adult HPI - General Chief complaint: Recheck/Abnormal Lab/Rx Stated complaint: VOMITING MUCOUS, FEVER Time Seen by Provider: 08/01/18 18:44 Source: patient Mode of arrival: ambulatory Limitations: no limitations - History of Present Illness Initial comments: Patient is a 63-year-old male presenting for throat pain. The patient states that he currently is undergoing chemotherapy and radiation for cancer in his throat as well as lymph nodes. He states that for the last 4-5 days, he has been having worsening pain in throat and having sores on his mouth. He states that he has not had any chest pain or shortness of breath and he states that he has had a low-grade fever as well and spitting up green mucus. However, he denies any chest pain, shortness of breath, nausea/vomiting/diarrhea. He states that he has had a little bit of abdominal discomfort and feels more like hunger pains. - Related Data Home Medications Medication Instructions Recorded Confirmed NIFEdipine [NIFEdipine ER] 60 mg PO DAILY 03/24/18 08/01/18 L.acidoph,Paracasei, B.lactis 1 cap PO DAILY 05/05/18 08/01/18 [Probiotic] Omeprazole 20 mg PO DAILY 05/05/18 08/01/18 Ondansetron Odt [Zofran Odt] 8 mg PO Q12HR PRN 08/01/18 08/01/18 Previous Rx's Medication Instructions Recorded Apixaban [Eliquis] 5 mg PO BID #60 tab 07/08/18 Isosorbide Mononitrate ER [Imdur] 30 mg PO DAILY #30 tab 07/08/18 Metoprolol Tartrate [Lopressor] 25 mg PO BID #60 tab 07/08/18 Allergies Allergy/AdvReac Type Severity Reaction Status Date / Time meperidine [From Demerol] AdvReac fever Verified 08/01/18 19:18 Review of Systems ROS Statement: Those systems with pertinent positive or pertinent negative responses have been documented in the HPI. Constitutional: Positive for chills, fatigue and fever. HENT: Negative for congestion. Positive for neck pain Respiratory: Negative for chest tightness, shortness of breath and wheezing. Negative for cough Cardiovascular: Negative for chest pain and palpitations. Gastrointestinal: Negative for abdominal pain. Negative for abdominal distention , diarrhea, nausea and vomiting. Genitourinary: Negative for dysuria. Musculoskeletal: Negative for back pain, neck pain and neck stiffness. Skin: Negative for color change. Neurological: Negative for dizziness, speech difficulty, weakness and light- headedness. Psychiatric/Behavioral: Negative for agitation and confusion. Negative for anxiety ROS Other: All systems not noted in ROS Statement are negative. Past Medical History Past Medical History: Atrial Fibrillation, Coronary Artery Disease (CAD), Cancer , GERD/Reflux, Hypertension, Osteoarthritis (OA) Additional Past Medical History / Comment(s): L neck lynph node positive for metastatic squamous cell cancer/pt receiving chemo and radiation, thyroid nodule , arthritis in low back, migraines, mild CAD, alot of sinus issues. History of Any Multi-Drug Resistant Organisms: None Reported Past Surgical History: Appendectomy, Heart Catheterization, Hernia Repair, Orthopedic Surgery Additional Past Surgical History / Comment(s): tongue bx neg, thyroid bx neg, and lt neck lymph node bx pt stated positive ,arthroscopies both knees, lithotripsy x2, bilateral inguinal hernia repairs, PICC line Past Anesthesia/Blood Transfusion Reactions: No Reported Reaction Additional Past Anesthesia/Blood Transfusion Reaction / Comment(s): . Past Psychological History: No Psychological Hx Reported Smoking Status: Former smoker Past Alcohol Use History: None Reported Past Drug Use History: None Reported - Past Family History Mother Family Medical History: No Reported History Additional Family Medical History / Comment(s): Arrhythmia Father Family Medical History: Coronary Artery Disease (CAD), Myocardial Infarction ([place] ), Pneumonia Additional Family Medical History / Comment(s): CABG x3 at an early age. General Exam - General Exam Comments Initial Comments: Constitutional: Pt appears well-developed and well-nourished. No distress. Head: Normocephalic and atraumatic. Eyes: EOM are normal. Neck: Normal range of motion. Neck supple. Mouth: Ulcerations on top and bottom lip are present. Trismus is present. Patient is protecting his airway. No tripoding or significant oropharyngeal edema noted Cardiovascular: Tachycardia present, regular rhythm, S1 normal, S2 normal and normal heart sounds. Exam reveals no gallop and no friction rub. No murmur heard. Pulmonary/Chest: Effort normal and breath sounds normal. No tachypnea and no bradypnea. No respiratory distress. No wheezes or rales noted. Abdominal: Soft. Bowel sounds are normal. Pt exhibits no shifting dullness, no distension, no pulsatile liver, no fluid wave, no abdominal bruit and no ascites. There is no rigidity, no rebound, no guarding, no tenderness at McBurney's point and negative Pino's sign. There is no tenderness. Musculoskeletal: Normal range of motion. Neurological: Pt is alert and oriented to person, place, and time. No cranial nerve deficit. Skin: Skin is warm and dry. No rash noted. Pt is not diaphoretic. No erythema. No pallor. Psychiatric: Pt has a normal mood and affect. Pt behavior is normal. Thought content normal. Limitations: no limitations Course Vital Signs 08/01/18 08/01/18 08/01/18 18:37 18:59 20:00 Temperature 99.4 F Pulse Rate 125 H 114 H Pulse Rate [ 125 H Weasand Trimmer ] Respiratory 18 20 Rate Blood Pressure 118/78 158/102 O2 Sat by Pulse 97 95 Oximetry EKG Findings - EKG Comments: EKG Findings:: Sinus tachycardia with a rate of 123 beats per minute, MO interval 96, QRS 86, QTC 466. There are no significant ST depressions or elevations. Medical Decision Making - Medical Decision Making Laboratory studies showed that there is no significant leukocytosis and electrolytes are relatively within normal limits. There is no evidence of acute kidney injury and from a cardiac standpoint, troponin was negative and EKG showed normal sinus rhythm. However, this question was whether this is one 1 atrial flutter as he has not had any response with fluids. Because of this, metoprolol was administered. Nonetheless, it is thought that patient needs to be placed in observation for continued monitoring as well as IV hydration. Patient was protecting his airway and therefore it is thought that ICU is not needed at the time of disposition. Additionally, CT of the neck was completed without contrast secondary to the low GFR and it also showed no evidence of emergent pathology or significant changes.Explained all labs and diagnostic test results and that we will admit patient to hospital. Pt is agreeable to plan and case has been discussed with Dr. Angel and they agree to accept the pt. - Lab Data Result diagrams: 08/01/18 19:15 08/01/18 19:15 Lab Results 08/01/18 08/01/18 08/01/18 Range/Units 19:15 19:15 19:15 WBC 4.0 (3.8-10.6) k/uL RBC 3.92 L (4.30-5.90) m/uL Hgb 11.1 L (13.0-17.5) gm/dL Hct 31.4 L (39.0-53.0) % MCV 80.2 (80.0-100.0) fL MCH 28.2 (25.0-35.0) pg MCHC 35.2 (31.0-37.0) g/dL RDW 13.4 (11.5-15.5) % Plt Count 349 (150-450) k/uL Neutrophils % 67 % Lymphocytes % 26 % Monocytes % 4 % Eosinophils % 1 % Basophils % 0 % Neutrophils # 2.7 (1.3-7.7) k/uL Lymphocytes # 1.0 (1.0-4.8) k/uL Monocytes # 0.2 (0-1.0) k/uL Eosinophils # 0.1 (0-0.7) k/uL Basophils # 0.0 (0-0.2) k/uL PT (9.0-12.0) sec INR (<1.2) APTT (22.0-30.0) sec Sodium 142 (137-145) mmol/L Potassium 3.9 (3.5-5.1) mmol/L Chloride 106 (98-107) mmol/L Carbon Dioxide 20 L (22-30) mmol/L Anion Gap 16 mmol/L BUN 49 H (9-20) mg/dL Creatinine 2.21 H (0.66-1.25) mg/dL Est GFR (CKD-EPI)AfAm 35 (>60 ml/min/1.73 sqM) Est GFR (CKD-EPI)NonAf 30 (>60 ml/min/1.73 sqM) Glucose 110 H (74-99) mg/dL Plasma Lactic Acid Sebastien (0.7-2.0) mmol/L Calcium 9.7 (8.4-10.2) mg/dL Total Bilirubin 1.5 H (0.2-1.3) mg/dL AST 23 (17-59) U/L ALT 33 (21-72) U/L Alkaline Phosphatase 106 (38-126) U/L Troponin I (0.000-0.034) ng/mL Total Protein 7.3 (6.3-8.2) g/dL Albumin 4.0 (3.5-5.0) g/dL Influenza Type A RNA Not Detected (Not Detectd) Influenza Type B (PCR) Not Detected (Not Detectd) 08/01/18 08/01/18 08/01/18 Range/Units 19:15 19:15 19:15 WBC (3.8-10.6) k/uL RBC (4.30-5.90) m/uL Hgb (13.0-17.5) gm/dL Hct (39.0-53.0) % MCV (80.0-100.0) fL MCH (25.0-35.0) pg MCHC (31.0-37.0) g/dL RDW (11.5-15.5) % Plt Count (150-450) k/uL Neutrophils % % Lymphocytes % % Monocytes % % Eosinophils % % Basophils % % Neutrophils # (1.3-7.7) k/uL Lymphocytes # (1.0-4.8) k/uL Monocytes # (0-1.0) k/uL Eosinophils # (0-0.7) k/uL Basophils # (0-0.2) k/uL PT 12.1 H (9.0-12.0) sec INR 1.2 H (<1.2) APTT 22.3 (22.0-30.0) sec Sodium (137-145) mmol/L Potassium (3.5-5.1) mmol/L Chloride (98-107) mmol/L Carbon Dioxide (22-30) mmol/L Anion Gap mmol/L BUN (9-20) mg/dL Creatinine (0.66-1.25) mg/dL Est GFR (CKD-EPI)AfAm (>60 ml/min/1.73 sqM) Est GFR (CKD-EPI)NonAf (>60 ml/min/1.73 sqM) Glucose (74-99) mg/dL Plasma Lactic Acid Sebastien 1.6 (0.7-2.0) mmol/L Calcium (8.4-10.2) mg/dL Total Bilirubin (0.2-1.3) mg/dL AST (17-59) U/L ALT (21-72) U/L Alkaline Phosphatase (38-126) U/L Troponin I <0.012 (0.000-0.034) ng/mL Total Protein (6.3-8.2) g/dL Albumin (3.5-5.0) g/dL Influenza Type A RNA (Not Detectd) Influenza Type B (PCR) (Not Detectd) Disposition Clinical Impression: Dehydration, Neck mass, Tachycardia Disposition: ADMITTED IP TO THIS [facility] Condition: Fair Referrals: Colten Henson MD [Primary Care Provider] - 1-2 days Decision to Admit Reason: Admit from EC Decision Date: 08/01/18 Decision Time: 20:56
[2018-08-01 19:38] LABS: Calcium 9.7 mg/dL (8.4-10.2); Potassium 3.9 mmol/L (3.5-5.1); Total Bilirubin 1.5 mg/dL (0.2-1.3); Total Protein 7.3 g/dL (6.3-8.2)
[2018-08-01 19:44] LABS: INR 1.2 (<1.2); Partial Thromboplastin Time 22.3 sec (22.0-30.0); Prothrombin Time 12.1 sec (9.0-12.0)
--- NOTE | 2018-08-01 20:19 | CT ---
EXAMINATION TYPE: CT soft tissue neck wo con DATE OF EXAM: 08/01/2018 HISTORY: Neck pain and difficulty swallowing. Esophageal CA COMPARISON: 04/28/2018 CT DLP: 242.4 mGycm. Automated Exposure Control for Dose Reduction was Utilized. TECHNIQUE: CT scan of the neck is performed , patient injected with mL of , axial images are obtaine d, coronal and sagittal reformatted images are reviewed. FINDINGS: There is no contrast. There is opacification right maxillary sinus with some calcific density also. Epiglottis is normal. The tonsils and adenoids appear normal. Parotid glands are symmetric. Submandib ular salivary glands are symmetric. The visualized trachea appears normal. There is some thickening o f the epiglottic fold on the left side compared to the right on axial image 47. Superior mediastinum is intact without evidence of adenopathy. There is 1.6 cm low density area in the right thyroid lobe. this appears unchanged compared to old exam. There are a few anterior triangle cervical lymph nodes that measure up to 10 mm. 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 There are mild spondylotic changes in the lower thoracic spine. I see no focal bone kodi truction. IMPRESSION: Chronic right maxillary sinusitis unchanged. Small nodular right thyroid lobe unchanged. Stable thickening of the left side area epiglottic fold compared to the right best seen on axial imag e 47 and 48. This is more than last CT scan and could relate to a mass. Laryngoscopy is recommended f or further evaluation.
--- NOTE | 2018-08-01 20:29 | XR ---
EXAMINATION TYPE: XR chest 2V DATE OF EXAM: 08/01/2018 COMPARISON: 07/05/2018 HISTORY: Fever TECHNIQUE: Frontal and lateral views of the chest are obtained. FINDINGS: There is no heart failure nor confluent pneumonic infiltrate. Costophrenic angles are george r. Heart size is normal. There are chest leads. Bony thorax is intact. IMPRESSION: No active cardiopulmonary disease. No change.
[2018-08-01] MEDS ORDERED: METOPROLOL TARTRATE 5 MG/5 ML VIAL IVP STA (20:36)
[2018-08-01] MEDS ORDERED: NALOXONE 0.4 MG/ML 1 ML VIAL IV PRN (20:47)
[2018-08-01] MEDS: SODIUM CHLORIDE 0.9% 1,000 ML IV STA ×2 (20:59→21:51)
[2018-08-01] MEDS: MORPHINE SULFATE 4 MG/ML SYRINGE IV PRN (21:26)
[2018-08-01] MEDS ORDERED: ENALAPRILAT 1.25 MG/ML 1 ML VIAL IVP STA (21:46)
[2018-08-01] MEDS ORDERED: ONDANSETRON ODT 8 MG TAB.RAPDIS PO PRN (22:35)
[2018-08-02] MEDS: MORPHINE SULFATE 4 MG/ML SYRINGE IV PRN ×3 (02:56→10:16)
[2018-08-02 06:56] LABS: Basophils % (A) 0 %; Eosinophils # (A) 0.1 k/uL (0-0.7); Eosinophils % (A) 1 %; HCT 30.6 % (39.0-53.0); HGB 10.7 gm/dL (13.0-17.5); Lymphocytes % (A) 28 %; MCH 28.8 pg (25.0-35.0); MCHC 34.8 g/dL (31.0-37.0); MCV 82.7 fL (80.0-100.0); Mean Platelet Volume 6.4; Monocytes # (A) 0.2 k/uL (0-1.0); Monocytes % (A) 5 %; Neutrophils # (A) 2.2 k/uL (1.3-7.7); Neutrophils % (A) 63 %; Platelet Count 296 k/uL (150-450); RBC 3.71 m/uL (4.30-5.90); RDW 13.7 % (11.5-15.5); WBC 3.5 k/uL (3.8-10.6)
--- NOTE | 2018-08-02 07:05 | P.HPIM ---
History of Present Illness H&P Date: 08/01/18 Chief Complaint: Severe mouth pain 63-year-old male with history of severe digital cancer undergoing chemoradiotherapy. Patient presented due to severe mouth and throat pain preventing him from swallowing. Patient unable to talk due to the pain and history of esophageal cancer. History was obtained by speaking with the at her bedside. She indicated that for the past 4 days he's been having progressive worsening of his throat pain to the point that he couldn't even swallow water she has noticed some sores in his mouth with yellowish mucousy discharge from his mouth. She reports low-grade fever, but denies any chest pain trouble breathing denies any coughing or symptoms of upper respiratory infection denies any abdominal pain nausea vomiting or changes in bowel habits. Patient was recently hospitalized for dehydration and syncope who 2 weeks ago Last session of radiotherapy was on Thursday 2 days ago In the ER he was found to have slightly elevated creatinine, dehydration he will be admitted under observation for rehydration supportive care and evaluation by oncology as he was sent in from Dr. Clemens's office Review of Systems Pertinent positives as noted in HPI. All other systems were reviewed and are negative Past Medical History Past Medical History: Atrial Fibrillation, Coronary Artery Disease (CAD), Cancer , GERD/Reflux, Hypertension, Osteoarthritis (OA) Additional Past Medical History / Comment(s): L neck lynph node positive for metastatic squamous cell cancer/pt receiving chemo and radiation, thyroid nodule , arthritis in low back, migraines, mild CAD, alot of sinus issues. History of Any Multi-Drug Resistant Organisms: None Reported Past Surgical History: Appendectomy, Heart Catheterization, Hernia Repair, Orthopedic Surgery Additional Past Surgical History / Comment(s): tongue bx neg, thyroid bx neg, and lt neck lymph node bx pt stated positive ,arthroscopies both knees, lithotripsy x2, bilateral inguinal hernia repairs, PICC line inserted 3 weeks ago- "here by dr Paulino." Past Anesthesia/Blood Transfusion Reactions: No Reported Reaction Additional Past Anesthesia/Blood Transfusion Reaction / Comment(s): . Past Psychological History: No Psychological Hx Reported Additional Psychological History / Comment(s): Pt resides with his spouse. He works for [employer]. He is independent. Smoking Status: Former smoker Past Alcohol Use History: None Reported Additional Past Alcohol Use History / Comment(s): quit smoking Jun 2017,-smoked a pipe MAINLY ON WEEKENDS OFF AND ON SINCE AGE 12 Past Drug Use History: None Reported - Past Family History Mother Family Medical History: No Reported History Additional Family Medical History / Comment(s): Arrhythmia Father Family Medical History: Coronary Artery Disease (CAD), Myocardial Infarction (MD ), Pneumonia Additional Family Medical History / Comment(s): CABG x3 at an early age. Medications and Allergies Home Medications Medication Instructions Recorded Confirmed Type NIFEdipine [NIFEdipine ER] 60 mg PO DAILY 03/24/18 08/01/18 History L.acidoph,Paracasei, B.lactis 1 cap PO DAILY 05/05/18 08/01/18 History [Probiotic] Omeprazole 20 mg PO DAILY 05/05/18 08/01/18 History Apixaban [Eliquis] 5 mg PO BID #60 tab 07/08/18 08/01/18 Rx Isosorbide Mononitrate ER [Imdur] 30 mg PO DAILY #30 tab 07/08/18 08/01/18 Rx Metoprolol Tartrate [Lopressor] 25 mg PO BID #60 tab 07/08/18 08/01/18 Rx Ondansetron Odt [Zofran Odt] 8 mg PO Q12HR PRN 08/01/18 08/01/18 History Allergies Allergy/AdvReac Type Severity Reaction Status Date / Time meperidine [From Demerol] AdvReac fever Verified 08/01/18 19:18 Physical Exam Vitals: Vital Signs Temp Pulse Pulse Resp BP BP Pulse Ox 08/02/18 03:12 98.4 F 76 18 152/90 93 L 08/02/18 02:15 99 17 08/02/18 00:00 98.1 F 77 18 154/90 96 08/01/18 23:37 77 18 97 08/01/18 23:22 17 08/01/18 23:00 84 16 149/90 97 08/01/18 22:39 79 20 145/93 99 08/01/18 22:00 82 20 147/93 97 08/01/18 21:00 110 H 18 158/116 96 08/01/18 20:00 114 H 20 158/102 95 08/01/18 18:59 125 H 08/01/18 18:37 99.4 F 125 H 18 118/78 97 Intake and Output 08/01/18 08/01/18 08/02/18 14:59 22:59 06:59 Output Total 550 Balance -550 Output: Urine 550 Other: Voiding Method Toilet Urinal # Voids 1 Weight 90.718 kg Constitutional: No acute distress, patient is unable to talk due to severe throat pain with history of esophageal cancer Eyes: Anicteric sclerae, moist conjunctiva, no lid-lag Pupils equal round reactive to light ENMT: NC/AT Oropharynx limited exam patient couldn't open mouth fully I couldn't see any visible ulceration or rash in the mouth but there is a lot of crustacean and yellowish mucousy discharge over his lips I could not see the soft palate oropharynx. Neck: Supple, FROM, no masses, or JVD No carotid bruits No thyromegaly Lungs: Clear to auscultation Clear to percussion Normal respiratory effort, no accessory muscle use Cardiovascular: Heart tachycardia No murmurs, gallops, or rubs No peripheral edema Abdominal: Soft Nontender, no guarding, rebound or rigidity Abdomen moving with respiration Normoactive bowel sounds No hepatomegaly, No splenomegaly No palpable mass No abdominal wall hernia noted Skin: Normal temperature, tone, texture, turgor No induration No subcutaneous nodules No rash, lesions No ulcers Extremities: No digital cyanosis No clubbing Pedal pulses intact and symmetrical Radial pulses intact and symmetrical No calf tenderness Psychiatric: Alert and cooperating with exam and following commands but he doesn't talk Neuro Muscles Strength 5/5 in all 4 extremities Sensation to light touch grossly present throughout Cranial nerves exam was limited due to patient being in pain wasn't able to cooperate with this part of the exam No focal sensory deficits Lymphatics: no palpable cervical or supraclavicular , or inguinal lymph nodes Results CBC & Chem 7: 08/01/18 19:15 08/01/18 19:15 Labs: Abnormal Lab Results - Last 24 Hours (Table) 08/01/18 08/01/18 08/01/18 Range/Units 19:15 19:15 19:15 RBC 3.92 L (4.30-5.90) m/uL Hgb 11.1 L (13.0-17.5) gm/dL Hct 31.4 L (39.0-53.0) % PT 12.1 H (9.0-12.0) sec INR 1.2 H (<1.2) Carbon Dioxide 20 L (22-30) mmol/L BUN 49 H (9-20) mg/dL Creatinine 2.21 H (0.66-1.25) mg/dL Glucose 110 H (74-99) mg/dL Total Bilirubin 1.5 H (0.2-1.3) mg/dL Thrombosis Risk Factor Assmnt - Choose All That Apply Any of the Below Risk Factors Present?: Yes Each Risk Factor Represents 2 Points: Age 61-74 years, Central venous access Other congenital or acquired thrombophilia - If yes, enter type in comment: No Thrombosis Risk Factor Assessment Total Risk Factor Score: 4 Thrombosis Risk Factor Assessment Level: Moderate Risk Assessment and Plan Assessment: 63-year-old male with history of esophageal cancer currently undergoing chemoradiation therapy admitted this observation with anticipated length of stay of less than 48 hours due to dehydration and acute kidney injury patient has been having increasing pain and oral lesions preventing him from swallowing. Due to severe pain patient decided come to the hospital he was found to be dehydrated with elevated creatinine and having mucositis Plan: Oral mucositis, increase oral pain Acute kidney injury on CT T Dehydration Chronic anemia stable Elevated bilirubin Supportive care, IV fluid hydration Magic mouthwash Check cultures Follow-up labs and liver function Oncology consultation Pain control Chronic conditions hypertension, paroxysmal A. fib, history of thyroid nodule Continue home meds DVT prophylaxis patient is on Eliquis for A. fib Preformed a thorough record review from recent hospitalization over the past 2 months frequent hospitalization for dehydration syncopal episodes most recently discharged about 2 weeks ago where he was admitted for syncope found to be dehydrated he was cleared by cardiology echocardiogram showed preserved left ventricular ejection fraction Surrogate decision-maker: Patient CODE STATUS: Full code Discussed with: Patient, ER, Anticipated discharge: <[address]: Home A total of 55 minutes was spent on the care of this complex patient more than 50 % of the time was spent in counseling and care coordination.
[2018-08-02 07:23] LABS: Albumin 3.5 g/dL (3.5-5.0); Calcium 9.3 mg/dL (8.4-10.2); Potassium 4.1 mmol/L (3.5-5.1); Total Bilirubin 1.2 mg/dL (0.2-1.3); Total Protein 6.6 g/dL (6.3-8.2)
[2018-08-02] MEDS ORDERED: PANTOPRAZOLE 40 MG TABLET PO SCH (07:30)
[2018-08-02] MEDS ORDERED: METOPROLOL TARTRATE 25 MG TAB PO SCH (09:00)
[2018-08-02] MEDS ORDERED: APIXABAN 5 MG TAB PO SCH (09:00)
[2018-08-02] MEDS ORDERED: MAG HYDROX/AL HYDROX/SIMETH 30 ML, LIDOCAINE VISCOUS 30 ML, diphenhydrAMINE ELIXIR 75 M... PO SCH ×4 (09:00)
[2018-08-02] MEDS ORDERED: DEXAMETHASONE ORAL 4 MG/ML VIAL PO SCH (10:45)
--- NOTE | 2018-08-02 12:08 | P.GSCN ---
History of Present Illness Consult date: 08/02/18 Reason for Consult: feeding tube Requesting physician: Otis Vo History of present illness: CHIEF COMPLAINT: pain in throat/feeding tube HISTORY OF PRESENT ILLNESS: 63-year-old male who is currently undergoing treatment for esophageal cancer. General surgery was consulted for possible feeding tube. Patient reports over the past week he has been having pain with sores developing in his mouth. He is unable to tolerate food due to the pain. PEG tube was attempted in June by Dr. Josue but was unsuccessful secondary to moderate sized hiatal hernia. PAST MEDICAL HISTORY: See list. PAST SURGICAL HISTORY: See list. MEDICATIONS: See list. ALLERGIES: See list. SOCIAL HISTORY: No illicit drug use. REVIEW OF SYSTEMS: CONSTITUTIONAL: Reports low grade fevers. HEENT: Reports increased pain in his mouth with development of sores. Unable to tolerate PO intake. Denies blurred vision, vision changes, or eye pain. ENDOCRINE: Denies heat or cold intolerance. CARDIOVASCULAR: Denies chest pain or pressure. RESPIRATORY: No shortness of breath. GASTROINTESTINAL: Denies abdominal pain. Denies nausea or vomiting. NEURO: Denies history of seizures. PSYCH: No depression or suicidal ideation HEMATOLOGIC: Denies bleeding disorders. LYMPHATIC: The patient denies any lumps and bumps around the neck. GENITOURINARY: Denies any blood in urine or increased urinary frequency. MUSCULOSKELETAL: Denies myalgias. Denies joint swelling. Denies decreased range of motion beyond patients baseline. SKIN: Denies pruitis. Denies rash. PHYSICAL EXAM: VITAL SIGNS: Currently stable. GENERAL: Well-developed in no acute distress. HEENT: No sclera icterus. Extraocular movements grossly intact. Patient unable to fully open mouth for examination. CHEST: Non-labored respirations and equal bilateral excursions. CARDIOVASCULAR: Tachycardic. Regular rate with regular rhythm. Palpable 2+ radial pulses. ABDOMEN: Soft. Nondistended. Nontender. MUSCULOSKELETAL: No clubbing, cyanosis or edema. NEUROLOGIC: No focal or lateralizing signs. Cranial nerves II through XII grossly intact. PSYCH: Appropriate affect. Alert and oriented to person, place and time. SKIN: Well perfused. Good skin turgor. ASSESSMENT: 1. Inability to tolerate oral intake secondary to chemoradiation and mucositis PLAN: Hold Eliquis until patient is evaluated by Dr. Rodriguez. Dr. Rodriguez to make determination whether PEG can be attempted again or if patient will require open G tube placement. Nurse practitioner note has been reviewed by physician. Signing provider agrees with the documented findings, assessment, and plan of care. Past Medical History Past Medical History: Atrial Fibrillation, Coronary Artery Disease (CAD), Cancer, GERD/Reflux, Hypertension, Osteoarthritis (OA) Additional Past Medical History / Comment(s): L neck lynph node positive for metastatic squamous cell cancer/pt receiving chemo and radiation, thyroid nodule, arthritis in low back, migraines, mild CAD, alot of sinus issues. History of Any Multi-Drug Resistant Organisms: None Reported Past Surgical History: Appendectomy, Heart Catheterization, Hernia Repair, Orthopedic Surgery Additional Past Surgical History / Comment(s): tongue bx neg, thyroid bx neg, and lt neck lymph node bx pt stated positive ,arthroscopies both knees, lithotripsy x2, bilateral inguinal hernia repairs, PICC line inserted 3 weeks ago- "here by dr Paulino." Past Anesthesia/Blood Transfusion Reactions: No Reported Reaction Additional Past Anesthesia/Blood Transfusion Reaction / Comm: . Past Psychological History: No Psychological Hx Reported Additional Psychological History / Comment(s): Pt resides with his spouse. He works for [employer]. He is independent. Smoking Status: Former smoker Past Alcohol Use History: None Reported Additional Past Alcohol Use History / Comment(s): quit smoking Jun 2017,-smoked a pipe MAINLY ON WEEKENDS OFF AND ON SINCE AGE 12 Past Drug Use History: None Reported - Past Family History Mother Family Medical History: No Reported History Additional Family Medical History / Comment(s): Arrhythmia Father Family Medical History: Coronary Artery Disease (CAD), Myocardial Infarction ([place]), Pneumonia Additional Family Medical History / Comment(s): CABG x3 at an early age. Medications and Allergies Home Medications Medication Instructions Recorded Confirmed Type NIFEdipine [NIFEdipine ER] 60 mg PO DAILY 03/24/18 08/01/18 History L.acidoph,Paracasei, B.lactis 1 cap PO DAILY 05/05/18 08/01/18 History [Probiotic] Omeprazole 20 mg PO DAILY 05/05/18 08/01/18 History Apixaban [Eliquis] 5 mg PO BID #60 tab 07/08/18 08/01/18 Rx Isosorbide Mononitrate ER [Imdur] 30 mg PO DAILY #30 tab 07/08/18 08/01/18 Rx Metoprolol Tartrate [Lopressor] 25 mg PO BID #60 tab 07/08/18 08/01/18 Rx Ondansetron Odt [Zofran Odt] 8 mg PO Q12HR PRN 08/01/18 08/01/18 History Allergies Allergy/AdvReac Type Severity Reaction Status Date / Time meperidine [From Demerol] AdvReac fever Verified 08/01/18 19:18 Surgical - Exam Vital Signs Temp Pulse Resp BP Pulse Ox 99.4 F 125 H 18 118/78 97 08/01/18 18:37 08/01/18 18:37 08/01/18 18:37 08/01/18 18:37 08/01/18 18:37 Results - Labs 08/02/18 06:47 08/02/18 06:47 Abnormal Lab Results - Last 24 Hours (Table) 08/01/18 08/01/18 08/01/18 Range/Units 19:15 19:15 19:15 WBC (3.8-10.6) k/uL RBC 3.92 L (4.30-5.90) m/uL Hgb 11.1 L (13.0-17.5) gm/dL Hct 31.4 L (39.0-53.0) % PT 12.1 H (9.0-12.0) sec INR 1.2 H (<1.2) Chloride (98-107) mmol/L Carbon Dioxide 20 L (22-30) mmol/L BUN 49 H (9-20) mg/dL Creatinine 2.21 H (0.66-1.25) mg/dL Glucose 110 H (74-99) mg/dL Total Bilirubin 1.5 H (0.2-1.3) mg/dL 08/02/18 08/02/18 Range/Units 06:47 06:47 WBC 3.5 L (3.8-10.6) k/uL RBC 3.71 L (4.30-5.90) m/uL Hgb 10.7 L (13.0-17.5) gm/dL Hct 30.6 L (39.0-53.0) % PT (9.0-12.0) sec INR (<1.2) Chloride 110 H (98-107) mmol/L Carbon Dioxide (22-30) mmol/L BUN 40 H (9-20) mg/dL Creatinine 1.66 H (0.66-1.25) mg/dL Glucose 105 H (74-99) mg/dL Total Bilirubin (0.2-1.3) mg/dL Microbiology - Last 24 Hours (Table) 08/01/18 20:39 Urine Culture - Preliminary Urine,Voided Diabetes panel 08/01/18 08/02/18 Range/Units 19:15 06:47 Sodium 142 144 (137-145) mmol/L Potassium 3.9 4.1 (3.5-5.1) mmol/L Chloride 106 110 H (98-107) mmol/L Carbon Dioxide 20 L 25 (22-30) mmol/L BUN 49 H 40 H (9-20) mg/dL Creatinine 2.21 H 1.66 H (0.66-1.25) mg/dL Glucose 110 H 105 H (74-99) mg/dL Calcium 9.7 9.3 (8.4-10.2) mg/dL AST 23 20 (17-59) U/L ALT 33 27 (21-72) U/L Alkaline Phosphatase 106 84 (38-126) U/L Total Protein 7.3 6.6 (6.3-8.2) g/dL Albumin 4.0 3.5 (3.5-5.0) g/dL Calcium panel 08/01/18 08/02/18 Range/Units 19:15 06:47 Calcium 9.7 9.3 (8.4-10.2) mg/dL Albumin 4.0 3.5 (3.5-5.0) g/dL Pituitary panel 08/01/18 08/02/18 Range/Units 19:15 06:47 Sodium 142 144 (137-145) mmol/L Potassium 3.9 4.1 (3.5-5.1) mmol/L Chloride 106 110 H (98-107) mmol/L Carbon Dioxide 20 L 25 (22-30) mmol/L BUN 49 H 40 H (9-20) mg/dL Creatinine 2.21 H 1.66 H (0.66-1.25) mg/dL Glucose 110 H 105 H (74-99) mg/dL Calcium 9.7 9.3 (8.4-10.2) mg/dL Adrenal panel 08/01/18 08/02/18 Range/Units 19:15 06:47 Sodium 142 144 (137-145) mmol/L Potassium 3.9 4.1 (3.5-5.1) mmol/L Chloride 106 110 H (98-107) mmol/L Carbon Dioxide 20 L 25 (22-30) mmol/L BUN 49 H 40 H (9-20) mg/dL Creatinine 2.21 H 1.66 H (0.66-1.25) mg/dL Glucose 110 H 105 H (74-99) mg/dL Calcium 9.7 9.3 (8.4-10.2) mg/dL Total Bilirubin 1.5 H 1.2 (0.2-1.3) mg/dL AST 23 20 (17-59) U/L ALT 33 27 (21-72) U/L Alkaline Phosphatase 106 84 (38-126) U/L Total Protein 7.3 6.6 (6.3-8.2) g/dL Albumin 4.0 3.5 (3.5-5.0) g/dL
[2018-08-02] MEDS: MORPHINE SULFATE 4 MG/ML SYRINGE IVP PRN ×4 (12:48→22:18)
[2018-08-02] MEDS: SALT AND SODA MOUTHWASH 1,000 ML PO SCH ×6 (13:03→22:42)
--- NOTE | 2018-08-02 13:15 | P.PN ---
Subjective Progress Note Date: 08/02/18 The patient have difficulty speaking today, is in severe discomfort from his oral ulcers, having dysphagia and odynophagia. Discussed possibility of feeding tube patient reporting that he was previously unable to get one due to a hiatal hernia. Nursing reporting episodes of tachycardia coinciding with when his pain medications are due. Objective - Vital Signs Vital signs: Vital Signs Temp 98.4 F 08/02/18 07:10 Pulse 79 08/02/18 08:00 Resp 18 08/02/18 08:00 BP 156/88 08/02/18 07:10 Pulse Ox 96 08/02/18 07:58 Intake & Output 08/01/18 08/02/18 08/02/18 18:59 06:59 18:59 Output Total 550 Balance -550 Weight 90.718 kg Output: Urine 550 Other: Voiding Method Toilet Toilet Urinal Urinal # Voids 1 - Exam Constitutional: No acute distress, conversant, pleasant Eyes: Anicteric sclerae, moist conjunctiva, no lid-lag, PERRLA ENMT: Oropharynx exam limited as patient cannot open his mouth fully due to pain , noted crusting and ulcers on his tongue and inner left mucosal areas with some yellowish mucousy discharge. With left jaw and facial swelling greater than right Neck:Supple, FROM, no masses, or JVD, No carotid bruits; No thyromegaly Lungs: Clear to auscultation, Clear to percussion, Normal respiratory effort, no accessory muscle use Cardiovascular: Heart regular in rate and rhythm, No murmurs, gallops, or rubs no peripheral edema Abdominal: Soft Nontender, nom distended, no guarding, no rebound or rigidity, Normoactive bowel sounds No hepatomegaly, No splenomegaly, No palpable mass No abdominal wall hernia noted Skin: Normal temperature, tone, texture, turgor, No induration No subcutaneous nodules, No rash, lesions, No ulcers Extremities:No digital cyanosis No clubbing, Pedal pulses intact and symmetrical Radial pulses intact and symmetrical Normal gait and station, No calf tenderness Psychiatric: Alert and oriented to person, place and time, Appropriate affect Intact judgement Neuro: Muscles Strength 5/5 in all 4 extremities, Sensation to light touch grossly present throughout, Cranial nerves II-XII grossly intact. No focal sensory deficits - Labs CBC & Chem 7: 08/02/18 06:47 08/02/18 06:47 Labs: Abnormal Lab Results - Last 24 Hours (Table) 08/01/18 08/01/18 08/01/18 Range/Units 19:15 19:15 19:15 WBC (3.8-10.6) k/uL RBC 3.92 L (4.30-5.90) m/uL Hgb 11.1 L (13.0-17.5) gm/dL Hct 31.4 L (39.0-53.0) % PT 12.1 H (9.0-12.0) sec INR 1.2 H (<1.2) Chloride (98-107) mmol/L Carbon Dioxide 20 L (22-30) mmol/L BUN 49 H (9-20) mg/dL Creatinine 2.21 H (0.66-1.25) mg/dL Glucose 110 H (74-99) mg/dL Total Bilirubin 1.5 H (0.2-1.3) mg/dL 08/02/18 08/02/18 Range/Units 06:47 06:47 WBC 3.5 L (3.8-10.6) k/uL RBC 3.71 L (4.30-5.90) m/uL Hgb 10.7 L (13.0-17.5) gm/dL Hct 30.6 L (39.0-53.0) % PT (9.0-12.0) sec INR (<1.2) Chloride 110 H (98-107) mmol/L Carbon Dioxide (22-30) mmol/L BUN 40 H (9-20) mg/dL Creatinine 1.66 H (0.66-1.25) mg/dL Glucose 105 H (74-99) mg/dL Total Bilirubin (0.2-1.3) mg/dL Assessment and Plan (1) Oral mucositis (ulcerative) due to antineoplastic therapy Narrative/Plan: * Progressively worsening since previous admissions left face and jaw edema * Supportive therapy with Magic mouthwash and morphine as needed for pain * Discussed palliative care and need for feeding tube * We'll consult palliative care and general surgery for further recommendations Current Visit: Yes Status: Acute Code(s): K12.31 - ORAL MUCOSITIS ( ULCERATIVE) DUE TO ANTINEOPLASTIC THERAPY SNOMED Code(s): 656364707 (2) Acute kidney injury Narrative/Plan: * Creatinine now back to baseline * We'll continue fluids for now * patient is still having poor oral intake secondary to severe oral mucositis Current Visit: No Status: Resolved Priority: High Code(s): N17.9 - ACUTE KIDNEY FAILURE, UNSPECIFIED SNOMED Code(s): 59818124 (3) Dehydration Narrative/Plan: * Secondary to problem #1 Current Visit: Yes Status: Resolved Code(s): E86.0 - DEHYDRATION SNOMED Code(s): 95848063 (4) Odynophagia Narrative/Plan: * Secondary to problem #1 Current Visit: Yes Status: Acute Code(s): R13.10 - DYSPHAGIA, UNSPECIFIED SNOMED Code(s): 37907772
[2018-08-02] MEDS: MAG HYDROX/AL HYDROX/SIMETH 30 ML, LIDOCAINE VISCOUS 30 ML, diphenhydrAMINE ELIXIR 75 M... PO SCH ×15 (15:18→22:42)
[2018-08-02] MEDS: ISOSORBIDE MONONITRATE ER 30 MG TAB.ER.24H PO SCH (17:01)
[2018-08-02] MEDS: PANTOPRAZOLE 40 MG/10 ML VIAL IVP SCH (18:05)
[2018-08-02] MEDS ORDERED: METOPROLOL TARTRATE 5 MG/5 ML VIAL IVP SCH (21:00)
--- NOTE | 2018-08-02 22:55 | P.CONS ---
History of Present Illness - Reason for Consult Consult date: 08/02/18 Side effects of chemo, in treatment for head/neck malignancy Requesting physician: Otis Vo - Chief Complaint severe mucositis, cannot swallow - History of Present Illness Mr. Sosa is a very pleasant 63 yr old male pt of Dr. Castellanos who presented with palpable left cervical node, first noted in April 2018. 04/28 CT neck revealed opacification of right maxillary sinus, left cervical adenopathy at station 3 interposed between sternocleidomastoid muscle and carotid space measuring 3 cm, another enlarging node just below it measuring 2cm and right thyroid nodule, no clear head and neck primary was found. he was evaluated by Dr. Finn, had FNA of left cervical node, path positive for metastatic squamous cell carcinoma, P16 strongly positive. FNA of thyroid nodule was negative, biopsy of left tongue base was negative. On PET revealed suspicious uptake in left cervical nodes and possible uptake at left base of tongue. Patient was initiated on cisplatin every 3 weeks to be given with concurrent radiation. Patient received his first cycle on 06/29/18. He was admitted post treatment with PE and ARF secondary to cisplatin. Chemotherapy was changed to 5-FU and carboplatin. His cycle was delayed due to poor oral intake and mucositis and odynophagia. He was not deemed a candidate for PEG due to hiatal hernia. He did receive treatment on Thursday. Since that time his oral mucosa has progressively worsened, he is admitted with severe pain from treatment, dehydration as he cannot tolerate any orali ntake. He denies fever, vomiting, chat pain, TYLER, he cannot manage his secretions, no abd pain, swelling or bleeding. Review of Systems 14 point ROS is negative except as stated in HPI Past Medical History Past Medical History: Atrial Fibrillation, Coronary Artery Disease (CAD), Cancer , GERD/Reflux, Hypertension, Osteoarthritis (OA) Additional Past Medical History / Comment(s): L neck lynph node positive for metastatic squamous cell cancer/pt receiving chemo and radiation, thyroid nodule , arthritis in low back, migraines, mild CAD, alot of sinus issues. History of Any Multi-Drug Resistant Organisms: None Reported Past Surgical History: Appendectomy, Heart Catheterization, Hernia Repair, Orthopedic Surgery Additional Past Surgical History / Comment(s): tongue bx neg, thyroid bx neg, and lt neck lymph node bx pt stated positive ,arthroscopies both knees, lithotripsy x2, bilateral inguinal hernia repairs, PICC line inserted 3 weeks ago- "here by dr Paulino." Past Anesthesia/Blood Transfusion Reactions: No Reported Reaction Additional Past Anesthesia/Blood Transfusion Reaction / Comm: . Past Psychological History: No Psychological Hx Reported Additional Psychological History / Comment(s): Pt resides with his spouse. He works for [employer]. He is independent. Smoking Status: Former smoker Past Alcohol Use History: None Reported Additional Past Alcohol Use History / Comment(s): quit smoking Jun 2017,-smoked a pipe MAINLY ON WEEKENDS OFF AND ON SINCE AGE 12 Past Drug Use History: None Reported - Past Family History Mother Family Medical History: No Reported History Additional Family Medical History / Comment(s): Arrhythmia Father Family Medical History: Coronary Artery Disease (CAD), Myocardial Infarction (MS ), Pneumonia Additional Family Medical History / Comment(s): CABG x3 at an early age. Medications and Allergies Home Medications Medication Instructions Recorded Confirmed Type NIFEdipine [NIFEdipine ER] 60 mg PO DAILY 03/24/18 08/01/18 History L.acidoph,Paracasei, B.lactis 1 cap PO DAILY 05/05/18 08/01/18 History [Probiotic] Omeprazole 20 mg PO DAILY 05/05/18 08/01/18 History Apixaban [Eliquis] 5 mg PO BID #60 tab 07/08/18 08/01/18 Rx Isosorbide Mononitrate ER [Imdur] 30 mg PO DAILY #30 tab 07/08/18 08/01/18 Rx Metoprolol Tartrate [Lopressor] 25 mg PO BID #60 tab 07/08/18 08/01/18 Rx Ondansetron Odt [Zofran Odt] 8 mg PO Q12HR PRN 08/01/18 08/01/18 History Allergies Allergy/AdvReac Type Severity Reaction Status Date / Time meperidine [From Demerol] AdvReac fever Verified 08/01/18 19:18 Physical Exam Vitals: Vital Signs Temp Pulse Pulse Resp BP BP Pulse Ox 08/02/18 20:00 90 18 08/02/18 16:00 90 16 08/02/18 15:36 98.2 F 90 16 157/107 98 08/02/18 12:00 90 16 08/02/18 08:00 79 18 08/02/18 07:58 96 08/02/18 07:10 98.4 F 79 18 156/88 95 08/02/18 03:12 98.4 F 76 18 152/90 93 L 08/02/18 02:15 99 17 08/02/18 00:00 98.1 F 77 18 154/90 96 08/01/18 23:37 77 18 97 08/01/18 23:22 17 08/01/18 23:00 84 16 149/90 97 08/01/18 22:39 79 20 145/93 99 08/01/18 22:00 82 20 147/93 97 Intake and Output 08/02/18 08/02/18 08/02/18 06:59 14:59 22:59 Output Total 550 600 325 Balance -550 -600 -325 Output: Urine 550 600 325 Other: Voiding Method Toilet Toilet Toilet Urinal Urinal Urinal # Voids 1 1 - Constitutional General appearance: average body habitus, cooperative, mild distress - EENT lips and oral cavity severely ulcerated, slough noted, foul odor, minor bleeding seen, skin peeling, unable to open mouth very far, cannot manage secretions, secretions are yellow/brown, left facial swelling Eyes: anicteric sclerae, EOMI ENT: hearing grossly normal - Neck Neck: lymphadenopathy - Respiratory Respiratory: bilateral: CTA - Cardiovascular sinus tachycardia Heart sounds: normal: S1, S2 Abnormal Heart Sounds: no systolic murmur, no diastolic murmur, no rub, no S3 Gallop, no S4 Gallop, no click, no other leg Peripheral Edema: bilateral: None - Gastrointestinal General gastrointestinal: no absent bowel sounds, no decreased bowel sounds, no distended, no hepatomegaly, no hyperactive bowel sounds, normal bowel sounds, no organomegaly, no rigid, no scaphoid, soft, no splenomegaly, no tenderness, no umbilical hernia, no ventral hernia - Integumentary Integumentary: decreased turgor, pale - Musculoskeletal Musculoskeletal: strength equal bilaterally - Psychiatric Psychiatric: A&O x's 3, appropriate affect, intact judgment & insight Results CBC & Chem 7: 08/02/18 06:47 08/02/18 06:47 Labs: Abnormal Lab Results - Last 24 Hours (Table) 08/02/18 08/02/18 Range/Units 06:47 06:47 WBC 3.5 L (3.8-10.6) k/uL RBC 3.71 L (4.30-5.90) m/uL Hgb 10.7 L (13.0-17.5) gm/dL Hct 30.6 L (39.0-53.0) % Chloride 110 H (98-107) mmol/L BUN 40 H (9-20) mg/dL Creatinine 1.66 H (0.66-1.25) mg/dL Glucose 105 H (74-99) mg/dL Microbiology - Last 24 Hours (Table) 08/01/18 19:00 Blood Culture - Preliminary Blood No Growth after 24 hours 08/01/18 19:00 Blood Culture - Preliminary Blood No Growth after 24 hours 08/01/18 20:39 Urine Culture - Preliminary Urine,Voided Assessment and Plan (1) Oral mucositis (ulcerative) due to antineoplastic therapy Narrative/Plan: Case discussed with Pharmacist. Will optimize all oral supportive meds possible. Pt was very willing to try anything Current Visit: Yes Status: Acute Priority: High Code(s): K12.31 - ORAL MUCOSITIS (ULCERATIVE) DUE TO ANTINEOPLASTIC THERAPY SNOMED Code(s): 563500750 (2) Odynophagia Narrative/Plan: Secondary to chemo and radiation Current Visit: Yes Status: Acute Priority: High Code(s): R13.10 - DYSPHAGIA, UNSPECIFIED SNOMED Code(s): 52884612 (3) Dehydration Narrative/Plan: IVF, may need TPN if feeding tube not feasible, pending surgical eval Current Visit: Yes Status: Acute Priority: High Code(s): E86.0 - DEHYDRATION SNOMED Code(s): 90145199 (4) Squamous cell carcinoma of head and neck Narrative/Plan: Pt does have the potential to be cured but that is only possible if he can continue and complete treatment. He has failed 2 lines of treatment due to significant drug toxicities. Plan at this time is to relieve symptoms and reverse side effects of treatment. Pt will have to be re-assessed at a later date to determine how treatment will proceed. Current Visit: Yes Status: Acute Priority: High Code(s): C76.0 - MALIGNANT NEOPLASM OF HEAD, FACE AND NECK SNOMED Code(s): 952370182
[2018-08-02] MEDS ORDERED: cloNIDine 0.2 MG/24HR PATCH TRANSDERM SCH (23:00)
[2018-08-02] MEDS: ENALAPRILAT 1.25 MG/ML 1 ML VIAL IVP PRN (23:32)
[2018-08-02] MEDS: ONDANSETRON 4 MG/2 ML VIAL IVP PRN (23:32)
[2018-08-03] MEDS: MAG HYDROX/AL HYDROX/SIMETH 30 ML, LIDOCAINE VISCOUS 30 ML, diphenhydrAMINE ELIXIR 75 M... PO SCH ×30 (01:59→19:44)
[2018-08-03] MEDS: SALT AND SODA MOUTHWASH 1,000 ML PO SCH ×13 (01:59→22:42)
[2018-08-03] MEDS: MORPHINE SULFATE 4 MG/ML SYRINGE IVP PRN ×7 (03:17→22:56)
[2018-08-03] MEDS: ENALAPRILAT 1.25 MG/ML 1 ML VIAL IVP PRN ×2 (08:13→12:35)
[2018-08-03] MEDS ORDERED: SODIUM CHLORIDE 0.9% 500 ML 500 ML IV ONE (09:30)
[2018-08-03] MEDS: ISOSORBIDE MONONITRATE ER 30 MG TAB.ER.24H PO SCH (09:42)
[2018-08-03] MEDS: PANTOPRAZOLE 40 MG/10 ML VIAL IVP SCH (09:59)
--- NOTE | 2018-08-03 10:23 | P.PN ---
Subjective Progress Note Date: 08/03/18 CHIEF COMPLAINT: pain in throat/feeding tube HISTORY OF PRESENT ILLNESS: Patient examined at the bedside. Patient states he is feeling "so so". Having a lot of oral secretions. Complains of pain of oral cavity. PHYSICAL EXAM: VITAL SIGNS: Currently stable. GENERAL: Well-developed in no acute distress. HEENT: No sclera icterus. Extraocular movements grossly intact. Swelling to left cheek. Ulcerations noted to patients lips. Patient unable to fully open mouth for examination. CHEST: Non-labored respirations and equal bilateral excursions. CARDIOVASCULAR: Tachycardic. Palpable 2+ radial pulses. ABDOMEN: Soft. Nondistended. Nontender. MUSCULOSKELETAL: No clubbing, cyanosis or edema. NEUROLOGIC: No focal or lateralizing signs. Cranial nerves II through XII grossly intact. PSYCH: Appropriate affect. Alert and oriented to person, place and time. SKIN: Well perfused. Good skin turgor. ASSESSMENT: 1. Inability to tolerate oral intake secondary to chemoradiation and mucositis PLAN: 1. Charly remains on hold 2. Patient scheduled for G tube placement tomorrow with Dr. Rodriguez Nurse practitioner note has been reviewed by physician. Signing provider agrees with the documented findings, assessment, and plan of care. Objective - Vital Signs Vital signs: Vital Signs Temp 98.2 F 08/03/18 04:00 Pulse 146 H 08/03/18 08:00 Resp 20 08/03/18 08:00 BP 142/92 08/03/18 08:00 Pulse Ox 96 08/03/18 04:00 Intake & Output 08/02/18 08/03/18 08/03/18 18:59 06:59 18:59 Output Total 600 475 Balance -600 -475 Weight 86.5 kg Output: Urine 600 475 Other: Voiding Method Toilet Toilet Urinal Urinal # Voids 1 - Labs CBC & Chem 7: 08/02/18 06:47 08/02/18 06:47 Labs: Microbiology - Last 24 Hours (Table) 08/01/18 19:00 Blood Culture - Preliminary Blood No Growth after 24 hours 08/01/18 19:00 Blood Culture - Preliminary Blood No Growth after 24 hours 08/01/18 20:39 Urine Culture - Preliminary Urine,Voided
[2018-08-03] MEDS: METOPROLOL TARTRATE 5 MG/5 ML VIAL IVP PRN ×2 (11:00→18:03)
[2018-08-03] MEDS: HEPARIN SOD,PORK IN 0.45% NACL 25,000 UNIT in 0.45% NACL 1 250ML.BAG IV SCH (11:01)
[2018-08-03] MEDS: SODIUM CHLORIDE 0.9% 1,000 ML IV SCH ×2 (11:02→17:58)
[2018-08-03] MEDS: ONDANSETRON 4 MG/2 ML VIAL IVP PRN (12:29)
[2018-08-03 13:51] VITALS: BMI 25.8
--- NOTE | 2018-08-03 17:29 | P.PN ---
Subjective Progress Note Date: 08/03/18 Patient seen and examined at bedside. Unable to talk due to severe oral pain, sore throat, oral mucositis. Patient having intermittent of A. fib with RVR, history of persistent A. fib. Apparently his metoprolol was discontinued yesterday and he was placed on Vasotec and clonidine patch. Patient not wanting to proceed with any more chemotherapy but does want to proceed with radiation treatment. Patient seen by heme oncology and general surgery yesterday Objective - Vital Signs Vital signs: Vital Signs Temp 98.2 F 08/03/18 04:00 Pulse 146 H 08/03/18 08:00 Resp 20 08/03/18 08:00 BP 142/92 08/03/18 08:00 Pulse Ox 96 08/03/18 04:00 Intake & Output 08/02/18 08/03/18 08/03/18 18:59 06:59 18:59 Output Total 600 475 Balance -600 -475 Weight 86.5 kg Output: Urine 600 475 Other: Voiding Method Toilet Toilet Urinal Urinal # Voids 1 - Exam Constitutional: No acute distress, conversant, pleasant Eyes: Anicteric sclerae, moist conjunctiva, no lid-lag, PERRLA ENMT: Oropharynx exam limited as patient cannot open his mouth fully due to pain , noted crusting and ulcers on his tongue and inner left mucosal areas with some yellowish mucousy discharge. With left jaw and facial swelling greater than right Neck:Supple, FROM, no masses, or JVD, No carotid bruits; No thyromegaly Lungs: Clear to auscultation, Clear to percussion, Normal respiratory effort, no accessory muscle use Cardiovascular: Irregularly irregular tachycardic, No murmurs, gallops, or rubs no peripheral edema Abdominal: Soft Nontender, nom distended, no guarding, no rebound or rigidity, Normoactive bowel sounds No hepatomegaly, No splenomegaly, No palpable mass No abdominal wall hernia noted Skin: Normal temperature, tone, texture, turgor, No induration No subcutaneous nodules, No rash, lesions, No ulcers Extremities:No digital cyanosis No clubbing, Pedal pulses intact and symmetrical Radial pulses intact and symmetrical Normal gait and station, No calf tenderness Psychiatric: Alert and oriented to person, place and time, Appropriate affect Intact judgement Neuro: Muscles Strength 5/5 in all 4 extremities, Sensation to light touch grossly present throughout, Cranial nerves II-XII grossly intact. No focal sensory deficits - Labs CBC & Chem 7: 08/02/18 06:47 08/02/18 06:47 Labs: Microbiology - Last 24 Hours (Table) 08/01/18 19:00 Blood Culture - Preliminary Blood No Growth after 24 hours 08/01/18 19:00 Blood Culture - Preliminary Blood No Growth after 24 hours 08/01/18 20:39 Urine Culture - Preliminary Urine,Voided Assessment and Plan (1) Oral mucositis (ulcerative) due to antineoplastic therapy Narrative/Plan: * Progressively worsening since previous admissions left face and jaw edema * Supportive therapy with Magic mouthwash and morphine as needed for pain * Discussed palliative care and need for feeding tube * Appreciate general surgery recommendations we'll plan for G-tube placement tomorrow (oral anticoagulation held) Current Visit: Yes Status: Acute Priority: High Code(s): K12.31 - ORAL MUCOSITIS (ULCERATIVE) DUE TO ANTINEOPLASTIC THERAPY SNOMED Code(s): 191286466 (2) Acute kidney injury Narrative/Plan: * Creatinine now back to baseline * We'll continue fluids for now * patient is still having poor oral intake secondary to severe oral mucositis Current Visit: No Status: Resolved Priority: High Code(s): N17.9 - ACUTE KIDNEY FAILURE, UNSPECIFIED SNOMED Code(s): 81482801 (3) Dehydration Narrative/Plan: * Secondary to problem #1 * Continue normal saline at 150 mL an hour Current Visit: Yes Status: Resolved Priority: High Code(s): E86.0 - DEHYDRATION SNOMED Code(s): 59202068 (4) Odynophagia Narrative/Plan: * Secondary to problem #1 Current Visit: Yes Status: Acute Priority: High Code(s): R13.10 - DYSPHAGIA, UNSPECIFIED SNOMED Code(s): 88317317 (5) Atrial fibrillation Narrative/Plan: * Ventricular rate intermittently tachycardic * We'll resume beta blockade with metoprolol 2.5 mg IV every 6 when necessary * DOAC held, we'll plan to continue anticoagulation with heparin Current Visit: Yes Status: Acute Code(s): I48.91 - UNSPECIFIED ATRIAL FIBRILLATION SNOMED Code(s): 79657614
[2018-08-03] MEDS: DILTIAZEM 125 MG in SODIUM CHLORIDE 0.9% 100 ML IV SCH (19:03)
[2018-08-03] MEDS ORDERED: DILTIAZEM DRIP BOLUS FROM BAG 1 MG SOLN IV ONE (19:04)
--- NOTE | 2018-08-03 23:58 | P.PN ---
Subjective Progress Note Date: 08/03/18 The patient continues to have severe mucositis, with marked swelling of oral as well as lip mucosa, with overt blistering. He is able to open his mouth only slightly on and is therefore unable to speak clearly. Pain is reasonably controlled with current regimen. No fever/chills/nausea/vomiting Objective - Vital Signs Vital signs: Vital Signs Temp 98.8 F 08/03/18 23:23 Pulse 116 H 08/03/18 23:25 Resp 19 08/03/18 23:25 BP 155/94 08/03/18 23:23 Pulse Ox 97 08/03/18 23:23 Intake & Output 08/03/18 08/03/18 08/04/18 06:59 18:59 06:59 Intake Total 0 1086.333 Output Total 475 600 150 Balance -475 -600 936.333 Weight 86.5 kg 86.5 kg Intake: Intake, IV Titration 1086.333 Amount Heparin Sod,Pork in 0.45% 86.333 NaCl 25,000 unit In 0.45 % NaCl 1 250ml.bag @ 11. 561 UNITS/KG/HR 10 mls/hr IV .Q24H GORDY Rx#: [id number] Sodium Chloride 0.9% 1, 1000 000 ml @ 125 mls/hr IV . Q8H GORDY Rx#:[id number] Oral 0 Output: Urine 475 600 150 Other: Voiding Method Toilet Toilet Toilet Urinal Urinal Urinal # Voids 1 1 - Constitutional General appearance: Present: mild distress - EENT Eyes: Present: EOMI ENT: Present: hearing grossly normal, other (Marked swelling of oral mucosa, including lips, with overt blistering), pharyngeal erythema - Respiratory Respiratory: bilateral: CTA - Cardiovascular Rhythm: regular Heart sounds: normal: S1, S2 - Gastrointestinal General gastrointestinal: Present: normal bowel sounds, soft - Integumentary Integumentary: Present: normal - Neurologic Neurologic: Present: CNII-XII intact - Musculoskeletal Musculoskeletal: Present: generalized weakness, strength equal bilaterally - Psychiatric Psychiatric: Present: A&O x's 3 - Labs CBC & Chem 7: 08/02/18 06:47 08/02/18 06:47 Labs: Microbiology - Last 24 Hours (Table) 08/01/18 19:00 Blood Culture - Preliminary Blood No Growth after 48 hours 08/01/18 19:00 Blood Culture - Preliminary Blood No Growth after 48 hours 08/01/18 20:39 Urine Culture - Final Urine,Voided Assessment and Plan (1) Oral mucositis (ulcerative) due to antineoplastic therapy Narrative/Plan: The patient has severe mucositis, greatly limiting his ability to even open his mouth. He is currently on supportive medications with mouthwashes, as well as pain medications. He is unable to swallow. - The aggressive supportive care. Improvement is expected, as he gets further out from chemotherapy. - The patient, as noted is unable to swallow. Therefore PEG tube placement has been requested. The procedure is technically difficult because of presence of a hiatal hernia. Surgical evaluation is pending Current Visit: Yes Status: Acute Priority: High Code(s): K12.31 - ORAL MUCOSITIS (ULCERATIVE) DUE TO ANTINEOPLASTIC THERAPY SNOMED Code(s): 518647045 (2) Dehydration Narrative/Plan: Clinically improved, with IV hydration. Continue same Current Visit: Yes Status: Resolved Priority: High Code(s): E86.0 - DEHYDRATION SNOMED Code(s): 61688142 (3) Squamous cell carcinoma of head and neck Narrative/Plan: The patient's malignancy is being treated with a curative intent based on its stage. However patient's tolerance of chemotherapy has been quite poor, with different spectrum of side effects. Chemotherapy was changed from cisplatin to infusional 5-FU and carboplatin after cycle 1, due to nausea vomiting, dehydration, and DAYANA. However with the current regimen, the patient has developed severe mucositis and dehydration. Therefore treatment is currently on hold. Once acute situation is sufficiently resolved, change of regimen will need to be considered. However options are getting limited. Current Visit: Yes Status: Acute Priority: High Code(s): C76.0 - MALIGNANT NEOPLASM OF HEAD, FACE AND NECK SNOMED Code(s): 710120702 Plan: If feeding tube placement is technically not possible, then we will have to consider TPN.
[2018-08-04] MEDS: MAG HYDROX/AL HYDROX/SIMETH 30 ML, LIDOCAINE VISCOUS 30 ML, diphenhydrAMINE ELIXIR 75 M... PO SCH ×30 (02:14→20:41)
[2018-08-04] MEDS: SALT AND SODA MOUTHWASH 1,000 ML PO SCH ×11 (02:14→23:30)
[2018-08-04] MEDS: MORPHINE SULFATE 4 MG/ML SYRINGE IVP PRN ×6 (02:26→22:40)
[2018-08-04] MEDS: SODIUM CHLORIDE 0.9% 1,000 ML IV SCH ×3 (02:31→19:50)
[2018-08-04] MEDS: DILTIAZEM 125 MG in SODIUM CHLORIDE 0.9% 100 ML IV SCH ×2 (04:59→17:13)
[2018-08-04] MEDS: HEPARIN SOD,PORK IN 0.45% NACL 25,000 UNIT in 0.45% NACL 1 250ML.BAG IV SCH ×2 (05:02→23:09)
--- NOTE | 2018-08-04 08:22 | P.CRDCN ---
History of Present Illness Consult date: 08/04/18 Requesting physician: Agatha Marcum Consult reason: atrial fibrillation Chief complaint: Mouth pain History of present illness: This is a 63-year-old gentleman with past medical history significant for intermediate triple-vessel coronary artery disease based on heart cath performed in 2006, hypertension, hyperlipidemia, paroxysmal atrial fibrillation , prior history of smoking, who was diagnosed with cancer of the head and neck, in May patient was diagnosed with metastatic squamous cell carcinoma strongly positive, patient was treated with chemo and radiation. Posttreatment he was admitted with pulmonary embolism and acute renal failure secondary to cisplatin. Patient was not deemed a candidate for PEG tube due to hiatal hernia. He received another chemo treatment on Thursday, his oromucosa worsened since that time, admitted on this occasion with severe pain from treatment, dehydration as the patient cannot tolerate any oral intake. Cardiology consultation was requested because of atrial fibrillation with a rapid ventricular response. Chest x-ray did not reveal any active cardiopulmonary disease. EKG shows sinus tachycardia . Blood pressure 158/90 with a heart rate in the 120 to 1:30 range. Temperature 99.3. White blood cell count 3.5, hemoglobin 10.7, platelet count 296. Sodium 144, potassium 4.1, BUN 40 and creatinine 1.6. Troponins 3 are negative. Influenza A and B-. Patient is currently on IV Cardizem at 10 mg per hour. He is also getting metoprolol 2-1/ 2 mg every 6 hours when necessary for systolic greater than 140. At the time of my examination this morning, patient is quite uncomfortable, unable to swallow his saliva. Patient had an echocardiogram with Doppler study performed in July of this year which revealed an ejection fraction of 55-60%. This mornings rhythm shows A. fib with RVR. Past Medical History Past Medical History: Atrial Fibrillation, Coronary Artery Disease (CAD), Cancer , GERD/Reflux, Hypertension, Osteoarthritis (OA) Additional Past Medical History / Comment(s): L neck lynph node positive for metastatic squamous cell cancer/pt receiving chemo and radiation, thyroid nodule , arthritis in low back, migraines, mild CAD, alot of sinus issues. History of Any Multi-Drug Resistant Organisms: None Reported Past Surgical History: Appendectomy, Heart Catheterization, Hernia Repair, Orthopedic Surgery Additional Past Surgical History / Comment(s): tongue bx neg, thyroid bx neg, and lt neck lymph node bx pt stated positive ,arthroscopies both knees, lithotripsy x2, bilateral inguinal hernia repairs, PICC line inserted 3 weeks ago- "here by dr Paulino." Past Anesthesia/Blood Transfusion Reactions: No Reported Reaction Additional Past Anesthesia/Blood Transfusion Reaction / Comment(s): . Past Psychological History: No Psychological Hx Reported Additional Psychological History / Comment(s): Pt resides with his spouse. He works for [employer]. He is independent. Smoking Status: Former smoker Past Alcohol Use History: None Reported Additional Past Alcohol Use History / Comment(s): quit smoking Jun 2017,-smoked a pipe MAINLY ON WEEKENDS OFF AND ON SINCE AGE 12 Past Drug Use History: None Reported - Past Family History Mother Family Medical History: No Reported History Additional Family Medical History / Comment(s): Arrhythmia Father Family Medical History: Coronary Artery Disease (CAD), Myocardial Infarction (MS ), Pneumonia Additional Family Medical History / Comment(s): CABG x3 at an early age. Medications and Allergies Home Medications Medication Instructions Recorded Confirmed Type NIFEdipine [NIFEdipine ER] 60 mg PO DAILY 03/24/18 08/01/18 History L.acidoph,Paracasei, B.lactis 1 cap PO DAILY 05/05/18 08/01/18 History [Probiotic] Omeprazole 20 mg PO DAILY 05/05/18 08/01/18 History Apixaban [Eliquis] 5 mg PO BID #60 tab 07/08/18 08/01/18 Rx Isosorbide Mononitrate ER [Imdur] 30 mg PO DAILY #30 tab 07/08/18 08/01/18 Rx Metoprolol Tartrate [Lopressor] 25 mg PO BID #60 tab 07/08/18 08/01/18 Rx Ondansetron Odt [Zofran Odt] 8 mg PO Q12HR PRN 08/01/18 08/01/18 History Allergies Allergy/AdvReac Type Severity Reaction Status Date / Time meperidine [From Demerol] AdvReac fever Verified 08/01/18 19:18 Physical Exam Vitals: Vital Signs Temp Pulse Pulse Resp BP Pulse Ox 08/04/18 03:04 109 H 18 08/04/18 03:03 99.3 F 109 H 18 157/89 97 08/03/18 23:25 116 H 19 08/03/18 23:23 98.8 F 116 H 19 155/94 97 08/03/18 20:00 99.3 F 125 H 20 158/94 95 08/03/18 16:00 128 H 21 132/98 96 08/03/18 12:00 128 H 21 189/73 08/03/18 08:15 146 H 85 20 Intake and Output 08/03/18 08/04/18 08/04/18 22:59 06:59 14:59 Intake Total 86.333 1219.720 Output Total 300 Balance 86.333 919.720 Intake: Intake, IV Titration 86.333 1219.720 Amount Diltiazem 125 mg In 99.333 Sodium Chloride 0.9% 100 ml @ 10 MG/HR 10 mls/hr IV .[id number] GORDY Rx#: [id number] Heparin Sod,Pork in 0.45% 86.333 120.387 NaCl 25,000 unit In 0.45 % NaCl 1 250ml.bag @ 11. 561 UNITS/KG/HR 10 mls/hr IV .Q24H GORDY Rx#: [id number] Sodium Chloride 0.9% 1, 1000 000 ml @ 125 mls/hr IV . Q8H GORDY Rx#:[id number] Output: Urine 300 Other: Voiding Method Toilet Toilet Urinal Urinal # Voids 1 Weight 85 kg PHYSICAL EXAMINATION: GENERAL: 63-year-old gentleman, in no acute distress at the time of my examination HEENT: Lips and oral cavity are severely ulcerated, foul odor noted, minor bleeding noted. Skin peeling, unable to swallow secretions, left facial swelling noted, neck reveals bilateral lymphadenopathy HEART EXAMINATION: Heart S1 and S2 irregularly irregular CHEST EXAMINATION: Lungs are clear to auscultation and precussion. No chest wall tenderness is noted on palpation or with deep breathing. ABDOMEN: Soft, nontender. Bowel sounds are heard. No organomegaly noted. EXTREMITIES: 2+ peripheral pulses with no evidence of peripheral edema and no calf tenderness noted. NEUROLOGIC patient is awake, alert and oriented 3 . . Results 08/02/18 06:47 08/02/18 06:47 Coagulation 08/03/18 08/04/18 Range/Units 17:40 02:46 APTT 26.3 32.6 H (22.0-30.0) sec Current Medications Generic Name Dose Route Start Last Admin Trade Name Freq PRN Reason Stop Dose Admin Al Hydroxide/Mg Hydroxide 30 0 ml 08/02/18 14:00 08/04/18 03:17 ml/ Lidocaine HCl 30 ml/ PO Not Given Diphenhydramine HCl 75 mg/ Q4H [facility] Nystatin 3,000,000 unit/ Dexamethasone Sodium Phosphate 96 mg Enalaprilat 1.25 mg 08/02/18 22:53 08/03/18 12:35 Vasotec IVP 1.25 mg Q4HR PRN Administration Blood Pressure - High Sodium Chloride 1,000 mls @ 125 mls/hr 08/03/18 09:30 08/04/18 02:31 Saline 0.9% IV 125 mls/hr .Q8H GORDY Administration Heparin Sodium/Sodium Chloride 250 mls @ 10 mls/hr 08/03/18 10:00 08/04/18 05 :02 25,000 unit/ Sodium Chloride IV 17.5 units/kg/hr .Q24H GORDY 15.13 mls/hr Administration Protocol 11.561 UNITS/KG/HR Diltiazem HCl 125 mg/ Sodium 125 mls @ 10 mls/hr 08/03/18 18:00 08/04/18 04: 59 Chloride IV 10 mg/hr .[id number] GORDY 10 mls/hr Administration 10 MG/HR Isosorbide Mononitrate 30 mg 08/02/18 09:00 08/03/18 09:42 Imdur PO Not Given DAILY [facility] Metoprolol Tartrate 2.5 mg 08/03/18 09:30 08/03/18 18:03 Lopressor IVP 2.5 mg Q6HR PRN Administration Blood Pressure - High SBP>140 Morphine Sulfate 4 mg 08/03/18 22:50 08/04/18 07:09 Morphine Sulfate (Inj) IVP 4 mg Q2HR PRN Administration Pain Naloxone HCl 0.2 mg 08/01/18 20:47 Narcan IV Q2M PRN Opioid Reversal Nifedipine 60 mg 08/02/18 09:00 08/03/18 09:59 Procardia Xl PO Not Given DAILY [facility] Ondansetron HCl 4 mg 08/02/18 23:20 08/03/18 12:29 Zofran IVP 4 mg Q6HR PRN Administration Nausea And Vomiting Pantoprazole Sodium 40 mg 08/02/18 16:45 08/03/18 09:59 Protonix IVP 40 mg DAILY GORDY Administration Sodium Bicarbonate 10 ml 08/02/18 12:00 08/04/18 03:17 PO Not Given Q2HR GORDY Intake and Output 08/03/18 08/04/18 08/04/18 22:59 06:59 14:59 Intake Total 86.333 1219.720 Output Total 300 Balance 86.333 919.720 Intake: Intake, IV Titration 86.333 1219.720 Amount Diltiazem 125 mg In 99.333 Sodium Chloride 0.9% 100 ml @ 10 MG/HR 10 mls/hr IV .[id number] GORDY Rx#: [id number] Heparin Sod,Pork in 0.45% 86.333 120.387 NaCl 25,000 unit In 0.45 % NaCl 1 250ml.bag @ 11. 561 UNITS/KG/HR 10 mls/hr IV .Q24H GORDY Rx#: [id number] Sodium Chloride 0.9% 1, 1000 000 ml @ 125 mls/hr IV . Q8H GORDY Rx#:[id number] Output: Urine 300 Other: Voiding Method Toilet Toilet Urinal Urinal # Voids 1 Weight 85 kg 08/02/18 06:47 08/02/18 06:47 EKG Interpretations (text) EKG shows a sinus tachycardia Assessment and Plan Plan: Assessment and plan #1 oral pain with associated mucositis, ulcerative, due to antineoplastic therapy #2 head and neck cancer, squamous cell carcinoma, currently undergoing chemotherapy #3 prior history of smoking #4 known intermediate triple-vessel disease based on heart cath performed in 2006 #5 hypertension #6 hyperlipidemia #7 GERD #8 hiatal hernia #9 paroxysmal atrial fibrillation #10 abnormal renal function likely secondary to dehydration Plan Patient just had an echo performed in July of this year which revealed a normal left ventricular systolic function. We will obtain a TSH level. Consider the addition of IV amiodarone for rate control and possible maintenance of normal sinus rhythm. Further recommendations to follow. DNP note has been reviewed, I agree with a documented findings and plan of care. Patient was seen and examined.
[2018-08-04] MEDS: ISOSORBIDE MONONITRATE ER 30 MG TAB.ER.24H PO SCH (09:42)
[2018-08-04] MEDS: PANTOPRAZOLE 40 MG/10 ML VIAL IVP SCH (10:10)
--- NOTE | 2018-08-04 11:47 | P.PN ---
Subjective Progress Note Date: 08/04/18 Patient seen and examined at bedside. Unable to talk due to severe oral pain, sore throat, oral mucositis. Patient has been on unable to continue with Magic mouthwash complain of burning sensation in his mouth. Patient continues to have oral discharge sloughing mucosa, patient continues to be in A. fib with RVR rate is now more improved since being started on Cardizem drip yesterday. Patient is scheduled to have his G-tube placed today. Has been off DOAC the last 2 days. Objective - Vital Signs Vital signs: Vital Signs Temp 98.5 F 08/04/18 08:00 Pulse 110 H 08/04/18 08:00 Resp 18 08/04/18 08:00 BP 140/88 08/04/18 08:00 Pulse Ox 95 08/04/18 08:00 Intake & Output 08/03/18 08/04/18 08/04/18 18:59 06:59 18:59 Intake Total 0 1306.053 Output Total 600 300 175 Balance -600 1006.053 -175 Weight 86.5 kg 85 kg Intake: Intake, IV Titration 1306.053 Amount Diltiazem 125 mg In 99.333 Sodium Chloride 0.9% 100 ml @ 10 MG/HR 10 mls/hr IV .[id number] GORDY Rx#: [id number] Heparin Sod,Pork in 0.45% 206.720 NaCl 25,000 unit In 0.45 % NaCl 1 250ml.bag @ 11. 561 UNITS/KG/HR 10 mls/hr IV .Q24H GORDY Rx#: [id number] Sodium Chloride 0.9% 1, 1000 000 ml @ 125 mls/hr IV . Q8H GORDY Rx#:[id number] Oral 0 Output: Urine 600 300 175 Other: Voiding Method Toilet Toilet Urinal Urinal # Voids 1 1 - Exam Constitutional: No acute distress, conversant, pleasant Eyes: Anicteric sclerae, moist conjunctiva, no lid-lag, PERRLA ENMT: Oropharynx exam limited as patient cannot open his mouth fully due to pain , noted crusting and ulcers on his tongue and inner left mucosal areas with some yellowish mucousy discharge. With left jaw and facial swelling greater than right Neck:Supple, FROM, no masses, or JVD, No carotid bruits; No thyromegaly Lungs: Clear to auscultation, Clear to percussion, Normal respiratory effort, no accessory muscle use Cardiovascular: Irregularly irregular tachycardic, No murmurs, gallops, or rubs no peripheral edema Abdominal: Soft Nontender, nom distended, no guarding, no rebound or rigidity, Normoactive bowel sounds No hepatomegaly, No splenomegaly, No palpable mass No abdominal wall hernia noted Skin: Normal temperature, tone, texture, turgor, No induration No subcutaneous nodules, No rash, lesions, No ulcers Extremities:No digital cyanosis No clubbing, Pedal pulses intact and symmetrical Radial pulses intact and symmetrical Normal gait and station, No calf tenderness Psychiatric: Alert and oriented to person, place and time, Appropriate affect Intact judgement Neuro: Muscles Strength 5/5 in all 4 extremities, Sensation to light touch grossly present throughout, Cranial nerves II-XII grossly intact. No focal sensory deficits - Labs CBC & Chem 7: 08/02/18 06:47 08/02/18 06:47 Labs: Abnormal Lab Results - Last 24 Hours (Table) 08/04/18 08/04/18 Range/Units 02:46 09:54 APTT 32.6 H 37.7 H (22.0-30.0) sec Microbiology - Last 24 Hours (Table) 08/01/18 19:00 Blood Culture - Preliminary Blood No Growth after 48 hours 08/01/18 19:00 Blood Culture - Preliminary Blood No Growth after 48 hours 08/01/18 20:39 Urine Culture - Final Urine,Voided Assessment and Plan (1) Oral mucositis (ulcerative) due to antineoplastic therapy Narrative/Plan: * Progressively worsening since previous admissions left face and jaw edema * Supportive therapy with Magic mouthwash and morphine as needed for pain * Discussed palliative care and need for feeding tube * Appreciate general surgery recommendations we'll plan for G-tube placement tomorrow (oral anticoagulation held) Current Visit: Yes Status: Acute Priority: High Code(s): K12.31 - ORAL MUCOSITIS (ULCERATIVE) DUE TO ANTINEOPLASTIC THERAPY SNOMED Code(s): 867182578 (2) Atrial fibrillation Narrative/Plan: * Ventricular uncontrolled but improved since yesterday * We'll resume beta blockade with metoprolol 2.5 mg IV every 6 when necessary and continue the patient on Cardizem drip * DOAC held, we'll plan to continue anticoagulation with heparin * Appreciated cardiology recommendation Current Visit: Yes Status: Acute Code(s): I48.91 - UNSPECIFIED ATRIAL FIBRILLATION SNOMED Code(s): 84879576 (3) Dehydration Narrative/Plan: * Secondary to problem #1 * Continue normal saline at 150 mL an hour Current Visit: Yes Status: Resolved Priority: High Code(s): E86.0 - DEHYDRATION SNOMED Code(s): 25686241 (4) Acute kidney injury Narrative/Plan: * Creatinine now back to baseline * We'll continue fluids for now * patient is still having poor oral intake secondary to severe oral mucositis Current Visit: No Status: Resolved Priority: High Code(s): N17.9 - ACUTE KIDNEY FAILURE, UNSPECIFIED SNOMED Code(s): 42057199 (5) Odynophagia Narrative/Plan: * Secondary to problem #1 Current Visit: Yes Status: Acute Priority: High Code(s): R13.10 - DYSPHAGIA, UNSPECIFIED SNOMED Code(s): 51865546 Plan: Disposition * Plan for better pain control * Anticipated discharge 2 to 3 days
[2018-08-04] MEDS: METOPROLOL TARTRATE 5 MG/5 ML VIAL IVP PRN (13:45)
[2018-08-04] MEDS ORDERED: IV FLUID CONTINUATION 500 ML IV ONE (14:24)
[2018-08-04] MEDS ORDERED: fentaNYL (PF) 50 MCG/ML 2 ML AMP IV ONE ×2 (14:55→15:05)
[2018-08-04] MEDS ORDERED: ONDANSETRON 4 MG/2 ML VIAL IVP ONE (14:56)
--- NOTE | 2018-08-04 17:41 | P.PN ---
Subjective Progress Note Date: 08/04/18 Principal diagnosis: severe mucositis, 5FU toxicity In f/u pt mouth is nearly scabbed over with severe purulent drainage from friable mucus membranes. Pt shakes his head to questions, answers appropriately. No other c/o other then the mouth Objective - Vital Signs Vital signs: Vital Signs Temp 100.7 F H 08/04/18 14:25 Pulse 99 08/04/18 15:10 Resp 16 08/04/18 15:10 BP 158/91 08/04/18 15:10 Pulse Ox 100 08/04/18 15:10 Intake & Output 08/03/18 08/04/18 08/04/18 18:59 06:59 18:59 Intake Total 0 1306.053 393.302 Output Total 600 300 175 Balance -600 1006.053 218.302 Weight 86.5 kg 85 kg Intake: IV 100 Intake, IV Titration 1306.053 293.302 Amount Diltiazem 125 mg In 99.333 122.333 Sodium Chloride 0.9% 100 ml @ 10 MG/HR 10 mls/hr IV .[id number] GORDY Rx#: [id number] Heparin Sod,Pork in 0.45% 206.720 170.969 NaCl 25,000 unit In 0.45 % NaCl 1 250ml.bag @ 11. 561 UNITS/KG/HR 10 mls/hr IV .Q24H GORDY Rx#: [id number] Sodium Chloride 0.9% 1, 1000 000 ml @ 125 mls/hr IV . Q8H GORDY Rx#:[id number] Oral 0 Output: Urine 600 300 175 Other: Voiding Method Toilet Toilet Urinal Urinal # Voids 1 1 - Constitutional General appearance: Present: cooperative, mild distress, thin - EENT EENT Comment(s): severe excoriation of the mucus membranes, purulent and foul smelling drainage, lips and oral swelling Eyes: Present: anicteric sclerae, EOMI - Neck Neck: Present: lymphadenopathy - Respiratory Respiratory: bilateral: CTA - Cardiovascular Heart sounds: normal: S1, S2 - Gastrointestinal General gastrointestinal: Present: normal bowel sounds, soft - Neurologic Neurologic: Present: CNII-XII intact - Musculoskeletal Musculoskeletal: Present: generalized weakness, strength equal bilaterally - Psychiatric Psychiatric: Present: A&O x's 3, appropriate affect, intact judgment & insight - Labs CBC & Chem 7: 08/02/18 06:47 08/02/18 06:47 Labs: Abnormal Lab Results - Last 24 Hours (Table) 08/04/18 08/04/18 Range/Units 02:46 09:54 APTT 32.6 H 37.7 H (22.0-30.0) sec Microbiology - Last 24 Hours (Table) 08/01/18 19:00 Blood Culture - Preliminary Blood No Growth after 48 hours 08/01/18 19:00 Blood Culture - Preliminary Blood No Growth after 48 hours Assessment and Plan (1) Oral mucositis (ulcerative) due to antineoplastic therapy Narrative/Plan: Case discussed with Dr. Novak. Dr. Zamora consulted. Constant rinsing of the mouth with salt and soda, oral supportive meds being administered. Pt continues to be very willing to try anything Current Visit: Yes Status: Acute Priority: High Code(s): K12.31 - ORAL MUCOSITIS (ULCERATIVE) DUE TO ANTINEOPLASTIC THERAPY SNOMED Code(s): 115613195 (2) Odynophagia Narrative/Plan: Secondary to chemo and radiation. Feeding tube placement is planned Current Visit: Yes Status: Acute Priority: High Code(s): R13.10 - DYSPHAGIA, UNSPECIFIED SNOMED Code(s): 41581159 (3) Dehydration Narrative/Plan: IVF, feeding tube is planned for today Current Visit: Yes Status: Resolved Priority: High Code(s): E86.0 - DEHYDRATION SNOMED Code(s): 45370850 (4) Squamous cell carcinoma of head and neck Narrative/Plan: Case was discussed with Dr. Stern. All treatment modalities are on hold at this time. Cure is still the goal of treatment. It was discussed that even if radiation was to be completed in the future the potential for cure is still possible. Plan is to treat and relieve symptoms. Will follow daily Current Visit: Yes Status: Acute Priority: High Code(s): C76.0 - MALIGNANT NEOPLASM OF HEAD, FACE AND NECK SNOMED Code(s): 956279079 Plan: Spoke to Dr. Novak, consulted for oral wound care Consulted Dr. Zamora for any additional ideas to help with pt situation
--- NOTE | 2018-08-04 17:58 | P.PN ---
Progress Note - Text Progress Note Date: 08/04/18 The patient was evaluated by the anesthesiologist. The anesthesiologist felt that he would be unable to intubate the patient. The procedure of open gastrostomy tube could not be done under local anesthetic. Patient will be maintained on TPN. If a gastrostomy tube is necessary he would require to have a radiologic intervention done at a tertiary care center for a CT-guided gastrostomy or small bowel feeding tube..
[2018-08-04] MEDS: methylPREDNISolone SOD SUCCI 125 MG/2 ML VIAL IV SCH ×2 (18:25→22:46)
[2018-08-04] MEDS: FLUCONAZOLE IN NACL,ISO-OSM 200 MG in SALINE 1 100ML.BAG IVPB SCH (19:50)
[2018-08-04] MEDS: AMPICILLIN-SULBACTAM 3 GM in SODIUM CHLORIDE 0.9% 100 ML IVPB SCH ×2 (19:51→22:51)
[2018-08-05] MEDS: MORPHINE SULFATE 4 MG/ML SYRINGE IVP PRN ×5 (00:26→11:00)
[2018-08-05] MEDS: SODIUM CHLORIDE 0.9% 1,000 ML IV SCH ×2 (01:34→11:00)
[2018-08-05] MEDS: SALT AND SODA MOUTHWASH 1,000 ML PO SCH ×7 (02:30→11:18)
[2018-08-05] MEDS: MAG HYDROX/AL HYDROX/SIMETH 30 ML, LIDOCAINE VISCOUS 30 ML, diphenhydrAMINE ELIXIR 75 M... PO SCH ×15 (02:30→09:38)
--- NOTE | 2018-08-05 06:39 | CONS ---
CONSULTATION DATE OF SERVICE: 08/04/2017. REASON FOR CONSULTATION: 1. Fever. 2. Severe mucositis and local wound care. HISTORY OF PRESENT ILLNESS: The patient is a 63-year-old male with a recent diagnosis of metastatic squamous cell carcinoma thought to be to neck origin for which the patient has been on chemotherapy, . The patient has been admitted to the hospital with significant pain in his oral cavity, significant swelling and unable to swallow any liquids: The patient's pain described in almost 10/10 in severity, however, no vomiting has been noticed. The patient who was afebrile on admission did spike a fever of 100.7 when he was down for possible placement of a PEG tube for feeding, which could not be done as the patient could not be intubated. The patient currently being treated with local and lidocaine washes; however, the patient continued to have significant pain in the mouth with foul smelling and yellow secretions which are moderate in amount. The patient himself denies having any chest pain or cough. No abdominal pain or any diarrhea. History remains to be limited some of the information was obtained by patient or through his . REVIEW OF SYSTEMS: Positive points have been mentioned in HPI. Rest of systems has been negative. PAST MEDICAL HISTORY: Atrial fibrillation, coronary artery disease, metastatic squamous cell carcinoma head and neck origin, hypertension, osteoarthritis. PAST SURGICAL HISTORY: Appendectomy, heart catheterization, hernia repair, bilateral inguinal hernia, lithotripsy and PICC line placement 3 weeks ago. SOCIAL HISTORY: Remote history of smoking. Quit back in October of 2017. No drinking or drug use. FAMILY HISTORY: Mother with history of arrhythmia. Father history of coronary artery disease, [place]. ALLERGIES: Allergies to MEPERIDINE. MEDICATIONS: Medications include the patient is currently on diltiazem, Vasotec, Imdur, Lopressor, morphine sulfate, Narcan, Zofran, Protonix, sodium bicarbonate. PHYSICAL EXAMINATION: On examination, blood pressure is 158/91 with a pulse of 99, temperature 100.7. He is 100% on room air. General description is a middle aged male up in the bed in no distress. No tachypnea or accessory muscle of respiration use. HEENT examination shows pallor. Oral increased pain and lips are swollen. No was noticed. Did have foul smelling yellowish secretions, moderate amount. NECK: Trachea central. No thyromegaly. LUNGS: Unlabored breathing, clear to auscultation. No wheeze or crackles. HEART: S1, S2. Regular rate and rhythm. ABDOMEN: Soft. No tenderness. No guarding or rigidity. EXTREMITIES: No edema of feet. SKIN EXAMINATION: No rash or mass palpable. NEUROLOGICAL: Patient is awake, alert, oriented x3. Mood and affect normal. LABS: Hemoglobin is 10.7, white count 3.5 with a BUN of 40, creatinine 1.66. Influenza serology has been negative. Creatinine was elevated to 2.21 improved to 1.66. DIAGNOSTIC IMPRESSION AND PLAN: 1. Patient with fever in this patient admitted to hospital with severe mucositis related to his chemotherapy with source of fever could be oral paula from severe mucositis secondary to as patient currently breathing comfortably and normal finding of lung on auscultation and abdomen was soft no evidence of cellulitis or any symptoms. 2. The patient with severe mucositis related to chemotherapy. PLAN: 1. Blood cultures x2 STAT. 2. We will empirically start the patient on Unasyn 3 grams q.6 hours and Diflucan 200 daily. 3. May benefit from a short course of IV steroids to help inflammation of the oral cavity. 4. Continue with the lidocaine and mouthwashes. 5. We will follow up on his clinical course and adjust the medication further if needed. Thank you for this consultation. Will follow this patient along with you. MMODL / IJN: [id number] /
[2018-08-05] MEDS: DILTIAZEM 125 MG in SODIUM CHLORIDE 0.9% 100 ML IV SCH (06:43)
[2018-08-05] MEDS: methylPREDNISolone SOD SUCCI 125 MG/2 ML VIAL IV SCH ×2 (06:44→11:09)
[2018-08-05] MEDS: AMPICILLIN-SULBACTAM 3 GM in SODIUM CHLORIDE 0.9% 100 ML IVPB SCH ×2 (06:44→11:08)
[2018-08-05] MEDS: ISOSORBIDE MONONITRATE ER 30 MG TAB.ER.24H PO SCH (08:39)
[2018-08-05] MEDS: PANTOPRAZOLE 40 MG/10 ML VIAL IVP SCH (08:40)
[2018-08-05] MEDS: FLUCONAZOLE IN NACL,ISO-OSM 200 MG in SALINE 1 100ML.BAG IVPB SCH (08:40)
--- NOTE | 2018-08-05 10:39 | P.DS ---
Providers Date of admission: 08/02/18 07:57 Attending physician: Agatha Marcum MD Consults: 08/01/18 20:48 Consult Physician Routine Consulting Provider: Keisha Castellanos Consult Reason/Comments: Neck pain, dehydration Do you want consulting provider notified?: Yes 08/02/18 09:44 Consult Physician Routine Consulting Provider: Laz Rodriguez Consult Reason/Comments: feeding tube Do you want consulting provider notified?: Yes 08/03/18 17:53 Consult Physician Routine Consulting Provider: Jimy Cortez Consult Reason/Comments: Uncontrolled Afib Do you want consulting provider notified?: Yes 08/04/18 15:23 Consult Physician Routine Consulting Provider: Guy Finn Consult Reason/Comments: Grade 4-5 mucositis s/p chemo/XRT, recommendations/alternatives to treat Do you want consulting provider notified?: Yes, Notify in am Consult Physician Urgent Consulting Provider: Danyel Novak Consult Reason/Comments: wound care to oral cavity Do you want consulting provider notified?: Already Contacted Primary care physician: Colten Henson - Discharge Diagnosis(es) (1) Oral mucositis (ulcerative) due to antineoplastic therapy Current Visit: Yes Status: Acute Priority: High (2) Atrial fibrillation Current Visit: Yes Status: Acute (3) Dehydration Current Visit: Yes Status: Resolved Priority: High (4) Acute kidney injury Current Visit: No Status: Resolved Priority: High (5) Odynophagia Current Visit: Yes Status: Acute Priority: High (6) Squamous cell carcinoma of head and neck Current Visit: Yes Status: Acute Priority: High (7) Pulmonary embolism Current Visit: No Status: Acute Priority: High Hospital Course: The patient is a 63-year-old male with a past medical history of metastatic squamous cell carcinoma of the head and neck with a history of previous chemotherapy cycles with cisplatin resulting in subsequent acute renal failure and pulmonary embolism with chemotherapy changing to 5-FU and carboplatin resulting in poor oral intake and dehydration secondary to severe oral mucositis and odynophagia that was admitted for pain, and acute kidney injury dehydration. The patient was treated supportively with antiemetics IV morphine and was started on Magic mouthwash for his severe oral mucositis, the patient was unable to tolerate food or liquids or any of his oral medications. He was transitioned to IV Deon dislaip and IV metoprolol along with IV heparin drip due to his persistent A. fib as he was noted to be in RVR. We are able to control his ventricular rate with this regimen. After discussing the patient's plan of care he elected to halt chemotherapy and proceed with radiation and elected to have a feeding tube placement. General surgery was consulted and recommended G-tube placement, however was unable to proceed after the patient was deemed not a candidate for intubation by anesthesia due to his severe oral mucositis, and severely edematous oropharynx. The patient was started on Unasyn and Diflucan and IV steroids by ID. The patient was started on TPN and it was recommended by neurosurgery the patient be transferred to tertiary care center for CT-guided gastrostomy or small bowel feeding tube as we don't have those capabilities in house. Transfer request was made to [facility] and Dr. Panda accepted the patient was transferred there in stable condition. This transfer process took approximately 35 minutes Focused exam ENMT: Oropharynx exam limited as patient cannot open his mouth fully due to pain, noted crusting and ulcers on his tongue and inner left mucosal areas with some yellowish mucousy discharge. With left jaw and facial swelling greater than right Cardiovascular: Irregularly irregular, no murmurs rubs or gallops Pertinent Studies: Soft tissue CT of the neck Chronic right maxillary sinusitis unchanged small nodular right thyroid lobe unchanged Patient Condition at Discharge: Fair Plan - Discharge Summary Discharge Rx Participant: Yes New Discharge Prescriptions: New diphenhydrAMINE ELIXIR [Benadryl Elixir] 75 mg PO Q4H cup Fluconazole in NaCl,Iso-Osm [Diflucan-Ns 200 mg/100 ml] 200 mg IVPB DAILY bag Heparin Sod,Pork in 0.45% NaCl [Heparin-1/2Ns 25,000 Units/250Ml Pmx] 25,000 unit IV .Q24H bag Mag Hydrox/Al Hydrox/Simeth [Maalox] 30 ml PO Q4H cup Nystatin 100,000 Unit/ml Susp [Mycostatin Oral Susp] 3,000,000 unit PO Q4H cup Ampicillin-Sulbactam [Unasyn] 3 gm IVPB Q6HR vial Lidocaine Viscous [Xylocaine Viscous 2%] 30 ml PO Q4H ml Ondansetron [Zofran] 4 mg IVP Q6HR PRN vial PRN Reason: Nausea And Vomiting Continue NIFEdipine [NIFEdipine ER] 60 mg PO DAILY Omeprazole 20 mg PO DAILY L.acidoph,Paracasei, B.lactis [Probiotic] 1 cap PO DAILY Apixaban [Eliquis] 5 mg PO BID #60 tab Metoprolol Tartrate [Lopressor] 25 mg PO BID #60 tab Isosorbide Mononitrate ER [Imdur] 30 mg PO DAILY #30 tab Ondansetron Odt [Zofran ODT] 8 mg PO Q12HR PRN PRN Reason: Nausea Discharge Medication List NIFEdipine [NIFEdipine ER] 60 mg PO DAILY 03/24/18 [History] L.acidoph,Paracasei, B.lactis [Probiotic] 1 cap PO DAILY 05/05/18 [History] Omeprazole 20 mg PO DAILY 05/05/18 [History] Apixaban [Eliquis] 5 mg PO BID #60 tab 07/08/18 [Rx] Isosorbide Mononitrate ER [Imdur] 30 mg PO DAILY #30 tab 07/08/18 [Rx] Metoprolol Tartrate [Lopressor] 25 mg PO BID #60 tab 07/08/18 [Rx] Ondansetron Odt [Zofran ODT] 8 mg PO Q12HR PRN 08/01/18 [History] Ampicillin-Sulbactam [Unasyn] 3 gm IVPB Q6HR vial 08/05/18 [Rx] Fluconazole in NaCl,Iso-Osm [Diflucan-Ns 200 mg/100 ml] 200 mg IVPB DAILY bag 08/05/18 [Rx] Heparin Sod,Pork in 0.45% NaCl [Heparin-1/2Ns 25,000 Units/250Ml Pmx] 25,000 unit IV .Q24H bag 08/05/18 [Rx] Lidocaine Viscous [Xylocaine Viscous 2%] 30 ml PO Q4H ml 08/05/18 [Rx] Mag Hydrox/Al Hydrox/Simeth [Maalox] 30 ml PO Q4H cup 08/05/18 [Rx] Nystatin 100,000 Unit/ml Susp [Mycostatin Oral Susp] 3,000,000 unit PO Q4H cup 08/05/18 [Rx] Ondansetron [Zofran] 4 mg IVP Q6HR PRN vial 08/05/18 [Rx] diphenhydrAMINE ELIXIR [Benadryl Elixir] 75 mg PO Q4H cup 08/05/18 [Rx] Follow up Appointment(s)/Referral(s): [facility], [NON-STAFF] - 1-2 Days ([facility] Palliative Care team consulted and can be reached at the number listed above for Home Care.) [facility], [REFERRING] - Colten Henson MD [Primary Care Provider] - 08/12/18 11:15 am () Discharge Disposition: DISCH/TRANS TO A [facility]
[2018-08-05] MEDS: HEPARIN SOD,PORK IN 0.45% NACL 25,000 UNIT in 0.45% NACL 1 250ML.BAG IV SCH (11:04)
--- NOTE | 2018-08-05 11:17 | PN ---
PROGRESS NOTE DATE OF SERVICE: 08/05/2018. REASON FOR FOLLOWUP: Fever, possible oropharyngeal infection with severe mucositis. INTERVAL HISTORY: The patient overall feels better and has improved. The patient is feeling slightly better today as far as the pain is concerned. Denies any difficulty breathing or chest pain. No nausea, no vomiting. No abdominal pain and no diarrhea. PHYSICAL EXAMINATION: On examination, blood pressure 146/83 with a pulse of 90, temperature 97.7. He is 96% on room air. General description is a middle aged male up in the bed in no distress. HEENT EXAMINATION: The lip and neck area swelling has slightly decreased compared to yesterday and no significant foul smelling oral secretion. NECK: Trachea central. No thyromegaly. LUNGS: Unlabored breathing, clear to auscultation. No wheeze or crackles. HEART: S1, S2. Regular rate and rhythm. ABDOMEN: Soft, no tenderness. LABS: No new labs have been obtained today. Blood cultures admission has been negative. Blood cultures repeat yesterday has been pending so far. DIAGNOSTIC IMPRESSION AND PLAN: Patient with a fever in this patient who did have metastatic squamous cell carcinoma of head and neck origin with significant mucositis possibly related to his chemo with a fever and concern for possible related to his mucositis and no other clinical focus of infection. The patient has shown some clinical improvement compared to yesterday with addition of the Unasyn and Diflucan and steroids to be continued. The patient is getting transferred to tertiary care for possible placement of a feeding tube. Continue with current management until the patient evaluated by ID service at that facility. His questions and concerns were answered. MMODL / IJN: [id number] /
[2018-08-05 11:19] VITALS: BP 154/94; PULSE 108; RESP 20; TEMP 98.2
--- NOTE | 2018-08-05 12:06 | P.PN ---
Subjective Progress Note Date: 08/05/18 This is a 63-year-old gentleman with past medical history significant for intermediate triple-vessel coronary artery disease based on heart cath performed in 2006, hypertension, hyperlipidemia, paroxysmal atrial fibrillation , prior history of smoking, who was diagnosed with cancer of the head and neck, in May patient was diagnosed with metastatic squamous cell carcinoma strongly positive, patient was treated with chemo and radiation. Posttreatment he was admitted with pulmonary embolism and acute renal failure secondary to cisplatin. Patient was not deemed a candidate for PEG tube due to hiatal hernia. He received another chemo treatment on Thursday, his oromucosa worsened since that time, admitted on this occasion with severe pain from treatment, dehydration as the patient cannot tolerate any oral intake. Cardiology consultation was requested because of atrial fibrillation with a rapid ventricular response. Chest x-ray did not reveal any active cardiopulmonary disease. EKG shows sinus tachycardia . Blood pressure 158/90 with a heart rate in the 120 to 1:30 range. Temperature 99.3. White blood cell count 3.5, hemoglobin 10.7, platelet count 296. Sodium 144, potassium 4.1, BUN 40 and creatinine 1.6. Troponins 3 are negative. Influenza A and B-. Patient is cur rently on IV Cardizem at 10 mg per hour. He is also getting metoprolol 2-1/2 mg every 6 hours when necessary for systolic greater than 140. At the time of my examination this morning, patient is quite uncomfortable, unable to swallow his saliva. Patient had an echocardiogram with Doppler study performed in July of this year which revealed an ejection fraction of 55-60%. This mornings baljeet velasco with RVR. 08/05/2018 seen and examined this morning, arrangements are being made for him to be transferred to [facility] today. Remaining at this time in normal sinus rhythm, hemodynamically stable. Objective - Vital Signs Vital signs: Vital Signs Temp 98.2 F 08/05/18 11:18 Pulse 108 H 08/05/18 11:18 Resp 20 08/05/18 11:18 BP 154/94 08/05/18 11:18 Pulse Ox 95 08/05/18 11:18 Intake & Output 08/04/18 08/05/18 08/05/18 18:59 06:59 18:59 Intake Total 393.302 354.522 74.183 Output Total 175 675 Balance 218.302 -320.478 74.183 Intake: IV 100 Intake, IV Titration 293.302 354.522 74.183 Amount Diltiazem 125 mg In 122.333 125 Sodium Chloride 0.9% 100 ml @ 10 MG/HR 10 mls/hr IV .[id number] GORDY Rx#: [id number] Heparin Sod,Pork in 0.45% 170.969 229.522 74.183 NaCl 25,000 unit In 0.45 % NaCl 1 250ml.bag @ 11. 561 UNITS/KG/HR 10 mls/hr IV .Q24H GORDY Rx#: [id number] Output: Urine 175 675 Other: Voiding Method Urinal Urinal # Voids 1 - Exam PHYSICAL EXAMINATION: GENERAL: 63-year-old gentleman, in no acute distress at the time of my examination HEENT: Lips and oral cavity are severely ulcerated, foul odor noted, minor bleeding noted. Skin peeling, unable to swallow secretions, left facial swelling noted, neck reveals bilateral lymphadenopathy HEART EXAMINATION: Heart S1 and S2 irregularly irregular CHEST EXAMINATION: Lungs are clear to auscultation and precussion. No chest wall tenderness is noted on palpation or with deep breathing. ABDOMEN: Soft, nontender. Bowel sounds are heard. No organomegaly noted. EXTREMITIES: 2+ peripheral pulses with no evidence of peripheral edema and no calf tenderness noted. NEUROLOGIC patient is awake, alert and oriented 3 . . - Labs CBC & Chem 7: 08/02/18 06:47 08/02/18 06:47 Labs: Abnormal Lab Results - Last 24 Hours (Table) 08/04/18 08/05/18 Range/Units 22:26 05:33 APTT 43.5 H 85.1 H (22.0-30.0) sec Microbiology - Last 24 Hours (Table) 08/01/18 19:00 Blood Culture - Preliminary Blood No Growth after 72 hours 08/01/18 19:00 Blood Culture - Preliminary Blood No Growth after 72 hours Assessment and Plan Plan: Assessment and plan #1 oral pain with associated mucositis, ulcerative, due to antineoplastic therapy #2 head and neck cancer, squamous cell carcinoma, currently undergoing chemotherapy #3 prior history of smoking #4 known intermediate triple-vessel disease based on heart cath performed in 2006 #5 hypertension #6 hyperlipidemia #7 GERD #8 hiatal hernia #9 paroxysmal atrial fibrillation #10 abnormal renal function likely secondary to dehydration Plan Patient just had an echo performed in July of this year which revealed a normal left ventricular systolic function. He is being transferred to [facility] today. DNP note has been reviewed, I agree with a documented findings and plan of care. Patient was seen and examined.
== END 2018-08-05 12:26 | disposition short-term general hospital (02) | DRG 157 ==
LOC: EC 18:29 → 1SOBS 20:56 → OBSVTOIN 08-02 07:57 → 3NMEDONC 08-02 21:32 → 3SCARD 08-03 10:35
PROVIDERS: ADMIT Internal Medicine; ATTEND Internal Medicine
DX: K12.31 Oral mucositis (ulcerative) due to antineoplastic therapy (principal); I26.99 Other pulmonary embolism without acute cor pulmonale; C15.9 Malignant neoplasm of esophagus, unspecified; C77.0 Secondary and unspecified malignant neoplasm of lymph nodes of head, face and neck; I48.1 Persistent atrial fibrillation; N17.9 Acute kidney failure, unspecified; D64.9 Anemia, unspecified; E04.1 Nontoxic single thyroid nodule; E78.5 Hyperlipidemia, unspecified; E86.0 Dehydration; I10 Essential (primary) hypertension; I25.10 Atherosclerotic heart disease of native coronary artery without angina pectoris; I48.0 Paroxysmal atrial fibrillation; K21.9 Gastro-esophageal reflux disease without esophagitis; K44.9 Diaphragmatic hernia without obstruction or gangrene; E80.6 Other disorders of bilirubin metabolism; T45.1X5A Adverse effect of antineoplastic and immunosuppressive drugs, initial encounter; Z79.01 Long term (current) use of anticoagulants; Z79.899 Other long term (current) drug therapy; Z82.49 Family history of ischemic heart disease and other diseases of the circulatory system; Z87.891 Personal history of nicotine dependence; Z92.3 Personal history of irradiation; Z53.09 Procedure and treatment not carried out because of other contraindication; R13.10 Dysphagia, unspecified; M47.9 Spondylosis, unspecified; Z88.5 Allergy status to narcotic agent; Z83.6 Family history of other diseases of the respiratory system; J32.0 Chronic maxillary sinusitis
CPT/HCPCS: 36415; 70490; 71046; 80053; 83605; 84484; 85025; 85610; 85730; 87040; 87086; 87502; 93005; 94760; 96361; 96374; 96375; 99285

== ENCOUNTER → 2018-09-16 | Outpatient (CLI) | payer MEDICAID ==
[2018-09-16 09:20] LABS: Anisocytosis Slight; HCT 33.1 % (39.0-53.0); MCH 28.7 pg (25.0-35.0); MCHC 33.4 g/dL (31.0-37.0); MCV 85.7 fL (80.0-100.0); Mean Platelet Volume 9.3; Platelet Count 272 k/uL (150-450); RBC 3.86 m/uL (4.30-5.90); RDW 16.4 % (11.5-15.5); WBC 6.3 k/uL (3.8-10.6)
[2018-09-16 16:31] LABS: Iron Saturation 20.34 (15.00-50.00)
[2018-09-16 16:38] LABS: Vitamin D 25 Hydroxy 22.6 ng/mL (30.0-100.0)
[2018-09-16 16:52] LABS: Parathyroid Hormone Intact 68.9 pg/mL (14.0-72.0)
[2018-09-16 17:16] LABS: Albumin 4.3 g/dL (3.80-4.90); Albumin/Globulin Ratio 1.72 (1.60-3.17); Anion Gap 10.8 mmol/L (4.00-12.00); Calcium 9.7 mg/dL (8.7-10.3); Carbon Dioxide 26.2 mmol/L (21.6-31.8); Globulin 2.5 g/dL (1.6-3.3); Magnesium 2.2 mg/dL (1.5-2.4); Phosphorus 4.1 mg/dL (2.4-5.1); Potassium 4.8 mmol/L (3.5-5.5); Total Bilirubin 0.3 mg/dL (0.3-1.2); Total Protein 6.8 g/dL (6.2-8.2); Uric Acid 6.6 mg/dL (3.7-8.7)
[2018-09-16 19:21] LABS: Total Protein,Urine Random 32.2 mg/dL (0.0-13.5)
[2018-09-16 19:22] LABS: Creatinine,Urine Random 118.2 mg/dL
== END | disposition home or self-care (01) ==
LOC: LABWHC1 08:48
PROVIDERS: ATTEND Nurse Practitioner Family
DX: R80.9 Proteinuria, unspecified (principal); E21.3 Hyperparathyroidism, unspecified; E55.9 Vitamin D deficiency, unspecified; M10.9 Gout, unspecified; D64.9 Anemia, unspecified; N17.9 Acute kidney failure, unspecified
CPT/HCPCS: 36415; 80053; 82306; 82570; 82728; 83540; 83550; 83735; 83970; 84100; 84156; 84550; 85027

== ENCOUNTER → 2018-11-20 | Outpatient (CLI) | payer MEDICAID ==
--- NOTE | 2018-11-20 19:26 | MR ---
EXAMINATION TYPE: MR brain and iac wo/w con DATE OF EXAM: 11/20/2018 COMPARISON: None HISTORY: Hearing loss both sides TECHNIQUE: Multiplanar, multisequence images of the brain and brainstem is performed without and with IV contras t, utilizing 8.5 mL intravenous Gadavist . FINDINGS: There is cerebral cortical atrophy. There is no mass effect nor midline shift. There is no sign of in tracranial hemorrhage. There is some mucosal thickening right maxillary sinus. There is no evidence o f cortical infarct. There are numerous foci of abnormal increased signal on the FLAIR images in both cerebral hemispheres . Most of these measure less than 5 mm. Total number is approximately 50. There is diffuse increased signal on the T2 and FLAIR images involving the right temporal bone in the mastoid sinus. There is no evidence of a posterior fossa mass. Internal auditory canals are fairly normal. On the FL AIR images there is very slight increased signal in the central and right-sided ryan that measures 8 mm. The acoustic nerve and vestibular nerve appear normal. Contrast images show no pathologic enhancement. There is normal contrast opacification of the anterio r middle and posterior cerebral arteries. There is normal contrast opacification of the venous sinuse s. IMPRESSION: Extensive increased fluid signal throughout the right mastoid sinus consistent with sinus itis. Right-sided maxillary sinusitis. Subtle increased signal in the central and right-sided ryan that could relate to microvascular ischem ia or demyelinating disease. Numerous white matter high signal foci in both cerebral hemispheres. There is also foci adjacent to t he ventricles. I would consider both demyelinating disease and chronic small vessel ischemia.
== END | disposition home or self-care (01) ==
LOC: RADMRIMAIN 13:46
PROVIDERS: ATTEND Otolaryngology
DX: G37.9 Demyelinating disease of central nervous system, unspecified (principal); I67.82 Cerebral ischemia; J32.0 Chronic maxillary sinusitis; H91.90 Unspecified hearing loss, unspecified ear; H93.19 Tinnitus, unspecified ear
CPT/HCPCS: 70553; A9585

== ENCOUNTER → 2018-12-11 | Outpatient (CLI) | payer MEDICAID ==
--- NOTE | 2018-12-12 10:45 | PE ---
EXAMINATION TYPE: PET CT fusion skull to thigh DATE OF EXAM: 12/11/2018 COMPARISON: MRI internal auditory canals and brain 11/20/2018, soft tissue neck CT 08/01/2018 Prior PET/CT: 06/05/2018 HISTORY: Head and neck cancer TECHNIQUE: Following the intravenous administration of 10.48 mCi of F-18 FDG, whole body images are performed from the skull base to the midthigh. Images are reviewed on the computer in the coronal, a xial, and sagittal planes. Reconstructed rotating images are created on independent workstation and reviewed on the computer. A localization and attenuation correction CT is performed in conjunction with the PET scan. Dedicated head and neck imaging is performed with localization CT and PET scan. DLP: 474.61 mGycm SCAN: Subsequent Blood glucose: 118 mg/dL Average Mediastinum SUV: 1.55 Average Liver SUV: 2.47 FINDINGS: NECK: Dedicated head and neck imaging appears unremarkable. On the whole body imaging there is some slight increase uptake in the region of the posterior lateral left vocal cord region. This area appea rs somewhat full the localization. Radiotracer SUV measurements of 2.46. PET image 35. THORAX: No abnormal uptake ABDOMEN: No abnormal uptake PELVIS: No abnormal uptake OSSEOUS STRUCTURES: No abnormal uptake LOCALIZATION CT: Left maxillary sinus is opacified. Moderate size hiatal hernia is present. COMPARISON: Previous uptake within the left posterior oropharynx is not evident on the current exam. The previous enlarged lymph node with marked uptake in this sternocleidomastoid region is not evident on the current exam IMPRESSION: 1. Resolution previous abnormal uptake within the left neck. 2. Posterior oral pharynx uptake not identified on the current exam. 3. There is some intermediate radiotracer in the left posterior lateral focal cord region, some corre sponding fullness on soft tissue. Direct visualization is recommended. PET image 35
== END | disposition home or self-care (01) ==
LOC: RADPETMAIN 07:27
PROVIDERS: ATTEND Radiology Radiation Oncology
DX: R22.1 Localized swelling, mass and lump, neck (principal); Z88.5 Allergy status to narcotic agent
CPT/HCPCS: 78815; A9552

== ENCOUNTER → 2019-01-14 | Outpatient (CLI) | payer MEDICAID ==
--- NOTE | 2019-01-17 08:44 | CT ---
EXAMINATION TYPE: CT soft tissue neck wo con DATE OF EXAM: 01/14/2019 COMPARISON: 08/01/2018, PET/CT 12/11/2018 HISTORY: Dysphagia and generalized anterior neck swelling. History of throat cancer. CT DLP: 419.4 mGycm CONTRAST: Patient injected with 0 mL of Isovue 300. TECHNIQUE: Axial images at 3 mm thick sections. Reconstructed images in the coronal plane and sagitt al plane are reviewed. FINDINGS: Limited CT sections are obtained the lung apices. The lung apices appear clear. CT neck: The torus tubarius and fossa of Rosenmuller are normal. Supplies Packer spaces are normal. Parotid glands appear normal and symmetrical. Submandibular glands, are normal. Parapharyngeal spac es are normal. No suspicious adenopathy is evident. The hypopharynx appears within normal limits. There is some subtle right posterior lateral asymmetry near the vocal cord level. Vocal cords appear symmetrical. Right posterior lateral false cords may be slightly prominent. Direct visualization coul d be performed. There may be some subtle hypodensity within the inferior right lobe thyroid. Ultrasound could further evaluate this finding. Osseous structures are normal. Note is made of opacification of the right maxillary sinus. Some calci fication may be present. Direct visualization is recommended. Neoplasm occasionally can have this kartik earance. No suspicious destruction or erosion is evident however. IMPRESSIONS: 1. Asymmetry of the false vocal cord level has changed from the comparison study and is currently sub tly greater on the right than the left. Left prominence has resolved. Consider direct visualization. 2. Opacification of the right maxillary sinus. This was present previously. Consider direct visualiza tion to confirm chronic sinusitis versus underlying neoplasm.
== END | disposition home or self-care (01) ==
LOC: RADCTMAIN 15:18
PROVIDERS: ATTEND Internal Medicine
DX: J34.89 Other specified disorders of nose and nasal sinuses (principal); R22.0 Localized swelling, mass and lump, head; R13.10 Dysphagia, unspecified
CPT/HCPCS: 70490

== ENCOUNTER → 2019-01-19 | Outpatient (CLI) | payer MEDICAID ==
[2019-01-19 10:14] LABS: HCT 36.2 % (39.0-53.0); HGB 12.5 gm/dL (13.0-17.5); MCH 28.5 pg (25.0-35.0); MCHC 34.4 g/dL (31.0-37.0); MCV 83.1 fL (80.0-100.0); Mean Platelet Volume 7.6; Platelet Count 266 k/uL (150-450); RBC 4.36 m/uL (4.30-5.90); WBC 7.5 k/uL (3.8-10.6)
[2019-01-19 17:33] LABS: African American GFR (CKD) 56.2 (60.0-200.0); Albumin 4.4 g/dL (3.80-4.90); Albumin/Globulin Ratio 2.44 (1.60-3.17); BUN/Creat Ratio 22.67 Ratio (12.00-20.00); Calcium 9.9 mg/dL (8.7-10.3); Globulin 1.8 g/dL (1.6-3.3); Magnesium 1.8 mg/dL (1.5-2.4); Non-African American GFR(CKD) 48.5 (60.0-200.0); Phosphorus 3.4 mg/dL (2.4-5.1); Potassium 3.1 mmol/L (3.5-5.5); Total Bilirubin 0.5 mg/dL (0.3-1.2); Total Protein 6.2 g/dL (6.2-8.2); Uric Acid 6.6 mg/dL (3.7-8.7)
[2019-01-19 17:46] LABS: Iron Saturation 27.41 (15.00-50.00)
[2019-01-19 17:54] LABS: Vitamin D 25 Hydroxy 33.9 ng/mL (30.0-100.0)
[2019-01-19 17:57] LABS: Ferritin 501.1 ng/mL (22.0-322.0)
[2019-01-19 19:16] LABS: Creatinine,Urine Random 58.4 mg/dL
[2019-01-19 20:15] LABS: Total Protein,Urine Random 20.5 mg/dL (0.0-13.5)
== END | disposition home or self-care (01) ==
LOC: LABWHC1 09:13
PROVIDERS: ATTEND Nurse Practitioner Family
DX: D64.9 Anemia, unspecified (principal); N25.81 Secondary hyperparathyroidism of renal origin; E55.9 Vitamin D deficiency, unspecified; M10.9 Gout, unspecified; R80.9 Proteinuria, unspecified; N17.9 Acute kidney failure, unspecified
CPT/HCPCS: 36415; 80053; 82306; 82570; 82728; 83540; 83550; 83735; 83970; 84100; 84156; 84550; 85027

== ENCOUNTER 2019-01-31 01:40 | Observation (INO) | payer MEDICAID ==
[2019-01-31] MEDS ORDERED: SODIUM CHLORIDE 0.9% 500 ML 500 ML IV STA (02:16)
[2019-01-31] MEDS ORDERED: MORPHINE SULFATE 4 MG/ML SYRINGE IV STA (02:35)
[2019-01-31] MEDS ORDERED: PANTOPRAZOLE 40 MG/10 ML VIAL IVP STA (02:35)
[2019-01-31 03:15] LABS: Basophils % (A) 0 %; Eosinophils # (A) 0.2 k/uL (0-0.7); Eosinophils % (A) 2 %; HCT 41.4 % (39.0-53.0); HGB 14.6 gm/dL (13.0-17.5); Lymphocytes # (A) 1.7 k/uL (1.0-4.8); Lymphocytes % (A) 15 %; MCH 29.5 pg (25.0-35.0); MCHC 35.4 g/dL (31.0-37.0); MCV 83.3 fL (80.0-100.0); Mean Platelet Volume 7.9; Monocytes # (A) 0.5 k/uL (0-1.0); Monocytes % (A) 5 %; Neutrophils # (A) 8.8 k/uL (1.3-7.7); Neutrophils % (A) 77 %; Platelet Count 239 k/uL (150-450); RBC 4.97 m/uL (4.30-5.90); RDW 15.9 % (11.5-15.5); WBC 11.3 k/uL (3.8-10.6)
[2019-01-31 03:16] LABS: Appearance,Urine Clear (Clear); Bilirubin,Urine Negative (Negative); Blood,Urine Moderate (Negative); Color,Urine Yellow; Glucose,Urine (UA) Negative (Negative); Ketones,Urine Negative (Negative); Leukocyte Esterase,Urine Negative (Negative); Mucus,Urine Rare /hpf; Nitrite,Urine Negative (Negative); Protein,Urine Trace (Negative); RBC,Urine >182 /hpf (0-5); Specific Gravity,Urine 1.013 (1.001-1.035); WBC,Urine 4 /hpf (0-5)
[2019-01-31 03:25] LABS: Albumin 5.2 g/dL (3.5-5.0); Calcium 10.8 mg/dL (8.4-10.2); Potassium 3.7 mmol/L (3.5-5.1); Total Bilirubin 2.1 mg/dL (0.2-1.3); Total Protein 8.5 g/dL (6.3-8.2)
[2019-01-31] MEDS ORDERED: SODIUM CHLORIDE 0.9% 1,000 ML IV STA (03:32)
--- NOTE | 2019-01-31 04:25 | CT ---
EXAM: CT Abdomen and Pelvis Without Intravenous Contrast CLINICAL HISTORY: Pain TECHNIQUE: Axial computed tomography images of the abdomen and pelvis without intravenous contrast. CTDI is 12.17 mGy and DLP is 684 mGy-cm. This CT exam was performed using one or more of the following dose reduction techniques: automated exposure control, adjustment of the mA and/or kV according to patient size, and/or use of iterative reconstruction technique. COMPARISON: 03/25/2018 FINDINGS: Limitations: There is respiratory artifact throughout the examination which causes image degradation on multiple slices. Lung bases: Unremarkable. No mass. No consolidation. Mediastinum: A hiatal hernia is noted, similar to the previous exam. ABDOMEN: Liver: Unremarkable. Gallbladder and bile ducts: Moderately distended. Limited by respiratory artifact. No calcified stones. No ductal dilation. Pancreas: Unremarkable. No ductal dilation. Spleen: Unremarkable. No splenomegaly. Adrenals: Unremarkable. No mass. Kidneys and ureters: There is a 10 mm calcification in the right renal pelvis. No hydronephrosis identified. Additional nonobstructive calcification measuring 5-6 mm is noted involving the inferior pole the right kidney and smaller subcentimeter calcifications noted bilaterally. There is a parenchymal calcification involving the inferior pole of the left kidney measuring 8 mm, stable. The cortical cyst involving the inferior medial aspect of the left kidney is slightly smaller, measuring 2.2 cm. Stomach and bowel: Evaluation of bowel mucosa is limited without contrast. Mucosal prominence of the descending and sigmoid colon is presumed related to underdistention. PELVIS: Appendix: The appendix is not clearly defined. However, there are no secondary findings to suggest acute appendicitis. Bladder: Mild mucosal prominence is presumed related to underdistention. No stones. Reproductive: Unremarkable as visualized. ABDOMEN and PELVIS: Intraperitoneal space: Unremarkable. No free air. No significant fluid collection. Bones/joints: No acute fracture. Multilevel degenerative changes incidentally noted. No dislocation. Soft tissues: Unremarkable. Vasculature: Unremarkable. No abdominal aortic aneurysm. Lymph nodes: Unremarkable. No enlarged lymph nodes. IMPRESSION: Limited by respiratory artifact. No bowel obstruction. No free intraperitoneal fluid or pneumoperitoneum. 10 mm calcification noted in the right renal pelvis without hydronephrosis. The clinical significance of this is uncertain. Additional bilateral nonobstructive subcentimeter nephrolithiasis identified.
--- NOTE | 2019-01-31 04:38 | ED ---
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 Patient underwent chemotherapy and radiation treatment, stomach cancer free. No active treatment. Continue chief complaint of abdominal pain for one day. Patient reports that his generalized abdominal pain. Denies any nausea vomiting or diarrhea. Patient denies all other complaints. Systemic: Pt denies fatigue, fever/chills, rash. Pt denies weakness, night sweats, weight loss. Neuro: Pt denies headache, visual disturbances, syncope or pre-syncope. HEENT: Pt denies ocular discharge or irritation, otalgia, rhinorrhea, pharyngitis or notable lymphadenopathy. Cardiopulmonary: Pt denies chest pain, SOB, heart palpitations, dyspnea on exertion. Abdominal/GI: Pt denies abdominal pain, n/v/d. : Pt denies dysuria, burning w/ urination, frequency/urgency. Denies new onset urinary or bowel incontinence. MSK: Pt denies myalgia, loss of strength or function in extremities. Neuro: Pt denies new onset weakness, paresthesias. (Diego Crowder) - Related Data Home Medications Medication Instructions Recorded Confirmed NIFEdipine [NIFEdipine ER] 60 mg PO DAILY 03/24/18 08/01/18 Barrera Wilcox, B.lactis 1 cap PO DAILY 05/05/18 08/01/18 [Probiotic] Omeprazole 20 mg PO DAILY 05/05/18 08/01/18 Ondansetron Odt [Zofran ODT] 8 mg PO Q12HR PRN 08/01/18 08/01/18 Previous Rx's Medication Instructions Recorded Apixaban [Eliquis] 5 mg PO BID #60 tab 07/08/18 Isosorbide Mononitrate ER [Imdur] 30 mg PO DAILY #30 tab 07/08/18 Metoprolol Tartrate [Lopressor] 25 mg PO BID #60 tab 07/08/18 Ampicillin-Sulbactam [Unasyn] 3 gm IVPB Q6HR vial 08/05/18 Fluconazole in NaCl,Iso-Osm 200 mg IVPB DAILY bag 08/05/18 [Diflucan-Ns 200 mg/100 ml] Heparin Sod,Pork in 0.45% NaCl 25,000 unit IV .Q24H bag 08/05/18 [Heparin-1/2Ns 25,000 Units/250Ml Pmx] Lidocaine Viscous [Xylocaine 30 ml PO Q4H ml 08/05/18 Viscous 2%] Mag Hydrox/Al Hydrox/Simeth 30 ml PO Q4H cup 08/05/18 [Maalox] Nystatin 100,000 Unit/ml Susp 3,000,000 unit PO Q4H cup 08/05/18 [Mycostatin Oral Susp] Ondansetron [Zofran] 4 mg IVP Q6HR PRN vial 08/05/18 diphenhydrAMINE ELIXIR [Benadryl 75 mg PO Q4H cup 08/05/18 Elixir] Allergies Allergy/AdvReac Type Severity Reaction Status Date / Time meperidine [From Demerol] AdvReac fever Verified 01/31/19 02:00 Review of Systems ROS Other: All systems not noted in ROS Statement are negative. <Diego Crowder - Last Filed: 01/31/19 04:38> ROS Other: All systems not noted in ROS Statement are negative. <Christiana Mcdaniels - Last Filed: 01/31/19 06:45> ROS Statement: Those systems with pertinent positive or pertinent negative responses have been documented in the HPI. Past Medical History Past Medical History: Atrial Fibrillation, Coronary Artery Disease (CAD), Cancer, GERD/Reflux, Hypertension, Osteoarthritis (OA) Additional Past Medical History / Comment(s): L neck lynph node positive for metastatic squamous cell cancer/pt receiving chemo and radiation, thyroid nodule, arthritis in low back, migraines, mild CAD, alot of sinus issues. History of Any Multi-Drug Resistant Organisms: None Reported Past Surgical History: Appendectomy, Heart Catheterization, Hernia Repair, Orthopedic Surgery Additional Past Surgical History / Comment(s): tongue bx neg, thyroid bx neg, and lt neck lymph node bx pt stated positive ,arthroscopies both knees, lithotripsy x2, bilateral inguinal hernia repairs, PICC line inserted 3 weeks ago- "here by dr Paulino." Past Anesthesia/Blood Transfusion Reactions: No Reported Reaction Additional Past Anesthesia/Blood Transfusion Reaction / Comment(s): . Past Psychological History: No Psychological Hx Reported Smoking Status: Former smoker Past Alcohol Use History: None Reported Past Drug Use History: None Reported - Past Family History Mother Family Medical History: No Reported History Additional Family Medical History / Comment(s): Arrhythmia Father Family Medical History: Coronary Artery Disease (CAD), Myocardial Infarction ([place]), Pneumonia Additional Family Medical History / Comment(s): CABG x3 at an early age. <Diego Crowder - Last Filed: 01/31/19 04:38> General Exam Limitations: no limitations <Diego Crowder - Last Filed: 01/31/19 04:38> - General Exam Comments Initial Comments: Constitutional: NAD, AOX3, Pt has pleasant affect. HEENT: NC/AT, trachea midline, neck supple, no lymphadenopathy. Posterior pharynx non erythematous, without exudates. External ears appear normal, without discharge. Mucous membranes moist. Eyes PERRLA, EOM intact. There is no scleral icterus. No pallor noted. Cardiopulmonary: RRR, no murmurs, rubs or gallops, no JVD noted. Lungs CTAB in anterior and posterior mistry. No peripheral edema. Abdominal exam: Abdomen soft and non-distended. Abdomen mild generalized tenderness all quadrants.. Bowel sounds active in LLQ. No hepatosplenomegaly. No ecchymosis Neuro: CN II-XII grossly intact. No nuchal rigidity. No raccon eyes, no ramirez sign, no hemotympanum. No cervical spinal tenderness. MSK: No posterior calf tenderness bilaterally, homans sign negative bilaterally. Posterior tibialis and radial pulse +2 bilaterally. Sensation intact in upper and lower extremities. Full active ROM in upper and lower extremities, 5/5 stregnth. 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 Patient underwent chemotherapy and radiation treatment, stomach cancer free. No active treatment. Continue chief complaint of abdominal pain for one day. Patient reports that his generalized abdominal pain. Denies any nausea vomiting or diarrhea. Patient denies all other complaints. Pt VSS, afebrile. Physical exam displayed: Abdomen soft and non-distended. Abdomen mild generalized tenderness all quadrants. Patient laboratory investigations displayed mild cytosis of 11.3. Creatinine of 1.35 which is much improved for patient. Lactic acid 2.6. Transaminitis, mildly elevated lipase noted. He is fully gross hematuria. CT abdomen and pelvis without contrast limited secondary to respirations. Ultrasound pending. Case signed out to Dr. Mcdaniels. (Diego Crowder) to care was signed out to me by Mariela Muñiz and presented with abdominal pain, initial labs are concerning for gallbladder pathology as the patient had elevated bilirubin AST and ALTs, computed tomography scan show some likely distention of the gallbladder. Antibiotics were ordered as well as an ultrasound. Ultrasound again suggestive of acute cholecystitis given the patient's history and his previous use of TPN he is high risk for developing cholecystitis. Given the patient's multiple medical comorbid these I feel he sh ould be admitted to medicine with a surgical consult. Patient care were discussed discussed with Dr. Angel who accepts the admission. Patient has previously had indwelling line removed by Dr. Amador but no other surgical intervention is comfortable with plan for consulting on-call physician Dr. Duque. Patient care was discussed with Dr. Duque who agrees with plan for admission to medicine and surgical consultation. Sinexon of no reviewing the patient's chart he has previously been transferred due to inability of anesthesia to intubate however that was when the patient was reacting to his chemotherapy and radiation had severe mucositis leukocytosis and inability to open his mouth. At this time the patient is able to open his mouth has a malanpati score of 3 and I believe is stable for admission to this hospital. (Christiana Mcdaniels) - Lab Data Lab Results 01/31/19 01/31/19 01/31/19 Range/Units 03:05 03:05 03:05 WBC 11.3 H (3.8-10.6) k/uL RBC 4.97 (4.30-5.90) m/uL Hgb 14.6 (13.0-17.5) gm/dL Hct 41.4 (39.0-53.0) % MCV 83.3 (80.0-100.0) fL MCH 29.5 (25.0-35.0) pg MCHC 35.4 (31.0-37.0) g/dL RDW 15.9 H (11.5-15.5) % Plt Count 239 (150-450) k/uL Neutrophils % 77 % Lymphocytes % 15 % Monocytes % 5 % Eosinophils % 2 % Basophils % 0 % Neutrophils # 8.8 H (1.3-7.7) k/uL Lymphocytes # 1.7 (1.0-4.8) k/uL Monocytes # 0.5 (0-1.0) k/uL Eosinophils # 0.2 (0-0.7) k/uL Basophils # 0.0 (0-0.2) k/uL Sodium 140 (137-145) mmol/L Potassium 3.7 (3.5-5.1) mmol/L Chloride 102 (98-107) mmol/L Carbon Dioxide 25 (22-30) mmol/L Anion Gap 13 mmol/L BUN 29 H (9-20) mg/dL Creatinine 1.35 H (0.66-1.25) mg/dL Est GFR (CKD-EPI)AfAm 64 (>60 ml/min/1.73 sqM) Est GFR (CKD-EPI)NonAf 55 (>60 ml/min/1.73 sqM) Glucose 134 H (74-99) mg/dL Lactic Ac Sepsis Rflx Plasma Lactic Acid Sebastien 2.6 H* (0.7-2.0) mmol/L Calcium 10.8 H (8.4-10.2) mg/dL Total Bilirubin 2.1 H (0.2-1.3) mg/dL AST 211 H (17-59) U/L ALT 133 H (21-72) U/L Alkaline Phosphatase 155 H (38-126) U/L Total Protein 8.5 H (6.3-8.2) g/dL Albumin 5.2 H (3.5-5.0) g/dL Lipase 307 H (23-300) U/L Urine Color Urine Appearance (Clear) Urine pH (5.0-8.0) Ur Specific [place] (1.001-1.035) Urine Protein (Negative) Urine Glucose (UA) (Negative) Urine Ketones (Negative) Urine Blood (Negative) Urine Nitrite (Negative) Urine Bilirubin (Negative) Urine Urobilinogen (<2.0) mg/dL Ur Leukocyte Esterase (Negative) Urine RBC (0-5) /hpf Urine WBC (0-5) /hpf Urine Mucus (None) /hpf 01/31/19 01/31/19 Range/Units 03:05 03:30 WBC (3.8-10.6) k/uL RBC (4.30-5.90) m/uL Hgb (13.0-17.5) gm/dL Hct (39.0-53.0) % MCV (80.0-100.0) fL MCH (25.0-35.0) pg MCHC (31.0-37.0) g/dL RDW (11.5-15.5) % Plt Count (150-450) k/uL Neutrophils % % Lymphocytes % % Monocytes % % Eosinophils % % Basophils % % Neutrophils # (1.3-7.7) k/uL Lymphocytes # (1.0-4.8) k/uL Monocytes # (0-1.0) k/uL Eosinophils # (0-0.7) k/uL Basophils # (0-0.2) k/uL Sodium (137-145) mmol/L Potassium (3.5-5.1) mmol/L Chloride (98-107) mmol/L Carbon Dioxide (22-30) mmol/L Anion Gap mmol/L BUN (9-20) mg/dL Creatinine (0.66-1.25) mg/dL Est GFR (CKD-EPI)AfAm (>60 ml/min/1.73 sqM) Est GFR (CKD-EPI)NonAf (>60 ml/min/1.73 sqM) Glucose (74-99) mg/dL Lactic Ac Sepsis Rflx Y Plasma Lactic Acid Sebastien (0.7-2.0) mmol/L Calcium (8.4-10.2) mg/dL Total Bilirubin (0.2-1.3) mg/dL AST (17-59) U/L ALT (21-72) U/L Alkaline Phosphatase (38-126) U/L Total Protein (6.3-8.2) g/dL Albumin (3.5-5.0) g/dL Lipase (23-300) U/L Urine Color Yellow Urine Appearance Clear (Clear) Urine pH 7.0 (5.0-8.0) Ur Specific [place] 1.013 (1.001-1.035) Urine Protein Trace H (Negative) Urine Glucose (UA) Negative (Negative) Urine Ketones Negative (Negative) Urine Blood Moderate H (Negative) Urine Nitrite Negative (Negative) Urine Bilirubin Negative (Negative) Urine Urobilinogen 2.0 (<2.0) mg/dL Ur Leukocyte Esterase Negative (Negative) Urine RBC >182 H (0-5) /hpf Urine WBC 4 (0-5) /hpf Urine Mucus Rare H (None) /hpf Disposition <Diego Crowder - Last Filed: 01/31/19 04:38> <Christiana Mcdnaiels - Last Filed: 01/31/19 06:45> Clinical Impression: Abdominal pain, Acute cholecystitis Disposition: ADMITTED IP TO THIS HOSP Condition: Serious Referrals: Colten Henson MD [Primary Care Provider] - 1-2 days
[2019-01-31] MEDS ORDERED: PIPERACILLIN-TAZOBACTAM 3.375 GM in SODIUM CHLORIDE 0.9% 100 ML IVPB STA (04:50)
--- NOTE | 2019-01-31 06:18 | US ---
EXAM: US Abdomen Limited, Right Upper Quadrant CLINICAL HISTORY: ITS.REASON US Reason: Pain TECHNIQUE: Real-time ultrasound of the right upper quadrant with image documentation. COMPARISON: No relevant prior studies available. FINDINGS: Liver: The liver measures 14.8 cm in length and is hyperechoic. The portal vein is patent with flow directed towards the liver. No intrahepatic bile duct dilation. Gallbladder: Echogenic foci are noted in the gallbladder consistent with gallstones. The gallbladder wall is prominent measuring 4.3 mm. A positive sonographic Pino sign is reported. Common bile duct: The common bile duct measures 4.5 mm. No stones. No dilation. Pancreas: The pancreas is obscured by bowel gas pattern. Right kidney: The right kidney measures 10.5 x 5.8 x 5.1 cm. There are echogenic foci within the right kidney with the largest inferiorly measuring 10 mm. No hydronephrosis. No stones. IMPRESSION: 1. Cholelithiasis with associated sonographic findings suspicious for acute cholecystitis. Please correlate clinically. 2. No significant biliary dilatation identified. 3. Nonobstructive right renal collecting stones measuring up to 10 mm. 4. Hepatic steatosis suggested.
[2019-01-31] MEDS ORDERED: ONDANSETRON 4 MG/2 ML VIAL IVP PRN (06:31)
[2019-01-31] MEDS ORDERED: HYDROmorphone 1 MG/ML 1 ML SYRINGE IVP PRN (06:31)
[2019-01-31] MEDS ORDERED: NALOXONE 0.4 MG/ML 1 ML VIAL IV PRN (06:31)
[2019-01-31] MEDS ORDERED: MORPHINE SULFATE 4 MG/ML SYRINGE IV PRN (06:31)
[2019-01-31] MEDS: SODIUM CHLORIDE 0.9% 1,000 ML IV SCH ×2 (07:04→13:39)
[2019-01-31] MEDS: PANTOPRAZOLE 40 MG/10 ML VIAL IV SCH (08:27)
--- NOTE | 2019-01-31 09:49 | P.GSCN ---
History of Present Illness Consult date: 01/31/19 Reason for Consult: Elevated liver enzymes History of present illness: 63-year-old male states he was doing well until last night around 7 PM when he began experiencing abdominal pain. Pain was across right and left upper quadrants. Nonradiating. No nausea or vomiting. No change in appetite. No fevers or chills. Patient did not notice any change in the color of his skin urine or stool. Came to the ER for evaluation. Was found to have elevated liver enzymes. Mild elevation of white blood cell count and lactic acid level. CAT scan and ultrasound performed. Ultrasound shows gallstones with gallbladder wall thickening and a positive sonographic Pino sign. Common bile duct 4.5 mm. Patient states his pain is slightly better. Does have a significant history of metastatic squamous cell cancer was treated with chemo and radiation and is currently disease-free. Previously the patient was transferred out of town given his inability to open his mouth fully. Those symptoms have resolved. Review of Systems The patient denies any acute changes in vision or hearing, no dysphagia or odynophagia, no chest pain or shortness of breath, no dysuria or hematuria, no headache, no runny nose, no rectal bleeding or melena, no unexplained weight loss Past Medical History Past Medical History: Atrial Fibrillation, Coronary Artery Disease (CAD), Cancer, GERD/Reflux, Hypertension, Osteoarthritis (OA), Pulmonary Embolus (PE) Additional Past Medical History / Comment(s): PE in Jun 2018. 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 History of Any Multi-Drug Resistant Organisms: None Reported Past Surgical History: Appendectomy, Hernia Repair, Orthopedic Surgery Additional Past Surgical History / Comment(s): tongue bx neg, thyroid bx neg, and lt neck lymph node bx pt stated positive ,arthroscopies both knees, lithotripsy x2, bilateral inguinal hernia repairs, PICC line inserted and removed in August 2018. Last had any chemo/radiation in August 2018 Past Anesthesia/Blood Transfusion Reactions: No Reported Reaction Additional Past Anesthesia/Blood Transfusion Reaction / Comm: . Past Psychological History: No Psychological Hx Reported Additional Psychological History / Comment(s): Pt resides with his spouse. Retired. He is independent. Smoking Status: Former smoker Past Alcohol Use History: None Reported Past Drug Use History: None Reported - Past Family History Mother Family Medical History: No Reported History Additional Family Medical History / Comment(s): Arrhythmia Father Family Medical History: Coronary Artery Disease (CAD), Myocardial Infarction ([place]), Pneumonia Additional Family Medical History / Comment(s): CABG x3 at an early age. Medications and Allergies Home Medications Medication Instructions Recorded Confirmed Type L.acidoph,Paracasei, B.lactis 1 cap PO DAILY 05/05/18 01/31/19 History [Probiotic] Apixaban [Eliquis] 5 mg PO BID #60 tab 07/08/18 01/31/19 Rx Cholecalciferol [Vitamin D3 (25 1,000 unit PO DAILY 01/31/19 01/31/19 History Mcg = 1000 Iu)] Esomeprazole Magnesium [NexIUM] 40 mg PO DAILY 01/31/19 01/31/19 History Metoprolol Tartrate [Lopressor] 100 mg PO BID 01/31/19 01/31/19 History Potassium Chloride ER [K-Dur 20] 20 meq PO DAILY 01/31/19 01/31/19 History amLODIPine [Norvasc] 10 mg PO DAILY 01/31/19 01/31/19 History Allergies Allergy/AdvReac Type Severity Reaction Status Date / Time meperidine [From Demerol] AdvReac fever Verified 01/31/19 07:14 Surgical - Exam Vital Signs Temp Pulse Resp BP Pulse Ox 97.9 F 49 L 18 125/82 99 01/31/19 01:58 01/31/19 01:58 01/31/19 01:58 01/31/19 01:58 01/31/19 01:58 Physical exam: General: Well-developed, well-nourished HEENT: Normocephalic, sclerae nonicteric Abdomen: Mild epigastric tenderness, nondistended Extremities: No edema Neuro: Alert and oriented Results - Labs 01/31/19 03:05 01/31/19 03:05 Abnormal Lab Results - Last 24 Hours (Table) 01/31/19 01/31/19 01/31/19 Range/Units 03:05 03:05 03:05 WBC 11.3 H (3.8-10.6) k/uL RDW 15.9 H (11.5-15.5) % Neutrophils # 8.8 H (1.3-7.7) k/uL BUN 29 H (9-20) mg/dL Creatinine 1.35 H (0.66-1.25) mg/dL Glucose 134 H (74-99) mg/dL Plasma Lactic Acid Sebastien 2.6 H* (0.7-2.0) mmol/L Calcium 10.8 H (8.4-10.2) mg/dL Total Bilirubin 2.1 H (0.2-1.3) mg/dL AST 211 H (17-59) U/L ALT 133 H (21-72) U/L Alkaline Phosphatase 155 H (38-126) U/L Total Protein 8.5 H (6.3-8.2) g/dL Albumin 5.2 H (3.5-5.0) g/dL Lipase 307 H (23-300) U/L Urine Protein (Negative) Urine Blood (Negative) Urine RBC (0-5) /hpf Urine Mucus (None) /hpf 01/31/19 Range/Units 03:05 WBC (3.8-10.6) k/uL RDW (11.5-15.5) % Neutrophils # (1.3-7.7) k/uL BUN (9-20) mg/dL Creatinine (0.66-1.25) mg/dL Glucose (74-99) mg/dL Plasma Lactic Acid Sebastien (0.7-2.0) mmol/L Calcium (8.4-10.2) mg/dL Total Bilirubin (0.2-1.3) mg/dL AST (17-59) U/L ALT (21-72) U/L Alkaline Phosphatase (38-126) U/L Total Protein (6.3-8.2) g/dL Albumin (3.5-5.0) g/dL Lipase (23-300) U/L Urine Protein Trace H (Negative) Urine Blood Moderate H (Negative) Urine RBC >182 H (0-5) /hpf Urine Mucus Rare H (None) /hpf Diabetes panel 01/31/19 Range/Units 03:05 Sodium 140 (137-145) mmol/L Potassium 3.7 (3.5-5.1) mmol/L Chloride 102 (98-107) mmol/L Carbon Dioxide 25 (22-30) mmol/L BUN 29 H (9-20) mg/dL Creatinine 1.35 H (0.66-1.25) mg/dL Glucose 134 H (74-99) mg/dL Calcium 10.8 H (8.4-10.2) mg/dL AST 211 H (17-59) U/L ALT 133 H (21-72) U/L Alkaline Phosphatase 155 H (38-126) U/L Total Protein 8.5 H (6.3-8.2) g/dL Albumin 5.2 H (3.5-5.0) g/dL Calcium panel 01/31/19 Range/Units 03:05 Calcium 10.8 H (8.4-10.2) mg/dL Albumin 5.2 H (3.5-5.0) g/dL Pituitary panel 01/31/19 Range/Units 03:05 Sodium 140 (137-145) mmol/L Potassium 3.7 (3.5-5.1) mmol/L Chloride 102 (98-107) mmol/L Carbon Dioxide 25 (22-30) mmol/L BUN 29 H (9-20) mg/dL Creatinine 1.35 H (0.66-1.25) mg/dL Glucose 134 H (74-99) mg/dL Calcium 10.8 H (8.4-10.2) mg/dL Adrenal panel 01/31/19 Range/Units 03:05 Sodium 140 (137-145) mmol/L Potassium 3.7 (3.5-5.1) mmol/L Chloride 102 (98-107) mmol/L Carbon Dioxide 25 (22-30) mmol/L BUN 29 H (9-20) mg/dL Creatinine 1.35 H (0.66-1.25) mg/dL Glucose 134 H (74-99) mg/dL Calcium 10.8 H (8.4-10.2) mg/dL Total Bilirubin 2.1 H (0.2-1.3) mg/dL AST 211 H (17-59) U/L ALT 133 H (21-72) U/L Alkaline Phosphatase 155 H (38-126) U/L Total Protein 8.5 H (6.3-8.2) g/dL Albumin 5.2 H (3.5-5.0) g/dL Assessment and Plan (1) Acute cholecystitis Narrative/Plan: Patient with presentation consistent with acute cholecystitis. Underlying choledocholithiasis and gallstone pancreatitis has not been excluded given the elevated liver enzymes. We'll consult GI. Continue antibiotics. May start clear liquids. Repeat labs today and again tomorrow morning. Further recommendations to follow. Current Visit: Yes Status: Acute Code(s): K81.0 - ACUTE CHOLECYSTITIS SNOMED Code(s): 45984025
[2019-01-31 10:12] LABS: Albumin 3.9 g/dL (3.5-5.0); Calcium 9.2 mg/dL (8.4-10.2); Potassium 3.6 mmol/L (3.5-5.1); Total Bilirubin 3.2 mg/dL (0.2-1.3); Total Protein 6.5 g/dL (6.3-8.2)
--- NOTE | 2019-01-31 10:40 | P.HPIM ---
History of Present Illness H&P Date: 01/31/19 Chief Complaint: Abdominal pain 63-year-old male with PMH of atrial fibrillation, hypertension, history of PE in June 2018 on Eliquis, 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 Castellanos presents the ED for abdominal pain. Pain started around 7 PM last night. Pain is localized to the right and left upper quadrant. Pain is constant and throbbing in nature. It is 10 out of 10 in severity. Patient reports his last meal was 5 PM without any difficulties. Patient reports taking Tums which aggravated his pain. He has been complaining of 3-4 weeks of lower back pain. He denies any headaches, lower extremity edema, nausea or vomiting, fever or chills, cough, chest pain, shortness of breath, changes in urination or bowel habits. No changes in appetite or weight. He denies any dizziness, numbness/weakness/tingling of the extremities. In the ED, vital signs are stable. CBC showed leukocytosis of 11.3. CMP showed c reatinine of 1.35, BUN of 29, glucose 134, lactic acid was 2.6. Total bilirubin is elevated at 2.1, AST 211, ALT 133, alkaline phosphatase 155. Lipase was 307. CT of the abdomen pelvis showed calcification in the right renal pelvis without hydronephrosis along with nonobstructive nephrolithiasis. Gallbladder ultrasound showed cholelithiasis with sonographic findings suspicious for acute cholecystitis. Patient is admitted for acute cholecystitis, started on IV antibiotics and general surgery on consult. Review of Systems Pertinent positives and negatives as discussed in HPI, a complete review of systems was performed and all other systems are negative. Past Medical History Past Medical History: Atrial Fibrillation, Coronary Artery Disease (CAD), Cancer, GERD/Reflux, Hypertension, Osteoarthritis (OA), Pulmonary Embolus (PE) Additional Past Medical History / Comment(s): PE in Jun 2018. 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 History of Any Multi-Drug Resistant Organisms: None Reported Past Surgical History: Appendectomy, Hernia Repair, Orthopedic Surgery Additional Past Surgical History / Comment(s): tongue bx neg, thyroid bx neg, and lt neck lymph node bx pt stated positive ,arthroscopies both knees, lithotripsy x2, bilateral inguinal hernia repairs, PICC line inserted and removed in August 2018. Last had any chemo/radiation in August 2018 Past Anesthesia/Blood Transfusion Reactions: No Reported Reaction Additional Past Anesthesia/Blood Transfusion Reaction / Comment(s): . Past Psychological History: No Psychological Hx Reported Additional Psychological History / Comment(s): Pt resides with his spouse. Retired. He is independent. Smoking Status: Former smoker Past Alcohol Use History: None Reported Past Drug Use History: None Reported - Past Family History Mother Family Medical History: No Reported History Additional Family Medical History / Comment(s): Arrhythmia Father Family Medical History: Coronary Artery Disease (CAD), Myocardial Infarction ([place]), Pneumonia Additional Family Medical History / Comment(s): CABG x3 at an early age. Medications and Allergies Home Medications Medication Instructions Recorded Confirmed Type L.acidoph,Paracasei, B.lactis 1 cap PO DAILY 05/05/18 01/31/19 History [Probiotic] Apixaban [Eliquis] 5 mg PO BID #60 tab 07/08/18 01/31/19 Rx Cholecalciferol [Vitamin D3 (25 1,000 unit PO DAILY 01/31/19 01/31/19 History Mcg = 1000 Iu)] Esomeprazole Magnesium [NexIUM] 40 mg PO DAILY 01/31/19 01/31/19 History Metoprolol Tartrate [Lopressor] 100 mg PO BID 01/31/19 01/31/19 History Potassium Chloride ER [K-Dur 20] 20 meq PO DAILY 01/31/19 01/31/19 History amLODIPine [Norvasc] 10 mg PO DAILY 01/31/19 01/31/19 History Allergies Allergy/AdvReac Type Severity Reaction Status Date / Time meperidine [From Demerol] AdvReac fever Verified 01/31/19 07:14 Physical Exam Vitals: Vital Signs Temp Pulse Pulse Resp BP BP Pulse Ox 01/31/19 07:04 60 20 148/92 95 01/31/19 07:00 97.9 F 50 L 16 156/95 98 01/31/19 05:09 58 L 18 145/85 95 01/31/19 01:58 97.9 F 49 L 18 125/82 99 Intake and Output 01/30/19 01/31/19 01/31/19 22:59 06:59 14:59 Other: Weight 84.822 kg General: [non toxic], [no distress], [appears at stated age] Derm: [warm], [dry] Head: [atraumatic], [normocephalic], [symmetric] Eyes: [EOMI], [no lid lag], [anicteric sclera] Mouth: [no lip lesion], [mucus membranes moist] Cardiovascular: [S1S2 reg], [no murmur], [positive posterior tibial pulse bilateral] Lungs: [CTA bilateral], [no rhonchi, no rales] , [no accessory muscle use] Abdominal: [soft], [tenderness to palpation of the right upper quadrant, positive Pino's, no rebound], [no guarding], [no appreciable organomegaly] Ext: [no gross muscle atrophy], [no edema], [no contractures] Neuro: [ CN II-XI grossly intact], [no focal neuro deficits] Psych: [Alert], [oriented], [appropriate affect] Results CBC & Chem 7: 01/31/19 03:05 01/31/19 09:45 Labs: Abnormal Lab Results - Last 24 Hours (Table) 01/31/19 01/31/19 01/31/19 Range/Units 03:05 03:05 03:05 WBC 11.3 H (3.8-10.6) k/uL RDW 15.9 H (11.5-15.5) % Neutrophils # 8.8 H (1.3-7.7) k/uL BUN 29 H (9-20) mg/dL Creatinine 1.35 H (0.66-1.25) mg/dL Glucose 134 H (74-99) mg/dL Plasma Lactic Acid Sebastien 2.6 H* (0.7-2.0) mmol/L Calcium 10.8 H (8.4-10.2) mg/dL Total Bilirubin 2.1 H (0.2-1.3) mg/dL AST 211 H (17-59) U/L ALT 133 H (21-72) U/L Alkaline Phosphatase 155 H (38-126) U/L Total Protein 8.5 H (6.3-8.2) g/dL Albumin 5.2 H (3.5-5.0) g/dL Lipase 307 H (23-300) U/L Urine Protein (Negative) Urine Blood (Negative) Urine RBC (0-5) /hpf Urine Mucus (None) /hpf 01/31/19 01/31/19 Range/Units 03:05 09:45 WBC (3.8-10.6) k/uL RDW (11.5-15.5) % Neutrophils # (1.3-7.7) k/uL BUN 24 H (9-20) mg/dL Creatinine (0.66-1.25) mg/dL Glucose 108 H (74-99) mg/dL Plasma Lactic Acid Sebastien (0.7-2.0) mmol/L Calcium (8.4-10.2) mg/dL Total Bilirubin 3.2 H (0.2-1.3) mg/dL AST 399 H (17-59) U/L ALT 313 H (21-72) U/L Alkaline Phosphatase 144 H (38-126) U/L Total Protein (6.3-8.2) g/dL Albumin (3.5-5.0) g/dL Lipase (23-300) U/L Urine Protein Trace H (Negative) Urine Blood Moderate H (Negative) Urine RBC >182 H (0-5) /hpf Urine Mucus Rare H (None) /hpf Thrombosis Risk Factor Assmnt - Choose All That Apply Any of the Below Risk Factors Present?: Yes Each Risk Factor Represents 2 Points: Age 61-74 years Each Risk Factor Represents 3 Points: History of DVT/PE Other congenital or acquired thrombophilia - If yes, enter type in comment: No Thrombosis Risk Factor Assessment Total Risk Factor Score: 5 Thrombosis Risk Factor Assessment Level: High Risk Assessment and Plan Assessment: Assessment and Plan Acute cholecystitis, possibly related to choledocholithiasis causing associated pancreatitis Acute kidney injury Lactic acidosis Atrial fibrillation on Eliquis Hypertension History of PE 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 Castellanos Does not meet sepsis criteria. As seen on gallbladder ultrasound. CT abdomen and pelvis is within normal limits. Elevated total bilirubin, AST, ALT and alkaline phosphatase. Lipase is elevated at 307. Repeat LFTs showed worsening total bilirubin of 3.2, AST of 399, ALT of 313, alkaline phosphatase of 144. Patient is afebrile with mild leukocytosis of 11.3. Plans: Continue Zosyn. Zofran as needed for nausea or vomiting. Pain management with morphine. General surgery recommends continuing IV antibiotics, GI consult for possible choledocholithiasis. Start Protonix 40 g IV daily. Continue normal saline at 125 mL per hour. Follow blood cultures. Discussed with GI Dr. Gilbert, possible ERCP tomorrow. BUN 29, creatinine 1.35. Likely related to dehydration. Plans: Avoid nephrotoxins. Continue normal saline as above. Repeat BMP in the morning. Lactic acid 2.6. Likely secondary to dehydration. Plans: Continue normal saline as above. Repeat lactic acid is within normal limits. Resolved. Stable. Plans: Continue metoprolol. Hold Eliquis per Dr. Gilbert for ERCP tomorrow. BP 148/92. Plans: Continue metoprolol and amlodipine. Monitor vitals, adjust medications as necessary. Patient reports repeat CTA chest there was negative for PE. Plans: We'll resume Eliquis after surgery. Patient reports no recurrence after chemo and radiation. Plans: Follow Dr. Castellanos in the outpatient setting. DVT prophylaxis: [SCD boots] Discussed with: [Patient] Anticipated discharge: [2-3 days] Anticipated discharge place: [Home] A total of [45] minutes was spent on the care of this complex patient more than 50% of the time was spent in counseling and care coordination. Patient and his [place] decision-maker in the case that he can make decisions for himself. Patient reiterates wanting to remain full code at this time.
--- NOTE | 2019-01-31 12:23 | CONS ---
CONSULTATION REQUESTING PHYSICIAN: Dr. Henson and REASON FOR CONSULTATION: Elevated LFTs/abdominal pain, possible ERCP. HISTORY OF PRESENT ILLNESS: The patient is a 63-year-old pleasant white male who came in the emergency room complaining of severe epigastric pain that started around 7:00 pm last night. The pain was mostly in the abdominal area radiating to the right upper quadrant associated with some nausea but no emesis. No fever, chills, or night sweats. He came to the emergency room, was noted to have mild elevation of white count as well as elevated serum transaminases. He did have a CT of the abdomen done that was unremarkable, but ultrasound of the abdomen did show evidence of gallstones and gallbladder wall thickening with no evidence of biliary ductal dilation. However, this morning his LFTs got a little bit worse with a bilirubin up to 3.3, and because of clinical suspicion for CBD stone, we are consulted for possible ERCP. The patient is feeling much better. The patient continues to complain of epigastric pain, but he just received IV pain medications and feels somewhat better. He never had these symptoms in the past. PAST MEDICAL HISTORY: Significant for metastatic squamous cell head and neck CA for which he underwent chemo radiation therapy early part of this year, which ended in July, history of atrial fibrillation, gastroesophageal reflux disease, hypertension. PAST SURGICAL HISTORY: PEG tube placement, lymph node biopsy, appendectomy, hernia repair. SOCIAL HISTORY: Remote history of smoking. No alcohol use. FAMILY HISTORY: Mother had cardiac arrhythmias and father had coronary artery disease. MEDICATIONS: At home include probiotic, Eliquis, Nexium, Lopressor, K-Dur, Norvasc. ALLERGIES: None. REVIEW OF SYSTEMS: CARDIOPULMONARY: No chest pain or shortness of breath. GENITOURINARY: No dysuria or hematuria. MUSCULOSKELETAL: Unremarkable. SKIN: Unremarkable. ENDOCRINE: Unremarkable. PSYCHIATRY: Unremarkable. NEUROLOGY: Unremarkable. ENT/VISION: Unremarkable. CONSTITUTIONAL: No recent weight loss. No fever, chills or night sweats. GI: As mentioned above. HEMATOLOGY: Unremarkable. PHYSICAL EXAMINATION: He appears comfortable in no apparent distress. Vital signs are stable. Blood pressure is 125/82, pulse 49, temperature 97.9. HEENT: Examination unremarkable. Conjunctivae pink. Sclerae anicteric. Oral cavity no lesions. NECK: No JVD or lymph node enlargement. CHEST: Clear to auscultation. HEART: Regular rate and rhythm. ABDOMEN: Soft. Very minimal tenderness in the epigastric area. Bowel sounds are positive. No organomegaly. EXTREMITIES: No pedal edema. SKIN: No rashes. NEUROLOGIC: Alert and orient x3. No focal deficits. LABS: WBC was 11.3, hemoglobin 14.6, platelets are normal. BUN 29, creatinine 1.35, lactic acid 2.6, bilirubin 2.1, AST 211, ALT 113, alkaline phosphatase 155. Today T-bilirubin is up to 3.2, ALT and AST are 399 and 313 respectively. Alkaline phosphatase 144. IMPRESSION: 1. This is a patient who presents to the hospital with acute onset of severe epigastric pain that started at 7:00 pm last night and noted to have elevated serum transaminases which are slightly worse today, bilirubin is up to 3.2, and ALT and AST are in the range of 300. Ultrasound of the abdomen did show evidence of gallstones but no biliary ductal dilation. The clinical picture is consistent with possible CBD stones with component of acute cholecystitis. 2. History of head and neck CA status post chemo radiation therapy in early part of this year, which ended in July of this year, in remission. RECOMMENDATIONS: 1. Continue to hold Eliquis. 2. Clear liquid diet. 3. I had a lengthy discussion with the patient regarding possibility of choledocholithiasis. At this time, we will plan on proceeding with an ERCP tomorrow. I discussed with him risks, benefits, and complications and he is agreeable to it. Thank you for this consultation. MMODL / IJN: [id number] /
[2019-01-31] MEDS: HEPARIN SODIUM,PORCINE 5,000 UNIT/ML 1 ML VIAL SQ SCH ×2 (13:34→18:10)
[2019-01-31] MEDS: PIPERACILLIN-TAZOBACTAM 3.375 GM in SODIUM CHLORIDE 0.9% 100 ML IVPB SCH ×2 (13:38→21:06)
[2019-01-31] MEDS: METOPROLOL TARTRATE 50 MG TAB PO SCH (21:06)
[2019-02-01] MEDS: HEPARIN SODIUM,PORCINE 5,000 UNIT/ML 1 ML VIAL SQ SCH ×3 (00:20→16:10)
[2019-02-01] MEDS: SODIUM CHLORIDE 0.9% 1,000 ML IV SCH ×4 (00:21→22:31)
[2019-02-01] MEDS: PIPERACILLIN-TAZOBACTAM 3.375 GM in SODIUM CHLORIDE 0.9% 100 ML IVPB SCH ×3 (04:57→22:31)
[2019-02-01] MEDS ORDERED: MIDAZOLAM 2 MG/2 ML VIAL ONE (07:00)
[2019-02-01] MEDS ORDERED: fentaNYL (PF) 50 MCG/ML 2 ML AMP ONE (07:00)
[2019-02-01] MEDS ORDERED: PROPOFOL 10 MG/ML 20 ML VIAL IV ONE (07:00)
[2019-02-01] MEDS ORDERED: KETAMINE 10 MG/ML 20 ML VIAL ONE (07:00)
[2019-02-01] MEDS ORDERED: INDOMETHACIN 50MG SUPPOSITORY RECTAL ONE ×2 (07:00→07:09)
[2019-02-01] MEDS ORDERED: LIDOCAINE 1% INJ 10MG/ML (20 ML MDV) ONE (07:00)
[2019-02-01 07:06] LABS: Basophils % (A) 0 %; Eosinophils # (A) 0.2 k/uL (0-0.7); Eosinophils % (A) 3 %; HCT 38.9 % (39.0-53.0); HGB 13.4 gm/dL (13.0-17.5); Lymphocytes # (A) 1.1 k/uL (1.0-4.8); Lymphocytes % (A) 14 %; MCH 28.9 pg (25.0-35.0); MCHC 34.5 g/dL (31.0-37.0); MCV 83.9 fL (80.0-100.0); Mean Platelet Volume 7.6; Monocytes # (A) 0.4 k/uL (0-1.0); Monocytes % (A) 5 %; Neutrophils # (A) 6.2 k/uL (1.3-7.7); Neutrophils % (A) 78 %; Platelet Count 196 k/uL (150-450); RBC 4.64 m/uL (4.30-5.90)
[2019-02-01 07:16] LABS: Calcium 9.5 mg/dL (8.4-10.2); Potassium 3.7 mmol/L (3.5-5.1); Total Protein 6.7 g/dL (6.3-8.2)
[2019-02-01] MEDS ORDERED: IV FLUID CONTINUATION 1,000 ML IV ONE (07:23)
--- NOTE | 2019-02-01 07:57 | P.PCN ---
Date of Procedure: 02/01/19 Procedure(s) Performed: Brief history: Patient is a 63-year-old white male,scheduled for an ERCP as part of evaluation of abdominal pain and elevated serum transaminases for the last 2 days' duration. He was noted to have bilirubin had increased to 3.2 g/dL. Ultrasound of abdomen did show evidence of gallstones with no biliary ductal dilation. Procedure performed: ERCP Preoperative diagnoses: Elevated LFTs/jaundice and abdominal pain IV sedation per anesthesia: Procedure: After informed consent was obtained from the patient and after the risks benefits and complications including bleeding perforation and pancreatitis explained in detail the patient was brought into the endoscopy unit. The patie nt was placed in prone position and IV conscious sedation was administered by anesthesia under continuous monitoring. The Olympus side-viewing duodenoscope was then inserted into the mouth and esophagus intubated without any difficulty. The scope was gradually advanced into the stomach and duodenum. The major papilla was identified without any difficulty. Initial cannulation resulted in opacification of the pancreatic bed that appeared normal. Subsequently despite multiple attempts including using using guidewire technique and autotome I was unable to cannulate the common bile duct. After trying several times the procedure was terminated. Patient tolerated the procedure well Impression: 1. Normal-appearing pancreatic duct 2. Unsuccessful cannulation of the common bile duct Recommendations: The findings of this examination were discussed with the patient as well as a family. At this time will await labs from today. Continue with a clear liquid diet. Continue antibiotics. If LFTs continue to increase will consider an MRCP to see for choledocholithiasis. Will discuss with .
[2019-02-01] MEDS ORDERED: SODIUM CHLORIDE 0.9% 500 ML 500 ML IV ONE (07:59)
[2019-02-01] MEDS ORDERED: IOHEXOL 300 MG/ML 50 ML BOTTLE MISCELLANE ONE (08:05)
--- NOTE | 2019-02-01 08:29 | FL ---
EXAMINATION TYPE: FL ERCP biliary duct only DATE OF EXAM: 02/01/2019 CLINICAL HISTORY: Fluoroscopic documentation during ERCP for biliary obstruction TECHNIQUE: Fluoroscopy. COMPARISON: None. FINDINGS: Fluoroscopic guidance was provided during procedure performed by Dr. Josue. A total of 1. 06 minutes of fluoroscopic time was utilized during the procedure and 1 spot image was acquired demon strating cannulation of the common bile duct and retrograde opacification. IMPRESSION: As Above.
[2019-02-01] MEDS: METOPROLOL TARTRATE 50 MG TAB PO SCH ×2 (10:15→20:48)
[2019-02-01] MEDS: amLODIPine 10 MG TAB PO SCH (10:15)
[2019-02-01] MEDS: PANTOPRAZOLE 40 MG/10 ML VIAL IV SCH (10:18)
--- NOTE | 2019-02-01 11:24 | P.PN ---
Subjective Progress Note Date: 02/01/19 Principal diagnosis: Cholecystitis Patient was seen and examined. No acute events overnight. Patient reports complete resolution of his abdominal pain. He denies any nausea or vomiting. No fever or chills. Had bowel movements yesterday. He denies any chest pain, shortness of breath or palpitations. No fever or chills. Objective - Vital Signs Vital signs: Vital Signs Temp 98.5 F 02/01/19 09:30 Pulse 66 02/01/19 10:43 Resp 12 02/01/19 09:30 BP 159/93 02/01/19 10:43 Pulse Ox 92 L 02/01/19 09:30 Intake & Output 01/31/19 02/01/19 02/01/19 18:59 06:59 18:59 Intake Total 1010 1100 Balance 1010 1100 Intake: IV 1100 Intake, IV Titration 950 Amount Piperacillin-Tazobactam 3 200 .375 gm In Sodium Chloride 0.9% 100 ml @ 200 mls/hr IVPB ONCE STA Rx#:[id number] Sodium Chloride 0.9% 1, 750 000 ml @ 125 mls/hr IV . Q8H [facility] Rx#:[id number] Oral 60 Other: Voiding Method Toilet # Voids 1 - Exam General: [non toxic], [no distress], [appears at stated age] Derm: [warm], [dry] Head: [atraumatic], [normocephalic], [symmetric] Eyes: [EOMI], [no lid lag], [anicteric sclera] Mouth: [no lip lesion], [mucus membranes moist] Cardiovascular: [S1S2 reg], [no murmur], [positive posterior tibial pulse bilateral] Lungs: [CTA bilateral], [no rhonchi, no rales] , [no accessory muscle use] Abdominal: [soft], [no tenderness to palpation, negative Pino], [no guarding], [no appreciable organomegaly] Ext: [no gross muscle atrophy], [no edema], [no contractures] Neuro: [ CN II-XI grossly intact], [no focal neuro deficits] Psych: [Alert], [oriented], [appropriate affect] - Labs CBC & Chem 7: 02/01/19 06:26 02/01/19 06:30 Labs: Abnormal Lab Results - Last 24 Hours (Table) 02/01/19 02/01/19 Range/Units 06:26 06:30 Hct 38.9 L (39.0-53.0) % Total Bilirubin 2.0 H (0.2-1.3) mg/dL AST 189 H (17-59) U/L ALT 328 H (21-72) U/L Alkaline Phosphatase 189 H (38-126) U/L Assessment and Plan Assessment: Assessment and Plan Acute cholecystitis, possibly related to choledocholithiasis causing associated pancreatitis Atrial fibrillation on Eliquis Hypertension History of PE 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 Castellanos Resolved: Acute kidney injury, lactic acidosis Does not meet sepsis criteria. As seen on gallbladder ultrasound. CT abdomen and pelvis is within normal limits. Elevated total bilirubin, AST, ALT and alkaline phosphatase. Lipase is elevated at 307. Repeat LFTs showed worsening total bilirubin of 3.2-2.0, AST of 399-189, ALT of 313-328, alkaline phosphatase of 144-189. Patient is afebrile with mild leukocytosis of 11.3, now resolved. ERCP unsuccessful this morning. Plans: Continue Zosyn. Zofran as needed for nausea or vomiting. Pain management with morphine. General surgery recommends continuing IV antibiotics, GI consult for possible choledocholithiasis. Start Protonix 40 g IV daily. Continue normal saline at 125 mL per hour. Follow blood cultures. Follow GI and general surgery recommendation. Stable. Plans: Continue metoprolol. Hold Eliquis per Dr. Gilbert for possible procedure. BP 159/93. Plans: Continue metoprolol and amlodipine. Monitor vitals, adjust medications as necessary. Patient reports repeat CTA chest there was negative for PE. Plans: We'll resume Eliquis after surgery. Patient reports no recurrence after chemo and radiation. Plans: Follow Dr. Castellanos in the outpatient setting. [Patient admitted for acute cholecystitis, continue IV antibiotics. LFT showing signs of obstruction. ERCP unsuccessful. GI and general surgery on board.]
--- NOTE | 2019-02-01 12:17 | P.PN ---
<Jessie Quinones Jewel - Last Filed: 02/01/19 12:10> Subjective Progress Note Date: 02/01/19 CHIEF COMPLAINT: Elevated liver enzymes HISTORY OF PRESENT ILLNESS: Patient seen and examined this morning at the bedside. GI was consulted and patient underwent ERCP this morning revealing normal-appearing pancreatic duct. Unsuccessful cannulation of the common bile duct after multiple attempts. He denies abdominal pain. Denies nausea or vomiting. Bilirubin down to 2.0 today. AST 189, down from 399. ALT 328, up from 313 yesterday. Alkaline phosphatase 189, up from 144 yesterday. PHYSICAL EXAM: VITAL SIGNS: Reviewed. GENERAL: Well-developed in no acute distress. HEENT: No sclera icterus. Extraocular movements grossly intact. Moist buccal mucosa. Head is atraumatic, normocephalic. ABDOMEN: Soft. Nondistended. Nontender. Positive bowel sounds. NEUROLOGIC: Alert and oriented. Cranial nerves II through XII grossly intact. ASSESSMENT: 1. Acute cholecystitis 2. Transaminitis, s/p ERCP with unsuccessful cannulation of the common bile duct PLAN: 1. Agreeable to clear liquid diet today 2. Monitor LFTs. Repeat in AM. Possible MRCP per GI service 3. Continue IV antibiotics 4. No immediate surgical intervention recommended at this time. Will require cholecystectomy eventually. Continue to hold Eliquis. Nurse practitioner note has been reviewed by physician. Signing provider agrees with the documented findings, assessment, and plan of care. Objective - Vital Signs Vital signs: Vital Signs Temp 98.5 F 02/01/19 09:30 Pulse 49 L 02/01/19 11:00 Resp 12 02/01/19 09:30 BP 163/94 02/01/19 11:00 Pulse Ox 92 L 02/01/19 09:30 Intake & Output 01/31/19 02/01/19 02/01/19 18:59 06:59 18:59 Intake Total 1010 1100 Balance 1010 1100 Intake: IV 1100 Intake, IV Titration 950 Amount Piperacillin-Tazobactam 3 200 .375 gm In Sodium Chloride 0.9% 100 ml @ 200 mls/hr IVPB ONCE STA Rx#:[id number] Sodium Chloride 0.9% 1, 750 000 ml @ 125 mls/hr IV . Q8H [facility] Rx#:[id number] Oral 60 Other: Voiding Method Toilet # Voids 1 - Labs CBC & Chem 7: 02/01/19 06:26 02/01/19 06:30 Labs: Abnormal Lab Results - Last 24 Hours (Table) 02/01/19 02/01/19 Range/Units 06:26 06:30 Hct 38.9 L (39.0-53.0) % Total Bilirubin 2.0 H (0.2-1.3) mg/dL AST 189 H (17-59) U/L ALT 328 H (21-72) U/L Alkaline Phosphatase 189 H (38-126) U/L <En Duque - Last Filed: 02/01/19 14:16> Subjective As above. Pain minimal at this time. Liver enzymes have improved. Prior to cholecystectomy would like to see the patient's liver enzymes return to near- normal. We'll repeat labs tomorrow. Increase diet at this time. Decision regarding cholecystectomy versus reattempts at ERCP pending the trend in his lab values. Objective - Vital Signs Vital signs: Vital Signs Temp 98.5 F 02/01/19 09:30 Pulse 49 L 02/01/19 11:00 Resp 12 02/01/19 09:30 BP 163/94 02/01/19 11:00 Pulse Ox 92 L 02/01/19 09:30 Intake & Output 01/31/19 02/01/19 02/01/19 18:59 06:59 18:59 Intake Total 1010 1100 Balance 1010 1100 Weight 84.822 kg Intake: IV 1100 Intake, IV Titration 950 Amount Piperacillin-Tazobactam 3 200 .375 gm In Sodium Chloride 0.9% 100 ml @ 200 mls/hr IVPB ONCE STA Rx#:[id number] Sodium Chloride 0.9% 1, 750 000 ml @ 125 mls/hr IV . Q8H [facility] Rx#:[id number] Oral 60 Other: Voiding Method Toilet # Voids 1 - Labs CBC & Chem 7: 02/01/19 06:26 02/01/19 06:30 Labs: Abnormal Lab Results - Last 24 Hours (Table) 02/01/19 02/01/19 Range/Units 06:26 06:30 Hct 38.9 L (39.0-53.0) % Total Bilirubin 2.0 H (0.2-1.3) mg/dL AST 189 H (17-59) U/L ALT 328 H (21-72) U/L Alkaline Phosphatase 189 H (38-126) U/L Microbiology - Last 24 Hours (Table) 01/31/19 10:11 Blood Culture - Preliminary Blood No Growth after 24 hours Assessment and Plan (1) Acute cholecystitis Current Visit: Yes Status: Acute Code(s): K81.0 - ACUTE CHOLECYSTITIS SNOMED Code(s): 39347400
[2019-02-01 13:27] VITALS: BMI 25.3
[2019-02-02] MEDS: HEPARIN SODIUM,PORCINE 5,000 UNIT/ML 1 ML VIAL SQ SCH ×2 (00:59→09:01)
[2019-02-02] MEDS: PIPERACILLIN-TAZOBACTAM 3.375 GM in SODIUM CHLORIDE 0.9% 100 ML IVPB SCH (05:14)
[2019-02-02] MEDS: SODIUM CHLORIDE 0.9% 1,000 ML IV SCH (05:15)
[2019-02-02 07:53] LABS: Basophils % (A) 1 %; Eosinophils # (A) 0.2 k/uL (0-0.7); Eosinophils % (A) 4 %; HCT 36.4 % (39.0-53.0); HGB 12.5 gm/dL (13.0-17.5); Lymphocytes # (A) 1.1 k/uL (1.0-4.8); Lymphocytes % (A) 21 %; MCHC 34.4 g/dL (31.0-37.0); MCV 84.4 fL (80.0-100.0); Mean Platelet Volume 7.6; Monocytes # (A) 0.3 k/uL (0-1.0); Monocytes % (A) 6 %; Neutrophils # (A) 3.7 k/uL (1.3-7.7); Neutrophils % (A) 68 %; Platelet Count 186 k/uL (150-450); RBC 4.32 m/uL (4.30-5.90); WBC 5.5 k/uL (3.8-10.6)
[2019-02-02 08:05] LABS: Calcium 9.5 mg/dL (8.4-10.2); Potassium 3.6 mmol/L (3.5-5.1); Total Bilirubin 1.6 mg/dL (0.2-1.3); Total Protein 6.7 g/dL (6.3-8.2)
[2019-02-02] MEDS: METOPROLOL TARTRATE 50 MG TAB PO SCH (09:04)
[2019-02-02] MEDS: PANTOPRAZOLE 40 MG/10 ML VIAL IV SCH (09:04)
[2019-02-02] MEDS: amLODIPine 10 MG TAB PO SCH (09:04)
[2019-02-02 10:05] VITALS: BP 169/96; PULSE 60; RESP 17; TEMP 99.2
[2019-02-02] MEDS ORDERED: APIXABAN 5 MG TAB PO SCH (11:00)
--- NOTE | 2019-02-02 11:05 | P.DS ---
Providers Date of admission: 01/31/19 06:35 Expected date of discharge: 02/02/19 Attending physician: Agatha Marcum MD Consults: 01/31/19 06:31 Consult Physician Stat Consulting Provider: En Duque Consult Reason/Comments: acute nevin Do you want consulting provider notified?: Already Contacted 01/31/19 09:43 Consult Physician Routine Consulting Provider: Karina Josue Consult Reason/Comments: Elevated liver enzymes Do you want consulting provider notified?: Yes Primary care physician: [facility] Course: 63-year-old male with PMH of atrial fibrillation, hypertension, history of PE in June 2018 on Eliquis, 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 Castellanos presents the ED for abdominal pain. Pain started around 7 PM last night. Pain is localized to the right and left upper quadrant. Pain is constant and throbbing in nature. It is 10 out of 10 in severity. Patient reports his last meal was 5 PM without any difficulties. Patient reports taking Tums which aggravated his pain. He has been complaining of 3-4 weeks of lower back pain. He denies any headaches, lower extremity edema, nausea or vomiting, fever or chills, cough, chest pain, shortness of breath, changes in urination or bowel habits. No changes in appetite or weight. He denies any dizziness, numbness/weakness/tingling of the extremities. In the ED, vital signs are stable. CBC showed leukocytosis of 11.3. CMP showed creatinine of 1.35, BUN of 29, glucose 134, lactic acid was 2.6. Total bilirubin is elevated at 2.1, AST 211, ALT 133, alkaline phosphatase 155. Lipase was 307. CT of the abdomen pelvis showed calcification in the right renal pelvis without hydronephrosis along with nonobstructive nephrolithiasis. Gallbladder ultrasound showed cholelithiasis with sonographic findings suspicious for acute cholecystitis. Patient is admitted for acute cholecystitis, started on IV antibiotics and general surgery on consult. Patient was thought to have acute cholecystitis related to choledocolithiasis causing possible pancreatitis. Patient did not meet sepsis criteria. Liver enzymes were repeated which showed worsening labs. GI and general surgery was consulted. GI recommended ERCP. Patient underwent ERCP which showed normal appearing pancreatic duct and unsuccessful cannulation of the common bile duct. Patient was afebrile throughout his stay and leukocytosis resolved on day 2. Liver enzymes trended down on 02/02/2019 and patient was cleared by general surgery for discharge to follow up for outpatient cholecystectomy. Patient was seen and examined prior to discharge. Patient reports complete resolution of all symptoms since ERCP. He denies any chest pain, shortness of breath or palpitations. No nausea or vomiting. No fever or chills. Looking forward to going home. General: [non toxic], [no distress], [appears at stated age] Derm: [warm], [dry] Head: [atraumatic], [normocephalic], [symmetric] Eyes: [EOMI], [no lid lag], [anicteric sclera] Mouth: [no lip lesion], [mucus membranes moist] Cardiovascular: [S1S2 reg], [no murmur], [positive posterior tibial pulse bilateral] Lungs: [CTA bilateral], [no rhonchi, no rales] , [no accessory muscle use] Abdominal: [soft], [no tenderness to palpation, negative Pino], [no guarding], [no appreciable organomegaly] Ext: [no gross muscle atrophy], [no edema], [no contractures] Neuro: [ CN II-XI grossly intact], [no focal neuro deficits] Psych: [Alert], [oriented], [appropriate affect] Assessment and Plan Acute cholecystitis, possibly related to choledocholithiasis causing associated pancreatitis Atrial fibrillation on Eliquis Hypertension History of PE 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 Castellanos Resolved: Acute kidney injury, lactic acidosis Does not meet sepsis criteria. As seen on gallbladder ultrasound. CT abdomen and pelvis is within normal limits. Elevated total bilirubin, AST, ALT and alkaline phosphatase. Lipase is elevated at 307. Repeat LFTs showed worsening total bilirubin of 3.2-2.0-1.6, AST of 399-189-67, ALT of 313-328-198, alkaline phosphatase of 144-189-156. Patient is afebrile with mild leukocytosis of 11.3, now resolved. ERCP unsuccessful. Plans: Discussed with Surgery, cleared for DC on 10 days of antibiotics, follow up for outpatient cholecystectomy. Zofran as needed for nausea or vomiting. Pain management with morphine. Start Protonix 40 g IV daily. Continue normal saline at 125 mL per hour. Follow blood cultures. Stable. Plans: Continue metoprolol. Resume Eliquis. BP 169/96. Plans: Continue metoprolol and amlodipine. Monitor vitals, adjust medications as necessary. Patient reports repeat CTA chest there was negative for PE. Plans: Resume Eliquis. Patient reports no recurrence after chemo and radiation. Plans: Follow Dr. Castellanos in the outpatient setting. [Patient admitted for acute cholecystitis, considerable improved since admission. LFT showing signs of obstruction, ERCP unsuccessful, LFTs improving. GI and general surgery on board, cleared for DC to follow up with general surgery for cholecystectomy.] Pertinent Studies: CT AP Gall bladder US Procedures: ERCP Patient Condition at Discharge: Serious Plan - Discharge Summary Discharge Rx Participant: Yes New Discharge Prescriptions: New Amoxicillin/Potassium Clav [Augmentin 875-125 Tablet] 1 tab PO BID 10 Days #20 tab Continue L.acidoph,Paracasei, B.lactis [Probiotic] 1 cap PO DAILY Apixaban [Eliquis] 5 mg PO BID #60 tab Potassium Chloride ER [K-Dur 20] 20 meq PO DAILY Cholecalciferol [Vitamin D3 (25 Mcg = 1000 Iu)] 1,000 unit PO DAILY amLODIPine [Norvasc] 10 mg PO DAILY Metoprolol Tartrate [Lopressor] 100 mg PO BID Esomeprazole Magnesium [NexIUM] 40 mg PO DAILY Discharge Medication List L.acidoph,Paracasei, B.lactis [Probiotic] 1 cap PO DAILY 05/05/18 [History] Apixaban [Eliquis] 5 mg PO BID #60 tab 07/08/18 [Rx] Cholecalciferol [Vitamin D3 (25 Mcg = 1000 Iu)] 1,000 unit PO DAILY 01/31/19 [History] Esomeprazole Magnesium [NexIUM] 40 mg PO DAILY 01/31/19 [History] Metoprolol Tartrate [Lopressor] 100 mg PO BID 01/31/19 [History] Potassium Chloride ER [K-Dur 20] 20 meq PO DAILY 01/31/19 [History] amLODIPine [Norvasc] 10 mg PO DAILY 01/31/19 [History] Amoxicillin/Potassium Clav [Augmentin 875-125 Tablet] 1 tab PO BID 10 Days #20 tab 02/02/19 [Rx] Follow up Appointment(s)/Referral(s): En Duque MD [Medical Doctor] - 1 Week Colten Henson MD [Primary Care Provider] - 1-2 days Ambulatory/Diagnostic Orders: Comprehensive Metabolic Panel [LAB.AMB] Time Frame: 02/07/19, Location: None Selected Patient Instructions/Handouts: Cholecystitis (GEN) Activity/Diet/Wound Care/Special Instructions: Follow up with PCP within 1-2 days of discharge. FU general surgery with the appointment given to you. Repeat CMP in 3 days. Take all medications as advised. Discharge Disposition: HOME SELF-CARE
--- NOTE | 2019-02-02 12:04 | P.PN ---
<Jessie Quinones A - Last Filed: 02/02/19 12:02> Subjective Progress Note Date: 02/02/19 CHIEF COMPLAINT: Elevated liver enzymes HISTORY OF PRESENT ILLNESS: Patient seen and examined this morning at the bedside. He is tolerating diet. Denies nausea or vomiting. Denies abdominal p ain. LFTs improving. Bilirubin 1.6. AST 67. ALT 198. Alkaline phosphatase 156. PHYSICAL EXAM: VITAL SIGNS: Reviewed. GENERAL: Well-developed in no acute distress. HEENT: No sclera icterus. Extraocular movements grossly intact. Moist buccal mucosa. Head is atraumatic, normocephalic. ABDOMEN: Soft. Nondistended. Nontender. Positive bowel sounds. NEUROLOGIC: Alert and oriented. Cranial nerves II through XII grossly intact. ASSESSMENT: 1. Acute cholecystitis 2. Transaminitis, s/p ERCP with unsuccessful cannulation of the common bile duct PLAN: Patient requesting to be discharged home today. He states his is leaving for vacation tomorrow and would like to postpone cholecystectomy and have it performed outpatient. This is reasonable considering patient's pain has resolved and LFTs are improving. Patient is stable for discharge from a surgical standpoint today. He is to have a CMP repeated on Thursday and follow up with Dr. Duque outpatient. Nurse practitioner note has been reviewed by physician. Signing provider agrees with the documented findings, assessment, and plan of care. Objective - Vital Signs Vital signs: Vital Signs Temp 99.2 F 02/02/19 07:00 Pulse 60 02/02/19 07:00 Resp 17 02/02/19 07:00 BP 169/96 02/02/19 07:00 Pulse Ox 98 02/02/19 07:00 Intake & Output 02/01/19 02/02/19 02/02/19 18:59 06:59 18:59 Intake Total 2630 Balance 2630 Weight 84.822 kg Intake: IV 1100 Intake, IV Titration 1050 Amount Piperacillin-Tazobactam 3 50 .375 gm In Sodium Chloride 0.9% 100 ml @ 25 mls/hr IVPB Q8H GORDY Rx#: [id number] Sodium Chloride 0.9% 1, 1000 000 ml @ 125 mls/hr IV . Q8H GORDY Rx#:[id number] Oral 480 Other: Voiding Method Toilet Toilet # Voids 2 1 - Labs CBC & Chem 7: 02/02/19 06:55 02/02/19 06:50 Labs: Abnormal Lab Results - Last 24 Hours (Table) 02/02/19 02/02/19 Range/Units 06:50 06:55 Hgb 12.5 L (13.0-17.5) gm/dL Hct 36.4 L (39.0-53.0) % Creatinine 1.31 H (0.66-1.25) mg/dL Total Bilirubin 1.6 H (0.2-1.3) mg/dL AST 67 H (17-59) U/L ALT 198 H (21-72) U/L Alkaline Phosphatase 156 H (38-126) U/L Microbiology - Last 24 Hours (Table) 01/31/19 10:11 Blood Culture - Preliminary Blood No Growth after 24 hours <En Duque - Last Filed: 02/02/19 21:50> Subjective As above. Patient's labs improved. Denies pain. Will schedule outpatient cholecystectomy. Objective - Vital Signs Vital signs: Vital Signs Temp 99.2 F 02/02/19 07:00 Pulse 60 02/02/19 07:00 Resp 17 02/02/19 07:00 BP 169/96 02/02/19 07:00 Pulse Ox 98 02/02/19 07:00 Intake & Output 02/02/19 02/02/19 02/03/19 06:59 18:59 06:59 Other: Voiding Method Toilet Toilet # Voids 1 - Labs CBC & Chem 7: 02/02/19 06:55 02/02/19 06:50 Labs: Abnormal Lab Results - Last 24 Hours (Table) 02/02/19 02/02/19 Range/Units 06:50 06:55 Hgb 12.5 L (13.0-17.5) gm/dL Hct 36.4 L (39.0-53.0) % Creatinine 1.31 H (0.66-1.25) mg/dL Total Bilirubin 1.6 H (0.2-1.3) mg/dL AST 67 H (17-59) U/L ALT 198 H (21-72) U/L Alkaline Phosphatase 156 H (38-126) U/L Microbiology - Last 24 Hours (Table) 01/31/19 10:11 Blood Culture - Preliminary Blood No Growth after 48 hours Assessment and Plan (1) Acute cholecystitis Status: Acute Code(s): K81.0 - ACUTE CHOLECYSTITIS SNOMED Code(s): 14281247
== END 2019-02-02 11:47 | disposition home or self-care (01) ==
LOC: EC 01:40 → 4SSUR 06:35
PROVIDERS: ADMIT Internal Medicine; ATTEND Internal Medicine
DX: K80.00 Calculus of gallbladder with acute cholecystitis without obstruction (principal); K85.10 Biliary acute pancreatitis without necrosis or infection; I48.91 Unspecified atrial fibrillation; Z79.01 Long term (current) use of anticoagulants; I10 Essential (primary) hypertension; Z85.858 Personal history of malignant neoplasm of other endocrine glands; Z92.3 Personal history of irradiation; Z92.21 Personal history of antineoplastic chemotherapy; Z86.711 Personal history of pulmonary embolism; N17.9 Acute kidney failure, unspecified; E87.2 Acidosis; E86.0 Dehydration; R31.0 Gross hematuria; I25.10 Atherosclerotic heart disease of native coronary artery without angina pectoris; R74.0 Nonspecific elevation of levels of transaminase and lactic acid dehydrogenase [LDH]; K21.9 Gastro-esophageal reflux disease without esophagitis; M19.90 Unspecified osteoarthritis, unspecified site; E04.1 Nontoxic single thyroid nodule; M46.94 Unspecified inflammatory spondylopathy, thoracic region; G43.909 Migraine, unspecified, not intractable, without status migrainosus; Z86.718 Personal history of other venous thrombosis and embolism; Z85.89 Personal history of malignant neoplasm of other organs and systems; Z87.891 Personal history of nicotine dependence; Z79.899 Other long term (current) drug therapy; Z88.5 Allergy status to narcotic agent; Z82.49 Family history of ischemic heart disease and other diseases of the circulatory system; Z83.6 Family history of other diseases of the respiratory system
CPT/HCPCS: 96375 ×2; 96361; 96365; 99285; 36415; 80053 ×3; 83605; 83690; 85025 ×3; 81001; 87040; 74328; 76705; 74176; 43260; G0378 ×3; J2543 ×3; J2250; J2270; J1644 ×3; J2405; J2001; J3010; J1170; J2704; C9113 ×3; Q9967

== ENCOUNTER 2019-02-02 23:41 | Observation (INO) | payer MEDICAID, MEDICARE ==
[2019-02-02 23:46] VITALS: RESP 18
[2019-02-03] MEDS ORDERED: SODIUM CHLORIDE 0.9% 1,000 ML IV STA (00:42)
[2019-02-03] MEDS ORDERED: HYDROmorphone 1 MG/ML 1 ML SYRINGE IVP STA (00:42)
[2019-02-03] MEDS ORDERED: PIPERACILLIN-TAZOBACTAM 3.375 GM in SODIUM CHLORIDE 0.9% 100 ML IVPB STA (00:43)
[2019-02-03] MEDS ORDERED: PIPERACILLIN-TAZOBACTAM 3.375 GM in SODIUM CHLORIDE 0.9% 100 ML IVPB ONE (00:56)
[2019-02-03 01:04] LABS: Basophils % (A) 0 %; Eosinophils # (A) 0.1 k/uL (0-0.7); Eosinophils % (A) 2 %; HCT 37.5 % (39.0-53.0); Lymphocytes # (A) 1.6 k/uL (1.0-4.8); Lymphocytes % (A) 24 %; MCH 28.6 pg (25.0-35.0); MCHC 34.8 g/dL (31.0-37.0); MCV 82.1 fL (80.0-100.0); Mean Platelet Volume 7.3; Monocytes # (A) 0.4 k/uL (0-1.0); Monocytes % (A) 6 %; Neutrophils # (A) 4.5 k/uL (1.3-7.7); Neutrophils % (A) 67 %; Platelet Count 198 k/uL (150-450); RBC 4.57 m/uL (4.30-5.90); RDW 13.6 % (11.5-15.5); WBC 6.8 k/uL (3.8-10.6)
[2019-02-03 01:20] LABS: Albumin 4.5 g/dL (3.5-5.0); Calcium 10.2 mg/dL (8.4-10.2); Potassium 3.2 mmol/L (3.5-5.1); Total Bilirubin 1.6 mg/dL (0.2-1.3); Total Protein 7.3 g/dL (6.3-8.2)
--- NOTE | 2019-02-03 01:47 | US ---
EXAM: US Abdomen Limited, Right Upper Quadrant CLINICAL HISTORY: ITS.REASON US Reason: Pain TECHNIQUE: Real-time ultrasound of the right upper quadrant with image documentation. COMPARISON: 01/31/2019. FINDINGS: Liver: Liver measures 15.02 cm. Fatty infiltration of the liver. No intrahepatic bile duct dilation. Gallbladder: Cholelithiasis. Gallbladder wall is not thickened. Positive ultrasonographic Pino's sign. Common bile duct: Common bile duct measures 0.7 cm. On the previous study, bile duct measures 0.45 cm. No stones. No dilation. Pancreas: Pancreas is obscured by bowel gas. Right kidney: Right kidney measures 11.1 x 6.6 x 5.9 cm. 0.6 cm nonobstructing calculus in the upper pole region of the right kidney is noted. A 1.1 x 1.2 x 1.4 Cm complex cyst at the juncture of the upper to mid pole region of the right kidney is noted. IMPRESSION: There is cholelithiasis. Gallbladder wall is not thickened. The common bile duct measures 0.7 cm and is now dilated. On the previous study of the common bile duct measures 0.45 cm. Positive ultra- sonographic Pino's sign is noted. The possibility of choledocholithiasis is raised. The possibility of early acute cholecystitis should also be considered. Nonobstructing right renal calculus. Complex cyst in the upper to mid pole region of the right kidney of uncertain etiology. CT imaging or MRI imaging of the abdomen with contrast administration is advised to further workup this finding. Fatty infiltration of the liver.
[2019-02-03 01:53] LABS: Appearance,Urine Clear (Clear); Bilirubin,Urine Negative (Negative); Blood,Urine Moderate (Negative); Color,Urine Yellow; Glucose,Urine (UA) Negative (Negative); Ketones,Urine Trace (Negative); Leukocyte Esterase,Urine Negative (Negative); Mucus,Urine Rare /hpf; Nitrite,Urine Negative (Negative); Protein,Urine Negative (Negative); RBC,Urine 115 /hpf (0-5); Specific Gravity,Urine 1.009 (1.001-1.035); WBC,Urine 1 /hpf (0-5)
--- NOTE | 2019-02-03 02:34 | ED ---
General Adult HPI - General Source: patient, RN notes reviewed, old records reviewed Mode of arrival: ambulatory Limitations: no limitations <Diego Crowder - Last Filed: 02/03/19 03:30> <Khoi Paulino - Last Filed: 02/04/19 06:34> - General Chief complaint: Abdominal Pain Stated complaint: Recheck Abd Pain Time Seen by Provider: 02/03/19 00:27 - History of Present Illness Initial comments: 63-year-old male patient past history significant for recent hospitalization for right upper quadrant pain, transaminitis. During admission patient was offered cholecystectomy. Patient requested to be discharged, and have cholecystectomy on an outpatient basis. Patient was discharged from hospital today around noon, after eating patient again began experiencing right upper quadrant pain. Patient denies any other complaints at this time. Systemic: Pt denies fatigue, fever/chills, rash. Pt denies weakness, night sweats, weight loss. Neuro: Pt denies headache, visual disturbances, syncope or pre-syncope. HEENT: Pt denies ocular discharge or irritation, otalgia, rhinorrhea, pharyngitis or notable lymphadenopathy. Cardiopulmonary: Pt denies chest pain, SOB, heart palpitations, dyspnea on exertion. Abdominal/GI: Pt denies n/v/d. : Pt denies dysuria, burning w/ urination, frequency/urgency. Denies new onset urinary or bowel incontinence. MSK: Pt denies myalgia, loss of strength or function in extremities. Neuro: Pt denies new onset weakness, paresthesias. (Diego Crowder) - Related Data Home Medications Medication Instructions Recorded Confirmed L.acidoph,Paracasei, B.lactis 1 cap PO DAILY 05/05/18 02/03/19 [Probiotic] Cholecalciferol [Vitamin D3 (25 1,000 unit PO DAILY 01/31/19 02/03/19 Mcg = 1000 Iu)] Esomeprazole Magnesium [NexIUM] 40 mg PO DAILY 01/31/19 02/03/19 Metoprolol Tartrate [Lopressor] 100 mg PO BID 01/31/19 02/03/19 Potassium Chloride ER [K-Dur 20] 20 meq PO DAILY 01/31/19 02/03/19 amLODIPine [Norvasc] 10 mg PO DAILY 01/31/19 02/03/19 Previous Rx's Medication Instructions Recorded Apixaban [Eliquis] 5 mg PO BID #60 tab 07/08/18 Amoxicillin/Potassium Clav 1 tab PO BID 10 Days #20 tab 02/02/19 [Augmentin 875-125 Tablet] Allergies Allergy/AdvReac Type Severity Reaction Status Date / Time meperidine [From Demerol] AdvReac fever Verified 02/03/19 07:24 Review of Systems ROS Other: All systems not noted in ROS Statement are negative. <Diego Crowder - Last Filed: 02/03/19 03:30> ROS Other: All systems not noted in ROS Statement are negative. <Khoi Paulino - Last Filed: 02/04/19 06:34> ROS Statement: Those systems with pertinent positive or pertinent negative responses have been documented in the HPI. Past Medical History Past Medical History: Atrial Fibrillation, Coronary Artery Disease (CAD), Cancer, GERD/Reflux, Hypertension, Osteoarthritis (OA), Pulmonary Embolus (PE) Additional Past Medical History / Comment(s): PE in Jun 2018. 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 History of Any Multi-Drug Resistant Organisms: None Reported Past Surgical History: Appendectomy, Hernia Repair, Orthopedic Surgery Additional Past Surgical History / Comment(s): tongue bx neg, thyroid bx neg, and lt neck lymph node bx pt stated positive ,arthroscopies both knees, lithotripsy x2, bilateral inguinal hernia repairs, PICC line inserted and removed in August 2018. Last had any chemo/radiation in August 2018 Past Anesthesia/Blood Transfusion Reactions: No Reported Reaction Additional Past Anesthesia/Blood Transfusion Reaction / Comment(s): . Past Psychological History: No Psychological Hx Reported Smoking Status: Former smoker Past Alcohol Use History: None Reported Past Drug Use History: None Reported - Past Family History Mother Family Medical History: No Reported History Additional Family Medical History / Comment(s): Arrhythmia Father Family Medical History: Coronary Artery Disease (CAD), Myocardial Infarction (PR), Pneumonia Additional Family Medical History / Comment(s): CABG x3 at an early age. <Diego Crowder - Last Filed: 02/03/19 03:30> General Exam Limitations: no limitations <Diego Crowder - Last Filed: 02/03/19 03:30> - General Exam Comments Initial Comments: Constitutional: NAD, AOX3, Pt has pleasant affect. HEENT: NC/AT, trachea midline, neck supple, no lymphadenopathy. Posterior pharynx non erythematous, without exudates. External ears appear normal, without discharge. Mucous membranes moist. Eyes PERRLA, EOM intact. There is no scleral icterus. No pallor noted. Cardiopulmonary: RRR, no murmurs, rubs or gallops, no JVD noted. Lungs CTAB in anterior and posterior mistry. No peripheral edema. Abdominal exam: Abdomen soft and non-distended. Abdomen and is palpation right upper quadrant region, no other areas of abdominal tenderness, no ecchymoses. Berino sign positive. Bowel sounds active in LLQ. No hepatosplenomegaly. No ecc hymosis Neuro: CN II-XII grossly intact. No nuchal rigidity. No raccon eyes, no ramirez sign, no hemotympanum. No cervical spinal tenderness. MSK: No posterior calf tenderness bilaterally, homans sign negative bilaterally. Posterior tibialis and radial pulse +2 bilaterally. Sensation intact in upper and lower extremities. Full active ROM in upper and lower extremities, 5/5 stregnth. (Diego Crowder) Course Vital Signs 02/02/19 02/03/19 02/03/19 23:44 03:53 04:16 Temperature 98.0 F 97.8 F Pulse Rate 61 60 62 Respiratory 18 18 18 Rate Blood Pressure 172/90 171/100 150/96 O2 Sat by Pulse 100 99 96 Oximetry Medical Decision Making - Lab Data Result diagrams: 02/03/19 00:47 02/03/19 00:47 <Diego Crowder - Last Filed: 02/03/19 03:30> - Lab Data Result diagrams: 02/03/19 07:18 02/03/19 07:18 <Khoi Paulino - Last Filed: 02/04/19 06:34> - Medical Decision Making 63-year-old male patient past history significant for recent hospitalization for right upper quadrant pain, transaminitis. During admission patient was offered cholecystectomy. Patient requested to be discharged, and have cholecystectomy on an outpatient basis. Patient was discharged from hospital today around noon, after eating patient again began experiencing right upper quadrant pain. Patie nt denies any other complaints at this time. Pt VSS, afebrile. Physical exam displayed: Abdomen soft and non-distended. Abdomen and is palpation right upper quadrant region, no other areas of abdominal tenderness, no ecchymoses. Berino sign positive. Of investigations reveal transaminitis, mildly elevated lipase at 354, mildly elevated bilirubin at 1.56. UA did display 115 red blood cells. CBC non-impressive. Ultrasound displayed cholelithiasis, bladder wall not thickened, dilated common bile duct, possibly early acute cholecystitis. Complex cysts in the upper pole of the right kidney noted. Patient initiated on Zosyn. Patient will be admitted for further evaluation. Case discussed with Dr. Echeverria. (Diego Crowder) I saw this patient in conjunction with the physician multimedia assistant. I performed independent history and physical exam. Agree with case management. (Khoi Paulino) - Lab Data Lab Results 02/03/19 02/03/19 02/03/19 Range/Units 00:47 00:47 00:47 WBC 6.8 (3.8-10.6) k/uL RBC 4.57 (4.30-5.90) m/uL Hgb 13.0 (13.0-17.5) gm/dL Hct 37.5 L (39.0-53.0) % MCV 82.1 (80.0-100.0) fL MCH 28.6 (25.0-35.0) pg MCHC 34.8 (31.0-37.0) g/dL RDW 13.6 (11.5-15.5) % Plt Count 198 (150-450) k/uL Neutrophils % 67 % Lymphocytes % 24 % Monocytes % 6 % Eosinophils % 2 % Basophils % 0 % Neutrophils # 4.5 (1.3-7.7) k/uL Lymphocytes # 1.6 (1.0-4.8) k/uL Monocytes # 0.4 (0-1.0) k/uL Eosinophils # 0.1 (0-0.7) k/uL Basophils # 0.0 (0-0.2) k/uL Sodium 140 (137-145) mmol/L Potassium 3.2 L (3.5-5.1) mmol/L Chloride 105 (98-107) mmol/L Carbon Dioxide 20 L (22-30) mmol/L Anion Gap 15 mmol/L BUN 20 (9-20) mg/dL Creatinine 1.35 H (0.66-1.25) mg/dL Est GFR (CKD-EPI)AfAm 64 (>60 ml/min/1.73 sqM) Est GFR (CKD-EPI)NonAf 55 (>60 ml/min/1.73 sqM) Glucose 139 H (74-99) mg/dL Plasma Lactic Acid Sebastien 1.9 (0.7-2.0) mmol/L Calcium 10.2 (8.4-10.2) mg/dL Total Bilirubin 1.6 H (0.2-1.3) mg/dL AST 129 H (17-59) U/L ALT 201 H (21-72) U/L Alkaline Phosphatase 256 H (38-126) U/L Total Protein 7.3 (6.3-8.2) g/dL Albumin 4.5 (3.5-5.0) g/dL Lipase 354 H (23-300) U/L Urine Color Urine Appearance (Clear) Urine pH (5.0-8.0) Ur Specific [place] (1.001-1.035) Urine Protein (Negative) Urine Glucose (UA) (Negative) Urine Ketones (Negative) Urine Blood (Negative) Urine Nitrite (Negative) Urine Bilirubin (Negative) Urine Urobilinogen (<2.0) mg/dL Ur Leukocyte Esterase (Negative) Urine RBC (0-5) /hpf Urine WBC (0-5) /hpf Urine Mucus (None) /hpf 02/03/19 Range/Units 01:25 WBC (3.8-10.6) k/uL RBC (4.30-5.90) m/uL Hgb (13.0-17.5) gm/dL Hct (39.0-53.0) % MCV (80.0-100.0) fL MCH (25.0-35.0) pg MCHC (31.0-37.0) g/dL RDW (11.5-15.5) % Plt Count (150-450) k/uL Neutrophils % % Lymphocytes % % Monocytes % % Eosinophils % % Basophils % % Neutrophils # (1.3-7.7) k/uL Lymphocytes # (1.0-4.8) k/uL Monocytes # (0-1.0) k/uL Eosinophils # (0-0.7) k/uL Basophils # (0-0.2) k/uL Sodium (137-145) mmol/L Potassium (3.5-5.1) mmol/L Chloride (98-107) mmol/L Carbon Dioxide (22-30) mmol/L Anion Gap mmol/L BUN (9-20) mg/dL Creatinine (0.66-1.25) mg/dL Est GFR (CKD-EPI)AfAm (>60 ml/min/1.73 sqM) Est GFR (CKD-EPI)NonAf (>60 ml/min/1.73 sqM) Glucose (74-99) mg/dL Plasma Lactic Acid Sebastien (0.7-2.0) mmol/L Calcium (8.4-10.2) mg/dL Total Bilirubin (0.2-1.3) mg/dL AST (17-59) U/L ALT (21-72) U/L Alkaline Phosphatase (38-126) U/L Total Protein (6.3-8.2) g/dL Albumin (3.5-5.0) g/dL Lipase (23-300) U/L Urine Color Yellow Urine Appearance Clear (Clear) Urine pH 7.0 (5.0-8.0) Ur Specific [place] 1.009 (1.001-1.035) Urine Protein Negative (Negative) Urine Glucose (UA) Negative (Negative) Urine Ketones Trace H (Negative) Urine Blood Moderate H (Negative) Urine Nitrite Negative (Negative) Urine Bilirubin Negative (Negative) Urine Urobilinogen 2.0 (<2.0) mg/dL Ur Leukocyte Esterase Negative (Negative) Urine RBC 115 H (0-5) /hpf Urine WBC 1 (0-5) /hpf Urine Mucus Rare H (None) /hpf Disposition Is patient prescribed a controlled substance at d/c from ED?: No <Diego Crowder - Last Filed: 02/03/19 03:30> <Khoi Paulino - Last Filed: 02/04/19 06:34> Clinical Impression: Acute cholecystitis Disposition: ADMITTED IP TO THIS [facility] Condition: Serious
[2019-02-03] MEDS ORDERED: ACETAMINOPHEN TAB 325 MG TAB PO PRN (03:26)
[2019-02-03] MEDS ORDERED: ONDANSETRON 4 MG/2 ML VIAL IVP PRN (03:26)
[2019-02-03] MEDS ORDERED: NALOXONE 0.4 MG/ML 1 ML VIAL IV PRN (03:26)
[2019-02-03] MEDS: HYDROmorphone 1 MG/ML 1 ML SYRINGE IVP PRN ×4 (03:54→18:07)
[2019-02-03] MEDS ORDERED: POTASSIUM CHLORIDE ER 20 MEQ TAB.ER PO STA (04:22)
--- NOTE | 2019-02-03 04:28 | P.HPIM ---
History of Present Illness H&P Date: 02/03/19 Patient is a 63-year-old male with a PMH of hypertension, squamous cell cancer status post chemoradiation, history of PE, and A. fib (on Eliquis), with recent hospitalization from 01/31 and discharged yesterday, during which time the patient had presented with bilateral upper quadrant pain, and was diagnosed with acute cholecystitis with concerns for choledocholithiasis. The patient had undergone an ERCP with normal pancreatic duct and unsuccessful cannulation of the CBD. The patient's abdominal pain had resolved and his transaminitis and bilirubin levels had stabilized after which Gen. surgery recommended outpatient cholecystectomy versus an MRCP and the patient was subsequently discharged home. The patient however states that upon returning home, his pain recurred within a few hours. At time of interview, the patient reports 6 out of 10 constant right upper quadrant abdominal pain, crampy in nature, nonradiating, with minimal associated nausea. The patient notes that the pain is similar nature to that which he had earlier. The patient also states compliance with all of his disc harge medications including his antibiotics. He denied vomiting, fever, or chills. He also denied shortness of breath, chest pain, palpitations, or diarrhea. He also denied any urinary complaints including hematuria, dysuria, or any abnormal color or consistency of the urine. The patient underwent an extensive evaluation in the emergency room with gallbladder ultrasound showing cholelithiasis with a new finding of dilated common bile duct of 0.7 as compared to 0.45 on the previous examination with concerns for acute cholecystitis and choledocholithiasis. AST 129, up from 67 yesterday, ALT 201 up from 198, and alk phos 256 up from 156. Patient's potassium was 3.2, and lipase 354. He was noted to have 115 RBCs in the urine along with a complex cyst in the R kidney on the abdominal US. The patient was admitted to the medicine service for further management of acute cholecystitis and choledocholithiasis. Review of Systems Pertinent positives and negatives as discussed in HPI, a complete review of systems was performed and all other systems are negative. Past Medical History Past Medical History: Atrial Fibrillation, Coronary Artery Disease (CAD), Cancer, GERD/Reflux, Hypertension, Osteoarthritis (OA), Pulmonary Embolus (PE) Additional Past Medical History / Comment(s): PE in Jun 2018. L neck lynph node positive for metastatic squamous cell cancer/pt receiving chemo and radiation, t hyroid nodule, arthritis in low back, migraines, mild CAD, alot of sinus issues. History of Any Multi-Drug Resistant Organisms: None Reported Past Surgical History: Appendectomy, Hernia Repair, Orthopedic Surgery Additional Past Surgical History / Comment(s): tongue bx neg, thyroid bx neg, and lt neck lymph node bx pt stated positive ,arthroscopies both knees, lithotripsy x2, bilateral inguinal hernia repairs, PICC line inserted and removed in August 2018. Last had any chemo/radiation in August 2018 Past Anesthesia/Blood Transfusion Reactions: No Reported Reaction Additional Past Anesthesia/Blood Transfusion Reaction / Comment(s): . Past Psychological History: No Psychological Hx Reported Smoking Status: Former smoker Past Alcohol Use History: None Reported Past Drug Use History: None Reported - Past Family History Mother Family Medical History: No Reported History Additional Family Medical History / Comment(s): Arrhythmia Father Family Medical History: Coronary Artery Disease (CAD), Myocardial Infarction (MS), Pneumonia Additional Family Medical History / Comment(s): CABG x3 at an early age. Medications and Allergies Home Medications Medication Instructions Recorded Confirmed Type L.acidoph,Paracasei, B.lactis 1 cap PO DAILY 05/05/18 01/31/19 History [Probiotic] Apixaban [Eliquis] 5 mg PO BID #60 tab 07/08/18 01/31/19 Rx Cholecalciferol [Vitamin D3 (25 1,000 unit PO DAILY 01/31/19 01/31/19 History Mcg = 1000 Iu)] Esomeprazole Magnesium [NexIUM] 40 mg PO DAILY 01/31/19 01/31/19 History Metoprolol Tartrate [Lopressor] 100 mg PO BID 01/31/19 01/31/19 History Potassium Chloride ER [K-Dur 20] 20 meq PO DAILY 01/31/19 01/31/19 History amLODIPine [Norvasc] 10 mg PO DAILY 01/31/19 01/31/19 History Amoxicillin/Potassium Clav 1 tab PO BID 10 Days #20 tab 02/02/19 Rx [Augmentin 875-125 Tablet] Allergies Allergy/AdvReac Type Severity Reaction Status Date / Time meperidine [From Demerol] AdvReac fever Verified 02/02/19 23:46 Physical Exam Vitals: Vital Signs Temp Pulse Resp BP Pulse Ox 02/02/19 23:44 98.0 F 61 18 172/90 100 Intake and Output 02/02/19 02/02/19 02/03/19 14:59 22:59 06:59 Other: Weight 84.822 kg General: Pleasant male, non toxic, in mild distress, appears at stated age, normal weight Derm: no unusual rashes/lesions no unusual ecchymoses, warm, dry Head: atraumatic, normocephalic, symmetric Eyes: EOMI, no lid lag, anicteric sclera, pupils equal round reactive to light ENT: Nose and ears atraumatic, no thrush, no pharyngeal erythema Neck: No thyromegaly, no cervical lymphadenopathy, trachea midline, supple Mouth: no lip lesion, mucus membranes moist Cardiovascular: S1S2 reg, no murmur, positive posterior tibial pulse bilateral, no edema, capillary refill less than 2 seconds Lungs: CTA bilateral, no rhonchi, no rales , no accessory muscle use Abdominal: soft, right upper quadrant and epigastric mild tenderness to palpation, no rebound, no guarding, no appreciable organomegaly, normal bowel sounds Ext: no gross muscle atrophy, muscle strength 5 out of 5 in all 4 extremities grossly, no contractures, Neuro: CN II-XI grossly intact, light touch intact all 4 extremities, finger to nose within normal limits, Psych: Alert, oriented, appropriate affect Results CBC & Chem 7: 02/03/19 00:47 02/03/19 00:47 Labs: Abnormal Lab Results - Last 24 Hours (Table) 02/03/19 02/03/19 02/03/19 Range/Units 00:47 00:47 01:25 Hct 37.5 L (39.0-53.0) % Potassium 3.2 L (3.5-5.1) mmol/L Carbon Dioxide 20 L (22-30) mmol/L Creatinine 1.35 H (0.66-1.25) mg/dL Glucose 139 H (74-99) mg/dL Total Bilirubin 1.6 H (0.2-1.3) mg/dL AST 129 H (17-59) U/L ALT 201 H (21-72) U/L Alkaline Phosphatase 256 H (38-126) U/L Lipase 354 H (23-300) U/L Urine Ketones Trace H (Negative) Urine Blood Moderate H (Negative) Urine RBC 115 H (0-5) /hpf Urine Mucus Rare H (None) /hpf Assessment and Plan Plan: Acute cholecystitis and suspected choledocholithiasis -Consult surgery and GI -Possible MRCP versus cholecystectomy -Nothing by mouth for now -Continue with Zosyn -Pain control -Hold patient's Eliquis -IV fluids -Monitor LFTs and lipase Elevated lipase, likely secondary to choledocholithiasis -Monitor for now -As per above Painless microscopic hematuria -Complex cyst noted on ultrasound -Urology consulted CKD stage 3b -At baseline -Monitor BMP -Avoid nephrotoxins -Creatinine clearance 66. C/w Zosyn full dose. A. fib -Hold Eliquis in setting of possible cholecystectomy -Cardiac monitoring History of PE -Hold Eliquis for now Hypertension -Continue with home meds Recently diagnosed squamous cell carcinoma, found in the neck lymph nodes -Status post chemotherapy and radiation -Follow as an outpatient with Dr. Castellanos Hypokalemia -Replace and monitor DVT prophylaxis -Eliquis The patient is admitted with an anticipated greater than 2 midnight stay for e valuation of cholecystitis. CODE STATUS: Full Code Discussed with: Patient, Anticipated discharge date: 02/16/[address]: Home A total of 40 minutes was spent on the care of this complex patient more than 50% of the time was spent in counseling and care coordination.
[2019-02-03] MEDS: METOPROLOL TARTRATE 50 MG TAB PO SCH ×2 (05:01→20:05)
[2019-02-03] MEDS: SODIUM CHLORIDE 0.9% 1,000 ML IV SCH ×2 (05:30→15:53)
[2019-02-03] MEDS: PIPERACILLIN-TAZOBACTAM 3.375 GM in SODIUM CHLORIDE 0.9% 100 ML IVPB SCH ×2 (07:43→18:08)
[2019-02-03 08:28] LABS: Albumin 4.2 g/dL (3.5-5.0); Bilirubin, Delta 0.4 mg/dL (0.0-0.2); Bilirubin,Unconjugated 0.7 mg/dL (0.0-1.1); Calcium 9.4 mg/dL (8.4-10.2); Potassium 3.5 mmol/L (3.5-5.1); Total Bilirubin 1.1 mg/dL (0.2-1.3); Total Protein 6.8 g/dL (6.3-8.2)
[2019-02-03 08:59] LABS: Basophils % (A) 0 %; Eosinophils # (A) 0.1 k/uL (0-0.7); Eosinophils % (A) 2 %; HCT 35.1 % (39.0-53.0); HGB 12.3 gm/dL (13.0-17.5); Lymphocytes # (A) 1.1 k/uL (1.0-4.8); Lymphocytes % (A) 16 %; MCH 29.2 pg (25.0-35.0); MCV 83.4 fL (80.0-100.0); Mean Platelet Volume 7.7; Monocytes # (A) 0.5 k/uL (0-1.0); Monocytes % (A) 6 %; Neutrophils # (A) 5.5 k/uL (1.3-7.7); Neutrophils % (A) 75 %; Platelet Count 188 k/uL (150-450); RBC 4.21 m/uL (4.30-5.90); RDW 13.6 % (11.5-15.5); WBC 7.3 k/uL (3.8-10.6)
[2019-02-03] MEDS ORDERED: amLODIPine 10 MG TAB PO SCH (09:00)
[2019-02-03] MEDS ORDERED: POTASSIUM CHLORIDE ER 20 MEQ TAB.ER PO SCH (09:00)
[2019-02-03 10:53] VITALS: BMI 25.3
[2019-02-03 11:52] VITALS: BP 160/91; PULSE 56; TEMP 97.6
--- NOTE | 2019-02-03 11:57 | P.DS ---
Providers Date of admission: 02/03/19 03:31 Expected date of discharge: 02/03/19 Attending physician: Doris Najera MD Consults: 02/03/19 03:26 Consult Physician Stat Consulting Provider: En Duque Consult Reason/Comments: acute colecystitis Do you want consulting provider notified?: Yes 02/03/19 04:23 Consult Physician Urgent Consulting Provider: Karina Josue Consult Reason/Comments: suspected choledocholithiasis Do you want consulting provider notified?: Yes Primary care physician: [facility] [place] Course: Discharge Diagnosis: acute cholecystitis Choledocholithiasis Transaminitis painless hematuria with right renal cyst atrial fibrillation GERD Hypertension Osteoarthritis History of metastatic squamous cell cancer status post chemo and radiation Chronic low back pain secondary to arthritis Migraines Coronary artery disea Hospital Course: Patient is a 63-year-old male with a past medical historyof hypertension, squamous cell cancer status post chemoradiation, history of PE, and A. fib on Eliquis. He was recently hospitalized from 01/31 - 02/02/19, during which time the patient had presented with bilateral upper quadrant pain, and was diagnosed with acute cholecystitis with concerns for choledocholithiasis. The patient had undergone an ERCP with normal pancreatic duct and unsuccessful cannulation of the CBD. The patient's abdominal pain had resolved and his transaminitis and bilirubin levels stabilized. he was seen by general surgery who recommended outpatient cholecystectomy. He was discharged home with a course of Augmentin and close follow-up with general surgery. Upon returning home, his pain recurred. He was taking all his medications including his antibiotics. He d enied vomiting, fever, or chills. in the emergency department this admission he underwent an extensive evaluation. Gallbladder ultrasound showing cholelithiasis with a new finding of dilated common bile duct of 0.7 as compared to 0.45 on the previous examination with concerns for acute cholecystitis and choledocholithiasis. AST 129, ALT 201, and alk phos 256 T. Bili 1.6. Patient's potassium was 3.2, and lipase 354. He was noted to have 115 RBCs in the urine along with a complex cyst in the R kidney on the abdominal US. The patient was admitted for further management of acute cholecystitis and choledocholithiasis. initially urology was consulted secondary to his hematuria and complex renal cyst. GI and general surgery were contacted. Gastroenterology felt that they were unlikely to be successful in cannulating the common bile duct, as they were unable to earlier this week. They recommended transfer to tertiary care center. Surgery was in agreement. [facility] was contacted and agreed to accept the patient, Dr. Magaña was the accepting physician. Patient will be be transferred for gastroenterology services. Patient seen and examined at bedside. pain control with Dilaudid, no nausea, no vomiting, no diarrhea. No shortness of breath. Amenable to transfer. Vital signs reviewed and stable. General: ill appearing, no distress, appears at stated age Derm: warm, dry Head: atraumatic, normocephalic, symmetric Eyes: EOMI, no lid lag, anicteric sclera Mouth: no lip lesion, mucus membranes moist Cardiovascular: S1S2 reg, no murmur, positive posterior tibial pulse bilateral, Lungs: CTA bilateral, no rhonchi, no rales , no accessory muscle use Abdominal: soft, +tender to palpation RUQ, no guarding, no appreciable organomegaly Ext: no gross muscle atrophy, no edema, no contractures Neuro: CN II-XI grossly intact, no focal neuro deficits Psych: Alert, oriented, appropriate affect A total of 35 minutes of time were spent preparing this complex discharge summary . Patient Condition at Discharge: Serious Plan - Discharge Summary Discharge Rx Participant: Yes New Discharge Prescriptions: No Action L.acidoph,Paracasei, B.lactis [Probiotic] 1 cap PO DAILY Apixaban [Eliquis] 5 mg PO BID #60 tab Potassium Chloride ER [K-Dur 20] 20 meq PO DAILY Cholecalciferol [Vitamin D3 (25 Mcg = 1000 Iu)] 1,000 unit PO DAILY amLODIPine [Norvasc] 10 mg PO DAILY Metoprolol Tartrate [Lopressor] 100 mg PO BID Esomeprazole Magnesium [NexIUM] 40 mg PO DAILY Amoxicillin/Potassium Clav [Augmentin 875-125 Tablet] 1 tab PO BID 10 Days #20 tab Discharge Medication List L.acidoph,Paracasei, B.lactis [Probiotic] 1 cap PO DAILY 05/05/18 [History] Apixaban [Eliquis] 5 mg PO BID #60 tab 07/08/18 [Rx] Cholecalciferol [Vitamin D3 (25 Mcg = 1000 Iu)] 1,000 unit PO DAILY 01/31/19 [History] Esomeprazole Magnesium [NexIUM] 40 mg PO DAILY 01/31/19 [History] Metoprolol Tartrate [Lopressor] 100 mg PO BID 01/31/19 [History] Potassium Chloride ER [K-Dur 20] 20 meq PO DAILY 01/31/19 [History] amLODIPine [Norvasc] 10 mg PO DAILY 01/31/19 [History] Amoxicillin/Potassium Clav [Augmentin 875-125 Tablet] 1 tab PO BID 10 Days #20 tab 02/02/19 [Rx] Follow up Appointment(s)/Referral(s): Colten Henson MD [Primary Care Provider] - 1-2 days
--- NOTE | 2019-02-03 14:10 | P.GSCN ---
<Jessie Quinones A - Last Filed: 02/03/19 14:04> History of Present Illness Consult date: 02/03/19 Reason for Consult: Acute cholecystitis Requesting physician: Diego Crowder History of present illness: CHIEF COMPLAINT: Acute cholecystitis HISTORY OF PRESENT ILLNESS: 63-year-old male who was just discharged from the hospital on 02/02/2019. Patient was admitted at that time for acute cholecystit is and transaminitis. Patient underwent ERCP at that time with unsuccessful cannulation of the common bile duct. Patient opted to postpone cholecystectomy and preferred to have it performed outpatient. He was discharged home in stable condition. Patient states he was feeling well at home yesterday after discharge. He reports working in the yard for a short time. He ate some lasagna for dinner around 1800 and tolerated well. Approximately at 2100, he began having abdominal pain, majority in right upper quadrant with radiation to his back. He denies nausea or vomiting. He states the pain was more severe this time than his previous admission. PAST MEDICAL HISTORY: See list. PAST SURGICAL HISTORY: See list. SOCIAL HISTORY: No illicit drug use. REVIEW OF SYSTEMS: CONSTITUTIONAL: Denies fever or chills. HEENT: Denies blurred vision, vision changes, or eye pain. Denies hemoptysis CARDIOVASCULAR: Denies chest pain or pressure. RESPIRATORY: No shortness of breath. GASTROINTESTINAL: Refer to HPI for pertinent findings HEMATOLOGIC: Denies bleeding disorders. GENITOURINARY: Denies any blood in urine. SKIN: Denies pruitis. Denies rash. PHYSICAL EXAM: VITAL SIGNS: Reviewed. GENERAL: Well-developed in no acute distress. HEENT: No sclera icterus. Extraocular movements grossly intact. Moist buccal mucosa. Head is atraumatic, normocephalic. ABDOMEN: Soft. Nondistended. Mild tenderness with palpation to right upper quadrant. Positive bowel signs. No peritoneal signs. NEUROLOGIC: Alert and oriented. Cranial nerves II through XII grossly intact. LABORATORY DATA: Laboratory data on admission reveals white count 6.8. Hemoglobin 13.0. Bilirubin 1.6. AST 129. ALT 201. Alkaline phosphatase 256. Lipase 354. IMAGING: Ultrasound gallbladder: Cholelithiasis. Gallbladder wall is not thickened. Positive sonographic Pino sign. Common bile duct now measuring 0.7 cm. On previous imaging bile duct measuring 0.45cm. No stones visualized in common bile duct. ASSESSMENT: 1. Abdominal pain 2. Acute cholecystitis 3. Transaminitis 4. Suspected choledocholithiasis, US shows increase in CBD now measuring 0.7cm 5. Recent ERCP with unsuccessful cannulation of the common bile duct PLAN: Dr. Duque discussed case with Dr. Josue who recommended transfer to [facility] for further evaluation as he had an ERCP performed earlier this week with unsuccessful cannulation of the common bile duct. General surgery in agreement for transfer to [facility]. This was discussed with Dr. Self, internal medicine, and in depth with the patient at the bedside. Nurse practitioner note has been reviewed by physician. Signing provider agrees with the documented findings, assessment, and plan of care. Past Medical History Past Medical History: Atrial Fibrillation, Coronary Artery Disease (CAD), Cancer, GERD/Reflux, Hypertension, Osteoarthritis (OA), Pulmonary Embolus (PE) Additional Past Medical History / Comment(s): PE in Jun 2018. 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 History of Any Multi-Drug Resistant Organisms: None Reported Past Surgical History: Appendectomy, Hernia Repair, Orthopedic Surgery Additional Past Surgical History / Comment(s): tongue bx neg, thyroid bx neg, and lt neck lymph node bx pt stated positive ,arthroscopies both knees, lithotripsy x2, bilateral inguinal hernia repairs, PICC line inserted and removed in August 2018. Last had any chemo/radiation in August 2018 Past Anesthesia/Blood Transfusion Reactions: No Reported Reaction Additional Past Anesthesia/Blood Transfusion Reaction / Comm: . Past Psychological History: No Psychological Hx Reported Smoking Status: Former smoker Past Alcohol Use History: None Reported Past Drug Use History: None Reported - Past Family History Mother Family Medical History: No Reported History Additional Family Medical History / Comment(s): Arrhythmia Father Family Medical History: Coronary Artery Disease (CAD), Myocardial Infarction ([place]), Pneumonia Additional Family Medical History / Comment(s): CABG x3 at an early age. Medications and Allergies Home Medications Medication Instructions Recorded Confirmed Type L.acidoph,Paracasei, B.lactis 1 cap PO DAILY 05/05/18 02/03/19 History [Probiotic] Apixaban [Eliquis] 5 mg PO BID #60 tab 07/08/18 02/03/19 Rx Cholecalciferol [Vitamin D3 (25 1,000 unit PO DAILY 01/31/19 02/03/19 History Mcg = 1000 Iu)] Esomeprazole Magnesium [NexIUM] 40 mg PO DAILY 01/31/19 02/03/19 History Metoprolol Tartrate [Lopressor] 100 mg PO BID 01/31/19 02/03/19 History Potassium Chloride ER [K-Dur 20] 20 meq PO DAILY 01/31/19 02/03/19 History amLODIPine [Norvasc] 10 mg PO DAILY 01/31/19 02/03/19 History Amoxicillin/Potassium Clav 1 tab PO BID 10 Days #20 tab 02/02/19 02/03/19 Rx [Augmentin 875-125 Tablet] Allergies Allergy/AdvReac Type Severity Reaction Status Date / Time meperidine [From Demerol] AdvReac fever Verified 02/03/19 07:24 Surgical - Exam Vital Signs Temp Pulse Resp BP Pulse Ox 98.0 F 61 18 172/90 100 02/02/19 23:44 02/02/19 23:44 02/02/19 23:44 02/02/19 23:44 02/02/19 23:44 Results - Labs 02/03/19 07:18 02/03/19 07:18 Abnormal Lab Results - Last 24 Hours (Table) 02/03/19 02/03/19 02/03/19 Range/Units 00:47 00:47 01:25 RBC (4.30-5.90) m/uL Hgb (13.0-17.5) gm/dL Hct 37.5 L (39.0-53.0) % Potassium 3.2 L (3.5-5.1) mmol/L Carbon Dioxide 20 L (22-30) mmol/L Creatinine 1.35 H (0.66-1.25) mg/dL Glucose 139 H (74-99) mg/dL Total Bilirubin 1.6 H (0.2-1.3) mg/dL Delta Bilirubin (0.0-0.2) mg/dL AST 129 H (17-59) U/L ALT 201 H (21-72) U/L Alkaline Phosphatase 256 H (38-126) U/L Lipase 354 H (23-300) U/L Urine Ketones Trace H (Negative) Urine Blood Moderate H (Negative) Urine RBC 115 H (0-5) /hpf Urine Mucus Rare H (None) /hpf 02/03/19 02/03/19 Range/Units 07:18 07:18 RBC 4.21 L (4.30-5.90) m/uL Hgb 12.3 L (13.0-17.5) gm/dL Hct 35.1 L (39.0-53.0) % Potassium (3.5-5.1) mmol/L Carbon Dioxide (22-30) mmol/L Creatinine (0.66-1.25) mg/dL Glucose 126 H (74-99) mg/dL Total Bilirubin (0.2-1.3) mg/dL Delta Bilirubin 0.4 H (0.0-0.2) mg/dL AST 118 H (17-59) U/L ALT 208 H (21-72) U/L Alkaline Phosphatase 205 H (38-126) U/L Lipase (23-300) U/L Urine Ketones (Negative) Urine Blood (Negative) Urine RBC (0-5) /hpf Urine Mucus (None) /hpf Diabetes panel 02/03/19 02/03/19 Range/Units 00:47 07:18 Sodium 140 141 (137-145) mmol/L Potassium 3.2 L 3.5 (3.5-5.1) mmol/L Chloride 105 103 (98-107) mmol/L Carbon Dioxide 20 L 27 (22-30) mmol/L BUN 20 16 (9-20) mg/dL Creatinine 1.35 H 1.22 (0.66-1.25) mg/dL Glucose 139 H 126 H (74-99) mg/dL Calcium 10.2 9.4 (8.4-10.2) mg/dL AST 129 H 118 H (17-59) U/L ALT 201 H 208 H (21-72) U/L Alkaline Phosphatase 256 H 205 H (38-126) U/L Total Protein 7.3 6.8 (6.3-8.2) g/dL Albumin 4.5 4.2 (3.5-5.0) g/dL Calcium panel 02/03/19 02/03/19 Range/Units 00:47 07:18 Calcium 10.2 9.4 (8.4-10.2) mg/dL Albumin 4.5 4.2 (3.5-5.0) g/dL Pituitary panel 02/03/19 02/03/19 Range/Units 00:47 07:18 Sodium 140 141 (137-145) mmol/L Potassium 3.2 L 3.5 (3.5-5.1) mmol/L Chloride 105 103 (98-107) mmol/L Carbon Dioxide 20 L 27 (22-30) mmol/L BUN 20 16 (9-20) mg/dL Creatinine 1.35 H 1.22 (0.66-1.25) mg/dL Glucose 139 H 126 H (74-99) mg/dL Calcium 10.2 9.4 (8.4-10.2) mg/dL Adrenal panel 02/03/19 02/03/19 Range/Units 00:47 07:18 Sodium 140 141 (137-145) mmol/L Potassium 3.2 L 3.5 (3.5-5.1) mmol/L Chloride 105 103 (98-107) mmol/L Carbon Dioxide 20 L 27 (22-30) mmol/L BUN 20 16 (9-20) mg/dL Creatinine 1.35 H 1.22 (0.66-1.25) mg/dL Glucose 139 H 126 H (74-99) mg/dL Calcium 10.2 9.4 (8.4-10.2) mg/dL Total Bilirubin 1.6 H 1.1 (0.2-1.3) mg/dL AST 129 H 118 H (17-59) U/L ALT 201 H 208 H (21-72) U/L Alkaline Phosphatase 256 H 205 H (38-126) U/L Total Protein 7.3 6.8 (6.3-8.2) g/dL Albumin 4.5 4.2 (3.5-5.0) g/dL <En Duque - Last Filed: 02/03/19 18:01> History of Present Illness History of present illness: As above. Patient returns to the ER with recurrent pain. Enzymes increased and common bile duct size increase. Suspect recurrent or persistent choledocholithiasis. Agree with plans for transfer for repeat attempts at ERCP. Surgical - Exam Vital Signs Temp Pulse Resp BP Pulse Ox 98.0 F 61 18 172/90 100 02/02/19 23:44 09/04/19 23:44 02/02/19 23:44 02/02/19 23:44 02/02/19 23:44 Results - Labs 02/03/19 07:18 02/03/19 07:18 Abnormal Lab Results - Last 24 Hours (Table) 02/03/19 02/03/19 02/03/19 Range/Units 00:47 00:47 01:25 RBC (4.30-5.90) m/uL Hgb (13.0-17.5) gm/dL Hct 37.5 L (39.0-53.0) % Potassium 3.2 L (3.5-5.1) mmol/L Carbon Dioxide 20 L (22-30) mmol/L Creatinine 1.35 H (0.66-1.25) mg/dL Glucose 139 H (74-99) mg/dL Total Bilirubin 1.6 H (0.2-1.3) mg/dL Delta Bilirubin (0.0-0.2) mg/dL AST 129 H (17-59) U/L ALT 201 H (21-72) U/L Alkaline Phosphatase 256 H (38-126) U/L Lipase 354 H (23-300) U/L Urine Ketones Trace H (Negative) Urine Blood Moderate H (Negative) Urine RBC 115 H (0-5) /hpf Urine Mucus Rare H (None) /hpf 02/03/19 02/03/19 Range/Units 07:18 07:18 RBC 4.21 L (4.30-5.90) m/uL Hgb 12.3 L (13.0-17.5) gm/dL Hct 35.1 L (39.0-53.0) % Potassium (3.5-5.1) mmol/L Carbon Dioxide (22-30) mmol/L Creatinine (0.66-1.25) mg/dL Glucose 126 H (74-99) mg/dL Total Bilirubin (0.2-1.3) mg/dL Delta Bilirubin 0.4 H (0.0-0.2) mg/dL AST 118 H (17-59) U/L ALT 208 H (21-72) U/L Alkaline Phosphatase 205 H (38-126) U/L Lipase (23-300) U/L Urine Ketones (Negative) Urine Blood (Negative) Urine RBC (0-5) /hpf Urine Mucus (None) /hpf Diabetes panel 02/03/19 02/03/19 Range/Units 00:47 07:18 Sodium 140 141 (137-145) mmol/L Potassium 3.2 L 3.5 (3.5-5.1) mmol/L Chloride 105 103 (98-107) mmol/L Carbon Dioxide 20 L 27 (22-30) mmol/L BUN 20 16 (9-20) mg/dL Creatinine 1.35 H 1.22 (0.66-1.25) mg/dL Glucose 139 H 126 H (74-99) mg/dL Calcium 10.2 9.4 (8.4-10.2) mg/dL AST 129 H 118 H (17-59) U/L ALT 201 H 208 H (21-72) U/L Alkaline Phosphatase 256 H 205 H (38-126) U/L Total Protein 7.3 6.8 (6.3-8.2) g/dL Albumin 4.5 4.2 (3.5-5.0) g/dL Calcium panel 02/03/19 02/03/19 Range/Units 00:47 07:18 Calcium 10.2 9.4 (8.4-10.2) mg/dL Albumin 4.5 4.2 (3.5-5.0) g/dL Pituitary panel 02/03/19 02/03/19 Range/Units 00:47 07:18 Sodium 140 141 (137-145) mmol/L Potassium 3.2 L 3.5 (3.5-5.1) mmol/L Chloride 105 103 (98-107) mmol/L Carbon Dioxide 20 L 27 (22-30) mmol/L BUN 20 16 (9-20) mg/dL Creatinine 1.35 H 1.22 (0.66-1.25) mg/dL Glucose 139 H 126 H (74-99) mg/dL Calcium 10.2 9.4 (8.4-10.2) mg/dL Adrenal panel 02/03/19 02/03/19 Range/Units 00:47 07:18 Sodium 140 141 (137-145) mmol/L Potassium 3.2 L 3.5 (3.5-5.1) mmol/L Chloride 105 103 (98-107) mmol/L Carbon Dioxide 20 L 27 (22-30) mmol/L BUN 20 16 (9-20) mg/dL Creatinine 1.35 H 1.22 (0.66-1.25) mg/dL Glucose 139 H 126 H (74-99) mg/dL Calcium 10.2 9.4 (8.4-10.2) mg/dL Total Bilirubin 1.6 H 1.1 (0.2-1.3) mg/dL AST 129 H 118 H (17-59) U/L ALT 201 H 208 H (21-72) U/L Alkaline Phosphatase 256 H 205 H (38-126) U/L Total Protein 7.3 6.8 (6.3-8.2) g/dL Albumin 4.5 4.2 (3.5-5.0) g/dL
--- NOTE | 2019-02-03 22:41 | CONS ---
CONSULTATION DATE OF DICTATION: 02/03/2019 This patient is a 63-year-old pleasant white male who was recently discharged home from the hospital yesterday morning, at which time he was admitted with severe epigastric and right upper quadrant abdominal pain and elevated LFTs as well as mild jaundice. Ultrasound of the abdomen showed evidence of gallstones but no biliary ductal dilation. But because of clinical suspicion for CBD stone, I attempted an ERCP on him on 02/01/2018. ERCP revealed a normal pancreatic duct, but I was not able to cannulate the common bile duct. His repeat labs the following day showed significant improvement in his labs, and the patient was discharged home yesterday outpatient MRCP prior to the gallbladder surgery. However, last night he started having severe epigastric and right upper quadrant abdominal pain that was very intense, associated with nausea and vomiting, and he came back to the emergency room. Once again he was noted to have mild elevation of serum transaminases with AST and ALT of 201 and 129, respectively, and alkaline phosphatase 256. Bilirubin was 0.9. Lipase was 354. He did have ultrasound of the abdomen done yesterday that showed slightly dilated CBD at 8.7 mm and gallstones. He just received Dilaudid and is feeling much better this morning. PAST MEDICAL HISTORY: Past medical history is significant for: 1. Coronary artery disease. 2. Atrial fibrillation. 3. GERD. 4. Hypertension. 5. Hyperlipidemia. 6. History of pulmonary embolism in the past. 7. Neck carcinoma, for which he underwent chemotherapy and radiation in July of this year. PAST SURGICAL HISTORY: 1. Bilateral inguinal hernia repair. 2. Recent attempted ERCP. 3. PEG tube placement for head and neck carcinoma that was removed 2 months ago. MEDICATIONS: Medications at home include: 1. Eliquis. 2. Cholecalciferol. 3. Nexium. 4. Lopressor. 5. K-Dur. 6. Norvasc. 7. Augmentin. ALLERGIES: DEMEROL. SOCIAL HISTORY: No smoking. No alcohol use. FAMILY HISTORY: Mother with cardiac arrhythmia. Father with coronary artery disease. REVIEW OF SYSTEMS: CARDIOPULMONARY: No chest pain or shortness of breath. GENITOURINARY: No dysuria or hematuria. MUSCULOSKELETAL: Unremarkable. SKIN: Unremarkable. ENDOCRINE: Unremarkable. PSYCHIATRIC: Unremarkable. NEUROLOGY: Unremarkable. ENT/VISION: Unremarkable. CONSTITUTIONAL: No recent weight loss. No fever, chills, night sweats. PHYSICAL EXAMINATION: VITAL SIGNS: Blood pressure 170/88, pulse rate 48, temperature 97.6. HEENT examination unremarkable. Conjunctivae pink. Sclerae anicteric. Oral cavity no lesions. NECK: No JVD or lymph node enlargement. CHEST: Clear to auscultation. HEART: Regular rate and rhythm. ABDOMEN: Soft. Mild tenderness in the epigastric area. Bowel sounds are positive. No organomegaly. EXTREMITIES: No pedal edema. SKIN: No rashes. NEUROLOGIC: Alert and oriented x3. No focal deficits. LABS: T-bilirubin 1.6, AST 129, ALT 201, alkaline phosphatase 256. This morning T-bilirubin is down to 1.1. ALT and AST are 189 and 208, respectively. Alkaline phosphatase 205. Lipase 354. Today it is 144. CBC is within normal limits. IMPRESSION: Recurrent epigastric/right upper quadrant abdominal pain in this patient who was just sent home from the hospital yesterday when he was admitted with symptomatic gallstones/acute cholecystitis and possible CBD stones. He had an attempted ERCP 3 days ago, but the CBD could not be cannulated. His serum transaminases improved and so was the bilirubin, and the patient was discharged home with an outpatient MRCP followed by gallbladder surgery. However, he had recurrent symptoms with epigastric pain and right upper quadrant abdominal pain yesterday and came back to the emergency room and is now admitted to the hospital with elevated serum transaminases and bilirubin up to 1.6. This morning he is feeling much better and his symptoms have resolved. RECOMMENDATIONS: I had a lengthy discussion with the patient regarding ongoing symptoms. He will definitely need to have another ERCP, but since I was unsuccessful 3 days ago, I recommended that he can be transferred to [facility] for further management. The patient was agreeable to this. Arrangements have been made for him to be transferred to [facility] today. Thank you for this consultation. MMODL / IJN: [id number] /
== END 2019-02-03 20:24 | disposition other institution (70) ==
LOC: EC 23:41 → 3NMEDONC 02-03 03:31
PROVIDERS: ADMIT Internal Medicine; ATTEND Internal Medicine
DX: K80.62 Calculus of gallbladder and bile duct with acute cholecystitis without obstruction (principal); I25.10 Atherosclerotic heart disease of native coronary artery without angina pectoris; E87.6 Hypokalemia; E78.5 Hyperlipidemia, unspecified; I48.91 Unspecified atrial fibrillation; I12.9 Hypertensive chronic kidney disease with stage 1 through stage 4 chronic kidney disease, or unspecified chronic kidney disease; N18.3 Chronic kidney disease, stage 3 (moderate); N28.1 Cyst of kidney, acquired; R31.29 Other microscopic hematuria; E04.1 Nontoxic single thyroid nodule; R74.0 Nonspecific elevation of levels of transaminase and lactic acid dehydrogenase [LDH]; R74.8 Abnormal levels of other serum enzymes; G89.29 Other chronic pain; M46.90 Unspecified inflammatory spondylopathy, site unspecified; K21.9 Gastro-esophageal reflux disease without esophagitis; G43.909 Migraine, unspecified, not intractable, without status migrainosus; Z86.711 Personal history of pulmonary embolism; Z92.21 Personal history of antineoplastic chemotherapy; Z85.89 Personal history of malignant neoplasm of other organs and systems; Z92.3 Personal history of irradiation; Z87.891 Personal history of nicotine dependence; Z79.01 Long term (current) use of anticoagulants; Z79.899 Other long term (current) drug therapy; Z88.5 Allergy status to narcotic agent; Z82.49 Family history of ischemic heart disease and other diseases of the circulatory system; Z83.6 Family history of other diseases of the respiratory system
CPT/HCPCS: 96376 ×2; 96361; 96366 ×2; 96365; 96375; 99285; 36415; 80053; 80048; 80076; 83605; 83690; 85025; 81001; 87040; 76705; G0378; J2543; J1170

== ENCOUNTER → 2019-03-28 | Outpatient (CLI) | payer MEDICAID, MEDICARE ==
[2019-03-28 12:52] LABS: Basophils % (A) 1 %; Eosinophils # (A) 0.3 k/uL (0-0.7); Eosinophils % (A) 5 %; HCT 39.4 % (39.0-53.0); HGB 13.8 gm/dL (13.0-17.5); Lymphocytes # (A) 1.4 k/uL (1.0-4.8); Lymphocytes % (A) 27 %; MCH 29.4 pg (25.0-35.0); Mean Platelet Volume 6.3; Monocytes # (A) 0.3 k/uL (0-1.0); Monocytes % (A) 7 %; Neutrophils % (A) 58 %; Platelet Count 247 k/uL (150-450); RBC 4.68 m/uL (4.30-5.90); RDW 13.5 % (11.5-15.5); WBC 5.1 k/uL (3.8-10.6)
[2019-03-28 18:46] LABS: % Iron Saturation 17.82 (15.00-50.00); African American GFR (CKD) 55.8 (60.0-200.0); Albumin 4.7 g/dL (3.80-4.90); Albumin/Globulin Ratio 2.35 (1.60-3.17); Calcium 9.8 mg/dL (8.7-10.3); Phosphorus 3.6 mg/dL (2.4-5.1); Potassium 4.4 mmol/L (3.5-5.5); Total Bilirubin 0.8 mg/dL (0.3-1.2); Total Protein 6.7 g/dL (6.2-8.2); Uric Acid 9.3 mg/dL (3.7-8.7)
[2019-03-28 19:37] LABS: Ferritin 385.9 ng/mL (22.0-322.0)
== END | disposition home or self-care (01) ==
LOC: LABWHC1 11:47
PROVIDERS: ATTEND Nurse Practitioner Family
DX: I10 Essential (primary) hypertension (principal); E78.2 Mixed hyperlipidemia; E55.9 Vitamin D deficiency, unspecified; N17.9 Acute kidney failure, unspecified; D64.9 Anemia, unspecified; R80.9 Proteinuria, unspecified; N25.81 Secondary hyperparathyroidism of renal origin; M10.9 Gout, unspecified; Z12.5 Encounter for screening for malignant neoplasm of prostate
CPT/HCPCS: 86803; 80053; 82728; 83540; 83550; 83735; 84100; 84550; 85025; 82306; 83970; 36415; G0103

== ENCOUNTER → 2019-03-31 | Outpatient (CLI) | payer MEDICAID, MEDICARE ==
[2019-03-31 17:15] LABS: Chol/HDL Ratio 4.94; LDL Cholesterol,Calculated 165.2 mg/dL (0.0-131.0); VLDL Calculation 27.8 mg/dL (5.00-40.00)
[2019-03-31 19:51] LABS: Creatinine,Urine Random 119.6 mg/dL
[2019-03-31 20:43] LABS: Total Protein,Urine Random 14.3 mg/dL (0.0-13.5)
== END | disposition home or self-care (01) ==
LOC: LABWHC1 08:45
PROVIDERS: ATTEND Nurse Practitioner Family
DX: I10 Essential (primary) hypertension (principal); E78.2 Mixed hyperlipidemia; E55.9 Vitamin D deficiency, unspecified; N17.9 Acute kidney failure, unspecified; Z12.5 Encounter for screening for malignant neoplasm of prostate
CPT/HCPCS: 36415; 80061; 82570; 84156

== ENCOUNTER → 2019-05-18 | Outpatient (CLI) | payer MEDICAID ==
--- NOTE | 2019-05-18 17:47 | CT ---
EXAMINATION TYPE: CT soft tissue neck wo con DATE OF EXAM: 05/18/2019 COMPARISON: 01/14/2019 HISTORY: Tongue CA CT DLP: 612 mGycm CONTRAST: Patient injected with 0 mL of Isovue 300. Abnormal laboratory results. TECHNIQUE: Axial images at 3 mm thick sections. Reconstructed images in the coronal plane and sagitt al plane are reviewed. FINDINGS: Limited CT sections are obtained the lung apices. The lung apices appear clear. CT neck: The torus tubarius and fossa of Rosenmuller are normal. Sports Physiotherapist spaces are normal. Ther e is opacification of the right maxillary sinus. Remaining paranasal sinuses mastoid air cells appear clear. The tongue appears symmetrical. No focal asymmetry is evident. No suspicious internal mass is evident . Posterior tongue at the hypopharynx appears within normal limits. Parotid glands appear normal and symmetrical. Submandibular glands, are normal. Parapharyngeal spac es are normal. No suspicious adenopathy is evident. The hypopharynx appears within normal limits. The previous subtle asymmetry at the vocal cord level is less prominent on the current examination. Thyroid as visualized is normal. Osseous structures are normal. IMPRESSIONS: 1. Improving asymmetry at the level of the vocal cord level. Continued monitoring is recommended.
== END | disposition home or self-care (01) ==
LOC: RADCTMAIN 14:23
PROVIDERS: ATTEND Otolaryngology
DX: C02.9 Malignant neoplasm of tongue, unspecified (principal); R93.89 Abnormal findings on diagnostic imaging of other specified body structures; Z88.5 Allergy status to narcotic agent
CPT/HCPCS: 36415; 70490; 82565; 84520

== ENCOUNTER → 2019-11-25 | Outpatient (CLI) | payer MEDICAID ==
--- NOTE | 2019-11-28 13:53 | PE ---
Nuclear medicine PET/CT HISTORY: Head and neck carcinoma, subsequent Patient received 12.4 mCi F-18 FDG intravenously in delayed scanning was performed from the skull bas e to the mid thighs. Small atthu-ss-ccof images through the head and neck. Correlation to prior nuclear medicine PET/CT 12/11/2018 Head and neck: There is no suspicious uptake. No evident cervical or supraclavicular adenopathy. Sali vary glands show symmetric appearance. CHEST: There is no mediastinal, axillary, or hilar adenopathy. Partial intrathoracic stomach, hiatal hernia is present. No evident lung mass, pleural or pericardial effusion. No suspicious hypermetaboli c uptake. There are coronary artery calcifications and the heart is enlarged. Aortic aneurysm is pres ent, descending aorta measures 4.4 cm, proximal descending aorta measures 3.4 cm. ABDOMEN: No evident liver mass or suspicious uptake. Nonobstructive calcification present at the uppe r pole the right kidney, lower poles of the bilateral kidneys. Probable exophytic cyst at the lower p ole the left kidney extends medially and measures 3.3 cm. Urinary bladder shows a thickened wall poss ibly due to bladder outlet obstruction change, prostate is mildly enlarged and shows associated calci fication. Diverticular change associated with the sigmoid colon. No suspicious uptake. Osseous structures are unremarkable. Degenerative disc changes are present at the lower lumbar spine. IMPRESSION: Essentially stable exam. No suspicious uptake. Bilateral nephrolithiasis. Additional find ings above.
== END | disposition home or self-care (01) ==
LOC: RADPETMAIN 13:59
PROVIDERS: ATTEND Internal Medicine Hematology & Oncology
DX: N20.0 Calculus of kidney (principal); K44.9 Diaphragmatic hernia without obstruction or gangrene; I51.7 Cardiomegaly; I71.9 Aortic aneurysm of unspecified site, without rupture; N40.0 Benign prostatic hyperplasia without lower urinary tract symptoms; N32.89 Other specified disorders of bladder; M51.36 Other intervertebral disc degeneration, lumbar region; C76.0 Malignant neoplasm of head, face and neck
CPT/HCPCS: 78815; A9552

== ENCOUNTER → 2020-11-13 | Outpatient (CLI) | payer MEDICAID ==
--- NOTE | 2020-11-13 11:49 | CT ---
EXAMINATION TYPE: CT chest wo con DATE OF EXAM: 11/13/2020 COMPARISON: Nuclear medicine PET/CT 11/25/2019, CT soft tissue neck 05/18/2019 HISTORY: Follow up cancer per patient. CT DLP: 432.6 mGycm. Automated Exposure Control for Dose Reduction was Utilized. TECHNIQUE: CT scan of the thorax is performed without IV contrast. FINDINGS: Lack of intravenous contrast could compromise sensitivity of the exam LUNGS: The lungs are remarkable for basilar interstitial changes greater on the right, there is no co ncerning parenchymal mass or nodule identified. There is no pleural effusion or pneumothorax seen. The tracheobronchial tree is patent. MEDIASTINUM: Lack of IV contrast is noted to limit evaluation for mediastinal and especially hilar ad enopathy. There are no definitive greater than 1 cm hilar or mediastinal lymph nodes. No cardiomega ly or pericardial effusion is seen. Ascending aorta is aneurysmal at 4.4 cm with proximal descending aorta 3.6 cm, there are coronary artery calcifications, three-vessel disease. There is a hiatal herni a with partial intrathoracic stomach. OTHER: Nonobstructive right renal calcification seen at the upper pole measuring 5 mm, punctate calci fications present at the upper pole the left kidney. IMPRESSION: Stable aortic aneurysm. Interstitial lung disease. Coronary artery disease. Hiatal hernia .
== END | disposition home or self-care (01) ==
LOC: RADCTMAIN 10:41
PROVIDERS: ATTEND Internal Medicine Hematology & Oncology
DX: C76.0 Malignant neoplasm of head, face and neck (principal); J84.9 Interstitial pulmonary disease, unspecified; I25.10 Atherosclerotic heart disease of native coronary artery without angina pectoris
CPT/HCPCS: 71250

== ENCOUNTER → 2020-11-15 | Outpatient (CLI) | payer MEDICAID ==
--- NOTE | 2020-11-15 14:01 | US ---
EXAMINATION TYPE: US kidneys/renal and bladder DATE OF EXAM: 11/15/2020 COMPARISON: CT 11/25/2019 CLINICAL HISTORY: N20.0 Nephrolithiasis. EXAM MEASUREMENTS: Right Kidney: 10.1 x 6.1 x 6.0 cm Left Kidney: 10.6 x 5.0 x 4.8 cm Right Kidney: No hydronephrosis. Two cystic areas, largest measuring 1.4 x 0.9 x 0.9 cm. Echogenic fo ci visualized upper pole measuring 0.8 cm Left Kidney: No hydronephrosis. Cyst visualized measuring 2.2 x 1.7 x 1.6 cm. Echogenic foci visuali zed lower pole measuring 1.4 cm Bladder: wnl Bilateral Jets seen: yes There is no evidence for hydronephrosis at this point in time. The urinary bladder is anechoic. Bi lateral ureteral jets are seen. IMPRESSION: Bilateral nephrolithiasis and renal cysts.
== END | disposition home or self-care (01) ==
LOC: RADUSWWP 12:01
PROVIDERS: ATTEND Internal Medicine Nephrology
DX: N13.30 Unspecified hydronephrosis (principal); N28.1 Cyst of kidney, acquired
CPT/HCPCS: 76770

== ENCOUNTER → 2021-02-06 | Outpatient (CLI) | payer MEDICAID, MEDICARE ==
[2021-02-06 10:56] LABS: Appearance,Urine Clear (Clear); Bilirubin,Urine Negative (Negative); Blood,Urine Moderate (Negative); Color,Urine Light Yellow; Glucose,Urine (UA) Negative (Negative); Ketones,Urine Negative (Negative); Leukocyte Esterase,Urine Moderate (Negative); Mucus,Urine Occasional /hpf; Nitrite,Urine Negative (Negative); PH, Urine 6.5 (5.0-8.0); Protein,Urine Negative (Negative); RBC,Urine 7 /hpf (0-5); Specific Gravity,Urine 1.005 (1.001-1.035); Urobilinogen,Urine <2.0 mg/dL (<2.0); WBC,Urine 13 /hpf (0-5)
[2021-02-06 11:20] LABS: Creatinine,Urine Random 42.8 mg/dL; Protein/Creatinine Ratio,Urine 0.701
[2021-02-06 16:06] LABS: Basophils # (A) 0.06 X 10*3/uL (0.00-0.10); Basophils % (A) 0.8 %; Eosinophils # (A) 0.33 X 10*3/uL (0.04-0.35); Eosinophils % (A) 4.2 %; HCT 45.6 % (39.6-50.0); HGB 15.5 g/dL (13.0-17.0); Lymphocytes # (A) 2.61 X 10*3/uL (0.90-5.00); Lymphocytes % (A) 33.5 %; MCH 28.5 pg (27.0-32.0); Mean Platelet Volume 10.8 fL (9.5-12.2); Monocytes % (A) 6.4 %; Neutrophils # (A) 4.24 X 10*3/uL (1.80-7.70); Neutrophils % (A) 54.6 %; Platelet Count 264 X 10*3/uL (140-440); RBC 5.43 X 10*6/uL (4.40-5.60); RDW 13.5 % (11.5-14.5); WBC 7.78 X 10*3/uL (4.50-10.00)
[2021-02-06 23:01] LABS: % Iron Saturation 31.36 (15.00-50.00); African American GFR (CKD) 60.3 (60.0-200.0); Albumin 4.3 g/dL (3.80-4.90); BUN/Creat Ratio 12.86 Ratio (12.00-20.00); Calcium 9.6 mg/dL (8.7-10.3); Magnesium 1.9 mg/dL (1.5-2.4); Phosphorus 3.3 mg/dL (2.4-5.1); Potassium 4.3 mmol/L (3.5-5.5); Uric Acid 7.3 mg/dL (3.7-8.7)
[2021-02-06 23:10] LABS: Ferritin 177.8 ng/mL (22.0-322.0)
== END | disposition home or self-care (01) ==
LOC: LABWHC1 09:06
PROVIDERS: ATTEND Internal Medicine Nephrology
DX: N18.32 Chronic kidney disease, stage 3b (principal); E55.9 Vitamin D deficiency, unspecified; N25.81 Secondary hyperparathyroidism of renal origin; M10.9 Gout, unspecified; N39.0 Urinary tract infection, site not specified; D64.9 Anemia, unspecified; R80.9 Proteinuria, unspecified
CPT/HCPCS: 36415; 80048; 81001; 82040; 82306; 82570; 82728; 83540; 83550; 83735; 83970; 84100; 84156; 84550; 85025

== ENCOUNTER 2021-06-24 18:10 | Emergency (ER) | payer MEDICAID, MEDICARE ==
[~2021-06-24 18:10] MED LIST changes: +EPINEPHrine 10 ML SYRINGE (0.1 MG/ML) ONE; -LIDOCAINE 2% (PF) 20 MG/ML 2 ML AMP SQ ONE; +SODIUM BICARB 8.4% 50 ML SYR (1 MEQ/ML) ONE
[2021-06-24 18:22] LABS: Glucose,Whole Blood 91 mg/dL (75-99)
--- NOTE | 2021-06-24 19:26 | ED ---
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 When the paramedics and fire rescue personnel arrived shortly thereafter he was minimally responsive and then collapsed in front of them. ACLS protocol was started including intubation with an Jared airway and CPR eventually placed on a Jameson 3 compression device. Patient was transported to the hospital. And route the patient did have return of spontaneous circulation for brief period time but then while still in route pulses were lost. ACLS protocol was continued. Upon arrival patient was unresponsive CPR progress. Per the patient's prior to this he had no complaints. I did discuss the case with Dr. Kimble who had recently seen the patient in his office in early May 2021 and had plan to refer him to cardiology. MD Complaint: collapsed during rest - Related Data Home Medications Medication Instructions Recorded Confirmed WaleacidBarrera irizarry B.lactis 1 cap PO DAILY 05/05/18 02/03/19 [Probiotic] Cholecalciferol [Vitamin D3 (25 1,000 unit PO DAILY 01/31/19 02/03/19 Mcg = 1000 Iu)] Esomeprazole Magnesium [NexIUM] 40 mg PO DAILY 01/31/19 02/03/19 Metoprolol Tartrate [Lopressor] 100 mg PO BID 01/31/19 02/03/19 Potassium Chloride ER [K-Dur 20] 20 meq PO DAILY 01/31/19 02/03/19 amLODIPine [Norvasc] 10 mg PO DAILY 01/31/19 02/03/19 Previous Rx's Medication Instructions Recorded Apixaban [Eliquis] 5 mg PO BID #60 tab 07/08/18 Amoxicillin/Potassium Clav 1 tab PO BID 10 Days #20 tab 02/02/19 [Augmentin 875-125 Tablet] Allergies Allergy/AdvReac Type Severity Reaction Status Date / Time meperidine [From Anthonyl] AdvReac fever Verified 02/03/19 07:24 Review of Systems ROS Statement: Those systems with pertinent positive or pertinent negative responses have been documented in the HPI. Limitations: ROS unobtainable due to patients medical condition Past Medical History Past Medical History: Atrial Fibrillation, Coronary Artery Disease (CAD), Cancer, GERD/Reflux, Hypertension, Osteoarthritis (OA), Pulmonary Embolus (PE) Additional Past Medical History / Comment(s): PE in Jun 2018. 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 History of Any Multi-Drug Resistant Organisms: None Reported Past Surgical History: Appendectomy, Hernia Repair, Orthopedic Surgery Additional Past Surgical History / Comment(s): tongue bx neg, thyroid bx neg, and lt neck lymph node bx pt stated positive ,arthroscopies both knees, lithotripsy x2, bilateral inguinal hernia repairs, PICC line inserted and removed in August 2018. Last had any chemo/radiation in August 2018 Past Anesthesia/Blood Transfusion Reactions: No Reported Reaction Additional Past Anesthesia/Blood Transfusion Reaction / Comment(s): . Past Psychological History: No Psychological Hx Reported Past Alcohol Use History: None Reported Past Drug Use History: None Reported - Past Family History Mother Family Medical History: No Reported History Additional Family Medical History / Comment(s): Arrhythmia Father Family Medical History: Coronary Artery Disease (CAD), Myocardial Infarction ([place]), Pneumonia Additional Family Medical History / Comment(s): CABG x3 at an early age. General Exam - General Exam Comments Initial Comments: This was a well-developed well-nourished unresponsive male CPR was in progress upon arrival patient did have a Jared airway in place with good aeration of the lungs with [id number]. Jameson [address] an operational. Limitations: no limitations General appearance: other (Unresponsive) Head exam: Present: atraumatic Eye exam: Present: other (Pupils are fixed and dilated) ENT exam: Present: other (Jared airway in place good aeration) Neck exam: Present: normal inspection, other (No JVD noted) Respiratory exam: Present: other (Good bilateral breath sounds with [id number]) Cardiovascular Exam: Present: other (Pulseless) Rectal exam: Present: deferred Extremities exam: Present: other (Pale). Absent: normal capillary refill Back exam: Present: normal inspection Neurological exam: Present: other Psychiatric exam: Present: other (Unresponsive unresponsive) Skin exam: Present: pallor (With cyanosis of the upper neck and face) Medical Decision Making - Medical Decision Making CPR was continued with many rounds of epinephrine and IV fluids as well as bicarbonate. The patient continued and what appear to be PEA with no pulses finally Doppler was used no pulses no heart sounds. Patient was pronounced at 18:25 PM. I did discuss the case with the dental assistant medical assistant's office patient is not in any case case number was [phone] area I did discuss the case also with Dr. Mariee. - Lab Data Lab Results 06/24/21 Range/Units 18:20 POC Glucose (mg/dL) 91 (75-99) mg/dL POC Glu Damage Cutter ID Elizabeth Hennessy Disposition Clinical Impression: Cardiac arrest, PEA (Pulseless electrical activity), Sudden cardiac Disposition: Referrals: Domingo Kimble MD [Primary Care Provider] - 1-2 days Preliminary Cause of : Sudden cardiac , PEA
== END 2021-06-24 20:24 | disposition expired ==
LOC: EC 18:10
DX: I46.9 Cardiac arrest, cause unspecified (principal); I48.91 Unspecified atrial fibrillation; I25.10 Atherosclerotic heart disease of native coronary artery without angina pectoris; K21.9 Gastro-esophageal reflux disease without esophagitis; I10 Essential (primary) hypertension; M19.90 Unspecified osteoarthritis, unspecified site; Z79.01 Long term (current) use of anticoagulants; Z88.1 Allergy status to other antibiotic agents; Z86.711 Personal history of pulmonary embolism; Z90.49 Acquired absence of other specified parts of digestive tract
CPT/HCPCS: 36415; 92950; 99285